=== PATIENT | female | born 1960 | race Caucasian/White ===

== ENCOUNTER 2016-11-03 18:54 | Emergency (ER) | payer SELFPAY ==
[~2016-11-03] VITALS: Ht 165.1 cm; Wt 98.0 kg
[~2016-11-03 18:54] MED LIST: BUPR150T3 PO; BUSP10 PO; FENO145T2 PO; HYDR-3535 PO; INSU100V SQ; LORA0.5T PO; NAPR500 PO; ONDA1TAB16 PO; PLAV75TA PO; PROT40TA PO; RISP2TAB2 PO; SUCR1S PO; TRAZ100 PO
[2016-11-03 18:56] VITALS: BP 170/108; PULSE 99; RESP 15; TEMP 98.2; O2SAT 98
== END 2016-11-03 21:00 | disposition left against medical advice (07) ==
LOC: NED 18:54
DX: E11.65 Type 2 diabetes mellitus with hyperglycemia (principal); Z79.4 Long term (current) use of insulin; Z53.21 Procedure and treatment not carried out due to patient leaving prior to being seen by health care provider
CPT/HCPCS: 99281

== ENCOUNTER 2016-11-08 03:48 | Emergency (ER) | payer OTHER ==
[~2016-11-08] VITALS: Ht 165.1 cm; Wt 100.0 kg
[2016-11-08 03:50] VITALS: BP 163/117; PULSE 125; RESP 24; TEMP 98; O2SAT 96
[2016-11-08 04:08] VITALS: BP 170/86; PULSE 114; RESP 18; O2SAT 98
[2016-11-08] MEDS ORDERED: INSU100V SQ (04:15)
[2016-11-08] MEDS ORDERED: SODIUM CHLOR 0.9% 1000 ML INJ 1,000 ML IV SCH (04:17)
[2016-11-08 04:19] VITALS: TEMP 99.1; O2SAT 96
[2016-11-08] MEDS ORDERED: MORPHINE SULFATE 8 MG/ML INJ IV PUSH ONE (04:30)
[2016-11-08] MEDS ORDERED: SODIUM CHLORIDE 0.9% FLUSH 10 ML FLUSH IV FLUSH PRN (04:30)
[2016-11-08] MEDS ORDERED: ONDANSETRON HCL 4 MG/2 ML VIAL IVP ONE (04:30)
[2016-11-08 04:45] LABS: AUTOMATED NEUTROPHIL # 9.2 TH/MM3 (1.8-7.7); BASOPHIL # 0.1 TH/MM3 (0-0.2); BASOPHIL % 0.9 % (0.0-2.0); EOSINOPHIL # 0.1 TH/MM3 (0-0.4); EOSINOPHIL % 1.1 % (0.0-4.0); HEMATOCRIT 48.3 % (35.0-46.0); HEMO FLAGS DIFF FINAL; LYMPH % 17.3 % (9.0-44.0); LYMPHOCYTE # 2.1 TH/MM3 (1.0-4.8); MEAN CELL VOLUME 89.5 FL (80.0-100.0); MEAN CORPUSCULAR HEMOGLOBIN 30.2 PG (27.0-34.0); MEAN CORPUSCULAR HGB CONC 33.7 % (32.0-36.0); MONO % 4.9 % (0.0-8.0); NEUT % 75.8 % (16.0-70.0); PLATELET COUNT 335 TH/MM3 (150-450); WHITE BLOOD COUNT 12.2 TH/MM3 (4.0-11.0)
[2016-11-08 05:05] LABS: ALKALINE PHOSPHATASE 85 U/L (45-117); ALT (GPT) 15 U/L (10-53); ANION GAP 12 MEQ/L (5-15); AST (GOT) 15 U/L (15-37); BICARBONATE 23.2 MEQ/L (21.0-32.0); BLOOD UREA NITROGEN 10 MG/DL (7-18); CHLORIDE 101 MEQ/L (98-107); GLOMERULAR FILTRATION RATE 84 ML/MIN (>89); POTASSIUM 3.7 MEQ/L (3.5-5.1); SODIUM (NA) 136 MEQ/L (136-145); TOTAL BILIRUBIN ADULT 0.3 MG/DL (0.2-1.0)
[2016-11-08 05:10] LABS: BLOOD, URINE MOD (NEG); COMMENT (UR) CATH-CULT NOT IND; CULTURE IF INDICATED CATH CULTURE NOT IND; GLUCOSE,URINE 1000 mg/dL (NEG); HYALINE CAST, URINE 1 /lpf (RARE); KETONE, URINE TRACE mg/dL (NEG); NITRITE,URINE NEG (NEG); PH, URINE 6.5 (5.0-8.5); SQUAMOUS EPITHELIAL CELL URINE 6 /hpf (0-5); URINE COLOR LIGHT-YELLOW (YELLW/STRAW)
[2016-11-08] MEDS ORDERED: INSULIN HUMAN REGULAR 1,000 UNITS/10 ML VIAL IV PUSH ONE (05:15)
--- NOTE | 2016-11-08 05:32 | PD ---
HPI Chief Complaint: Chest Pain Time Seen by Provider: 04:13 Travel History International Travel<30 days: No Contact w/Intl Traveler<30days: No Traveled to known affect area: No History of Present Illness HPI 56-year-old female arrives complaining of chest pain shortness of breath right flank pain. She has a history of renal stones. She's had no vomiting or diarrhea. There was minimal pain 2 days prior. No fever. Nausea reported. PFSH Past Medical History Arthritis: No Asthma: No Anxiety: Yes Depression: Yes Heart Rhythm Problems: No Cancer: No Cardiovascular Problems: Yes (STENTS X2 ) High Cholesterol: Yes Chemotherapy: No Chest Pain: No Congestive Heart Failure: No COPD: Yes Cerebrovascular Accident: No Coronary Artery Disease: Yes Diabetes: Yes (TAKES INSULIN BUT HAS NOT HAD ANY IN A COUPLE DAYS) Patient Takes Glucophage: No Diminished Hearing: No Endocrine: Yes Gastrointestinal Disorders: No GERD: No Genitourinary: No Hiatal Hernia: No Implanted Vascular Access Dvce: Yes Psychiatric: Yes Reproductive: No Respiratory: Yes (COPD) Immunizations Current: Yes Migraines: No Renal Failure: No Seizures: No Sleep Apnea: No Ulcer: Yes Menopausal: Yes Past Surgical History Abdominal Surgery: Yes (cholecystectomy) Body Medical Devices: pins in rt ankle Cardiac Surgery: Yes (stents) Cholecystectomy: Yes Coronary Stent: Yes (X2) Ear Surgery: No Endocrine Surgery: No Eye Surgery: Yes Gynecologic Surgery: Yes (hysterectomy) Hysterectomy: Yes Neurologic Surgery: No Oral Surgery: No Thoracic Surgery: No Other Surgery: Yes (RIGHT GREAT TOE AMPUTATION) Social History Alcohol Use: No (DENIES USE) Tobacco Use: Yes (1/2PPD) Substance Use: Yes (MARIJUANA) Allergies-Medications (Allergen,Severity, Reaction): Coded Allergies: Toradol (Verified Allergy, Intermediate, HEADACHE, 11/08/16) Augmentin (Verified Adverse Reaction, Intermediate, VOMITING, 11/08/16) *MDRO Multi-Drug Resistant Organism (Verified Adverse Reaction, Unknown, ) MRSA breast 2003, L axilla abscess 2002. MRSA PCR Screen negative 01/28/15. Reported Meds & Prescriptions Reported Meds & Active Scripts Active Lortab (Hydrocodone-Acetaminophen) 5-325 Mg Tab 1-2 Tab PO Q6H PRN Zofran Odt (Ondansetron Odt) 4 Mg Tab 4 Mg SL Q8HR PRN Reported Humalog Mix 75-25 Inj (Insulin Lispro Protam/Lispro Human) 1,000 Unit/10 Ml Susp 50 Units SQ AM Review of Systems Except as stated in HPI: all other systems reviewed are Neg General / Constitutional: No: Fever Cardiovascular: Positive: Chest Pain or Discomfort Gastrointestinal: Positive: Nausea, Abdominal Pain Genitourinary: Positive: Flank Pain Physical Exam Narrative GENERAL: 6-year-old female well-nourished well-developed SKIN: Focused skin assessment warm/dry. HEAD: Atraumatic. Normocephalic. EYES: Pupils equal and round. No scleral icterus. No injection or drainage. ENT: No nasal bleeding or discharge. Mucous membranes pink and moist. NECK: Trachea midline. No JVD. CARDIOVASCULAR: Regular rate and rhythm. No murmur appreciated. RESPIRATORY: No accessory muscle use. Clear to auscultation. Breath sounds equal bilaterally. GASTROINTESTINAL: Abdomen soft, non-tender, nondistended. Hepatic and splenic margins not palpable. MUSCULOSKELETAL: No obvious deformities. No clubbing. No cyanosis. No edema. NEUROLOGICAL: Awake and alert. No obvious cranial nerve deficits. Motor grossly within normal limits. Normal speech. PSYCHIATRIC: Appropriate mood and affect; insight and judgment normal. Data Data Last Documented VS Vital Signs Date Time Temp Pulse Resp B/P Pulse Ox O2 Delivery O2 Flow Rate FiO2 11/08/16 05:52 98.4 101 18 139/82 96 Room Air Vital signs reviewed Orders Complete Blood Count With Diff (11/08/16 04:17) Comprehensive Metabolic Panel (11/08/16 04:17) Lipase (11/08/16 04:17) Iv Access Insert/Monitor (11/08/16 04:17) Ecg Monitoring (11/08/16 04:17) Oximetry (11/08/16 04:17) Ondansetron Inj (Zofran Inj) (11/08/16 04:30) Sodium Chlor 0.9% 1000 Ml Inj (Ns 1000 M (11/08/16 04:17) Sodium Chloride 0.9% Flush (Ns Flush) (11/08/16 04:30) Electrocardiogram (11/08/16 04:17) Morphine Inj (Morphine Inj) (11/08/16 04:30) Urinalysis - C+S If Indicated (11/08/16 04:31) Insulin Human Regular Inj (Novolin R Inj (11/08/16 05:15) Labs Laboratory Tests Test 11/08/16 11/08/16 04:30 04:45 White Blood Count 12.2 TH/MM3 Red Blood Count 5.40 MIL/MM3 Hemoglobin 16.3 GM/DL Hematocrit 48.3 % Mean Corpuscular Volume 89.5 FL Mean Corpuscular Hemoglobin 30.2 PG Mean Corpuscular Hemoglobin 33.7 % Concent Red Cell Distribution Width 13.0 % Platelet Count 335 TH/MM3 Mean Platelet Volume 7.6 FL Neutrophils (%) (Auto) 75.8 % Lymphocytes (%) (Auto) 17.3 % Monocytes (%) (Auto) 4.9 % Eosinophils (%) (Auto) 1.1 % Basophils (%) (Auto) 0.9 % Neutrophils # (Auto) 9.2 TH/MM3 Lymphocytes # (Auto) 2.1 TH/MM3 Monocytes # (Auto) 0.6 TH/MM3 Eosinophils # (Auto) 0.1 TH/MM3 Basophils # (Auto) 0.1 TH/MM3 CBC Comment DIFF FINAL Differential Comment Sodium Level 136 MEQ/L Potassium Level 3.7 MEQ/L Chloride Level 101 MEQ/L Carbon Dioxide Level 23.2 MEQ/L Anion Gap 12 MEQ/L Blood Urea Nitrogen 10 MG/DL Creatinine 0.72 MG/DL Estimat Glomerular Filtration 84 ML/MIN Rate Random Glucose 409 MG/DL Calcium Level 9.0 MG/DL Total Bilirubin 0.3 MG/DL Aspartate Amino Transf 15 U/L (AST/SGOT) Alanine Aminotransferase 15 U/L (ALT/SGPT) Alkaline Phosphatase 85 U/L Total Protein 7.4 GM/DL Albumin 3.1 GM/DL Lipase 180 U/L Urine Color LIGHT-YELLOW Urine Turbidity CLEAR Urine pH 6.5 Urine Specific [place] 1.027 Urine Protein 100 mg/dL Urine Glucose (UA) 1000 mg/dL Urine Ketones TRACE mg/dL Urine Occult Blood MOD Urine Nitrite NEG Urine Bilirubin NEG Urine Urobilinogen LESS THAN 2.0 MG/DL Urine Leukocyte Esterase NEG Urine RBC /hpf Urine WBC 3 /hpf Urine Squamous Epithelial 6 /hpf Cells Urine Hyaline Casts 1 /lpf Microscopic Urinalysis Comment CATH-CULT NOT IND MDM Medical Decision Making Medical Screen Exam Complete: Yes Emergency Medical Condition: Yes Medical Record Reviewed: Yes Differential Diagnosis Constipation, Gastritis, Acute Cholecystitis, Biliary Colic, Pancreatitis, KITCHEN , Hepatitis, Bowel Obstruction, Cystitis, Mesenteric Ischemia, AAA, Appendicitis , Renal Stone/Hydronephrosis, GERD, perforated viscous Narrative Course EKG reveals a sinus rhythm at a rate of 96 CBC & BMP Diagram 11/08/16 04:30 LFTs are normal Lipase normal UA: Hematuria The patient is resting comfortably and feels better, is alert and in no distress. The patients results and examination findings were discussed. The repeat examination is unremarkable and benign. The history, exam, diagnostic testing, and current condition do not suggest any significant pathology to warrant further testing, continued ED treatment, admission, or surgical evaluation at this point. The vital signs have been stable. The patient does not have uncontrollable pain, intractable vomiting, or other significant symptoms. The patient's condition is stable and appropriate for discharge. The patient will pursue further outpatient evaluation with a primary care physician or other designated or consulting physician as indicated in the discharge instructions. The patient expressed understanding and was agreeable with this plan. Diagnosis Primary Impression: Hematuria Additional Impressions: Flank pain Shortness of breath Hyperglycemia Referrals: Patient Assistance Program 2 days Primary Care Physician 2 days Additional Instructions: You have a choice when it comes to health care, and we are glad that you chose [facility]. Hopefully, we have met your expectations on today's visit. You are welcome to return to [facility] at any time, as we are committed to meeting the health care needs of our community. Med/Other Pt SpecificInfo: Prescription(s) given Scripts Hydrocodone-Acetaminophen (Lortab)5-325 Mg Tab1-2 Tab PO Q6H PRN (PAIN SCALE 6 TO 10) #15 TAB Ref 0 Prov:Elier Catalan MD 11/08/16 Ondansetron Odt (Zofran Odt)4 Mg Tab4 Mg SL Q8HR PRN (Nausea/Vomiting) #15 TAB Ref 0 Prov:Elier Catalan MD 11/08/16 Disposition: 01 DISCHARGE HOME Condition: Elier Abdul MD Nov 08, 2016 05:32 Condition: Elier Abdul MD Nov 08, 2016 05:32
[2016-11-08] MEDS ORDERED: ZOFR4TAB3 SL (05:41)
[2016-11-08] MEDS ORDERED: HYDR-3533 PO (05:41)
[2016-11-08 05:52] VITALS: BP 139/82; PULSE 101; RESP 18; TEMP 98.4; O2SAT 96
--- NOTE | 2016-11-09 12:55 | EKG ---
Date Performed: 11/08/2016 Time Performed: 04:12:40 PTAGE: 56 years EKG: Sinus rhythm NORMAL ECG PREVIOUS TRACING : 11/08/2016 04.12 Compared to prior tracing no significant change DOCTOR: Mayo Perez Interpretating Date/Time 11/09/2016 12:53:08
== END 2016-11-08 06:20 | disposition home or self-care (01) ==
LOC: NEPC 03:48
DX: R06.02 Shortness of breath (principal); R10.9 Unspecified abdominal pain; R31.9 Hematuria, unspecified; E78.00 Pure hypercholesterolemia, unspecified; J44.9 Chronic obstructive pulmonary disease, unspecified; Z95.5 Presence of coronary angioplasty implant and graft; F17.210 Nicotine dependence, cigarettes, uncomplicated; F12.10 Cannabis abuse, uncomplicated; E11.65 Type 2 diabetes mellitus with hyperglycemia; Z79.4 Long term (current) use of insulin
CPT/HCPCS: 80053; 81001; 83690; 85025; 93005; 96361; 96374; 96375; 99285; J1815; J2270; J2405; J7030

== ENCOUNTER 2016-11-13 20:07 | Emergency (ER) | payer OTHER ==
[~2016-11-13] VITALS: Ht 165.1 cm; Wt 98.0 kg
[~2016-11-13 20:07] MED LIST changes: -BUPR150T3 PO; -BUSP10 PO; -FENO145T2 PO; +HYDR-3533 PO; -HYDR-3535 PO; -LORA0.5T PO; -NAPR500 PO; -ONDA1TAB16 PO; -PLAV75TA PO; -PROT40TA PO; -RISP2TAB2 PO; -SUCR1S PO; -TRAZ100 PO; +ZOFR4TAB3 SL
[2016-11-13 20:09] VITALS: BP 151/97; PULSE 106; RESP 20; TEMP 99; O2SAT 95
--- NOTE | 2016-11-13 21:56 | PD ---
HPI Chief Complaint: Skin Problem Time Seen by Provider: 21:55 Travel History International Travel<30 days: No Contact w/Intl Traveler<30days: No Traveled to known affect area: No History of Present Illness HPI 56-year-old female presents to the emergency department stating that her right foot is infected. She states that she has history of diabetes and diabetic neuropathy, but her pain has been worsening. She denies any injury. Patient states that she has pain over the entire foot that radiates up the right leg. Patient states that the infection is in her bone and you cannot see it because it is only in her bone. Patient states that she is supposed to be on insulin for diabetes, but has not taken in 2 days. She states that she is out of her medication and has no insurance or primary care physician. She states that she is working on getting disability. The patient was recently seen in the emergency department on November 08, 2016. She is found to be hyperglycemic at that time without evidence of DKA. Patient has history of right great toe amputation. PFSH Past Medical History Arthritis: No Asthma: No Anxiety: Yes Depression: Yes Heart Rhythm Problems: No Cancer: No Cardiovascular Problems: Yes (STENTx2) High Cholesterol: Yes Chemotherapy: No Chest Pain: No Congestive Heart Failure: No COPD: Yes Cerebrovascular Accident: No Coronary Artery Disease: Yes Diabetes: Yes (INSULIN DEPENDENT) Diminished Hearing: No Endocrine: Yes Gastrointestinal Disorders: No GERD: No Genitourinary: No Hiatal Hernia: No Implanted Vascular Access Dvce: Yes Psychiatric: Yes Reproductive: No Respiratory: Yes (COPD) Immunizations Current: Yes Migraines: No Renal Failure: No Seizures: No Sleep Apnea: No Ulcer: Yes Menopausal: Yes Past Surgical History Abdominal Surgery: Yes (cholecystectomy) Body Medical Devices: pins in rt ankle Cardiac Surgery: Yes (stents) Cholecystectomy: Yes Coronary Stent: Yes (X2) Ear Surgery: No Endocrine Surgery: No Eye Surgery: Yes Gynecologic Surgery: Yes (hysterectomy) Hysterectomy: Yes Neurologic Surgery: No Oral Surgery: No Thoracic Surgery: No Other Surgery: Yes (RIGHT GREAT TOE AMPUTATION) Social History Alcohol Use: No (DENIES USE) Tobacco Use: Yes (1/2PPD) Substance Use: Yes (MARIJUANA) Allergies-Medications (Allergen,Severity, Reaction): Coded Allergies: Toradol (Verified Allergy, Intermediate, HEADACHE, 11/13/16) Augmentin (Verified Adverse Reaction, Intermediate, VOMITING, 11/13/16) *MDRO Multi-Drug Resistant Organism (Verified Adverse Reaction, Unknown, ) MRSA breast 2003, L axilla abscess 2002. MRSA PCR Screen negative 01/28/15. Reported Meds & Prescriptions Reported Meds & Active Scripts Active Lortab (Hydrocodone-Acetaminophen) 5-325 Mg Tab 1-2 Tab PO Q6H PRN Zofran Odt (Ondansetron Odt) 4 Mg Tab 4 Mg SL Q8HR PRN Reported Humalog Mix 75-25 Inj (Insulin Lispro Protam/Lispro Human) 1,000 Unit/10 Ml Susp 50 Units SQ AM Review of Systems Except as stated in HPI: all other systems reviewed are Neg Physical Exam Narrative GENERAL: Well-nourished, well-developed female patient, ambulatory. Afebrile. SKIN: Focused skin assessment warm/dry. No erythema or warmth over right foot. No skin changes. No swelling. No evidence of cellulitis or infection. HEAD: Normocephalic. Atraumatic. EYES: No scleral icterus. No injection or drainage. NECK: Supple, trachea midline. No JVD or lymphadenopathy. CARDIOVASCULAR: Regular rate and rhythm without murmurs, gallops, or rubs. Right pedal pulse is 2+. Capillary refill less than 2 seconds of the digits of the right foot. RESPIRATORY: Breath sounds equal bilaterally. No accessory muscle use. Lungs sounds are clear to auscultation. GASTROINTESTINAL: Abdomen soft, non-tender, nondistended. MUSCULOSKELETAL: No cyanosis, or edema. No calf tenderness. Negative Homans sign. No swelling or erythema of right calf. Patient is s/p amputation of the right great toe. Data Data Last Documented VS Vital Signs Date Time Temp Pulse Resp B/P Pulse Ox O2 Delivery O2 Flow Rate FiO2 11/13/16 20:09 99.0 106 20 151/97 95 Room Air Orders Insulin Human Regular Inj (Novolin R Inj (11/13/16 22:00) MDM Medical Decision Making Medical Screen Exam Complete: Yes Emergency Medical Condition: Yes Medical Record Reviewed: Yes Differential Diagnosis Uncontrolled diabetes versus diabetic neuropathy versus medical clearance Narrative Course 56-year-old female presents to the emergency department stating that she has infection in her bone in her right foot. There is no evidence of cellulitis or infection on physical exam. Blood glucose is 419 on exam. Patient is given 10 units regular insulin subcutaneous. She is given information on financial assistance. She is referred to the community clinic. Patient is requesting pain medication. My attending physician, Dr. Gambino, also examine patient agrees with plan and disposition. Diagnosis Primary Impression: Diabetes mellitus Qualified Code: E11.65 - Type 2 diabetes mellitus with hyperglycemia, unspecified long term care administrator insulin use status Additional Impression: Peripheral neuropathy Qualified Code: G63 - Polyneuropathy associated with underlying disease Referrals: [facility] 2 days Patient Instructions: General Instructions, Type 2 Diabetes in Adults (ED) Additional Instructions: Follow up at the community clinic here at [facility] on Tuesday for management of your diabetes. Return to the emergency department for any acute, worsening of symptoms. Med/Other Pt SpecificInfo: No Change to Meds Disposition: 01 DISCHARGE HOME Condition: Stable SalvadorMar Nov 13, 2016 21:56
[2016-11-13] MEDS ORDERED: NAPROXEN 500 MG TAB PO ONE (22:00)
[2016-11-13] MEDS ORDERED: INSULIN HUMAN REGULAR 1,000 UNITS/10 ML VIAL SQ ONE (22:00)
--- NOTE | 2016-11-13 22:02 | PD ---
Data Data Last Documented VS Vital Signs Date Time Temp Pulse Resp B/P Pulse Ox O2 Delivery O2 Flow Rate FiO2 11/13/16 20:09 99.0 106 20 151/97 95 Room Air Orders Insulin Human Regular Inj (Novolin R Inj (11/13/16 22:00) Naproxen (Naprosyn) (11/13/16 22:00) MDM Supervised Visit with JAGDEEP: Yes Narrative Course I, Dr. Gambino, have reviewed the advance practice practioner's documentation and am in agreement, met with the patient face to face, made the diagnosis, and the medical decision making was done by me. *My assessment and Findings: 56-year-old noncompliant diabetic female here with complaint of toe pain. She has had pain on the second right toe for the last several days. Patient is concern for infection. She's previously had osteomyelitis of the great toe on that foot requiring amputation. She ran out of her insulin several days ago and her blood sugars at been running high. 400s here in the emergency department. She had laboratory workup recently that was unremarkable and I do not think this warrants any repeat. The toe is entirely unremarkable with a normal exam, good distal sensation, capillary refill. No erythema or pain with palpation. Patient does not have primary care and health insurance and was given information about patient assistance by our casey saw operator/financial counselor will be discharged with instructions to follow up to establish care in our community clinic. Clinically there is no evidence of infection my suspicion for osteomyelitis is exceedingly low and she does not warrant any further workup will be discharged home. Soni Gambino MD Nov 13, 2016 22:02
== END 2016-11-13 22:16 | disposition home or self-care (01) ==
LOC: NEPE 20:07
DX: E11.65 Type 2 diabetes mellitus with hyperglycemia (principal); G63 Polyneuropathy in diseases classified elsewhere; E78.00 Pure hypercholesterolemia, unspecified; F17.200 Nicotine dependence, unspecified, uncomplicated; Z79.4 Long term (current) use of insulin; Z86.59 Personal history of other mental and behavioral disorders; Z86.79 Personal history of other diseases of the circulatory system; Z87.09 Personal history of other diseases of the respiratory system; Z87.19 Personal history of other diseases of the digestive system
CPT/HCPCS: 96372; 99283; J1815

== ENCOUNTER 2016-12-07 20:32 | Emergency (ER) | payer OTHER ==
[~2016-12-07] VITALS: Ht 165.1 cm; Wt 115.0 kg
[~2016-12-07 20:32] MED LIST changes: -HYDR-3533 PO; -ZOFR4TAB3 SL
[2016-12-07 20:34] VITALS: BP 167/97; PULSE 108; RESP 18; TEMP 98.4; O2SAT 95
[2016-12-07] MEDS ORDERED: LISI-515 PO (21:48)
[2016-12-07] MEDS ORDERED: PANT40TA3 PO (21:48)
[2016-12-07] MEDS ORDERED: ATOR40TA16 PO (21:48)
[2016-12-07] MEDS ORDERED: SODIUM CHLOR 0.9% 1000 ML INJ 1,000 ML IV ONE ×2 (22:00→23:00)
--- NOTE | 2016-12-07 22:04 | PD ---
HPI Chief Complaint: Diabetic Time Seen by Provider: 22:02 Travel History International Travel<30 days: No Contact w/Intl Traveler<30days: No Traveled to known affect area: No History of Present Illness HPI 56-year-old female presents to the emergency department for evaluation of elevated blood sugar. Patient states she is insulin-dependent diabetic. She states she has no insurance and does not have any insulin. She has been out for 2 days. Patient reports chronic right foot pain. She also reports history of kidney stones and hematuria. Patient has been seen on multiple occasions for same issue. PFSH Past Medical History Arthritis: No Asthma: No Anxiety: Yes Depression: Yes Heart Rhythm Problems: No Cancer: No Cardiovascular Problems: Yes (STENTx2) High Cholesterol: Yes Chemotherapy: No Chest Pain: No Congestive Heart Failure: No COPD: Yes Cerebrovascular Accident: No Coronary Artery Disease: Yes Diabetes: Yes Patient Takes Glucophage: No Diminished Hearing: No Endocrine: Yes Gastrointestinal Disorders: No GERD: No Genitourinary: No Hiatal Hernia: No Hypertension: Yes Implanted Vascular Access Dvce: Yes Psychiatric: Yes Reproductive: No Respiratory: Yes (COPD) Immunizations Current: Yes Migraines: No Renal Failure: No Seizures: No Sleep Apnea: No Ulcer: Yes Tetanus Vaccination: < 5 Years Influenza Vaccination: No ?: Not Menopausal: Yes Past Surgical History Abdominal Surgery: Yes (cholecystectomy) Body Medical Devices: pins in rt ankle Cardiac Surgery: Yes (stents) Cholecystectomy: Yes Coronary Stent: Yes (X2) Ear Surgery: No Endocrine Surgery: No Eye Surgery: Yes Gynecologic Surgery: Yes (hysterectomy) Hysterectomy: Yes Neurologic Surgery: No Oral Surgery: No Thoracic Surgery: No Other Surgery: Yes (RIGHT GREAT TOE AMPUTATION) Social History Alcohol Use: No Tobacco Use: Yes Substance Use: Yes (marijuana daily) Allergies-Medications (Allergen,Severity, Reaction): Coded Allergies: Toradol (Verified Allergy, Intermediate, HEADACHE, 12/07/16) Augmentin (Verified Adverse Reaction, Intermediate, VOMITING, 12/07/16) *MDRO Multi-Drug Resistant Organism (Verified Adverse Reaction, Unknown, ) MRSA breast 2003, L axilla abscess 2002. MRSA PCR Screen negative 01/28/15. Reported Meds & Prescriptions Reported Meds & Active Scripts Active Reported Pantoprazole (Pantoprazole Sodium) 40 Mg Tab 40 Mg PO DAILY Atorvastatin (Atorvastatin Calcium) 40 Mg Tab 40 Mg PO HS Lisinopril 20 Mg Tab 20 Mg PO DAILY Humalog Mix 75-25 Inj (Insulin Lispro Protam/Lispro Human) 1,000 Unit/10 Ml Susp 50 Units SQ AM Review of Systems Except as stated in HPI: all other systems reviewed are Neg Physical Exam Narrative GENERAL: Well-nourished, well-developed female patient, ambulatory. Afebrile. SKIN: Focused skin assessment warm/dry. HEAD: Normocephalic. Atraumatic. EYES: No scleral icterus. No injection or drainage. NECK: Supple, trachea midline. No JVD or lymphadenopathy. CARDIOVASCULAR: Regular rate and rhythm without murmurs, gallops, or rubs. RESPIRATORY: Breath sounds equal bilaterally. No accessory muscle use. Lungs sounds are clear to auscultation. GASTROINTESTINAL: Abdomen soft, non-tender, nondistended. MUSCULOSKELETAL: No cyanosis, or edema. BACK: Nontender without obvious deformity. No CVA tenderness. Data Data Last Documented VS Vital Signs Date Time Temp Pulse Resp B/P Pulse Ox O2 Delivery O2 Flow Rate FiO2 12/07/16 21:38 97 Room Air 12/07/16 20:34 98.4 108 18 167/97 Orders Iv Access Insert/Monitor (12/07/16 22:00) Complete Blood Count With Diff (12/07/16 22:00) Basic Metabolic Panel (Bmp) (12/07/16 22:00) Urinalysis - C+S If Indicated (12/07/16 22:00) Sodium Chlor 0.9% 1000 Ml Inj (Ns 1000 M (12/07/16 22:00) Beta Hydroxybutyrate (Acetone) (12/07/16 22:00) Labs Laboratory Tests Test 12/07/16 12/07/16 22:05 22:15 Urine Color LIGHT-YELLOW Urine Turbidity CLEAR Urine pH 7.0 Urine Specific [place] 1.034 Urine Protein 100 mg/dL Urine Glucose (UA) 1000 mg/dL Urine Ketones NEG mg/dL Urine Occult Blood MOD Urine Nitrite NEG Urine Bilirubin NEG Urine Urobilinogen LESS THAN 2.0 MG/DL Urine Leukocyte Esterase NEG Urine RBC /hpf Urine WBC 1 /hpf Urine Squamous Epithelial 2 /hpf Cells Microscopic Urinalysis Comment CULT NOT INDICATED White Blood Count 11.4 TH/MM3 Red Blood Count 5.33 MIL/MM3 Hemoglobin 16.1 GM/DL Hematocrit 47.8 % Mean Corpuscular Volume 89.6 FL Mean Corpuscular Hemoglobin 30.1 PG Mean Corpuscular Hemoglobin 33.6 % Concent Red Cell Distribution Width 13.0 % Platelet Count 281 TH/MM3 Mean Platelet Volume 7.6 FL Neutrophils (%) (Auto) 70.7 % Lymphocytes (%) (Auto) 21.3 % Monocytes (%) (Auto) 6.0 % Eosinophils (%) (Auto) 1.0 % Basophils (%) (Auto) 1.0 % Neutrophils # (Auto) 8.0 TH/MM3 Lymphocytes # (Auto) 2.4 TH/MM3 Monocytes # (Auto) 0.7 TH/MM3 Eosinophils # (Auto) 0.1 TH/MM3 Basophils # (Auto) 0.1 TH/MM3 CBC Comment DIFF FINAL Differential Comment MDM Medical Decision Making Medical Screen Exam Complete: Yes Emergency Medical Condition: Yes Medical Record Reviewed: Yes Differential Diagnosis Hyperglycemia versus DKA versus chronic foot pain Narrative Course 56-year-old female presents to the emergency department for evaluation of hyperglycemia. Patient reports being insulin-dependent diabetic and has been off of her insulin for 2 days. CBC, BMP, beta hydroxybutyrate, UA are ordered and pending. Patient is given normal saline 1 L IV bolus. CBC was leukocytosis 11.4. UA shows moderate occult blood, no acute infection. Dr. Escobedo will resume care of patient with bmp, beta hydroxybutyrate pending. Mar Franco Dec 07, 2016 22:04
[2016-12-07 22:30] LABS: BASOPHIL # 0.1 TH/MM3 (0-0.2); EOSINOPHIL # 0.1 TH/MM3 (0-0.4); HEMATOCRIT 47.8 % (35.0-46.0); HEMO FLAGS DIFF FINAL; LYMPH % 21.3 % (9.0-44.0); LYMPHOCYTE # 2.4 TH/MM3 (1.0-4.8); MEAN CELL VOLUME 89.6 FL (80.0-100.0); MEAN CORPUSCULAR HEMOGLOBIN 30.1 PG (27.0-34.0); MEAN CORPUSCULAR HGB CONC 33.6 % (32.0-36.0); NEUT % 70.7 % (16.0-70.0); PLATELET COUNT 281 TH/MM3 (150-450); RED BLOOD COUNT 5.33 MIL/MM3 (4.00-5.30); WHITE BLOOD COUNT 11.4 TH/MM3 (4.0-11.0)
[2016-12-07 22:38] LABS: BLOOD, URINE MOD (NEG); COMMENT (UR) CULT NOT INDICATED; CULTURE IF INDICATED CULT NOT INDICATED; GLUCOSE,URINE 1000 mg/dL (NEG); KETONE, URINE NEG (NEG); NITRITE,URINE NEG (NEG); SQUAMOUS EPITHELIAL CELL URINE 2 /hpf (0-5); URINE COLOR LIGHT-YELLOW (YELLW/STRAW)
[2016-12-07 23:08] LABS: BETA-HYDROXYBUTYRATE 0.12 MMOL/L (0.00-0.39); BICARBONATE 28.5 MEQ/L (21.0-32.0); POTASSIUM 3.6 MEQ/L (3.5-5.1)
--- NOTE | 2016-12-07 23:08 | PD ---
Data Data Last Documented VS Vital Signs Date Time Temp Pulse Resp B/P Pulse Ox O2 Delivery O2 Flow Rate FiO2 12/07/16 21:38 97 Room Air 12/07/16 20:34 98.4 108 18 167/97 Orders Iv Access Insert/Monitor (12/07/16 22:00) Complete Blood Count With Diff (12/07/16 22:00) Basic Metabolic Panel (Bmp) (12/07/16 22:00) Urinalysis - C+S If Indicated (12/07/16 22:00) Sodium Chlor 0.9% 1000 Ml Inj (Ns 1000 M (12/07/16 22:00) Beta Hydroxybutyrate (Acetone) (12/07/16 22:00) Sodium Chlor 0.9% 1000 Ml Inj (Ns 1000 M (12/07/16 23:00) Blood Glucose (12/07/16 23:18) Insulin Human Regular Inj (Novolin R Inj (12/07/16 23:30) Insulin Human Regular Inj (Novolin R Inj (12/08/16 00:45) Acetaminophen (Tylenol) (12/08/16 00:45) Labs Laboratory Tests Test 12/07/16 12/07/16 22:05 22:15 Urine Color LIGHT-YELLOW Urine Turbidity CLEAR Urine pH 7.0 Urine Specific [place] 1.034 Urine Protein 100 mg/dL Urine Glucose (UA) 1000 mg/dL Urine Ketones NEG mg/dL Urine Occult Blood MOD Urine Nitrite NEG Urine Bilirubin NEG Urine Urobilinogen LESS THAN 2.0 MG/DL Urine Leukocyte Esterase NEG Urine RBC /hpf Urine WBC 1 /hpf Urine Squamous Epithelial 2 /hpf Cells Microscopic Urinalysis Comment CULT NOT INDICATED White Blood Count 11.4 TH/MM3 Red Blood Count 5.33 MIL/MM3 Hemoglobin 16.1 GM/DL Hematocrit 47.8 % Mean Corpuscular Volume 89.6 FL Mean Corpuscular Hemoglobin 30.1 PG Mean Corpuscular Hemoglobin 33.6 % Concent Red Cell Distribution Width 13.0 % Platelet Count 281 TH/MM3 Mean Platelet Volume 7.6 FL Neutrophils (%) (Auto) 70.7 % Lymphocytes (%) (Auto) 21.3 % Monocytes (%) (Auto) 6.0 % Eosinophils (%) (Auto) 1.0 % Basophils (%) (Auto) 1.0 % Neutrophils # (Auto) 8.0 TH/MM3 Lymphocytes # (Auto) 2.4 TH/MM3 Monocytes # (Auto) 0.7 TH/MM3 Eosinophils # (Auto) 0.1 TH/MM3 Basophils # (Auto) 0.1 TH/MM3 CBC Comment DIFF FINAL Differential Comment Sodium Level 137 MEQ/L Potassium Level 3.6 MEQ/L Chloride Level 99 MEQ/L Carbon Dioxide Level 28.5 MEQ/L Anion Gap 10 MEQ/L Blood Urea Nitrogen 12 MG/DL Creatinine 0.83 MG/DL Estimat Glomerular Filtration 71 ML/MIN Rate Random Glucose 438 MG/DL Calcium Level 8.9 MG/DL B-Hydroxybutyrate 0.12 MMOL/L [facility] Medical Record Reviewed: Yes Supervised Visit with JAGDEEP: No Narrative Course During the course of the patients emergency department visit, the patients history, examination, and differential diagnosis were reviewed with the patient. The patient had IV access obtained and blood work sent for analysis. The patient's case was checked out to me by Mar. Please see her complete history and physical. The patient came in with hyperglycemia related to being off of her insulin. The patient was initially provided normal saline 1 L IV fluid bolus which was repeated 1. The patients laboratory studies were reviewed and remarkable for a white count of 11.4, hemoglobin 16.1, platelets 281 with 70.7 neutrophils. The patient's blood seems to be hemoconcentrated a second liter of normal saline was ordered to be administered. BMP is remarkable for a GFR 71, glucose 438, calcium 8.9, urinalysis is remarkable for 1000 glucose, innumerable rbc's. The patient has a known history of hematuria and chronic flank pain. The patient has a retained stone in the kidney. Beta hydroxybutyrate is 0.12. The patient has no acidosis suggestive of DKA. The patient was given regular insulin 12 units subcutaneously 1. The patient's repeat blood sugar was improving. The patient was given a second dose of regular insulin 9 units subcutaneous. The patient was instructed to continue to push fluids and get plenty of rest. She was given a prescription for her insulin. She was given information regarding patient assistance for follow-up. The patient is resting comfortably and feels better, is alert and in no distress. The patients results and examination findings were discussed with the patient. The repeat examination is unremarkable and benign. The history, exam, diagnostic testing, and current condition do not suggest any significant pathology to warrant further testing, continued ED treatment, admission, or surgical evaluation at this point. The vital signs have been stable. The patient does not have uncontrollable pain, intractable vomiting, or other significant symptoms. The patient's condition is stable and appropriate for discharge. The patient will pursue further outpatient evaluation with a primary care physician or other designated or consulting physician as indicated in the discharge instructions. The patient expressed understanding and was agreeable with this plan. Diagnosis Primary Impression: Hyperglycemia Additional Impression: Noncompliance with medication regimen Referrals: [facility] 2 days Patient Assistance Program 1 day Patient Instructions: Diabetic Hyperglycemia (ED), General Instructions Med/Other Pt SpecificInfo: Prescription(s) given Scripts Insulin Lispro Protamine-Lispro 75-25 Inj (Humalog Mix 75-25 Inj)1,000 Unit/10 Ml Susp25 Units SQ DIRECTED 30 Days Ref 0 20 Units in the AM and 25 Units in the PM Prov:Ginger Escobedo MD 12/08/16 Disposition: 01 DISCHARGE HOME Condition: Stable Ginger Esocbedo MD Dec 07, 2016 23:08
[2016-12-07] MEDS ORDERED: INSULIN HUMAN REGULAR 1,000 UNITS/10 ML VIAL SQ ONE (23:30)
[2016-12-08] MEDS ORDERED: INSU100V SQ (00:17)
[2016-12-08] MEDS ORDERED: ACETAMINOPHEN 325 MG TAB PO ONE (00:45)
[2016-12-08] MEDS ORDERED: INSULIN HUMAN REGULAR 1,000 UNITS/10 ML VIAL SQ ONE (00:45)
== END 2016-12-08 01:48 | disposition home or self-care (01) ==
LOC: NEPE 20:32
DX: E11.65 Type 2 diabetes mellitus with hyperglycemia (principal); Z79.4 Long term (current) use of insulin; Z91.14 Patient's other noncompliance with medication regimen
CPT/HCPCS: 80048; 81001; 82010; 85025; 96372; 99284; J1815; J7030

== ENCOUNTER 2017-04-11 10:57 | Emergency (ER) | payer OTHER ==
[~2017-04-11 10:57] MED LIST changes: +ATOR40TA16 PO; +LISI-515 PO; +PANT40TA3 PO
[2017-04-11 10:59] VITALS: BP 171/96; PULSE 102; RESP 16; TEMP 98.4; O2SAT 99
[2017-04-11] MEDS ORDERED: NYST15T TOPICAL (12:41)
--- NOTE | 2017-04-11 12:47 | PD ---
HPI Chief Complaint: Skin Problem Time Seen by Provider: 11:38 Travel History International Travel<30 days: No Contact w/Intl Traveler<30days: No Traveled to known affect area: No History of Present Illness HPI The patient was seen and examined in the presence of the nurse. This patient complains of an irritating rash under her left breast. Duration one week. Symptoms severity is mild. No alleviating factors. PFSH Past Medical History Arthritis: No Asthma: No Anxiety: Yes Depression: Yes Heart Rhythm Problems: No Cancer: No Cardiovascular Problems: Yes (STENTx2) High Cholesterol: Yes Chemotherapy: No Chest Pain: No Congestive Heart Failure: No COPD: Yes Cerebrovascular Accident: No Coronary Artery Disease: Yes Diabetes: Yes Diminished Hearing: No Endocrine: Yes Gastrointestinal Disorders: No GERD: No Genitourinary: No Hiatal Hernia: No Hypertension: Yes Implanted Vascular Access Dvce: Yes Psychiatric: Yes Reproductive: No Respiratory: Yes (COPD) Immunizations Current: Yes Migraines: No Renal Failure: No Seizures: No Sleep Apnea: No Ulcer: Yes Menopausal: Yes Past Surgical History Abdominal Surgery: Yes (cholecystectomy) Body Medical Devices: pins in rt ankle Cardiac Surgery: Yes (stents) Cholecystectomy: Yes Coronary Stent: Yes (X2) Ear Surgery: No Endocrine Surgery: No Eye Surgery: Yes Gynecologic Surgery: Yes (hysterectomy) Hysterectomy: Yes Neurologic Surgery: No Oral Surgery: No Thoracic Surgery: No Other Surgery: Yes (RIGHT GREAT TOE AMPUTATION) Social History Alcohol Use: No Tobacco Use: Yes Substance Use: No Allergies-Medications (Allergen,Severity, Reaction): Coded Allergies: ketorolac (Unverified Allergy, Intermediate, HEADACHE, 03/29/17) amoxicillin (Unverified Adverse Reaction, Intermediate, VOMITING, 03/29/17) clavulanic acid (Unverified Adverse Reaction, Intermediate, VOMITING, 03/29) *MDRO Multi-Drug Resistant Organism (Verified Adverse Reaction, Unknown, ) MRSA breast 2003, L axilla abscess 2002. MRSA PCR Screen negative 01/28/15. Reported Meds & Prescriptions Reported Meds & Active Scripts Active Nystatin Topical (Nystatin) 100,000 unit/gm Cream 1 Applic TOPICAL BID Humalog Mix 75-25 Inj (Insulin Lispro Protam/Lispro Human) 1,000 Unit/10 Ml Susp 25 Units SQ DIRECTED 30 Days 20 Units in the AM and 25 Units in the PM Reported Pantoprazole (Pantoprazole Sodium) 40 Mg Tab 40 Mg PO DAILY Atorvastatin (Atorvastatin Calcium) 40 Mg Tab 40 Mg PO HS Lisinopril 20 Mg Tab 20 Mg PO DAILY Review of Systems General / Constitutional: No: Fever HENT: No: Headaches Cardiovascular: No: Chest Pain or Discomfort Physical Exam Narrative GASTROINTESTINAL: Abdomen soft, non-tender, nondistended. Positive bowel sounds. No hepato-splenomegaly, or palpable masses. No guarding. SKIN: Focused skin assessment reveals a macular erythematous rash on the left breast with some satellite lesions very consistent with Brinda . Skin is warm and dry. Palpation shows no induration or nodules. Data Data Last Documented VS Vital Signs Date Time Temp Pulse Resp B/P (MAP) Pulse Ox O2 Delivery O2 Flow Rate FiO2 04/11/17 10:59 98.4 102 16 171/96 (121) 99 MDM Medical Decision Making Medical Screen Exam Complete: Yes Emergency Medical Condition: Yes Medical Record Reviewed: Yes Differential Diagnosis Candidate, dermatitis, cellulitis Narrative Course I have reviewed the patient's electronic medical record. Presentation is most consistent with candidal skin infection. Nystatin prescribed Diagnosis Primary Impression: Brinda infection of flexural skin Additional Instructions: The patient was advised to follow up with their physician and return if they worsen. Med/Other Pt SpecificInfo: Prescription(s) given Scripts Nystatin Topical (Nystatin Topical) 100,000 unit/gm Cream 1 APPLIC TOPICAL BID for Infection, #30 GM 0 Refills Prov: Jake Maradiaga MD 04/11/17 Disposition: 01 DISCHARGE HOME Condition: Stable Jake Maradiaga MD Apr 11, 2017 12:47
== END 2017-04-11 12:58 | disposition home or self-care (01) ==
LOC: NEPD 10:57
DX: B37.2 Candidiasis of skin and nail (principal); Z72.0 Tobacco use
CPT/HCPCS: 99283

== ENCOUNTER 2017-06-19 06:58 | Observation (INO) | payer OTHER ==
[~2017-06-19] VITALS: Ht 165.1 cm; Wt 98.5 kg
[~2017-06-19 06:58] MED LIST changes: +NYST15T TOPICAL
[2017-06-19 07:03] VITALS: BP 175/101; PULSE 104; RESP 18; TEMP 99; O2SAT 96
[2017-06-19] MEDS ORDERED: PERC10TA27 PO (07:20)
[2017-06-19] MEDS ORDERED: INSU100V SQ ×2 (07:20)
[2017-06-19] MEDS ORDERED: TRAZ100T10 PO (07:23)
[2017-06-19 07:31] VITALS: BP 175/94; PULSE 104; RESP 17; O2SAT 97
[2017-06-19] MEDS ORDERED: AMOX875T2 PO (07:31)
[2017-06-19] MEDS ORDERED: DULO-39 PO (07:31)
[2017-06-19] MEDS ORDERED: DOXY100C PO (07:31)
[2017-06-19] MEDS ORDERED: SITA1TAB2 PO (07:31)
[2017-06-19] MEDS ORDERED: ASPI-516 CHEW (07:32)
--- NOTE | 2017-06-19 07:32 | PD ---
HPI Chief Complaint: Skin Problem Time Seen by Provider: 07:32 Travel History International Travel<30 days: No Contact w/Intl Traveler<30days: No Traveled to known affect area: No History of Present Illness HPI 57-year-old female came to the emergency room with history of a abdominal abscess that was drained 2 weeks ago in [place]. Patient says she was admitted for this abscess for 5 days at the hospital in [place]. Discharge home 1 week ago on doxycycline and Augmentin. Patient has been taking the antibiotic like she supposed to but she started having abdominal pain again. Patient is a diabetic and her blood sugar was 257 this morning. She's been taking her insulin like she supposed to. Patient was afebrile in the triage. No history of nausea vomiting. No history of constipation. She ran out of her Percocet this morning. The pain is mostly in the right lower quadrant abdominal wall with the abscess was drained. [facility] Past Medical History Narrative Medical List of her past medical, surgical, social and family history is reviewed from the nursing note. Arthritis: No Asthma: No Anxiety: Yes Depression: Yes Heart Rhythm Problems: No Cancer: No Cardiovascular Problems: Yes High Cholesterol: Yes Chemotherapy: No Chest Pain: No Congestive Heart Failure: No COPD: Yes Cerebrovascular Accident: No Coronary Artery Disease: Yes Diabetes: Yes Patient Takes Glucophage: No Diminished Hearing: No Endocrine: Yes Gastrointestinal Disorders: No GERD: Yes Genitourinary: No Hiatal Hernia: No Hypertension: Yes Implanted Vascular Access Dvce: Yes Kidney Stones: Yes Psychiatric: Yes Reproductive: No Respiratory: Yes Immunizations Current: Yes Migraines: No Renal Failure: No Seizures: No Sleep Apnea: No Ulcer: Yes Menopausal: Yes Past Surgical History Abdominal Surgery: Yes (cholecystectomy) Body Medical Devices: pins in rt ankle Cardiac Surgery: Yes (stents) Cholecystectomy: Yes Coronary Stent: Yes (X2) Ear Surgery: No Endocrine Surgery: No Eye Surgery: Yes Genitourinary Surgery: Yes (R STENT IN KIDNEY) Gynecologic Surgery: Yes (hysterectomy) Hysterectomy: Yes Neurologic Surgery: No Oral Surgery: No Thoracic Surgery: No Other Surgery: Yes (RIGHT GREAT TOE AMPUTATION) Social History Alcohol Use: No Tobacco Use: Yes Substance Use: No Allergies-Medications (Allergen,Severity, Reaction): Coded Allergies: ketorolac (Unverified Allergy, Intermediate, HEADACHE, 06/19/17) amoxicillin (Unverified Adverse Reaction, Intermediate, VOMITING, 06/19/17) clavulanic acid (Unverified Adverse Reaction, Intermediate, VOMITING, 06/19) Comments List of her allergies reviewed from the nursing note. Reported Meds & Prescriptions Reported Meds & Active Scripts Active Nystatin Topical (Nystatin) 100,000 unit/gm Cream 1 Applic TOPICAL BID Reported Aspirin 81 Mg Chew 81 Mg CHEW DAILY Januvia (Sitagliptin Phosphate) 100 Mg Tab 100 Mg PO HS Duloxetine DR (Duloxetine HCl) 40 Mg Capdr 40 Mg PO HS Trazodone (Trazodone HCl) 100 Mg Tablet 100 Mg PO HS Humalog Mix 75-25 Inj (Insulin Lispro Protam/Lispro Human) 1,000 Unit/10 Ml Susp 40 Units SQ HS Humalog Mix 75-25 Inj (Insulin Lispro Protam/Lispro Human) 1,000 Unit/10 Ml Susp 70 Units SQ DAILY Atorvastatin (Atorvastatin Calcium) 40 Mg Tab 40 Mg PO HS Lisinopril 20 Mg Tab 10 Mg PO DAILY Narrative Medication List of her home medications reviewed from the nursing note. Review of Systems Except as stated in HPI: all other systems reviewed are Neg Gastrointestinal: Positive: Abdominal Pain Physical Exam Narrative GENERAL: Awake, alert, obese, moderate distress SKIN: Focused skin assessment warm/dry. Multiple follicular abscesses on the abdominal fold around the mons pubis area. The abscess with the 1 cm opening on the right superior aspect of the mons pubis has some induration but no surrounding erythema or drainage. HEAD: Atraumatic. Normocephalic. EYES: Pupils equal and round. No scleral icterus. No injection or drainage. ENT: No nasal bleeding or discharge. Mucous membranes pink and moist. NECK: Trachea midline. No JVD. CARDIOVASCULAR: Regular rate and rhythm. No murmur appreciated. RESPIRATORY: No accessory muscle use. Clear to auscultation. Breath sounds equal bilaterally. GASTROINTESTINAL: Abdomen soft, non-tender, nondistended. Hepatic and splenic margins not palpable. MUSCULOSKELETAL: No obvious deformities. No clubbing. No cyanosis. No edema. NEUROLOGICAL: Awake and alert. No obvious cranial nerve deficits. Motor grossly within normal limits. Normal speech. PSYCHIATRIC: Appropriate mood and affect; insight and judgment normal. Data Data Last Documented VS Vital Signs Date Time Temp Pulse Resp B/P (MAP) Pulse Ox O2 Delivery O2 Flow Rate FiO2 06/19/17 07:31 104 17 175/94 (121) 97 Room Air 06/19/17 07:03 99.0 Orders Orders Complete Blood Count With Diff (06/19/17 07:39) Comprehensive Metabolic Panel (06/19/17 07:39) Lactic Acid Sepsis Protocol (06/19/17 07:39) Urinalysis - C+S If Indicated (06/19/17 07:39) Blood Culture (06/19/17 07:39) Blood Glucose (06/19/17 07:39) Ecg Monitoring (06/19/17 07:39) Iv Access Insert/Monitor (06/19/17 07:39) Oximetry (06/19/17 07:39) Oxygen Administration (06/19/17 07:39) Sodium Chlor 0.9% 1000 Ml Inj (Ns 1000 M (06/19/17 07:45) Sodium Chlor 0.9% 1000 Ml Inj (Ns 1000 M (06/19/17 07:45) Enteric Path (Stool) (06/19/17 07:39) C Diff Toxin Pcr (06/19/17 07:39) Ondansetron Odt (Zofran Odt) (06/19/17 07:45) Acetamin-Hydrocod 325-5 Mg ([place] 5-325 (06/19/17 07:45) Urine Culture (06/19/17 08:00) Potassium Chloride (Kcl) (06/19/17 09:15) Ct Abd/Pel W Iv Contrast(Rout) (06/19/17 ) Piperacil-Tazo 4.5 Gm Premix (Zosyn 4.5 (06/19/17 09:15) Vancomycin Inj (Vancomycin Inj) (06/19/17 09:15) Iohexol 350 Inj (Omnipaque 350 Inj) (06/19/17 09:30) Admit Order (Ed Use Only) (06/19/17 10:17) Labs Laboratory Tests Test 06/19/17 07:50 06/19/17 07:52 06/19/17 08:00 White Blood Count 9.9 TH/MM3 Red Blood Count 4.59 MIL/MM3 Hemoglobin 14.2 GM/DL Hematocrit 41.8 % Mean Corpuscular Volume 90.9 FL Mean Corpuscular Hemoglobin 31.0 PG Mean Corpuscular Hemoglobin Concent 34.1 % Red Cell Distribution Width 12.7 % Platelet Count 362 TH/MM3 Mean Platelet Volume 6.9 FL Neutrophils (%) (Auto) 72.1 % Lymphocytes (%) (Auto) 21.8 % Monocytes (%) (Auto) 4.2 % Eosinophils (%) (Auto) 1.3 % Basophils (%) (Auto) 0.6 % Neutrophils # (Auto) 7.2 TH/MM3 Lymphocytes # (Auto) 2.2 TH/MM3 Monocytes # (Auto) 0.4 TH/MM3 Eosinophils # (Auto) 0.1 TH/MM3 Basophils # (Auto) 0.1 TH/MM3 CBC Comment DIFF FINAL Differential Comment Blood Urea Nitrogen 10 MG/DL Creatinine 0.70 MG/DL Random Glucose 241 MG/DL Total Protein 7.8 GM/DL Albumin 3.0 GM/DL Calcium Level 8.5 MG/DL Alkaline Phosphatase 79 U/L Aspartate Amino Transf (AST/SGOT) 15 U/L Alanine Aminotransferase (ALT/SGPT) 21 U/L Total Bilirubin 0.3 MG/DL Sodium Level 139 MEQ/L Potassium Level 3.1 MEQ/L Chloride Level 102 MEQ/L Carbon Dioxide Level 26.7 MEQ/L Anion Gap 10 MEQ/L Estimat Glomerular Filtration Rate 86 ML/MIN Total Creatine Kinase 50 U/L Troponin I 0.04 NG/ML Lactic Acid Level 2.6 mmol/L Urine Color YELLOW Urine Turbidity CLEAR Urine pH 7.0 Urine Specific [place] 1.016 Urine Protein 300 mg/dL Urine Glucose (UA) 1000 mg/dL Urine Ketones NEG mg/dL Urine Occult Blood LARGE Urine Nitrite NEG Urine Bilirubin NEG Urine Urobilinogen LESS THAN 2.0 MG/DL Urine Leukocyte Esterase NEG Urine RBC /hpf Urine WBC 2 /hpf Urine Squamous Epithelial Cells 1 /hpf Urine Bacteria OCC /hpf Microscopic Urinalysis Comment CATH-CULTURE IND MDM Medical Decision Making Medical Screen Exam Complete: Yes Emergency Medical Condition: Yes Medical Record Reviewed: Yes Differential Diagnosis Sepsis, healing abscess, electrolyte abnormalities, DKA Narrative Course 10:53 AM blood test results are back. Patient's lactic acid is elevated. She was given a dose of Zosyn and vancomycin. Given the recent event of her hospitalization due to the abscess and patient being diabetic I decided to admit her at least for observation which would allow the lactic acid to be repeated as well as blood cultures to be observed while patient gets antibiotic. I spoke with the hospitalist who has accepted the case. Procedures EKG Prior to Arrival: No Diagnosis Primary Impression: Folliculitis Additional Impression: Lactic acidosis Admitting Information Admitting Physician Requests: Observation Scripts Doxycycline Hyclate (Doxycycline Hyclate) 100 Mg Cap 100 MG PO BID for Infection, #60 CAP 0 Refills Prov: Sue Ponce MD 06/22/17 Oxycodone-Acetaminophen (Percocet) 10-325 mg Tab 1 TAB PO Q6H Y for PAIN, #20 TAB 0 Refills Prov: Sue Ponce MD 06/22/17 Pantoprazole (Pantoprazole) 40 Mg Tab 40 MG PO DAILY for Reflux, #30 TAB 0 Refills Prov: Sue Ponce MD 06/22/17 Hilario Heredia MD Jun 19, 2017 07:32
[2017-06-19] MEDS ORDERED: ONDANSETRON ODT 4 MG TAB PO ONE (07:45)
[2017-06-19] MEDS ORDERED: SODIUM CHLOR 0.9% 1000 ML INJ 1,000 ML IV ONE ×2 (07:45)
[2017-06-19] MEDS ORDERED: ACETAMINOPHEN/HYDROcodone 325 MG/5 MG TAB PO ONE (07:45)
[2017-06-19 08:17] LABS: AUTOMATED NEUTROPHIL # 7.2 TH/MM3 (1.8-7.7); BASOPHIL # 0.1 TH/MM3 (0-0.2); BASOPHIL % 0.6 % (0.0-2.0); EOSINOPHIL # 0.1 TH/MM3 (0-0.4); EOSINOPHIL % 1.3 % (0.0-4.0); HEMATOCRIT 41.8 % (35.0-46.0); HEMO FLAGS DIFF FINAL; LYMPH % 21.8 % (9.0-44.0); LYMPHOCYTE # 2.2 TH/MM3 (1.0-4.8); MEAN CELL VOLUME 90.9 FL (80.0-100.0); MEAN CORPUSCULAR HGB CONC 34.1 % (32.0-36.0); MONO % 4.2 % (0.0-8.0); NEUT % 72.1 % (16.0-70.0); PLATELET COUNT 362 TH/MM3 (150-450); RED BLOOD COUNT 4.59 MIL/MM3 (4.00-5.30); RED CELL DISTRIBUTION WIDTH 12.7 % (11.6-17.2); WHITE BLOOD COUNT 9.9 TH/MM3 (4.0-11.0)
[2017-06-19 08:26] LABS: BACTERIA, URINE OCC /hpf; BLOOD, URINE LARGE (NEG); GLUCOSE,URINE 1000 mg/dL (NEG); KETONE, URINE NEG (NEG); NITRITE,URINE NEG (NEG); SQUAMOUS EPITHELIAL CELL URINE 1 /hpf (0-5); URINE COLOR YELLOW (YELLW/STRAW)
[2017-06-19 08:27] LABS: COMMENT (UR) CATH-CULTURE IND; CULTURE IF INDICATED CATH CULTURE IND
[2017-06-19 08:39] LABS: ALT (GPT) 21 U/L (10-53); ANION GAP 10 MEQ/L (5-15); AST (GOT) 15 U/L (15-37); BICARBONATE 26.7 MEQ/L (21.0-32.0); BLOOD UREA NITROGEN 10 MG/DL (7-18); CHLORIDE 102 MEQ/L (98-107); GLOMERULAR FILTRATION RATE 86 ML/MIN (>89); POTASSIUM 3.1 MEQ/L (3.5-5.1); SODIUM (NA) 139 MEQ/L (136-145)
[2017-06-19 08:41] LABS: ALKALINE PHOSPHATASE 79 U/L (45-117); TOTAL BILIRUBIN ADULT 0.3 MG/DL (0.2-1.0)
[2017-06-19] MEDS ORDERED: POTASSIUM CHLORIDE 20 MEQ CONTROLLED RELEASE TAB PO ONE ×2 (09:15→11:15)
[2017-06-19] MEDS ORDERED: PIPERACIL-TAZO 4.5 GM PREMIX 100 ML IV ONE (09:15)
[2017-06-19] MEDS ORDERED: VANCOMYCIN INJ 1,000 MG in SODIUM CHLOR 0.9% 250 ML INJ 250 ML IV SCH (09:15)
[2017-06-19] MEDS ORDERED: IOHEXOL 350 MG/ML 10 ML VIAL (for RAD DIAG) IVCONTRAST ONE (09:30)
--- NOTE | 2017-06-19 09:49 | RADRPT ---
EXAM DATE/TIME: 06/19/2017 09:32 [place] COMPARISON: No previous studies available for comparison. INDICATIONS : Lower abdomen pain today. IV CONTRAST: 97 cc Omnipaque 350 (iohexol) IV ORAL CONTRAST: No oral contrast ingested. RADIATION DOSE: 16.20 CTDIvol (mGy) MEDICAL HISTORY : Chronic obstructive pulmonary disease. Cardiovascular disease Renal calculi. SURGICAL HISTORY : Hysterectomy. Cholecystectomy. ENCOUNTER: Initial ACUITY: 1 day PAIN SCALE: 7/10 LOCATION: Bilateral lower quadrant TECHNIQUE: Volumetric scanning of the abdomen and pelvis was performed. Using automated exposure control and ad justment of the mA and/or kV according to patient size, radiation dose was kept as low as reasonably achievable to obtain optimal diagnostic quality images. DICOM format image data is available electro nically for review and comparison. FINDINGS: LOWER LUNGS: The visualized lower lungs are clear. LIVER: Homogeneous density without lesion. There is no dilation of the biliary tree. Status post cholecyste ctomy. SPLEEN: Normal size without lesion. PANCREAS: Within normal limits. KIDNEYS: Normal in size and shape. There is no mass, stone or hydronephrosis. ADRENAL GLANDS: The left internal gland remains mildly hyperplastic. VASCULAR: There is no aortic aneurysm. BOWEL/MESENTERY: The stomach, small bowel, and colon demonstrate no acute abnormality. There is no free intraperitone al air or fluid. ABDOMINAL WALL: Within normal limits. RETROPERITONEUM: There is no lymphadenopathy. BLADDER: No wall thickening or mass. REPRODUCTIVE: Within normal limits. INGUINAL: There is no lymphadenopathy or hernia. MUSCULOSKELETAL: Within normal limits for patient age. CONCLUSION: Mild hyperplasia of the left adrenal gland. Clips suggest cholecystectomy. No etiology for abdominal pain is identified. Corbin Zee MD on June 19, 2017 at 9:44 Board Certified Radiologist. This report was verified electronically.
[2017-06-19 10:05] LABS: LACTIC ACID GHOST NOT REPORTABLE
[2017-06-19] MEDS ORDERED: GLUCAGON 1 MG/ML VIAL OTHER PRN (10:30)
[2017-06-19] MEDS ORDERED: ONDANSETRON HCL 4 MG/2 ML VIAL IVP PRN (10:30)
[2017-06-19] MEDS ORDERED: LACTULOSE SYRUP 20 GM/30 ML CUP PO PRN (10:30)
[2017-06-19] MEDS ORDERED: VANCOMYCIN INJ 1,250 MG in SODIUM CHLOR 0.9% 250 ML INJ 250 ML IV SCH (10:30)
[2017-06-19] MEDS ORDERED: MAGNESIUM HYDROXIDE SUSP 30 ML CUP PO PRN (10:30)
[2017-06-19] MEDS ORDERED: NALOXONE HCL 0.4 MG/ML AMP IV PUSH PRN (10:30)
[2017-06-19] MEDS ORDERED: DEXTROSE 50% IN WATER 50 ML VIAL(D50) IV PUSH PRN (10:30)
[2017-06-19] MEDS ORDERED: BISACODYL 10 MG SUPP RECTAL PRN (10:30)
[2017-06-19] MEDS ORDERED: SENNOSIDES 8.6 MG TAB PO PRN (10:30)
[2017-06-19] MEDS ORDERED: SODIUM CHLORIDE 0.9% FLUSH 10 ML FLUSH IV FLUSH PRN (10:30)
[2017-06-19] MEDS ORDERED: PIPERACIL-TAZO 3.375 GM PREMIX 50 ML IV SCH (10:30)
--- NOTE | 2017-06-19 10:39 | HHI.HP ---
HPI Service [facility] Primary Care Physician Unknown Admission Diagnosis lactic acidosis, abscess, hyperglycemia Diagnoses: Travel History International Travel<30 Days: No Contact w/Intl Traveler <30 Da: No Traveled to Known Affected Are: No History of Present Illness Patient is a 67-year-old female with past medical history of hyperlipidemia, hypertension, CAD, depression, GERD, diabetes, and bleeding ulcer disease presents to the emergency room with complaint of lower abdominal pain which started on Tuesday. She states that she came back home from [place] and however while she was in [place] she developed an abscess in her suprapubic area which required to I&D's and 5 days in the hospital for IV antibiotics. She was discharged home on Doxey and Augmentin for 2 weeks. She has been taking her medicine as instructed. However, on Tuesday she started experiencing loose stools 4-5 times a day and crampy abdominal pains. She attributed to stools to the antibiotic use and didn't think much of it. Today the pain got worse and decided to come to the emergency room. She admits to nausea and vomiting. Currently she hasn't been vomiting however last night she did. She admits to some chest pains last night in the mid chest however she feels that it 's due to her throwing up. She doesn't think it's heart related. She denies any coughing, runny nose, watery eyes, she doesn't complain of any burning with urination or increased urinary frequency. She is more concerned about the lower quadrant abdominal pain which she rates a 9 out of 10 and states that the Lortab as given to the emergency room helped just a bit and did not really take the pain away. She describes her loose stools as mucousy green and coffee ground. She denies any overt blood Review of Systems Except as stated in HPI: all other systems reviewed are Neg Past Family Social History Past Medical History Hyperlipidemia, hypertension, CAD, depression, GERD, diabetes, bleeding ulcer disease Past Surgical History Cholecystectomy, hysterectomy, right great toe amputation, right ankle surgery Reported Medications Reported Meds & Active Scripts Active Nystatin Topical (Nystatin) 100,000 unit/gm Cream 1 Applic TOPICAL BID Reported Aspirin 81 Mg Chew 81 Mg CHEW DAILY Januvia (Sitagliptin Phosphate) 100 Mg Tab 100 Mg PO HS Duloxetine DR (Duloxetine HCl) 40 Mg Capdr 40 Mg PO HS Doxycycline Hyclate 100 Mg Cap 100 Mg PO BID Amoxicillin-Clavulanate 875-125 mg Tab 875 Mg PO BID not for use in CrCl <30 mL/minute Trazodone (Trazodone HCl) 100 Mg Tablet 100 Mg PO HS Percocet (Oxycodone-Acetaminophen) 10-325 mg Tab 1 Tab PO Q6H PRN Humalog Mix 75-25 Inj (Insulin Lispro Protam/Lispro Human) 1,000 Unit/10 Ml Susp 40 Units SQ HS Humalog Mix 75-25 Inj (Insulin Lispro Protam/Lispro Human) 1,000 Unit/10 Ml Susp 70 Units SQ DAILY Pantoprazole (Pantoprazole Sodium) 40 Mg Tab 40 Mg PO DAILY Atorvastatin (Atorvastatin Calcium) 40 Mg Tab 40 Mg PO HS Lisinopril 20 Mg Tab 10 Mg PO DAILY Allergies: Coded Allergies: ketorolac (Unverified Allergy, Intermediate, HEADACHE, 06/19/17) amoxicillin (Unverified Adverse Reaction, Intermediate, VOMITING, 06/19/17) clavulanic acid (Unverified Adverse Reaction, Intermediate, VOMITING, 06/19) *MDRO Multi-Drug Resistant Organism (Verified Adverse Reaction, Unknown, 06/19/17) MRSA breast 2003, L axilla abscess 2002. MRSA PCR Screen negative 01/28/15. Family History Mother of bladder cancer, father from "all kinds of cancer", brother had lung cancer Social History Smokes half a pack every 2 day, trying to quit, has been smoking since age 11 Denies alcohol use, denies illegal drug use Physical Exam Vital Signs Vital Signs Date Time Temp Pulse Resp B/P (MAP) Pulse Ox O2 Delivery O2 Flow Rate FiO2 06/19/17 07:31 104 17 175/94 (121) 97 Room Air 06/19/17 07:03 99.0 104 18 175/101 (125) 96 Physical Exam GENERAL: This is a well-nourished, well-developed patient, in no apparent distress. SKIN: No rashes, ecchymoses or lesions. Cool and dry. HEAD: Atraumatic. Normocephalic. No temporal or scalp tenderness. EYES: Pupils equal round and reactive. Extraocular motions intact. No scleral icterus. No injection or drainage. ENT: Nose without drainage. Throat without erythema, tonsillar hypertrophy or exudate. Uvula midline. Airway patent. NECK: Trachea midline.Supple, nontender, no meningeal signs. CARDIOVASCULAR: Regular rate and rhythm without murmurs RESPIRATORY: Clear to auscultation. Breath sounds equal bilaterally. No wheezes GASTROINTESTINAL: Abdomen soft, tender in the lower quadrants bilaterally with no guarding or rebound, nondistended. Well-healed scar noted. There is an open small incision with no drainage in the suprapubic area, no erythema and healing well. MUSCULOSKELETAL: Extremities without edema. No joint tenderness, effusion, or edema noted. No calf tenderness. Negative Homans sign bilaterally. NEUROLOGICAL: Awake and alert. Cranial nerves II through XII intact. Motor and sensory grossly within normal limits. Five out of 5 muscle strength in all muscle groups. Normal speech. Laboratory Laboratory Tests Test 06/19/17 07:50 06/19/17 07:52 06/19/17 08:00 White Blood Count 9.9 Red Blood Count 4.59 Hemoglobin 14.2 Hematocrit 41.8 Mean Corpuscular Volume 90.9 Mean Corpuscular Hemoglobin 31.0 Mean Corpuscular Hemoglobin Concent 34.1 Red Cell Distribution Width 12.7 Platelet Count 362 Mean Platelet Volume 6.9 Neutrophils (%) (Auto) 72.1 Lymphocytes (%) (Auto) 21.8 Monocytes (%) (Auto) 4.2 Eosinophils (%) (Auto) 1.3 Basophils (%) (Auto) 0.6 Neutrophils # (Auto) 7.2 Lymphocytes # (Auto) 2.2 Monocytes # (Auto) 0.4 Eosinophils # (Auto) 0.1 Basophils # (Auto) 0.1 CBC Comment DIFF FINAL Differential Comment Blood Urea Nitrogen 10 Creatinine 0.70 Random Glucose 241 Total Protein 7.8 Albumin 3.0 Calcium Level 8.5 Alkaline Phosphatase 79 Aspartate Amino Transf (AST/SGOT) 15 Alanine Aminotransferase (ALT/SGPT) 21 Total Bilirubin 0.3 Sodium Level 139 Potassium Level 3.1 Chloride Level 102 Carbon Dioxide Level 26.7 Anion Gap 10 Estimat Glomerular Filtration Rate 86 Lactic Acid Level 2.6 Urine Color YELLOW Urine Turbidity CLEAR Urine pH 7.0 Urine Specific [place] 1.016 Urine Protein 300 Urine Glucose (UA) 1000 Urine Ketones NEG Urine Occult Blood LARGE Urine Nitrite NEG Urine Bilirubin NEG Urine Urobilinogen LESS THAN 2.0 Urine Leukocyte Esterase NEG Urine RBC Urine WBC 2 Urine Squamous Epithelial Cells 1 Urine Bacteria OCC Microscopic Urinalysis Comment CATH-CULTURE IND Date/Time Source Procedure Growth Status 06/19/17 07:52 Blood Peripheral Aerobic Blood Culture Pending Received 06/19/17 07:52 Blood Peripheral Anaerobic Blood Culture Pending Received 06/19/17 08:00 Urine Catheterized Urine Urine Culture Pending Received Result Diagram: 06/19/17 0750 06/19/17 0750 Imaging Last Impressions Abdomen/Pelvis CT 06/19/17 0000 Signed Impressions: Service Date/Time: Monday, June 19, 2017 09:32 - CONCLUSION: Mild hyperplasia of the left adrenal gland. Clips suggest cholecystectomy. No etiology for abdominal pain is identified. MD Kristen Santamaria VTE Risk Assessment Caprini VTE Risk Assessment: Mod/High Risk (score >= 2) Caprini Risk Assessment Model Point Value = 1 Point Value = 2 Point Value = 3 Point Value = 5 Age 41-60 Minor surgery BMI > 25 kg/m2 Swollen legs Varicose veins or History of unexplained or recurrent spontaneous Oral contraceptives or hormone replacement Sepsis (< 1 month) Serious lung disease, including pneumonia (< 1 month) Abnormal pulmonary function Acute myocardial infarction Congestive heart failure (< 1 month) History of inflammatory bowel disease Medical patient at bed rest Age 61-74 Arthroscopic surgery Major open surgery (> 45 min) Laparoscopic surgery (> 45 min) Malignancy Confined to bed (> 72 hours) Immobilizing plaster cast Central venous access Age >= 75 History of VTE Family history of VTE Factor V Leiden Prothrombin [id number] Lupus anticoagulant Anticardiolipin antibodies Elevated serum homocysteine Heparin-induced thrombocytopenia Other congenital or acquired thrombophilia Stroke (< 1 month) Elective arthroplasty Hip, pelvis, or leg fracture Acute spinal cord injury (< 1 month) Prophylaxis Regimen Total Risk Factor Score Risk Level Prophylaxis Regimen 0-1 Low Early ambulation 2 Moderate Order ONE of the following: *Sequential Compression Device (SCD) *Heparin 5000 units SQ BID 3-4 Higher Order ONE of the following medications: *Heparin 5000 units SQ TID *Enoxaparin/Lovenox 40 mg SQ daily (WT < 150 kg, CrCl > 30 mL/min) *Enoxaparin/Lovenox 30 mg SQ daily (WT < 150 kg, CrCl > 10-29 mL/min) *Enoxaparin/Lovenox 30 mg SQ BID (WT < 150 kg, CrCl > 30 mL/min) AND/OR *Sequential Compression Device (SCD) 5 or more Highest Order ONE of the following medications: *Heparin 5000 units SQ TID (Preferred with Epidurals) *Enoxaparin/Lovenox 40 mg SQ daily (WT < 150 kg, CrCl > 30 mL/min) *Enoxaparin/Lovenox 30 mg SQ daily (WT < 150 kg, CrCl > 10-29 mL/min) *Enoxaparin/Lovenox 30 mg SQ BID (WT < 150 kg, CrCl > 30 mL/min) AND *Sequential Compression Device (SCD) Assessment and Plan Assessment and Plan Abdominal pain/diarrhea: Patient presenting with abdominal pain 9 out of 10 since Tuesday with multiple loose stools. CT abdomen with no contrast did not really show any acute process. Unsure what the etiology is however patient has been having loose stools since Tuesday is about 4-5 times a day. Stool studies and C. difficile (as she is high risk) has been ordered. Hemoccult also has been ordered. We'll consult GI for further recommendations and evaluation. Add Lactinex as patient has been on antibiotics. Pain control with Percocet as needed. Pt may need CT w IV contrast. Elevated lactic acid: Lactic acid found to be 2.6. This could be related to dehydration as patient has been having 4-5 loose stools a day since Tuesday. Patient does not have any leukocytosis and denies any fevers or chills. She received a dose of vancomycin and Zosyn in the emergency room. In the setting of loose stools I will hold off on treating her with more antibiotics. f/u C. difficile results. Follow-up blood cultures and urine cultures. Will consult infectious disease for further recommendation as to whether she should continue her antibiotics. Her wound does look like it's healing well and does not look infected. Urinalysis abnormal: f/u urine cx. Pt is asymptomatic other and does complain of lower quadrant abdominal pain. Diabetes: Resume her home medication, cover with low-dose sliding scale and monitor blood sugars. High blood pressure: resume home meds. Somewhat elevated. Monitor and titrate medications as needed. Vasotec as needed Other chronic conditions: stable. resume home meds DVT proph: lovenox. Code Status She wishes to be DNR. Discussed Condition With ER physician, patient Sue Ponce MD Jun 19, 2017 10:39
[2017-06-19] MEDS ORDERED: ACETAMINOPHEN/HYDROcodone 325 MG/7.5 MG TAB PO PRN (11:00)
[2017-06-19] MEDS ORDERED: ACETAMINOPHEN/HYDROcodone 325 MG/10 MG TAB PO PRN (11:00)
[2017-06-19] MEDS ORDERED: ENALAPRILAT 1.25 MG/ML VIAL IV PUSH PRN (11:00)
[2017-06-19] MEDS ORDERED: MORPHINE SULFATE 2 MG/ML INJ IM PRN (11:15)
[2017-06-19] MEDS ORDERED: NITROGLYCERIN 2% OINT 1 GM PACKET TOPICAL PRN (11:15)
[2017-06-19] MEDS: INSULIN ASPART SUPPLEMENTAL SCALE SQ SCH ×3 (12:00→21:05)
[2017-06-19] MEDS: ENOXAPARIN SODIUM 40 MG/0.4 ML SYRINGE SQ SCH (13:00)
[2017-06-19] MEDS: LACTOBACILLUS ACIDOPHILUS 1 GM PACKET PO SCH ×2 (13:00→18:41)
[2017-06-19 13:32] VITALS: BP 148/60; PULSE 68; RESP 20; TEMP 97.9; O2SAT 96
[2017-06-19] MEDS: LISINOPRIL 10 MG TAB PO SCH (14:54)
--- NOTE | 2017-06-19 16:19 | PD.CONS ---
HPI History of Present Illness This is a 57 year old female who presented to the ED with c/o lower abdominal pain that started on Tuesday. Reports she has also had loose stools, 4-5 times a day, since Tuesday. Denies blood in stool, but does reports she has noted a white film type discharge in stool. Patient reports that she was recently hospitalized in [place] last week for abscess in her suprapubic area, she is s/p I&D and IV antibiotics (5 day course in hospital). She was discharged home on Doxycycline and Augmentin for 2 weeks. She is taking her medication as prescribed. One episode of N/V last night. Never had colonoscopy of EGD. PMH significant for HLD, HTN, CAD, depression, GERD, diabetes, and bleeding ulcers. (Do Eckert) PFSH Past Medical History Hyperlipidemia Hypertension CAD Depression GERD Diabetes Bleeding ulcers Past Surgical History Cholecystectomy Hysterectomy Right great toe amputation Right ankle surgery (Do Eckert) Coded Allergies: ketorolac (Unverified Allergy, Intermediate, HEADACHE, 06/19/17) amoxicillin (Unverified Adverse Reaction, Intermediate, VOMITING, 06/19/17) clavulanic acid (Unverified Adverse Reaction, Intermediate, VOMITING, 06/19) *MDRO Multi-Drug Resistant Organism (Verified Adverse Reaction, Unknown, 06/19/17) MRSA breast 2003, L axilla abscess 2002. MRSA PCR Screen negative 01/28/15. 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 06/19/17 09:15 06/22/17 09:14 Sodium Chloride (NS Flush) 2 ml UNSCH PRN IV FLUSH FLUSH AFTER USING IV ACCESS 06/19/17 10:30 Sodium Chloride (NS Flush) 2 ml BID IV FLUSH 06/19/17 21:00 Ondansetron HCl (Zofran Inj) 4 mg Q6H PRN IVP NAUSEA OR VOMITING 06/19/17 10:30 Naloxone HCl (Narcan Inj) 0.4 mg UNSCH PRN IV PUSH SEE LABEL COMMENTS 06/19/17 10:30 Senna/Docusate Sodium (Yudelka-Colace) 1 tab BID PO 06/19/17 21:00 Magnesium Hydroxide (Milk Of Magnesia Liq) 30 ml Q12H PRN PO Mild constipation 06/19/17 10:30 Bisacodyl (Dulcolax Supp) 10 mg DAILY PRN RECTAL SEVERE CONSITIPATION 06/19/17 10:30 Lactulose (Lactulose Liq) 30 ml DAILY PRN PO SEVERE CONSITIPATION 06/19/17 10:30 Dextrose (D50w (Vial) Inj) 50 ml UNSCH PRN IV PUSH HYPOGLYCEMIA-SEE COMMENTS 06/19/17 10:30 Glucagon (Glucagon Inj) 1 mg UNSCH PRN OTHER HYPOGLYCEMIA-SEE COMMENTS 06/19/17 10:30 Insulin Aspart (NovoLOG SUPPLEMENTAL SCALE) 1 ACHS SLIDING SCALE SQ 06/19/17 12:00 Lactobacillus Acidophilus (Lactinex Pkt) 1 gm TID PO 06/19/17 13:00 Aspirin (Aspirin Chew) 81 mg DAILY CHEW 06/20/17 09:00 Atorvastatin Calcium (Lipitor) 40 mg HS PO 06/19/17 21:00 Duloxetine HCl (Cymbalta Dr) 40 mg HS PO 06/19/17 21:00 Lisinopril (Prinivil) 10 mg DAILY PO 06/19/17 13:00 06/19/17 14:54 Pantoprazole Sodium (Protonix) 40 mg DAILY PO 06/20/17 09:00 Insulin Aspart Prota 70%/Aspart 30% (NovoLOG MIX 70/ 30 INJ) 40 units DAILY@1700 SQ 06/19/17 17:00 Insulin Aspart Prota 70%/Aspart 30% (NovoLOG MIX 70/ 30 INJ) 70 units DAILY@0800 SQ 06/20/17 08:00 Enalaprilat (Vasotec Inj) 1.25 mg Q6H PRN IV PUSH SBP>160, DBP>90 06/19/17 11:00 Enoxaparin Sodium (Lovenox Inj) 40 mg Q24H SQ 06/19/17 13:00 06/19/17 13:00 Nitroglycerin (Nitroglycerin 2% Oint) 0.5 inch Q6HR PRN TOPICAL CHEST PAIN 06/19/17 11:15 Morphine Sulfate (Morphine Inj) 1 mg Q4H PRN IV BREAKTHROUGH PAIN/chest pain 06/19/17 19:15 Oxycodone/ Acetaminophen (Percocet 7.5-325 Mg) 1 tab Q4H PRN PO PAIN SCALE 3 TO 6 06/19/17 15:45 Oxycodone/ Acetaminophen (Percocet 10-325 Mg) 1 tab Q4H PRN PO PAIN SCALE 7 TO 10 06/19/17 15:45 Family History Mother, of bladder cancer Father, from "all kinds of cancer" Brother, had lung cancer Social History Tobacco, 1/2 pack every 2 days, since 11 years of age ETOH, denies Illicit Drugs, denies (Do Eckert) Review of Systems Constitutional: DENIES: Diaphoretic episodes, Fatigue, Fever, Weight gain, Weight loss, Chills, Dizziness, Change in appetite, Night Sweats Endocrine: DENIES: Polydipsia, Polyuria Eyes: DENIES: Blurred vision, Photosensitivity, Double Vision Ears, nose, mouth, throat: DENIES: Hearing loss, Vertigo, Oral lesions, Throat pain, Hoarseness Respiratory: DENIES: Cough, Wheezing, Hemoptysis, Sputum production, Shortness of breath Cardiovascular: DENIES: Chest pain, Palpitations, Syncope, Lower Extremity Edema, Orthopnea, Claudication Gastrointestinal: COMPLAINS OF: Abdominal pain, Diarrhea, Nausea, Vomiting, DENIES: Black stools, Bloody stools, Constipation, Difficulty Swallowing, Anorexia, Odynophagia, Swelling of Abdomen, Heartburn, Hematemesis Genitourinary: DENIES: Urinary frequency, Urinary incontinence, Urgency, Hematuria, Dysuria, Nocturia Musculoskeletal: DENIES: Joint pain, Muscle aches, Stiffness, Joint Swelling, Back pain, Neck pain Hematologic/lymphatic: DENIES: Bruising, Lymphadenopathy Immunologic/allergic: DENIES: Eczema, Urticaria Neurologic: DENIES: Abnormal gait, Headache, Localized weakness, Paresthesias Psychiatric: DENIES: Anxiety, Confusion, Mood changes, Depression, Agitation, Suicidal Ideation (Do Eckert) GI Exam Vitals I&O Vital Signs Date Time Temp Pulse Resp B/P (MAP) Pulse Ox O2 Delivery O2 Flow Rate FiO2 06/19/17 14:43 20 06/19/17 13:32 97.9 68 20 148/60 (89) 96 06/19/17 13:16 06/19/17 12:53 16 06/19/17 12:53 16 06/19/17 07:31 104 17 175/94 (121) 97 Room Air 06/19/17 07:03 99.0 104 18 175/101 (125) 96 I/O 06/18/17 06/18/17 06/18/17 06/19/17 06/19/17 06/19/17 07:00 15:00 23:00 07:00 15:00 23:00 Intake Total 2100 ml Balance 2100 ml Intake IV Total 2100 ml Imaging Last Impressions Abdomen/Pelvis CT 06/19/17 0000 Signed Impressions: Service Date/Time: Monday, June 19, 2017 09:32 - CONCLUSION: Mild hyperplasia of the left adrenal gland. Clips suggest cholecystectomy. No etiology for abdominal pain is identified. Corbin Zee MD Laboratory Test 06/19/17 07:50 06/19/17 07:52 06/19/17 08:00 06/19/17 14:01 White Blood Count 9.9 TH/MM3 Red Blood Count 4.59 MIL/MM3 Hemoglobin 14.2 GM/DL Hematocrit 41.8 % Mean Corpuscular Volume 90.9 FL Mean Corpuscular Hemoglobin 31.0 PG Mean Corpuscular Hemoglobin Concent 34.1 % Red Cell Distribution Width 12.7 % Platelet Count 362 TH/MM3 Mean Platelet Volume 6.9 FL Neutrophils (%) (Auto) 72.1 % Lymphocytes (%) (Auto) 21.8 % Monocytes (%) (Auto) 4.2 % Eosinophils (%) (Auto) 1.3 % Basophils (%) (Auto) 0.6 % Neutrophils # (Auto) 7.2 TH/MM3 Lymphocytes # (Auto) 2.2 TH/MM3 Monocytes # (Auto) 0.4 TH/MM3 Eosinophils # (Auto) 0.1 TH/MM3 Basophils # (Auto) 0.1 TH/MM3 CBC Comment DIFF FINAL Differential Comment Blood Urea Nitrogen 10 MG/DL Creatinine 0.70 MG/DL Random Glucose 241 MG/DL Total Protein 7.8 GM/DL Albumin 3.0 GM/DL Calcium Level 8.5 MG/DL Alkaline Phosphatase 79 U/L Aspartate Amino Transf (AST/SGOT) 15 U/L Alanine Aminotransferase (ALT/SGPT) 21 U/L Total Bilirubin 0.3 MG/DL Sodium Level 139 MEQ/L Potassium Level 3.1 MEQ/L Chloride Level 102 MEQ/L Carbon Dioxide Level 26.7 MEQ/L Anion Gap 10 MEQ/L Estimat Glomerular Filtration Rate 86 ML/MIN Total Creatine Kinase 50 U/L 48 U/L Troponin I 0.04 NG/ML 0.04 NG/ML Lactic Acid Level 2.6 mmol/L Urine Color YELLOW Urine Turbidity CLEAR Urine pH 7.0 Urine Specific [place] 1.016 Urine Protein 300 mg/dL Urine Glucose (UA) 1000 mg/dL Urine Ketones NEG mg/dL Urine Occult Blood LARGE Urine Nitrite NEG Urine Bilirubin NEG Urine Urobilinogen LESS THAN 2.0 MG/DL Urine Leukocyte Esterase NEG Urine RBC /hpf Urine WBC 2 /hpf Urine Squamous Epithelial Cells 1 /hpf Urine Bacteria OCC /hpf Microscopic Urinalysis Comment CATH-CULTURE IND Date/Time Source Procedure Growth Status 06/19/17 07:52 Blood Peripheral Aerobic Blood Culture Pending Received 06/19/17 07:52 Blood Peripheral Anaerobic Blood Culture Pending Received 06/19/17 08:00 Urine Catheterized Urine Urine Culture Pending Received Physical Examination HEENT: Normocephalic; atraumatic; no jaundice. NECK: Neck is supple CHEST: CTA CARDIAC: RRR ABDOMEN: Soft, nondistended, TTP at lower abdominal area; no hepatosplenomegaly ; bowel sounds are present in all four quadrants. Small open area at suprapubic area, no drainage or erythema. EXTREMITIES: No clubbing, cyanosis, or edema. SKIN: Normal; no rash; no jaundice. SILICATOR: No focal deficits; alert and oriented times three. (Do Eckert) Assessment and Plan Plan ASSESSMENT: - Abdominal pain/diarrhea. Patient reports ongoing diarrhea (4-5 times per day) and abdominal pain that is worsening since Tuesday. Stool studies, C diff, and Hemoccult have been ordered. Patient recently on IV and oral antibiotics for skin abscess. Never had Colonoscopy/EGD. CT Abdomen/Pelvis (06/19/17)--Mild hyperplasia of the left adrenal gland. Clips suggest cholecystectomy. No etiology for abdominal pain is identified. WBC normal. HH normal. PLAN: - Await C diff results - Await stool studies - Await Hemoccult results - Consider Colonoscopy next week - Monitor labs - Supportive care - Further recommendations to follow based on results of above Patient seen and examined by Dr. Patel and myself and this note is written on his behalf. (Do Eckert) Physician Comments Seen and examined, plan as above. Cardiac work up pending. to consider CT Angio if symptoms persists . Will follow up with ypu. (Pablo Patel MD) Do Eckert Jun 19, 2017 16:19 Pablo Patel MD Jun 19, 2017 20:30
[2017-06-19] MEDS: INSULIN ASPAR PROT 70/30 1,000 UNITS/10 ML VIAL SQ SCH (17:00)
[2017-06-19] MEDS: oxyCODONE/ACETAMINOPHEN 7.5 MG/325 MG TAB PO PRN (17:07)
[2017-06-19 19:37] VITALS: BP 157/82; PULSE 77; RESP 18; TEMP 98.4; O2SAT 98
[2017-06-19] MEDS: MORPHINE SULFATE 2 MG/ML INJ IV PRN ×2 (19:54→23:06)
[2017-06-19] MEDS: SODIUM CHLORIDE 0.9% FLUSH 10 ML FLUSH IV FLUSH SCH (19:54)
[2017-06-19] MEDS ORDERED: INSULIN ASPAR PROT 70/30 1,000 UNITS/10 ML VIAL SQ ONE (20:00)
[2017-06-19] MEDS: DOCUSATE SODIUM 50 MG/SENNA 8.6 MG TAB PO SCH (21:04)
[2017-06-19] MEDS: DULoxetine HCl DR 20 MG CAP PO SCH (21:04)
[2017-06-19] MEDS: ATORVASTATIN 40 MG TAB PO SCH (21:04)
--- NOTE | 2017-06-19 21:07 | EKG ---
Date Performed: 06/19/2017 Time Performed: 20:24:50 PTAGE: 57 years EKG: Sinus rhythm NONSPECIFIC T-WAVE ABNORMALITY BORDERLINE ECG PREVIOUS TRACING : 06/19/2017 13.56 No significant change from previous tracing noted. DOCTOR: Malcolm Gonzales Interpretating Date/Time 06/19/2017 21:05:23
[2017-06-19] MEDS: oxyCODONE/ACETAMINOPHEN 10 MG/325 MG TAB PO PRN (21:13)
--- NOTE | 2017-06-19 21:15 | EKG ---
Date Performed: 06/19/2017 Time Performed: 13:56:02 PTAGE: 57 years EKG: Sinus rhythm NONSPECIFIC T-WAVE ABNORMALITY BORDERLINE ECG PREVIOUS TRACING : 11/08/2016 04.12 No significant change from previous tracing noted. DOCTOR: Malcolm Gonzales Interpretating Date/Time 06/19/2017 21:13:45
--- NOTE | 2017-06-19 21:18 | EKG ---
Date Performed: 06/19/2017 Time Performed: 12:22:52 PTAGE: 57 years EKG: Sinus rhythm NORMAL ECG PREVIOUS TRACING : 11/08/2016 04.12 No significant change from previous tracing noted. DOCTOR: Malcolm Gonzales Interpretating Date/Time 06/19/2017 21:16:03
[2017-06-19 23:38] VITALS: BP 115/64; PULSE 70; RESP 18; TEMP 98.1; O2SAT 99
[2017-06-20] MEDS: oxyCODONE/ACETAMINOPHEN 10 MG/325 MG TAB PO PRN ×5 (01:32→23:55)
[2017-06-20 03:31] VITALS: BP 127/68; PULSE 69; RESP 18; TEMP 97.6; O2SAT 96
[2017-06-20 04:09] LABS: C. DIFF EPI 027 PRESUMPTIVE NEGATIVE (NEGATIVE)
[2017-06-20] MEDS: MORPHINE SULFATE 2 MG/ML INJ IV PRN ×4 (04:35→21:36)
[2017-06-20 07:22] LABS: BICARBONATE 24.3 MEQ/L (21.0-32.0); POTASSIUM 4.1 MEQ/L (3.5-5.1)
[2017-06-20 07:28] VITALS: BP 163/76; PULSE 77; RESP 16; TEMP 98; O2SAT 95
[2017-06-20] MEDS ORDERED: INSULIN ASPAR PROT 70/30 1,000 UNITS/10 ML VIAL SQ SCH (08:00)
[2017-06-20] MEDS: DOCUSATE SODIUM 50 MG/SENNA 8.6 MG TAB PO SCH ×2 (09:21→21:37)
[2017-06-20] MEDS: LISINOPRIL 10 MG TAB PO SCH (09:23)
[2017-06-20] MEDS: ASPIRIN 81 MG CHEW TAB CHEW SCH (09:24)
[2017-06-20] MEDS: PANTOPRAZOLE SOD 40 MG DELAYED RELEASE TAB PO SCH (09:25)
[2017-06-20] MEDS: LACTOBACILLUS ACIDOPHILUS 1 GM PACKET PO SCH ×3 (09:25→18:47)
[2017-06-20] MEDS: SODIUM CHLORIDE 0.9% FLUSH 10 ML FLUSH IV FLUSH SCH ×2 (09:26→21:35)
[2017-06-20] MEDS: INSULIN ASPART SUPPLEMENTAL SCALE SQ SCH ×4 (09:28→21:00)
--- NOTE | 2017-06-20 09:43 | HHI.PR ---
Subjective Remarks Pt states that she still has abdominal pain 04/24. States that the pain med helps and she is about to get pain med now. some nausea but no vomiting. no CP/ SOB. had two loose stools last night after speaking to her and one this morning. no blood. discussed w RN, hemoccult positive. Objective Vitals Vital Signs Date Time Temp Pulse Resp B/P (MAP) Pulse Ox O2 Delivery O2 Flow Rate FiO2 06/20/17 07:28 98.0 77 16 163/76 (105) 95 06/20/17 03:31 97.6 69 18 127/68 (87) 96 06/19/17 23:38 98.1 70 18 115/64 (81) 99 06/19/17 19:37 98.4 77 18 157/82 (107) 98 06/19/17 18:07 20 06/19/17 14:43 20 06/19/17 13:32 97.9 68 20 148/60 (89) 96 06/19/17 13:16 06/19/17 12:53 16 06/19/17 12:53 16 I/O 06/19/17 06/19/17 06/19/17 06/20/17 06/20/17 06/20/17 07:00 15:00 23:00 07:00 15:00 23:00 Intake Total 2100 ml Balance 2100 ml Intake IV Total 2100 ml Result Diagram: 06/19/17 0750 06/20/17 0613 Imaging Last Impressions Abdomen/Pelvis CT 06/19/17 0000 Signed Impressions: Service Date/Time: Monday, June 19, 2017 09:32 - CONCLUSION: Mild hyperplasia of the left adrenal gland. Clips suggest cholecystectomy. No etiology for abdominal pain is identified. Corbin Zee MD Objective Remarks GENERAL: laying in bed HEAD: Atraumatic. Normocephalic. No temporal or scalp tenderness. EYES: Extraocular motions intact. ENT: Nose without drainage. Airway patent. NECK: Trachea midline. CARDIOVASCULAR: Regular rate and rhythm without murmurs RESPIRATORY: Clear to auscultation. Breath sounds equal bilaterally. No wheezes GASTROINTESTINAL: Abdomen soft, tender in the lower quadrants bilaterally with no guarding or rebound, nondistended. Well-healed scar noted. There is an small open incision with no drainage in the suprapubic area, no erythema and healing well. MUSCULOSKELETAL: Extremities without edema. No calf tenderness. Negative Homans sign bilaterally. NEUROLOGICAL: Awake and alert. Motor and sensory grossly within normal limits. Normal speech. A/P Assessment and Plan Abdominal pain/diarrhea: Patient presenting with abdominal pain 9 out of 10 since Tuesday with multiple loose stools. CT abdomen with no contrast did not really show any acute process. Unsure what the etiology is however patient has been having loose stools since Tuesday is about 4-5 times a day. Stool studies pending, C. diff neg. hemoccult pos. GI following, recommends possible colonoscopy sometime this week vs CT angiogram. on Lactinex as patient has been on antibiotics. Pain control with Percocet as needed. Await recs from GI Elevated lactic acid: Lactic acid found to be 2.6 now down to 1.3. This could be related to dehydration as patient has been having 4-5 loose stools a day since Tuesday. Patient does not have any leukocytosis and denies any fevers or chills. She received a dose of vancomycin and Zosyn in the emergency room. In the setting of loose stools I have held treating her with more antibiotics. C. Diff neg. Blood cultures and urine cultures pending. ID for further recommendation as to whether she should continue her antibiotics. Her wound does look like it's healing well and does not look infected. Urinalysis abnormal: f/u urine cx. Pt is asymptomatic. Diabetes: Resume her home medication, cover with low-dose sliding scale and monitor blood sugars. High blood pressure:on home meds. Monitor and titrate medications as needed. Vasotec as needed Other chronic conditions: stable. resume home meds DVT proph: lovenox. Discharge Planning awaiting recs from ID/Cards Sue Ponce MD Jun 20, 2017 09:43
[2017-06-20 11:09] VITALS: BP 140/73; PULSE 79; RESP 16; TEMP 98.4; O2SAT 97
[2017-06-20] MEDS: ENOXAPARIN SODIUM 40 MG/0.4 ML SYRINGE SQ SCH (12:55)
--- NOTE | 2017-06-20 15:23 | PD.ID.CON ---
History of Present Illness Service ID Consult Requested By Dr Ponce Reason for Consult abscess Primary Care Physician Unknown Diagnoses: History of Present Illness 57 yo diabetic female presented with an abscess in suprapubic area x several weeks- months she also noticed same lesions in b/l axillae and under the breasts she was started n doxycyline, but she did not improve Denies fevers, chills She presented afebrile no leukocytosis Review of Systems Except as stated in HPI: all other systems reviewed are Neg Past Family Social History Allergies: Coded Allergies: ketorolac (Unverified Allergy, Intermediate, HEADACHE, 06/19/17) amoxicillin (Unverified Adverse Reaction, Intermediate, VOMITING, 06/19/17) clavulanic acid (Unverified Adverse Reaction, Intermediate, VOMITING, 06/19) Past Medical History Hyperlipidemia Hypertension CAD Depression GERD Diabetes Bleeding ulcers Past Surgical History Cholecystectomy Hysterectomy Right great toe amputation Right ankle surgery Active Ordered Medications Medications where reviewed in EMR Antibiotics Include: vancomycin Family History Mother, of bladder cancer Father, from "all kinds of cancer" Brother, had lung cancer Social History Tobacco, 1/2 pack every 2 days, since 11 years of age ETOH, denies Illicit Drugs, denies Physical Exam Vital Signs Vital Signs Date Time Temp Pulse Resp B/P (MAP) Pulse Ox O2 Delivery O2 Flow Rate FiO2 06/20/17 11:09 98.4 79 16 140/73 (95) 97 06/20/17 07:28 98.0 77 16 163/76 (105) 95 06/20/17 03:31 97.6 69 18 127/68 (87) 96 06/19/17 23:38 98.1 70 18 115/64 (81) 99 06/19/17 19:37 98.4 77 18 157/82 (107) 98 06/19/17 18:07 20 Physical Exam CONSTITUTIONAL/GENERAL: This is an obese middle aged female patient, in no apparent distress. TUBES/LINES/DRAINS: SKIN: No jaundice, rashes, or lesions. Skin temperature appropriate. Not diaphoretic. suprapubic skin with firm tender dreaining lesions, odorless pus ALso less active lesions in axillae areas and below the breasts HEAD: Atraumatic. Normocephalic. EYES: Pupils equal and round and reactive. Extraocular motions intact. No scleral icterus. No injection or drainage. Fundi not examined. ENT: Hearing grossly normal. Nose without bleeding or purulent drainage. Throat without visible erythema, exudates, masses, or lesions. NECK: Trachea midline. Supple, nontender. CARDIOVASCULAR: Regular rate and rhythm without murmurs, gallops, or rubs. No JVD. Peripheral pulses symmetric. RESPIRATORY/CHEST: Symmetric, unlabored respirations. Clear to auscultation. Breath sounds equal bilaterally. No wheezes, rales, or rhonchi. GASTROINTESTINAL: Abdomen soft, non-tender, nondistended. No hepato-splenomegaly , or palpable masses. No guarding. Bowel sounds present. GENITOURINARY: Without palpable bladder distension. MUSCULOSKELETAL: Extremities without clubbing, cyanosis, or edema. No joint tenderness or effusion noted. No calf tenderness. No mottling or clubbing. LYMPHATICS: No palpable cervical axillae or supraclavicular adenopathy. NEUROLOGICAL: Awake and alert. Motor and sensory grossly within normal limits. Follows commands. Cognitively sharp. Moves all extremities. PSYCHIATRIC: No obvious anxiety/depression. no apparent hallucinations or other psychotic thought process. Laboratory Laboratory Tests Test 06/19/17 20:05 06/20/17 01:52 06/20/17 06:13 Total Creatine Kinase 59 Troponin I 0.04 Stool C. difficile Toxin (PCR) NEGATIVE Stl C. difficile Toxin Epiderm 027 PRESUMPTIVE NEGATIVE Blood Urea Nitrogen 9 Creatinine 0.55 Random Glucose 219 Calcium Level 8.1 Sodium Level 139 Potassium Level 4.1 Chloride Level 106 Carbon Dioxide Level 24.3 Anion Gap 9 Estimat Glomerular Filtration Rate 114 Lactic Acid Level 1.3 Date/Time Source Procedure Growth Status 06/19/17 07:52 Blood Peripheral Aerobic Blood Culture - Preliminary NO GROWTH IN 1 DAY Resulted 06/19/17 07:52 Blood Peripheral Anaerobic Blood Culture - Preliminary NO GROWTH IN 1 DAY Resulted 06/20/17 01:52 Stool Stool Cryptosporidium Exam - Final NEGATIVE - NO CRYPTOSPORIDIUM ANTIGEN... Complete 06/20/17 01:52 Stool Stool Stool Pus (TINY) - Final NO WBC'S SEEN Complete 06/20/17 01:52 Stool Stool Giardia Antigen (TINY) - Final NEGATIVE - NO GIARDIA ANTIGEN DETECTE... Complete 06/20/17 01:52 Stool Stool Stool Occult Blood (TINY) - Final HEMOCCULT POSITIVE Complete 06/19/17 08:00 Urine Catheterized Urine Urine Culture - Preliminary Gram Negative Melquiades Resulted Result Diagram: 06/19/17 0750 06/20/17 0613 Imaging Last Impressions Abdomen/Pelvis CT 06/19/17 0000 Signed Impressions: Service Date/Time: Monday, June 19, 2017 09:32 - CONCLUSION: Mild hyperplasia of the left adrenal gland. Clips suggest cholecystectomy. No etiology for abdominal pain is identified. Corbin Zee MD Assessment and Plan Assessment and Plan Hydradenitis suppurativae Pt appears to have modcerate disaes cont doxycyline 1-2 daily for months other options clyndamicyn + rifampin pt will benefit from consultation with report clerk and maybe plastic surgeon if her disease remain refractory to conservative measures Discussed Condition With pt Yuly Denis MD Jun 20, 2017 15:23
[2017-06-20 15:46] VITALS: BP 139/65; PULSE 77; RESP 16; TEMP 98.7; O2SAT 96
[2017-06-20] MEDS: INSULIN ASPAR PROT 70/30 1,000 UNITS/10 ML VIAL SQ SCH (17:00)
--- NOTE | 2017-06-20 17:18 | HHI.PR ---
Addendum to Inpatient Note Addendum Reason: Additional Documentation Additional Information decreased insulin in AM to 60 units as pt's BS dropping. monitor closely Sue Ponce MD Jun 20, 2017 17:18
[2017-06-20] MEDS: DULoxetine HCl DR 20 MG CAP PO SCH (21:36)
[2017-06-20] MEDS: ATORVASTATIN 40 MG TAB PO SCH (21:37)
[2017-06-20 21:57] VITALS: BP 141/72; PULSE 71; RESP 18; TEMP 97.8; O2SAT 98
[2017-06-21 02:35] VITALS: BP 170/80; PULSE 68; RESP 18; TEMP 97.9; O2SAT 95
[2017-06-21] MEDS: MORPHINE SULFATE 2 MG/ML INJ IV PRN ×4 (03:21→23:46)
[2017-06-21] MEDS: oxyCODONE/ACETAMINOPHEN 10 MG/325 MG TAB PO PRN ×4 (06:09→21:48)
[2017-06-21 07:20] VITALS: BP 154/76; PULSE 69; RESP 18; TEMP 98; O2SAT 95
[2017-06-21] MEDS ORDERED: INSULIN ASPAR PROT 70/30 1,000 UNITS/10 ML VIAL SQ SCH (08:00)
[2017-06-21] MEDS: INSULIN ASPART SUPPLEMENTAL SCALE SQ SCH ×4 (08:00→23:47)
[2017-06-21] MEDS: LISINOPRIL 10 MG TAB PO SCH (08:51)
[2017-06-21] MEDS: PANTOPRAZOLE SOD 40 MG DELAYED RELEASE TAB PO SCH (08:51)
[2017-06-21] MEDS: SODIUM CHLORIDE 0.9% FLUSH 10 ML FLUSH IV FLUSH SCH ×2 (08:52→23:48)
[2017-06-21] MEDS: DOCUSATE SODIUM 50 MG/SENNA 8.6 MG TAB PO SCH ×2 (08:52→21:38)
[2017-06-21] MEDS: ASPIRIN 81 MG CHEW TAB CHEW SCH (08:52)
[2017-06-21] MEDS: LACTOBACILLUS ACIDOPHILUS 1 GM PACKET PO SCH ×3 (08:58→16:42)
--- NOTE | 2017-06-21 09:47 | HHI.PR ---
Subjective Remarks Pt states abdominal pain about the same. no nausea or vomiting, no CP/SOB didn't see GI team yesterday Discussed w RN, no concerns at this time. Discussed w GI team, Kortney Brantley, and GI will see pt today. Hemoccult + Objective Vitals Vital Signs Date Time Temp Pulse Resp B/P (MAP) Pulse Ox O2 Delivery O2 Flow Rate FiO2 06/21/17 07:20 98.0 69 18 154/76 (102) 95 06/21/17 02:35 97.9 68 18 170/80 (110) 95 06/20/17 21:57 97.8 71 18 141/72 (95) 98 06/20/17 15:46 98.7 77 16 139/65 (89) 96 06/20/17 11:09 98.4 79 16 140/73 (95) 97 Result Diagram: 06/19/17 0750 06/20/17 0613 Imaging Last Impressions Abdomen/Pelvis CT 06/19/17 0000 Signed Impressions: Service Date/Time: Monday, June 19, 2017 09:32 - CONCLUSION: Mild hyperplasia of the left adrenal gland. Clips suggest cholecystectomy. No etiology for abdominal pain is identified. Corbin Zee MD Objective Remarks GENERAL: laying in bed HEAD: Atraumatic. Normocephalic. No temporal or scalp tenderness. EYES: Extraocular motions intact. ENT: Nose without drainage. Airway patent. NECK: Trachea midline. CARDIOVASCULAR: Regular rate and rhythm without murmurs RESPIRATORY: Clear to auscultation. Breath sounds equal bilaterally. No wheezes GASTROINTESTINAL: Abdomen soft, tender in the lower quadrants bilaterally with no guarding or rebound, nondistended. There is an small open incision with no drainage in the suprapubic area, no erythema and healing well. MUSCULOSKELETAL: Extremities without edema. No calf tenderness. Negative Homans sign bilaterally. NEUROLOGICAL: Awake and alert. Motor and sensory grossly within normal limits. Normal speech. A/P Assessment and Plan Abdominal pain/diarrhea: Patient presenting with abdominal pain 9 out of 10 since Tuesday with multiple loose stools. CT abdomen with no contrast did not really show any acute process. Unsure what the etiology is however patient has been having loose stools since Tuesday is about 4-5 times a day. Stool studies pending, C. diff neg. hemoccult pos. GI following, recommends possible colonoscopy sometime this week vs CT angiogram. on Lactinex as patient has been on antibiotics. Continue Pain control with Percocet as needed. Await recs from GI. Discussed w GI team and they will see pt today. Will check lipase, u/s abd Elevated lactic acid: Lactic acid found to be 2.6 now down to 1.3. This could be related to dehydration as patient has been having 4-5 loose stools a day since Tuesday. Patient does not have any leukocytosis and denies any fevers or chills. She received a dose of vancomycin and Zosyn in the emergency room. In the setting of loose stools I have held treating her with more antibiotics. C. Diff neg. Blood cultures neg x 1 and urine cultures growing gram neg rods. Hydradenitis suppurativae: Pt has mod disease, ID recommends doxycycline 1-2 times daily for months. will start her on doxy 100mg po BID and she will be discharged on this, she will need intermediate card tender. Urinalysis abnormal: f/u urine cx. Pt is asymptomatic, afebrile, no leukocytosis , pt again confirms today that she has no burning w urination/increase urinary frequency. Therefore there is no indication to treat. Diabetes: Resume her home medication, cover with low-dose sliding scale and monitor blood sugars. High blood pressure:on home meds. Monitor and titrate medications as needed. Vasotec as needed Other chronic conditions: stable. resume home meds DVT proph: lovenox. Discharge Planning awaiting recs from GI check lipase and get abd u/s Sue Ponce MD Jun 21, 2017 09:47
[2017-06-21] MEDS: DOXYCYCLINE HYCLATE 100 MG CAP PO SCH ×2 (10:58→21:38)
[2017-06-21 11:35] VITALS: BP 149/75; PULSE 75; RESP 18; TEMP 98.2; O2SAT 96
--- NOTE | 2017-06-21 12:51 | HHI.GIFU ---
Subjective Remarks Resting in bed. States she continues to have mild nausea. She still has constant lower sharp abdominal pain, but is no longer having diarrhea. No bleeding. (Kortney Brantley) Objective Vitals I&O Vital Signs Date Time Temp Pulse Resp B/P (MAP) Pulse Ox O2 Delivery O2 Flow Rate FiO2 06/21/17 11:35 98.2 75 18 149/75 (99) 96 06/21/17 07:20 98.0 69 18 154/76 (102) 95 06/21/17 02:35 97.9 68 18 170/80 (110) 95 06/20/17 21:57 97.8 71 18 141/72 (95) 98 06/20/17 15:46 98.7 77 16 139/65 (89) 96 Laboratory Date/Time Source Procedure Growth Status 06/19/17 07:52 Blood Peripheral Aerobic Blood Culture - Preliminary NO GROWTH IN 2 DAYS Resulted 06/19/17 07:52 Blood Peripheral Anaerobic Blood Culture - Preliminary NO GROWTH IN 2 DAYS Resulted 06/20/17 01:52 Stool Stool Cryptosporidium Exam - Final NEGATIVE - NO CRYPTOSPORIDIUM ANTIGEN... Complete 06/20/17 01:52 Stool Stool Stool Pus (TINY) - Final NO WBC'S SEEN Complete 06/20/17 01:52 Stool Stool Giardia Antigen (TINY) - Final NEGATIVE - NO GIARDIA ANTIGEN DETECTE... Complete 06/20/17 01:52 Stool Stool Stool Occult Blood (TINY) - Final HEMOCCULT POSITIVE Complete 06/19/17 08:00 Urine Catheterized Urine Urine Culture - Final Klebsiella Oxytoca Complete Imaging Last Impressions Abdomen/Pelvis CT 06/19/17 0000 Signed Impressions: Service Date/Time: Monday, June 19, 2017 09:32 - CONCLUSION: Mild hyperplasia of the left adrenal gland. Clips suggest cholecystectomy. No etiology for abdominal pain is identified. Corbin Zee MD Physical Exam HEENT: Normocephalic; atraumatic; no jaundice. CHEST: CTA CARDIAC: RRR ABDOMEN: Soft, obese, nondistended, mild lower abdominal tenderness; no hepatosplenomegaly; bowel sounds are present in all four quadrants. EXTREMITIES: No clubbing, cyanosis, or edema. SKIN: Normal; no rash; no jaundice. CREATIVE SERVICES COORDINATOR: No focal deficits; alert and oriented times three. (Kortney Brantley) Assessment and Plan Plan ASSESSMENT: - Abdominal pain/nausea/diarrhea. Patient reports ongoing diarrhea (4-5 times per day) and abdominal pain that is worsening since Tuesday. Patient recently on IV and oral antibiotics for skin abscess. Never had Colonoscopy/EGD. CT Abdomen/Pelvis (06/19/17)--Mild hyperplasia of the left adrenal gland. Clips suggest cholecystectomy. No etiology for abdominal pain is identified. WBC unremarkable. CDiff negative. Cryptosporidium negative, no wbc, giardia negative, no enteric pathogens. Continues to have abdominal pain- constant sharp lower abdominal pain. Diarrhea has improved. - Hemoccult positive stool. HH stable on 06/19. Will recheck. - UTI. Cx Klebsiella Oxytoca. Vibramycin. PLAN: - Plan for egd/colonoscopy in am - Obtain consents - Clear liquids - NPO after MN - Golytely prep - CBC - PPI - Supportive care - Further recommendations to follow based on results of above - Patient seen and examined by Dr. Patel and myself and this note is written on his behalf. (Kortney Brantley) Physician Comments Seen and examined, plan as above. Will obtain consent for EGD/Colonoscopy in AM Further recommendations to follow. (Pablo Patel MD) Kortney Brantley Jun 21, 2017 12:51 Pablo Patel MD Jun 21, 2017 13:22
[2017-06-21] MEDS: ENOXAPARIN SODIUM 40 MG/0.4 ML SYRINGE SQ SCH (13:25)
[2017-06-21 14:49] LABS: HEMATOCRIT 35.5 % (35.0-46.0); REVIEW FLAG FINAL
[2017-06-21] MEDS ORDERED: PEG (High)/E-LYTE SOLN 4000 ML BTL PO ONE (16:00)
--- NOTE | 2017-06-21 16:49 | RADRPT ---
EXAM DATE/TIME: 06/21/2017 15:24 [facility] COMPARISON: CT ABDOMEN & PELVIS W CONTRAST, June 19, 2017, 9:32. INDICATIONS : Abdominal pain. MEDICAL HISTORY : Hypercholesterolemia. Hypertension. Renal calculi. Peripheral neuropathy. Coronary artery disease. CO PD. Ulcer. Abdominal pain. Nausea/vomiting. GERD. Diabetes. MRSA. SURGICAL HISTORY : Coronary artery stent. Cholecystectomy. Hysterectomy. Right kidney stent. Right ankle surgery. Right great toe amputation. ENCOUNTER: Initial ACUITY: 1 day PAIN SCORE: 1/10 LOCATION: Abdomen. MEASUREMENTS: LIVER: 22.4 cm length COMMON DUCT: 9 mm RIGHT KIDNEY: 11.9 x 6.3 x 5.7 cm LEFT KIDNEY: 13.0 x 5.7 x 6.4 cm SPLEEN: 11.5 cm length AORTA: 2.6cm maximal FINDINGS: LIVER: Diffusely increased hepatic echogenicity with hepatomegaly. No focal mass or significant intrahepatic ductal dilatation. COMMON DUCT: Mildly prominent likely due to post cholecystectomy. GALLBLADDER: Surgically absent. PANCREAS: Suboptimally visualized likely due to body habitus and bowel gas RIGHT KIDNEY: No hydronephrosis, stone or mass. LEFT KIDNEY: No hydronephrosis, stone or mass. SPLEEN: No focal lesion. AORTA: Non aneurysmal. IVC: Within normal limits. CONCLUSION: 1. Hepatomegaly with diffusely increased hepatic echogenicity consistent with hepatic steatosis versu s medical liver disease. 2. Mild prominence of the common bile duct likely due to reservoir effect status post cholecystectomy . Markos Ibarra MD on June 21, 2017 at 16:45 Board Certified Radiologist. This report was verified electronically.
[2017-06-21] MEDS: INSULIN ASPAR PROT 70/30 1,000 UNITS/10 ML VIAL SQ SCH (17:00)
--- NOTE | 2017-06-21 17:41 | HHI.IDPN ---
Subjective Subjective Remarks co abdominal pain resolved diarrhea C.diff neg resolved nausea + hemm+ stool Antibiotics none Allergies: Coded Allergies: ketorolac (Unverified Allergy, Intermediate, HEADACHE, 06/19/17) amoxicillin (Unverified Adverse Reaction, Intermediate, VOMITING, 06/19/17) clavulanic acid (Unverified Adverse Reaction, Intermediate, VOMITING, 06/19) Objective . Vital Signs Date Time Temp Pulse Resp B/P (MAP) Pulse Ox O2 Delivery O2 Flow Rate FiO2 06/21/17 11:35 98.2 75 18 149/75 (99) 96 06/21/17 07:20 98.0 69 18 154/76 (102) 95 06/21/17 02:35 97.9 68 18 170/80 (110) 95 06/20/17 21:57 97.8 71 18 141/72 (95) 98 . Laboratory Tests Test 06/21/17 13:45 Hemoglobin 12.5 GM/DL Hematocrit 35.5 % Laboratory Tests Test 06/19/17 20:05 06/20/17 06:13 06/21/17 13:45 Total Creatine Kinase 59 U/L Troponin I 0.04 NG/ML Blood Urea Nitrogen 9 MG/DL Creatinine 0.55 MG/DL Random Glucose 219 MG/DL Calcium Level 8.1 MG/DL Sodium Level 139 MEQ/L Potassium Level 4.1 MEQ/L Chloride Level 106 MEQ/L Carbon Dioxide Level 24.3 MEQ/L Anion Gap 9 MEQ/L Estimat Glomerular Filtration Rate 114 ML/MIN Lactic Acid Level 1.3 mmol/L Lipase 114 U/L Microbiology Date/Time Source Procedure Growth Status 06/19/17 07:52 Blood Peripheral Aerobic Blood Culture - Preliminary NO GROWTH IN 2 DAYS Resulted 06/19/17 07:52 Blood Peripheral Anaerobic Blood Culture - Preliminary NO GROWTH IN 2 DAYS Resulted 06/19/17 07:40 Blood Peripheral Aerobic Blood Culture - Preliminary NO GROWTH IN 2 DAYS Resulted 06/19/17 07:40 Anaerobic Blood Culture - Preliminary Gram Positive Cocci Resulted 06/20/17 01:52 Stool Stool Cryptosporidium Exam - Final NEGATIVE - NO CRYPTOSPORIDIUM ANTIGEN... Complete 06/20/17 01:52 Stool Stool Stool Pus (TINY) - Final NO WBC'S SEEN Complete 06/20/17 01:52 Stool Stool Giardia Antigen (TINY) - Final NEGATIVE - NO GIARDIA ANTIGEN DETECTE... Complete 06/20/17 01:52 Stool Stool Stool Occult Blood (TINY) - Final HEMOCCULT POSITIVE Complete 06/20/17 01:52 Stool Stool - Final NO ENTERIC PATHOGENS DETECTED BY PCR... Complete 06/19/17 08:00 Urine Catheterized Urine Urine Culture - Final Klebsiella Oxytoca Complete Imaging Last Impressions Abdomen Ultrasound 06/21/17 0000 Signed Impressions: Service Date/Time: Wednesday, June 21, 2017 15:24 - CONCLUSION: 1. Hepatomegaly with diffusely increased hepatic echogenicity consistent with hepatic steatosis versus medical liver disease. 2. Mild prominence of the common bile duct likely due to reservoir effect status post cholecystectomy. Markos Ibarra MD Abdomen/Pelvis CT 06/19/17 0000 Signed Impressions: Service Date/Time: Monday, June 19, 2017 09:32 - CONCLUSION: Mild hyperplasia of the left adrenal gland. Clips suggest cholecystectomy. No etiology for abdominal pain is identified. Corbin Zee MD Physical Exam CONSTITUTIONAL/GENERAL: This is an obese middle aged female patient, in no apparent distress. TUBES/LINES/DRAINS: SKIN: No jaundice, rashes, or lesions. Skin temperature appropriate. Not diaphoretic. suprapubic skin with firm tender non draining lesions, odorless pus EYES: Pupils equal and round and reactive. Extraocular motions intact. No scleral icterus. No injection or drainage. Fundi not examined. ENT: Hearing grossly normal. Nose without bleeding or purulent drainage. Throat without visible erythema, exudates, masses, or lesions. NECK: Trachea midline. Supple, nontender. CARDIOVASCULAR: Regular rate and rhythm without murmurs, gallops, or rubs. No JVD. Peripheral pulses symmetric. RESPIRATORY/CHEST: Symmetric, unlabored respirations. Clear to auscultation. Breath sounds equal bilaterally. No wheezes, rales, or rhonchi. GASTROINTESTINAL: Abdomen soft,mild diffuse tenderness, nondistended. No hepato- splenomegaly, or palpable masses. No guarding. Bowel sounds present. MUSCULOSKELETAL: Extremities without clubbing, cyanosis, or edema. No joint tenderness or effusion noted. No calf tenderness. No mottling or clubbing. NEUROLOGICAL: Awake and alert. Motor and sensory grossly within normal limits. Follows commands. clear speech Moves all extremities. PSYCHIATRIC: No obvious anxiety/depression. no apparent hallucinations or other psychotic thought process. Assessment & Plan Remarks Hydradenitis suppurativae Pt appears to have modcerate disease GI smx (nasea, vomiting diarrhea) -llikely 2/2 doxy - complete resolutionn with discont'n of doxy Low grade GPC bacteremia - ? clin significance ,? contam restart doxy after GI completed; if not tolerate then will probbably have to try clyndamicyn + rifampin after w/u completed pt will benefit from consultation with berry planter and maybe plastic surgeon if her disease remain refractory to conservative measures Discussed Condition With Dr Kris Denis,Yuly Khan MD Jun 21, 2017 17:41
[2017-06-21 19:27] VITALS: BP 156/79; PULSE 74; RESP 18; TEMP 98.2; O2SAT 97
[2017-06-21] MEDS: DULoxetine HCl DR 20 MG CAP PO SCH (21:37)
[2017-06-21] MEDS: ATORVASTATIN 40 MG TAB PO SCH (21:38)
[2017-06-21 23:01] VITALS: BP 166/83; PULSE 63; RESP 17; TEMP 98.2; O2SAT 96
[2017-06-22] MEDS: oxyCODONE/ACETAMINOPHEN 10 MG/325 MG TAB PO PRN ×2 (02:39→10:39)
[2017-06-22 02:47] VITALS: BP 139/87; PULSE 71; RESP 17; TEMP 98.1; O2SAT 96
[2017-06-22 05:20] LABS: AUTOMATED NEUTROPHIL # 5.4 TH/MM3 (1.8-7.7); BASOPHIL # 0.1 TH/MM3 (0-0.2); BASOPHIL % 0.6 % (0.0-2.0); EOSINOPHIL # 0.2 TH/MM3 (0-0.4); EOSINOPHIL % 1.8 % (0.0-4.0); HEMATOCRIT 36.9 % (35.0-46.0); HEMO FLAGS DIFF FINAL; LYMPH % 29.5 % (9.0-44.0); LYMPHOCYTE # 2.7 TH/MM3 (1.0-4.8); MEAN CELL VOLUME 91.5 FL (80.0-100.0); MEAN CORPUSCULAR HEMOGLOBIN 31.2 PG (27.0-34.0); MEAN CORPUSCULAR HGB CONC 34.1 % (32.0-36.0); MONO % 7.6 % (0.0-8.0); NEUT % 60.5 % (16.0-70.0); PLATELET COUNT 258 TH/MM3 (150-450); RED BLOOD COUNT 4.03 MIL/MM3 (4.00-5.30); RED CELL DISTRIBUTION WIDTH 12.7 % (11.6-17.2)
[2017-06-22 05:34] LABS: BICARBONATE 27.4 MEQ/L (21.0-32.0); POTASSIUM 3.8 MEQ/L (3.5-5.1)
[2017-06-22] MEDS: MORPHINE SULFATE 2 MG/ML INJ IV PRN (05:35)
[2017-06-22 07:43] VITALS: BP 171/83; PULSE 73; RESP 16; TEMP 98.2; O2SAT 95
[2017-06-22] MEDS: INSULIN ASPART SUPPLEMENTAL SCALE SQ SCH (08:00)
[2017-06-22] MEDS ORDERED: PROPOFOL 500 MG/50 ML INJ 50 ML ONE (08:35)
[2017-06-22] MEDS ORDERED: INSULIN HUMAN REGULAR 1,000 UNITS/10 ML VIAL ONE (08:39)
--- NOTE | 2017-06-22 09:36 | GIPROC ---
[facility] [address] [facility]. [facility], [address] EGD PROCEDURE REPORT EXAM DATE: 06/22/2017 PATIENT NAME: Odilia Solano MR #: [id number] BIRTHDATE: 1960 ATTENDING: Pablo Patel MD ORDER #: [id number] HEALTHCARE ADMINISTRATION INTERN: Fitz Mccain and Rimma Rendon STATUS: inpatient INDICATIONS: The patient is a 57 yr old female here for an EGD due to abdominal pain PROCEDURE PERFORMED: EGD w/ biopsy MEDICATIONS: None and Per Anesthesia. TOPICAL ANESTHETIC: none CONSENT: The patient understands the risks and benefits of the procedure and understands that these risks include, but are not limited to: sedation, allergic reaction, infection, perforation and/or bleeding. Alternative means of evaluation and treatment include, among others: physical exam, x-rays, and/or surgical intervention. The patient elects to proceed with this endoscopic procedure. medical equipment was checked for proper function. Hand hygiene and appropriate measures for infection prevention was taken. After the risks, benefits and alternatives of the procedure were thoroughly explained, Informed consent was verified, confirmed and timeout was successfully executed by the treatment team. The patient was anesthetized with topical anesthesia and the EC-[id number] (Pedi C) endoscope was introduced through the mouth and advanced to the second portion of the duodenum. Retroflexion was performed and was normal The gastroscope was then slowly withdrawn and removed. ESOPHAGUS: The esophagus was otherwise normal. STOMACH: There was erythematous moderate gastritis in the gastric antrum. Multiple biopsies were performed using cold forceps. Sample sent for histology. DUODENUM: Mild duodenal inflammation was found in the duodenal bulb. ADVERSE EVENTS: There were no complications. IMPRESSIONS: 1. The esophagus was otherwise normal 2. There was erythematous gastritis in the gastric antrum; multiple biopsies were performed 3. Duodenal inflammation was found in the duodenal bulb 4. Retroflexion was performed and was normal RECOMMENDATIONS: 1. Await biopsy results. Biopsy results will not be ready for 7-10 days. If you don't hear from us in two weeks, call our office for biopsy results. 2. Continue PPI PATIENT CONDITION: stable DISPOSITION: Observation REPEAT EXAM: NONE Pablo Patel MD eSigned: Pablo Patel MD 06/22/2017 9:36 AM cc: PATIENT NAME: Odilia Solano MR#: [id number]
--- NOTE | 2017-06-22 09:41 | GIPROC ---
[facility] [address] [facility]. [facility], [address] COLONOSCOPY PROCEDURE REPORT EXAM DATE: 06/22/2017 PATIENT NAME: Odilia Solano MR #: [id number] BIRTHDATE: 1960 ENDOSCOPIST: Pablo Patel MD ORDER #: [id number] HEAVY RAIL TRAIN OPERATOR: Fitz Mccain and Rimma Rendon STATUS: inpatient INDICATIONS: The patient is a 57 yr old female here for a colonoscopy due to abdominal pain PROCEDURE PERFORMED: Colonoscopy with biopsy MEDICATIONS: None and Per Anesthesia. PREP QUALITY: poor PREP TYPE:Magnesium Citrate ESTIMATED BLOOD LOSS: None CONSENT: The patient understands the risks and benefits of the procedure and understands that these risks include, but are not limited to: sedation, allergic reaction, infection, perforation and/or bleeding. Alternative means of evaluation and treatment include, among others: physical exam, x-rays, and/or surgical intervention. The patient elects to proceed with this endoscopic procedure. medical equipment was checked for proper function. Hand hygiene and appropriate measures for infection prevention was taken. After the risks, benefits and alternatives of the procedure were thoroughly explained, Informed consent was verified, confirmed and timeout was successfully executed by the treatment team. A digital exam revealed no abnormalities of the rectum The Pentax EC-[id number] endoscope was introduced through the anus and advanced to the cecum, which was identified by both the appendix and ileocecal valve. The instrument was then slowly withdrawn as the colon was fully examined. COLON FINDINGS: A significant amount of stool was present throughout the entire examined colon. A smooth flat polyp was found in the ascending colon. A polypectomy was performed with cold forceps. The resection was complete and the polyp tissue was completely retrieved. The colonic mucosa appeared normal throughout the entire examined colon. Multiple random biopsies of the area were performed using cold forceps. Retroflexed views revealed no abnormalities The scope was then completely withdrawn from the patient and the procedure terminated. PROCEDURE WITHDRAWAL TIME:10minutes ADVERSE EVENTS: There were no complications. IMPRESSIONS: 1. Significant amount of stool was present throughout the entire examined colon 2. A flat polyp was found in the ascending colon; polypectomy was performed with cold forceps 3. The colonic mucosa appeared normal throughout the entire examined colon ( altrhought limited from poor bowel prep.); multiple random biopsies of the area were performed using cold forceps 4. Retroflexed views revealed no abnormalities RECOMMENDATIONS: Await biopsy results. Biopsy results will not be ready for 7-10 days. If you don't hear from us in two weeks, call our office for results. RECALL: Return 1 year Colonoscopy Pablo Patel MD eSigned: Pablo Patel MD 06/22/2017 9:41 AM cc:
[2017-06-22] MEDS: DULoxetine HCl DR 20 MG CAP PO SCH (10:38)
[2017-06-22] MEDS: DOXYCYCLINE HYCLATE 100 MG CAP PO SCH (10:38)
[2017-06-22] MEDS: DOCUSATE SODIUM 50 MG/SENNA 8.6 MG TAB PO SCH (10:38)
[2017-06-22] MEDS: LISINOPRIL 10 MG TAB PO SCH (10:38)
[2017-06-22] MEDS: ASPIRIN 81 MG CHEW TAB CHEW SCH (10:38)
[2017-06-22] MEDS: PANTOPRAZOLE SOD 40 MG DELAYED RELEASE TAB PO SCH (10:38)
--- NOTE | 2017-06-22 10:48 | HHI.DS ---
Discharge Summary Admission Date Jun 19, 2017 at 10:17 Discharge Date: Jun 22, 2017 Admitting Diagnosis lactic acidosis, abscess, hyperglycemia (1) Abdominal pain ICD Code: R10.9 - Unspecified abdominal pain (2) Hydradenitis ICD Code: L73.2 - Hidradenitis suppurativa Procedures EGD/Colonoscopy Brief History - From Admission Patient is a 67-year-old female with past medical history of hyperlipidemia, hypertension, CAD, depression, GERD, diabetes, and bleeding ulcer disease presents to the emergency room with complaint of lower abdominal pain which started on Tuesday. She states that she came back home from [place] and however while she was in [place] she developed an abscess in her suprapubic area which required to I&D's and 5 days in the hospital for IV antibiotics. She was discharged home on Doxey and Augmentin for 2 weeks. She has been taking her medicine as instructed. However, on Tuesday she started experiencing loose stools 4-5 times a day and crampy abdominal pains. She attributed to stools to the antibiotic use and didn't think much of it. Today the pain got worse and decided to come to the emergency room. She admits to nausea and vomiting. Currently she hasn't been vomiting however last night she did. She admits to some chest pains last night in the mid chest however she feels that it 's due to her throwing up. She doesn't think it's heart related. She denies any coughing, runny nose, watery eyes, she doesn't complain of any burning with urination or increased urinary frequency. She is more concerned about the lower quadrant abdominal pain which she rates a 9 out of 10 and states that the Lortab as given to the emergency room helped just a bit and did not really take the pain away. She describes her loose stools as mucousy green and coffee ground. She denies any overt blood CBC/BMP: 06/22/17 0431 06/22/17 0432 Significant Findings Laboratory Tests Test 06/19/17 14:01 06/19/17 20:05 06/20/17 01:52 06/20/17 06:13 Random Glucose 219 MG/DL (74-106) Calcium Level 8.1 MG/DL (8.5-10.1) Test 06/21/17 13:45 06/22/17 04:31 06/22/17 04:32 Creatinine 0.49 MG/DL (0.50-1.00) Random Glucose 143 MG/DL (74-106) Calcium Level 8.1 MG/DL (8.5-10.1) Imaging Last Impressions Abdomen Ultrasound 06/21/17 0000 Signed Impressions: Service Date/Time: Wednesday, June 21, 2017 15:24 - CONCLUSION: 1. Hepatomegaly with diffusely increased hepatic echogenicity consistent with hepatic steatosis versus medical liver disease. 2. Mild prominence of the common bile duct likely due to reservoir effect status post cholecystectomy. Markos Ibarra MD Abdomen/Pelvis CT 06/19/17 0000 Signed Impressions: Service Date/Time: Monday, June 19, 2017 09:32 - CONCLUSION: Mild hyperplasia of the left adrenal gland. Clips suggest cholecystectomy. No etiology for abdominal pain is identified. Corbin Zee MD PE at Discharge GENERAL: laying in bed HEAD: Atraumatic. Normocephalic. No temporal or scalp tenderness. EYES: Extraocular motions intact. ENT: Nose without drainage. Airway patent. NECK: Trachea midline. CARDIOVASCULAR: Regular rate and rhythm without murmurs RESPIRATORY: Clear to auscultation. Breath sounds equal bilaterally. No wheezes GASTROINTESTINAL: Abdomen soft, tender in the lower quadrants bilaterally with no guarding or rebound, nondistended. There is an small open incision with no drainage in the suprapubic area, no erythema and healing well. MUSCULOSKELETAL: Extremities without edema. No calf tenderness. Negative Homans sign bilaterally. NEUROLOGICAL: Awake and alert. Motor and sensory grossly within normal limits. Normal speech. Pt update on day of discharge Pt tells me that "I don't know how I feel". Has some pain but will get some pain med and it controls it. She is very hungry and wants food. no nausea or vomiting. states she is comfortable going home. She has a PCP she can follow with. Will need transportation. Hospital Course Abdominal pain/diarrhea: Stool studies neg, C. diff neg. hemoccult pos. GI evaluated the patient, s/p EGD/Colonoscopy today. EGD showed erythematous gastritis in the gastric antrum s/p multiple biopsies. Duodenal inflammation found in the duodenal bulb. s/p colonoscopy which showed a flat polyp in the ascending colon, s/p polypectomy, The colonic mucosa appeared normal throughout the entire examined colon (although limited from poor bowel prep.)s/p multiple random biopsies of the area performed. Pt would like to go home today. Discussed w GI and she has been cleared by them for d/c home. Pt to continue PPI as an outpatient and f/u w them in 2 weeks. Elevated lactic acid: Lactic acid found to be 2.6 now down to 1.3. Most likely related to dehydration due to the loose stools which have now resolved. Patient does not have any leukocytosis and denies any fevers or chills. She received a dose of vancomycin and Zosyn in the emergency room. In the setting of loose stools I have held treating her with more antibiotics. C. Diff neg. 08/18 blood cx growing gram + cocci. Called microbiology lab and they confirmed that it is contaminant (coag neg staph). Hydradenitis suppurativae: Pt has mod disease, ID recommends doxycycline 1-2 times daily for months. script for doxy 100mg po BID in chart. she will need detention. f/u w Derm/plastic sx as an outpatient. Urinalysis abnormal: urine cx growing klebsiella oxytoca. Pt is asymptomatic, afebrile, no leukocytosis, pt again confirms she has no burning w urination/ increase urinary frequency. Therefore there is no indication to treat. this was also discussed w Dr. Denis Pt Condition on Discharge: Stable Discharge Disposition: Discharge Home Discharge Time: > 30 minutes Discharge Instructions Follow up Referrals: Gastroenterology - 2 Weeks PCP Follow-up - 1 Week Continued Medications: Aspirin (Aspirin) 81 Mg Chew 81 MG CHEW DAILY, TAB 0 Refills Atorvastatin (Atorvastatin) 40 Mg Tab 40 MG PO HS for Cholesterol Management, #30 TAB 0 Refills Doxycycline Hyclate (Doxycycline Hyclate) 100 Mg Cap 100 MG PO BID for Infection, #60 CAP 0 Refills (This prescription has been renewed) Duloxetine (Duloxetine DR) 40 Mg Capdr 40 MG PO HS, #30 CAP 0 Refills Insulin Lispro Protamine-Lispro 75-25 Inj (Humalog Mix 75-25 Inj) 1,000 Unit/10 Ml Susp 70 UNITS SQ DAILY for Blood Sugar Management, VIAL 0 Refills Insulin Lispro Protamine-Lispro 75-25 Inj (Humalog Mix 75-25 Inj) 1,000 Unit/10 Ml Susp 40 UNITS SQ HS for Blood Sugar Management, VIAL 0 Refills Lisinopril (Lisinopril) 20 Mg Tab 10 MG PO DAILY, #30 TAB 0 Refills Nystatin Topical (Nystatin Topical) 100,000 unit/gm Cream 1 APPLIC TOPICAL BID for Infection, #30 GM 0 Refills Oxycodone-Acetaminophen (Percocet) 10-325 mg Tab 1 TAB PO Q6H PRN for PAIN, #20 TAB 0 Refills (This prescription has been renewed ) Pantoprazole (Pantoprazole) 40 Mg Tab 40 MG PO DAILY for Reflux, #30 TAB 0 Refills (This prescription has been renewed ) Sitagliptin (Januvia) 100 Mg Tab 100 MG PO HS for Blood Sugar Management, #30 TAB 0 Refills Trazodone (Trazodone) 100 Mg Tablet 100 MG PO HS for Control Depression, #30 TAB 0 Refills Discontinued Medications: Amoxicillin-Clavulanate (Amoxicillin-Clavulanate) 875-125 mg Tab 875 MG PO BID for Infection, TAB 0 Refills not for use in CrCl <30 mL/minute Sue Ponce MD Jun 22, 2017 10:48
[2017-06-22] MEDS ORDERED: PERC10TA27 PO (10:50)
[2017-06-22] MEDS ORDERED: DOXY100C PO (10:50)
[2017-06-22] MEDS ORDERED: PANT40TA3 PO (10:50)
[2017-06-22] MEDS ORDERED: INSULIN HUMAN REGULAR 1,000 UNITS/10 ML VIAL SQ PRN (11:15)
[2017-06-22] MEDS ORDERED: POVIDONE IODINE 5% (ANTISEPSIS KIT) 4 APPLICATIONS EACH NARE PRN (11:15)
[2017-06-22] MEDS ORDERED: CHLORHEXIDINE GLUCONATE 2 % 1 PACK (2 CLOTHS) TOPICAL PRN (11:15)
[2017-06-22] MEDS ORDERED: SODIUM CHLORID 0.9% 500 ML IV PRN (11:15)
[2017-06-22] MEDS ORDERED: METOPROLOL TARTRATE 25 MG TAB PO PRN (11:15)
[2017-06-22] MEDS ORDERED: LACTATED RINGER'S 1000 ML IV PRN (11:15)
[2017-06-22 11:23] VITALS: BP 175/86; PULSE 74; RESP 18; TEMP 98.1; O2SAT 96
[2017-06-22 12:19] VITALS: BP 151/79
[2017-06-22] MEDS: oxyCODONE/ACETAMINOPHEN 7.5 MG/325 MG TAB PO PRN (12:35)
== END 2017-06-22 12:48 | disposition home or self-care (01) ==
LOC: NEPE 06:58 → NEDA 10:17 → NEPFCDU 13:30
PROVIDERS: ADMIT Hospitalist; ATTEND Hospitalist
DX: R10.9 Unspecified abdominal pain (principal); L02.211 Cutaneous abscess of abdominal wall; E11.65 Type 2 diabetes mellitus with hyperglycemia; F41.9 Anxiety disorder, unspecified; F32.9 Major depressive disorder, single episode, unspecified; E78.00 Pure hypercholesterolemia, unspecified; J44.9 Chronic obstructive pulmonary disease, unspecified; I25.10 Atherosclerotic heart disease of native coronary artery without angina pectoris; K21.9 Gastro-esophageal reflux disease without esophagitis; I10 Essential (primary) hypertension; Z89.411 Acquired absence of right great toe; F17.200 Nicotine dependence, unspecified, uncomplicated; Z79.899 Other long term (current) drug therapy; Z79.4 Long term (current) use of insulin; E87.2 Acidosis; R07.9 Chest pain, unspecified; L73.2 Hidradenitis suppurativa; E86.0 Dehydration; B96.89 Other specified bacterial agents as the cause of diseases classified elsewhere; B96.1 Klebsiella pneumoniae [K. pneumoniae] as the cause of diseases classified elsewhere; K76.0 Fatty (change of) liver, not elsewhere classified; R94.31 Abnormal electrocardiogram [ECG] [EKG]; K29.70 Gastritis, unspecified, without bleeding; K29.80 Duodenitis without bleeding; D12.2 Benign neoplasm of ascending colon
CPT/HCPCS: 00740; 00810; 43239; 45380; 74177; 76700; 80048; 80053; 81001; 82272; 82550; 82948; 83605; 83690; 84484; 85014; 85018; 85025; 86403; 87040; 87077; 87086; 87186; 87205; 87328; 87329; 87493; 87506; 88305; 88312; 93005; 96361; 96365; 96372; 96375; 96376; 99285; G0378; J1650; J1815; J2270; J2405; J2543; J7030; Q9967

== ENCOUNTER 2017-06-30 06:10 | Observation (INO) | payer OTHER ==
[~2017-06-30] VITALS: Ht 165.1 cm; Wt 99.0 kg
[2017-06-30] VITALS (8 sets, daily range): BP systolic 124–216; BP diastolic 76–99; PULSE 95–118; RESP 15–22; TEMP 98–98.4; O2SAT 95–99
[~2017-06-30 06:10] MED LIST changes: +ASPI-516 CHEW; +DOXY100C PO; +DULO-39 PO; +PERC10TA27 PO; +SITA1TAB2 PO; +TRAZ100T10 PO
--- NOTE | 2017-06-30 06:40 | PD ---
HPI Chief Complaint: Chest Pain Time Seen by Provider: 06:31 Travel History International Travel<30 days: No Contact w/Intl Traveler<30days: No Traveled to known affect area: No History of Present Illness HPI Patient is a 57-year-old female who has insulin-dependent diabetic hypertensive past CAD history with 2 stents placed within the last year.. patient awoke at 2 AM with substernal chest pain and took 2 baby aspirin went back to sleep and woke up again with the same chest pain. Described as hurting pressure in her left chest area. The aspirin did not relieve the pain she comes to the ER at 6 AM in the morning. Again the patient is reporting localized pain 7 out of 10 pressure left chest nothing relieved the pain... she has not seen another doctor for this pain. she does not currently have a system engineer nor a PCP due to insurance issues. In the ER she is not diaphoretic , she is not short of breath she is mildly nauseous all other symptoms are reviewed and negative PFSH Past Medical History Arthritis: No Asthma: No Anxiety: Yes Depression: Yes Heart Rhythm Problems: No Cancer: No Cardiovascular Problems: Yes (stents x2) High Cholesterol: Yes Chemotherapy: No Chest Pain: No Congestive Heart Failure: No COPD: Yes Cerebrovascular Accident: No Coronary Artery Disease: Yes Diabetes: Yes Patient Takes Glucophage: No Diminished Hearing: No Endocrine: Yes Gastrointestinal Disorders: No GERD: Yes Genitourinary: No Hiatal Hernia: No Hypertension: Yes Implanted Vascular Access Dvce: Yes Kidney Stones: Yes Psychiatric: Yes Reproductive: No Respiratory: Yes Immunizations Current: Yes Migraines: No Radiation Therapy: No Renal Failure: No Seizures: No Sleep Apnea: No Thyroid Disease: No Ulcer: Yes Tetanus Vaccination: > 5 Years Influenza Vaccination: No Menopausal: Yes Past Surgical History Abdominal Surgery: Yes (cholecystectomy) Body Medical Devices: pins in rt ankle Cardiac Surgery: Yes (stents) Cholecystectomy: Yes Coronary Stent: Yes (X2) Ear Surgery: No Endocrine Surgery: No Eye Surgery: Yes Genitourinary Surgery: Yes (R STENT IN KIDNEY) Gynecologic Surgery: Yes (hysterectomy) Hysterectomy: Yes Neurologic Surgery: No Oral Surgery: No Thoracic Surgery: No Other Surgery: Yes (RIGHT GREAT TOE AMPUTATION) Social History Alcohol Use: No Tobacco Use: Yes Substance Use: No Allergies-Medications (Allergen,Severity, Reaction): Coded Allergies: ketorolac (Verified Allergy, Intermediate, HEADACHE, 06/30/17) amoxicillin (Verified Adverse Reaction, Intermediate, VOMITING, 06/30/17) clavulanic acid (Verified Adverse Reaction, Intermediate, VOMITING, ) Reported Meds & Prescriptions Reported Meds & Active Scripts Active Pantoprazole (Pantoprazole Sodium) 40 Mg Tab 40 Mg PO DAILY Reported Aspirin 81 Mg Chew 81 Mg CHEW DAILY Januvia (Sitagliptin Phosphate) 100 Mg Tab 100 Mg PO HS Duloxetine DR (Duloxetine HCl) 40 Mg Capdr 40 Mg PO HS Trazodone (Trazodone HCl) 100 Mg Tablet 100 Mg PO HS Humalog Mix 75-25 Inj (Insulin Lispro Protam/Lispro Human) 1,000 Unit/10 Ml Susp 40 Units SQ HS Humalog Mix 75-25 Inj (Insulin Lispro Protam/Lispro Human) 1,000 Unit/10 Ml Susp 70 Units SQ DAILY Atorvastatin (Atorvastatin Calcium) 40 Mg Tab 40 Mg PO HS Lisinopril 20 Mg Tab 10 Mg PO DAILY Review of Systems Except as stated in HPI: all other systems reviewed are Neg Cardiovascular: Positive: Chest Pain or Discomfort Gastrointestinal: Positive: Nausea Physical Exam Narrative GENERAL: Patient is obese lying in the bed not diaphoretic no distress no shortness of breath SKIN: Warm and dry. HEAD: Atraumatic. Normocephalic. EYES: Pupils equal and round. No scleral icterus. No injection or drainage. ENT: No nasal bleeding or discharge. Mucous membranes pink and moist. NECK: Trachea midline. No JVD. CARDIOVASCULAR: Regular rate and rhythm. RESPIRATORY: No accessory muscle use. Clear to auscultation. Breath sounds equal bilaterally. GASTROINTESTINAL: Obese Abdomen soft, non-tender, nondistended. Hepatic and splenic margins not palpable. NEUROLOGICAL: Awake and alert. No obvious cranial nerve deficits. Motor grossly within normal limits. Five out of 5 muscle strength in the arms and legs. Normal speech. PSYCHIATRIC: Appropriate mood and affect; insight and judgment normal. Data Data Last Documented VS Vital Signs Date Time Temp Pulse Resp B/P (MAP) Pulse Ox O2 Delivery O2 Flow Rate FiO2 06/30/17 07:33 98 16 157/88 (111) 95 Room Air Orders Orders Complete Blood Count With Diff (06/30/17 06:18) Comprehensive Metabolic Panel (06/30/17 06:18) Troponin I (06/30/17 06:18) Lipase (06/30/17 06:18) Ua Includes Microscopic (06/30/17 06:18) Alcohol (Ethanol) (06/30/17 06:18) Chest, Pa & Lat (06/30/17 ) Electrocardiogram (06/30/17 ) Ondansetron Inj (Zofran Inj) (06/30/17 06:45) Nitroglycerin 2% Oint (Nitroglycerin 2% (06/30/17 06:45) Morphine Inj (Morphine Inj) (06/30/17 06:45) Metoprolol Tartrate Inj (Lopressor Inj) (06/30/17 06:45) Nitroglycerin Sl (Nitrostat Sl) (06/30/17 07:45) Morphine Inj (Morphine Inj) (06/30/17 07:45) Admit Order (Ed Use Only) (06/30/17 ) Activity Bed Rest With Brp (06/30/17 07:35) Vital Signs (Adult) Q4H (06/30/17 07:35) Cardiac Rhythm .As Directed (06/30/17 07:35) Notify Dr: Other .PRN (06/30/17 07:35) Notify Dr. Parameters (06/30/17 07:35) Resp Oxygen Nasal Cannula (06/30/17 ) Ckmb (Isoenzyme) Profile (06/30/17 09:00) Ckmb (Isoenzyme) Profile (06/30/17 12:00) Troponin I (06/30/17 09:00) Troponin I (06/30/17 12:00) Electrocardiogram (06/30/17 09:00) ^ Obtain (06/30/17 07:35) Sodium Chloride 0.9% Flush (Ns Flush) (06/30/17 07:45) Sodium Chloride 0.9% Flush (Ns Flush) (06/30/17 09:00) Labs Laboratory Tests Test 06/30/17 06:23 06/30/17 07:30 White Blood Count 11.0 TH/MM3 Red Blood Count 4.79 MIL/MM3 Hemoglobin 14.8 GM/DL Hematocrit 43.6 % Mean Corpuscular Volume 91.0 FL Mean Corpuscular Hemoglobin 30.8 PG Mean Corpuscular Hemoglobin Concent 33.8 % Red Cell Distribution Width 13.0 % Platelet Count 382 TH/MM3 Mean Platelet Volume 6.8 FL Neutrophils (%) (Auto) 75.1 % Lymphocytes (%) (Auto) 18.0 % Monocytes (%) (Auto) 5.2 % Eosinophils (%) (Auto) 1.4 % Basophils (%) (Auto) 0.3 % Neutrophils # (Auto) 8.2 TH/MM3 Lymphocytes # (Auto) 2.0 TH/MM3 Monocytes # (Auto) 0.6 TH/MM3 Eosinophils # (Auto) 0.2 TH/MM3 Basophils # (Auto) 0.0 TH/MM3 CBC Comment DIFF FINAL Differential Comment Blood Urea Nitrogen 9 MG/DL Creatinine 0.70 MG/DL Random Glucose 184 MG/DL Total Protein 7.8 GM/DL Albumin 3.1 GM/DL Calcium Level 9.1 MG/DL Alkaline Phosphatase 73 U/L Aspartate Amino Transf (AST/SGOT) 38 U/L Alanine Aminotransferase (ALT/SGPT) 23 U/L Total Bilirubin 0.3 MG/DL Sodium Level 141 MEQ/L Potassium Level 4.4 MEQ/L Chloride Level 103 MEQ/L Carbon Dioxide Level 30.1 MEQ/L Anion Gap 8 MEQ/L Estimat Glomerular Filtration Rate 86 ML/MIN Troponin I 0.04 NG/ML Lipase 116 U/L Ethyl Alcohol Level LESS THAN 3 MG/DL Urine Color LIGHT-YELLOW Urine Turbidity CLEAR Urine pH 7.5 Urine Specific [place] 1.007 Urine Protein 100 mg/dL Urine Glucose (UA) NEG mg/dL Urine Ketones NEG mg/dL Urine Occult Blood NEG Urine Nitrite NEG Urine Bilirubin NEG Urine Urobilinogen LESS THAN 2.0 MG/DL Urine Leukocyte Esterase NEG Urine RBC LESS THAN 1 /hpf Urine WBC LESS THAN 1 /hpf Urine Squamous Epithelial Cells 1 /hpf [facility] Medical Decision Making Medical Screen Exam Complete: Yes Emergency Medical Condition: Yes Interpretation(s) Chest x-ray is read as negative EKG is normal sinus rhythm at a rate of 94 bpm Differential Diagnosis CP from Myocardial ischemia vs Gerd vs PNA , vs PE vs costochondritis Narrative Course Pt has multiple risk factors for MA from ischemic disease. EKG normal NSR 94 BPM labs negative but due to significant risk factors warrants full work up serial trop and EKGs and stress test in Chest pain center. will admit Diagnosis Primary Impression: Chest pain Qualified Codes: R07.9 - Chest pain, unspecified Admitting Information Admitting Physician Requests: Admit Nicholas Miranda MD Jun 30, 2017 06:40
--- NOTE | 2017-06-30 06:40 | RADRPT ---
EXAM DATE/TIME: 06/30/2017 06:30 [place] COMPARISON: CHEST PA & LAT, January 28, 2015, 8:40. INDICATIONS : Patient states chest pain that radiates down left arm. MEDICAL HISTORY : Hypercholesterolemia. Hypertension. Renal calculi. Peripheral neuropathy. Coronaryartery disease. FUR NAILER D. SURGICAL HISTORY : Coronary artery stent. Cholecystectomy. Hysterectomy. Right kidney stent. ENCOUNTER: Initial ACUITY: 1 day PAIN SCORE: 8/10 LOCATION: Bilateral chest FINDINGS: PA and lateral views of the chest demonstrate the lungs to be symmetrically aerated without evidence of mass, infiltrate or effusion. Severe atherosclerotic disease. The cardiomediastinal contours are unremarkable. Osseous structures are intact. Prominent anterior osteophytes. CONCLUSION: Lungs are grossly clear. Corbin Zee MD on June 30, 2017 at 6:38 Board Certified Radiologist. This report was verified electronically.
[2017-06-30] MEDS ORDERED: ONDANSETRON HCL 4 MG/2 ML VIAL IV PUSH ONE (06:45)
[2017-06-30] MEDS ORDERED: MORPHINE SULFATE 2 MG/ML INJ IV PUSH ONE ×2 (06:45→07:45)
[2017-06-30] MEDS ORDERED: METOPROLOL TARTRATE 5 MG/5 ML VIAL IV PUSH ONE (06:45)
[2017-06-30] MEDS ORDERED: NITROGLYCERIN 2% OINT 1 GM PACKET TOPICAL ONE (06:45)
[2017-06-30 06:48] LABS: AUTOMATED NEUTROPHIL # 8.2 TH/MM3 (1.8-7.7); BASOPHIL % 0.3 % (0.0-2.0); EOSINOPHIL # 0.2 TH/MM3 (0-0.4); EOSINOPHIL % 1.4 % (0.0-4.0); HEMATOCRIT 43.6 % (35.0-46.0); HEMO FLAGS DIFF FINAL; MEAN CORPUSCULAR HEMOGLOBIN 30.8 PG (27.0-34.0); MEAN CORPUSCULAR HGB CONC 33.8 % (32.0-36.0); MONO % 5.2 % (0.0-8.0); NEUT % 75.1 % (16.0-70.0); PLATELET COUNT 382 TH/MM3 (150-450); RED BLOOD COUNT 4.79 MIL/MM3 (4.00-5.30)
[2017-06-30 07:08] LABS: ALT (GPT) 23 U/L (10-53); ANION GAP 8 MEQ/L (5-15); AST (GOT) 38 U/L (15-37); BICARBONATE 30.1 MEQ/L (21.0-32.0); BLOOD UREA NITROGEN 9 MG/DL (7-18); CHLORIDE 103 MEQ/L (98-107); GLOMERULAR FILTRATION RATE 86 ML/MIN (>89); SODIUM (NA) 141 MEQ/L (136-145)
[2017-06-30 07:09] LABS: ALCOHOL LESS THAN 3 MG/DL (0-5); ALKALINE PHOSPHATASE 73 U/L (45-117); POTASSIUM 4.4 MEQ/L (3.5-5.1); TOTAL BILIRUBIN ADULT 0.3 MG/DL (0.2-1.0)
--- NOTE | 2017-06-30 07:13 | PD ---
Data Data Last Documented VS Vital Signs Date Time Temp Pulse Resp B/P (MAP) Pulse Ox O2 Delivery O2 Flow Rate FiO2 06/30/17 07:33 98 16 157/88 (111) 95 Room Air 06/30/17 06:21 2.00 06/30/17 06:12 98.0 Orders Orders Complete Blood Count With Diff (06/30/17 06:18) Comprehensive Metabolic Panel (06/30/17 06:18) Troponin I (06/30/17 06:18) Lipase (06/30/17 06:18) Ua Includes Microscopic (06/30/17 06:18) Alcohol (Ethanol) (06/30/17 06:18) Chest, Pa & Lat (06/30/17 ) Electrocardiogram (06/30/17 ) Ondansetron Inj (Zofran Inj) (06/30/17 06:45) Nitroglycerin 2% Oint (Nitroglycerin 2% (06/30/17 06:45) Morphine Inj (Morphine Inj) (06/30/17 06:45) Metoprolol Tartrate Inj (Lopressor Inj) (06/30/17 06:45) Nitroglycerin Sl (Nitrostat Sl) (06/30/17 07:45) Morphine Inj (Morphine Inj) (06/30/17 07:45) Admit Order (Ed Use Only) (06/30/17 ) Activity Bed Rest With Brp (06/30/17 07:35) Vital Signs (Adult) Q4H (06/30/17 07:35) Cardiac Rhythm .As Directed (06/30/17 07:35) Notify Dr: Other .PRN (06/30/17 07:35) Notify Parameters (06/30/17 07:35) Resp Oxygen Nasal Cannula (06/30/17 ) Ckmb (Isoenzyme) Profile (06/30/17 09:00) Ckmb (Isoenzyme) Profile (06/30/17 12:00) Troponin I (06/30/17 09:00) Troponin I (06/30/17 12:00) Electrocardiogram (06/30/17 09:00) Electrocardiogram (06/30/17 12:00) ^ Obtain (06/30/17 07:35) Sodium Chloride 0.9% Flush (Ns Flush) (06/30/17 07:45) Sodium Chloride 0.9% Flush (Ns Flush) (06/30/17 09:00) Labs Laboratory Tests Test 06/30/17 06:23 White Blood Count 11.0 TH/MM3 Red Blood Count 4.79 MIL/MM3 Hemoglobin 14.8 GM/DL Hematocrit 43.6 % Mean Corpuscular Volume 91.0 FL Mean Corpuscular Hemoglobin 30.8 PG Mean Corpuscular Hemoglobin Concent 33.8 % Red Cell Distribution Width 13.0 % Platelet Count 382 TH/MM3 Mean Platelet Volume 6.8 FL Neutrophils (%) (Auto) 75.1 % Lymphocytes (%) (Auto) 18.0 % Monocytes (%) (Auto) 5.2 % Eosinophils (%) (Auto) 1.4 % Basophils (%) (Auto) 0.3 % Neutrophils # (Auto) 8.2 TH/MM3 Lymphocytes # (Auto) 2.0 TH/MM3 Monocytes # (Auto) 0.6 TH/MM3 Eosinophils # (Auto) 0.2 TH/MM3 Basophils # (Auto) 0.0 TH/MM3 CBC Comment DIFF FINAL Differential Comment Blood Urea Nitrogen 9 MG/DL Creatinine 0.70 MG/DL Random Glucose 184 MG/DL Total Protein 7.8 GM/DL Albumin 3.1 GM/DL Calcium Level 9.1 MG/DL Alkaline Phosphatase 73 U/L Aspartate Amino Transf (AST/SGOT) 38 U/L Alanine Aminotransferase (ALT/SGPT) 23 U/L Total Bilirubin 0.3 MG/DL Sodium Level 141 MEQ/L Potassium Level 4.4 MEQ/L Chloride Level 103 MEQ/L Carbon Dioxide Level 30.1 MEQ/L Anion Gap 8 MEQ/L Estimat Glomerular Filtration Rate 86 ML/MIN Troponin I 0.04 NG/ML Lipase 116 U/L Ethyl Alcohol Level LESS THAN 3 MG/DL [facility] Supervised Visit with JAGDEEP: No Narrative Course Patient care assumed from Dr. Miranda at 0700. Patient 57-year-old female with history of coronary disease morbid obesity presents emergency Department with chest pain radiating down her left arm which awoke her from sleep this morning. She does have a history of stents placed [address] Gregorio in [place], she because of funding issues she has not followed up with a spikemaking supervisor since then. She is feeling better after nitroglycerin and morphine , discussed with her need for follow-up with a spikemaking supervisor and recommended observation unit for chest pain and she is agreeable. Initial troponin EKG are reassuring. Chest x-ray Last 24 hours Impressions Chest X-Ray 06/30/17 0000 Signed Impressions: Service Date/Time: June 06:30 - CONCLUSION: Lungs are grossly clear. Corbin Zee MD Diagnosis Primary Impression: Chest pain Tony Castillo MD Jun 30, 2017 07:13
[2017-06-30] MEDS ORDERED: NITROGLYCERIN 0.4 MG SL 25 TABS/BTL SL ONE (07:45)
[2017-06-30] MEDS ORDERED: SODIUM CHLORIDE 0.9% FLUSH 10 ML FLUSH IV FLUSH PRN (07:45)
[2017-06-30 07:47] LABS: BLOOD, URINE NEG (NEG); GLUCOSE,URINE NEG (NEG); KETONE, URINE NEG (NEG); NITRITE,URINE NEG (NEG); PH, URINE 7.5 (5.0-8.5); SQUAMOUS EPITHELIAL CELL URINE 1 /hpf (0-5); URINE COLOR LIGHT-YELLOW (YELLW/STRAW)
[2017-06-30] MEDS ORDERED: SODIUM CHLORIDE 0.9% FLUSH 10 ML FLUSH IV FLUSH SCH (09:00)
[2017-06-30] MEDS ORDERED: SODIUM CHLORIDE 0.9% FLUSH 5 ML FLUSH IVF PRN (10:45)
[2017-06-30] MEDS ORDERED: ACETAMINOPHEN 500 MG CPLT PO PRN (10:45)
[2017-06-30] MEDS ORDERED: cloNIDine HCL 0.1 MG TAB PO PRN (10:45)
[2017-06-30] MEDS ORDERED: ONDANSETRON HCL 4 MG/2 ML VIAL IV PUSH PRN (10:45)
[2017-06-30] MEDS ORDERED: RESP: ALBUTEROL 2.5 MG/IPRATROPIUM 0.5 MG NEB (PRN) INH (10:45)
[2017-06-30] MEDS ORDERED: SODIUM CHLORID 0.9% 500 ML INJ 500 ML IV SCH (10:45)
--- NOTE | 2017-06-30 10:57 | HHI.HP ---
HPI Primary Care Physician No Primary Care Physician Chief Complaint Chest pain History of Present Illness This is a 57-year-old female that presents to ED via private vehicle with history of CAD with stents, hypertension, hyperlipidemia, diabetes with a complaint of chest discomfort. Patient states that she was awoken at 2:00 this morning with a client of a stabbing discomfort across her chest radiating to the left breast. She states is still there. She was short of breath, nauseous , diaphoretic with the. States it similar to when she needed a stent about a year and a half ago. She had 2 stents placed at that time. She was also seen at [facility] about couple months ago and had a stress test which she believes is okay. She is not followed by director of email marketing. Patient continues smoke cigarettes. Review of Systems General: Patient denies fevers, chills recent, and recent travel HEENT: Patient denies headache, sore throat, difficulty swallowing. Cardiovascular: Has the chest discomfort as mentioned above. Denies sensation of heart beating rapidly or irregularly. No syncope. She was diaphoretic. Respiratory: She was short of breath. Denies inspirational chest discomfort. Denies coughing wheezing or hemoptysis. GI: She was nauseous. Patient denies, vomiting, diarrhea, abdominal pain, bloody stools. Musculoskeletal: Patient denies joint pain or edema. Denies calf pain or edema. Neurovascular: Patient denies numbness, tingling, weakness in extremities. Denies headache. Endocrine: Denies polyuria and polydipsia. Hematologic: Denies easy bruising. Skin: Denies rash or itching. Past Family Social History Allergies: Coded Allergies: ketorolac (Verified Allergy, Intermediate, HEADACHE, 06/30/17) amoxicillin (Verified Adverse Reaction, Intermediate, VOMITING, 06/30/17) clavulanic acid (Verified Adverse Reaction, Intermediate, VOMITING, ) Past Medical History CAD with stents. Diabetes, hypertension, hyperlipidemia, tobacco abuse, neuropathy in her legs and feet. Past Surgical History Right great toe amputated secondary to infection. Heart catheterization with stenting about a year and a half ago. Hysterectomy, cholecystectomy, pins in right ankle. Reported Medications Reported Meds & Active Scripts Active Pantoprazole (Pantoprazole Sodium) 40 Mg Tab 40 Mg PO DAILY Reported Aspirin 81 Mg Chew 81 Mg CHEW DAILY Januvia (Sitagliptin Phosphate) 100 Mg Tab 100 Mg PO HS Duloxetine DR (Duloxetine HCl) 40 Mg Capdr 40 Mg PO HS Trazodone (Trazodone HCl) 100 Mg Tablet 100 Mg PO HS Humalog Mix 75-25 Inj (Insulin Lispro Protam/Lispro Human) 1,000 Unit/10 Ml Susp 40 Units SQ HS Humalog Mix 75-25 Inj (Insulin Lispro Protam/Lispro Human) 1,000 Unit/10 Ml Susp 70 Units SQ DAILY Atorvastatin (Atorvastatin Calcium) 40 Mg Tab 40 Mg PO HS Lisinopril 20 Mg Tab 10 Mg PO DAILY Active Ordered Medications Current Medications Medications (Trade) Dose Ordered Sig/Sierra Route Start Time Stop Time Status Last Admin (NS Flush) 2 ml UNSCH PRN IV FLUSH 06/30/17 07:45 (NS Flush) 2 ml BID IV FLUSH 06/30/17 09:00 06/30/17 09:07 (Lipitor) 40 mg HS PO 06/30/17 21:00 UNV (Cymbalta Dr) 40 mg HS PO 06/30/17 21:00 UNV (Prinivil) 10 mg DAILY PO 06/30/17 10:45 UNV (Protonix) 40 mg DAILY PO 06/30/17 10:45 UNV Non-Formulary Medication 100 mg HS PO 06/30/17 21:00 UNV (NS Flush) 2 ml UNSCH PRN IVF 06/30/17 10:45 UNV (NS Flush) 2 ml BID IVF 06/30/17 21:00 UNV (Tylenol) 500 mg Q4H PRN PO 06/30/17 10:45 UNV (Jefferson 7.5-325 Mg) 1 tab Q4H PRN PO 06/30/17 10:45 UNV (Zofran Inj) 4 mg Q6H PRN IV PUSH 06/30/17 10:45 UNV (Duoneb Neb) 1 ampule Q4HR NEB PRN INH 06/30/17 10:45 UNV (Catapres) 0.1 mg Q4H PRN PO 06/30/17 10:45 UNV Sodium Chloride 500 ml @ 100 mls/hr NOW IV 06/30/17 10:45 06/30/17 15:44 UNV Family History There is family history of CAD. Social History Patient continues to smoke cigarettes. Currently smoking about one half pack a day for 2 years. Prior to that she smoked one pack a day for 30 years. Denies alcohol or illicit drugs. Physical Exam Vital Signs Vital Signs Date Time Temp Pulse Resp B/P (MAP) Pulse Ox O2 Delivery O2 Flow Rate FiO2 06/30/17 09:08 109 21 140/99 (113) 95 Room Air 06/30/17 09:08 111 21 95 Room Air 06/30/17 07:33 98 16 157/88 (111) 95 Room Air 06/30/17 06:21 96 18 147/91 (109) 99 Nasal Cannula 2.00 185/99 (127) 06/30/17 06:12 98.0 118 22 216/95 (135) 97 Room Air Physical Exam GENERAL: This is a well-nourished, well-developed patient, in no apparent distress. Patient speaks in clear complete sentences. Patient is pleasant. HEENT: Head is atraumatic and normocephalic. Neck is supple without lymphadenopathy and trachea is midline. No JVD or carotid bruits. CARDIOVASCULAR: Regular rate and rhythm without murmurs, gallops, or rubs. RESPIRATORY: Clear to auscultation. Breath sounds equal bilaterally. No wheezes , rales, or rhonchi. Chest wall is tender but feels different and the discomfort she has been having. No use of accessory muscles. GASTROINTESTINAL: Abdomen is nontender, nondistended. Abdomen soft. No obvious pulsatile mass or bruit. No CVA tenderness. Strong femoral pulses bilaterally. Normal bowel sounds in all quadrants. MUSCULOSKELETAL: Patient is moving upper and lower extremities freely. No calf tenderness or edema, no Homans sign. Strong pulses in upper and lower extremities. NEUROLOGICAL: Patient is alert and oriented. Cranial nerves 2-12 are grossly intact. No focal deficits and speech is clear. SKIN: No rash and turgor is normal. Laboratory Laboratory Tests Test 06/30/17 06:23 06/30/17 07:30 06/30/17 08:46 White Blood Count 11.0 Red Blood Count 4.79 Hemoglobin 14.8 Hematocrit 43.6 Mean Corpuscular Volume 91.0 Mean Corpuscular Hemoglobin 30.8 Mean Corpuscular Hemoglobin Concent 33.8 Red Cell Distribution Width 13.0 Platelet Count 382 Mean Platelet Volume 6.8 Neutrophils (%) (Auto) 75.1 Lymphocytes (%) (Auto) 18.0 Monocytes (%) (Auto) 5.2 Eosinophils (%) (Auto) 1.4 Basophils (%) (Auto) 0.3 Neutrophils # (Auto) 8.2 Lymphocytes # (Auto) 2.0 Monocytes # (Auto) 0.6 Eosinophils # (Auto) 0.2 Basophils # (Auto) 0.0 CBC Comment DIFF FINAL Differential Comment Blood Urea Nitrogen 9 Creatinine 0.70 Random Glucose 184 Total Protein 7.8 Albumin 3.1 Calcium Level 9.1 Alkaline Phosphatase 73 Aspartate Amino Transf (AST/SGOT) 38 Alanine Aminotransferase (ALT/SGPT) 23 Total Bilirubin 0.3 Sodium Level 141 Potassium Level 4.4 Chloride Level 103 Carbon Dioxide Level 30.1 Anion Gap 8 Estimat Glomerular Filtration Rate 86 Troponin I 0.04 0.03 Lipase 116 Ethyl Alcohol Level LESS THAN 3 Urine Color LIGHT-YELLOW Urine Turbidity CLEAR Urine pH 7.5 Urine Specific Leblanc 1.007 Urine Protein 100 Urine Glucose (UA) NEG Urine Ketones NEG Urine Occult Blood NEG Urine Nitrite NEG Urine Bilirubin NEG Urine Urobilinogen LESS THAN 2.0 Urine Leukocyte Esterase NEG Urine RBC LESS THAN 1 Urine WBC LESS THAN 1 Urine Squamous Epithelial Cells 1 Total Creatine Kinase 70 Result Diagram: 06/30/17 0623 06/30/17 0623 Imaging Last 48 hours Impressions Chest X-Ray 06/30/17 0000 Signed Impressions: Service Date/Time: , June 30, 2017 06:30 - CONCLUSION: Lungs are grossly clear. Corbin Zee MD Course Initial EKG is sinus tachycardia rate of [address] segment depressions or elevations. Caprini VTE Risk Assessment Caprini VTE Risk Assessment: No/Low Risk (score <= 1) Caprini Risk Assessment Model Point Value = 1 Point Value = 2 Point Value = 3 Point Value = 5 Age 41-60 Minor surgery BMI > 25 kg/m2 Swollen legs Varicose veins or History of unexplained or recurrent spontaneous Oral contraceptives or hormone replacement Sepsis (< 1 month) Serious lung disease, including pneumonia (< 1 month) Abnormal pulmonary function Acute myocardial infarction Congestive heart failure (< 1 month) History of inflammatory bowel disease Medical patient at bed rest Age 61-74 Arthroscopic surgery Major open surgery (> 45 min) Laparoscopic surgery (> 45 min) Malignancy Confined to bed (> 72 hours) Immobilizing plaster cast Central venous access Age >= 75 History of VTE Family history of VTE Factor V Leiden Prothrombin [id number] Lupus anticoagulant Anticardiolipin antibodies Elevated serum homocysteine Heparin-induced thrombocytopenia Other congenital or acquired thrombophilia Stroke (< 1 month) Elective arthroplasty Hip, pelvis, or leg fracture Acute spinal cord injury (< 1 month) Prophylaxis Regimen Total Risk Factor Score Risk Level Prophylaxis Regimen 0-1 Low Early ambulation 2 Moderate Order ONE of the following: *Sequential Compression Device (SCD) *Heparin 5000 units SQ BID 3-4 Higher Order ONE of the following medications: *Heparin 5000 units SQ TID *Enoxaparin/Lovenox 40 mg SQ daily (WT < 150 kg, CrCl > 30 mL/min) *Enoxaparin/Lovenox 30 mg SQ daily (WT < 150 kg, CrCl > 10-29 mL/min) *Enoxaparin/Lovenox 30 mg SQ BID (WT < 150 kg, CrCl > 30 mL/min) AND/OR *Sequential Compression Device (SCD) 5 or more Highest Order ONE of the following medications: *Heparin 5000 units SQ TID (Preferred with Epidurals) *Enoxaparin/Lovenox 40 mg SQ daily (WT < 150 kg, CrCl > 30 mL/min) *Enoxaparin/Lovenox 30 mg SQ daily (WT < 150 kg, CrCl > 10-29 mL/min) *Enoxaparin/Lovenox 30 mg SQ BID (WT < 150 kg, CrCl > 30 mL/min) AND *Sequential Compression Device (SCD) Assessment and Plan Assessment and Plan * Chest pain: Patient will continue to have serial cardiac enzymes and EKGs for ruling out purposes. She'll be seen by Dr. Roberto of cardiology in the chest pain center. We are trying to get records from [place], patient states she had a stress test about 2 months ago. Pending results of that and pending the results of her labs today we will determine further plan. Patient will need to have outpatient follow director of email marketing regarding this. * CAD: We'll reassess at this visit. Patient will need to make arranges for outpatient director of email marketing. * Diabetes: Patient should follow diabetic diet. We will have her cover with sliding scale coverage but she should resume her medication at discharge. * Hypertension: Continue current medication. * Hyperlipidemia: Continue current medication. * Tobacco abuse: Patient has been counseled on importance of smoking cessation. Patient is stable time. She is agreeable to this plan. Garrett Sparks Jun 30, 2017 10:57
[2017-06-30] MEDS ORDERED: DEXTROSE 50% IN WATER 50 ML VIAL(D50) IV PUSH PRN (11:30)
[2017-06-30] MEDS ORDERED: GLUCAGON 1 MG/ML VIAL OTHER PRN (11:30)
[2017-06-30] MEDS ORDERED: PANTOPRAZOLE SOD 40 MG DELAYED RELEASE TAB PO SCH (11:40)
[2017-06-30] MEDS ORDERED: LISINOPRIL 10 MG TAB PO SCH (11:45)
[2017-06-30] MEDS: INSULIN NovoLIN REGULAR SUPPLEMENTAL SCALE SQ SCH ×2 (12:00→17:00)
[2017-06-30] MEDS: ACETAMINOPHEN/HYDROcodone 325 MG/7.5 MG TAB PO PRN ×2 (12:04→15:59)
[2017-06-30] MEDS ORDERED: REGADENOSON INJ 0.4 MG/5 ML SYR ONE (14:38)
--- NOTE | 2017-06-30 16:21 | EKG ---
Date Performed: 06/30/2017 Time Performed: 06:18:24 PTAGE: 57 years EKG: Sinus rhythm NORMAL ECG PREVIOUS TRACING : 06/19/2017 20.24 Compared to prior tracing no significant change DOCTOR: Earnestine Desouza Interpretating Date/Time 06/30/2017 16:20:36
--- NOTE | 2017-06-30 16:52 | RADRPT ---
EXAM DATE/TIME: 06/30/2017 14:24 [facility] COMPARISON: GASTRIC EMPTYING, January 31, 2015, 8:52. INDICATIONS : Mid chest pain with nausea and shortness of breath. Angina. DOSE: 8.7 mCi Tc99m Myoview at stress. 26 mCi Tc99m Myoview at rest. 0.4 mg Lexiscan STRESS SYMPTOMS: Shortness of breath, chest pressure. EJECTION FRACTION: 47% MEDICAL HISTORY : Cardiovascular disease. Diabetes mellitus type 2. Hypertension. SURGICAL HISTORY : Coronary artery stent. Hysterectomy. Cholecystectomy. ENCOUNTER: Initial ACUITY: 1 day PAIN SCALE: 5/10 LOCATION: Midsternal chest TECHNIQUE: The patient underwent pharmacologic stress with infusion of prescribed dose. Continuous ECG tracing was monitored during stress. Gated SPECT imaging was performed after stress and conventional SPECT i maging was performed at rest. The examination was performed on a SPECT/CT scanner, both attenuation and non-corrected datasets were reviewed. FINDINGS: DISTRIBUTION: The maximum perfused segment at stress is in the septal wall. PERFUSION STUDY: There is a small size, moderate in severity, fixed perfusion defect involving the anteroseptal wall. There is an associated area of hypokinesis on the gated data. No reversible perfusion defect is ident ified. GATED STUDY: There is an area of hypokinesis involving the anteroseptal wall. CONCLUSION: 1. Fixed perfusion defect involving the anteroseptal wall with associated wall motion abnormality. Th e exam would suggest an area of infarct. 2. Decreased ejection fraction estimated at 47%. RISK CATEGORY: Intermediate (1-3% Annual Mortality Rate) Elier Valencia MD on June 30, 2017 at 16:46 Board Certified Radiologist. This report was verified electronically.
--- NOTE | 2017-06-30 17:29 | HHI.DCPOC ---
Discharge Care Plan Diagnosis: (1) Chest pain (2) CAD (coronary artery disease) (3) H/O heart artery stent (4) Tobacco abuse (5) Hypertension (6) Diabetes mellitus (7) Hyperlipidemia Goals to Promote Your Health * To prevent worsening of your condition and complications * To maintain your health at the optimal level Directions to Meet Your Goals Take your medications as prescribed Follow your dietary instruction Follow activity as directed Keep your appointments as scheduled Take your immunizations and boosters as scheduled If your symptoms worsen call your PCP, if no PCP go to Urgent Care Center or Emergency Room Smoking is Dangerous to Your Health. Avoid second hand smoke Call the 24-hour hour crisis hotline for domestic abuse at Garrett Sparks Jun 30, 2017 17:29
--- NOTE | 2017-06-30 17:52 | TR ---
Date Performed: 06/30/2017 Time Performed: 14:52:57 DOCTOR: Slim Roberto DRUG LIST: CLINICAL HISTORY: ANGINA REASON FOR TEST: REASON FOR ENDING: OBSERVATION: CONCLUSION: Lexiscan stress test was performed under standard four minute protocol. Radionuclid e was injected one minute prior to ending the test. No electrocardiographic abormalities were present to suggest ischemia. Nuclear imaging and interpretation are pending. COMMENTS:
[2017-06-30] MEDS ORDERED: SODIUM CHLORIDE 0.9% FLUSH 5 ML FLUSH IVF SCH (21:00)
[2017-06-30] MEDS ORDERED: traZODone HCL 100 MG TAB PO SCH (21:00)
[2017-06-30] MEDS ORDERED: ATORVASTATIN 40 MG TAB PO SCH (21:00)
[2017-06-30] MEDS ORDERED: DULoxetine HCl DR 20 MG CAP PO SCH (21:00)
--- NOTE | 2017-07-01 16:21 | EKG ---
Date Performed: 06/30/2017 Time Performed: 09:44:35 PTAGE: 57 years EKG: SINUS TACHYCARDIA BORDERLINE LEFT AXIS DEVIATION ABNORMAL RHYTHM ECG Compared to PREVIOUS TRACING , axis slightly more leftward, otherwise no significant change. PREVIOUS TRACIN06/30/2017 06.18 DOCTOR: Slim Roberto Interpretating Date/Time 07/01/2017 16:19:30
== END 2017-06-30 18:33 | disposition home or self-care (01) ==
LOC: NEPC 06:10 → NEDA 07:37 → NEPHCDU 12:26
DX: R07.89 Other chest pain (principal); R06.02 Shortness of breath; R11.0 Nausea; R61 Generalized hyperhidrosis; R00.0 Tachycardia, unspecified; I25.10 Atherosclerotic heart disease of native coronary artery without angina pectoris; I10 Essential (primary) hypertension; I20.9 Angina pectoris, unspecified; E78.5 Hyperlipidemia, unspecified; E11.40 Type 2 diabetes mellitus with diabetic neuropathy, unspecified; J44.9 Chronic obstructive pulmonary disease, unspecified; E78.00 Pure hypercholesterolemia, unspecified; K21.9 Gastro-esophageal reflux disease without esophagitis; F41.9 Anxiety disorder, unspecified; F32.9 Major depressive disorder, single episode, unspecified; F17.210 Nicotine dependence, cigarettes, uncomplicated; E66.01 Morbid (severe) obesity due to excess calories; Z95.5 Presence of coronary angioplasty implant and graft; Z79.899 Other long term (current) drug therapy; Z79.82 Long term (current) use of aspirin; Z79.4 Long term (current) use of insulin; Z87.442 Personal history of urinary calculi; Z89.411 Acquired absence of right great toe
CPT/HCPCS: 71020; 78452; 80053; 80307; 81001; 82550; 83690; 84484; 85025; 93005; 93017; 96361; 96372; 96374; 96375; 96376; 99285; A9502; G0378; J2270; J2405; J2785; J7040

== ENCOUNTER 2017-08-26 08:54 | Emergency (ER) | payer OTHER ==
[~2017-08-26] VITALS: Ht 165.1 cm; Wt 98.0 kg
[~2017-08-26 08:54] MED LIST changes: -DOXY100C PO; -NYST15T TOPICAL; -PERC10TA27 PO
[2017-08-26 08:57] VITALS: BP 158/82; PULSE 102; RESP 24; TEMP 98.4; O2SAT 94
[2017-08-26 09:08] VITALS: TEMP 99.1
--- NOTE | 2017-08-26 11:42 | PD ---
HPI Chief Complaint: Skin Problem Time Seen by Provider: 11:39 Travel History International Travel<30 days: No Contact w/Intl Traveler<30days: No Traveled to known affect area: No History of Present Illness HPI Examined in the presence of a female nurse. 57-year-old female to history of diabetes and COPD presents for evaluation of abdominal wall abscess. Started 4 days ago. Pain is throbbing, constant, worse with palpation. Denies drainage, fevers, chills. She saw her primary care physician yesterday who prescribed her Bactrim but she has not yet started it. She has no other complaints. PFSH Past Medical History Arthritis: No Asthma: No Anxiety: Yes Depression: Yes Heart Rhythm Problems: No Cancer: No Cardiac Catheterization: Yes Cardiovascular Problems: Yes (stents x2) High Cholesterol: Yes Chemotherapy: No Chest Pain: No Congestive Heart Failure: No COPD: Yes Cerebrovascular Accident: No Coronary Artery Disease: Yes Diabetes: Yes Diminished Hearing: No Endocrine: Yes Gastrointestinal Disorders: No GERD: Yes Genitourinary: No Hiatal Hernia: No Hypertension: Yes Implanted Vascular Access Dvce: Yes Kidney Stones: Yes Psychiatric: Yes Reproductive: No Respiratory: Yes Immunizations Current: Yes Migraines: No Radiation Therapy: No Renal Failure: No Seizures: No Sleep Apnea: No Thyroid Disease: No Ulcer: Yes ?: Not Menopausal: Yes Past Surgical History Abdominal Surgery: Yes (cholecystectomy) Body Medical Devices: pins in rt ankle Cardiac Surgery: Yes (stents) Cholecystectomy: Yes Coronary Artery Bypass Graft: No Coronary Stent: Yes (X2) Ear Surgery: No Endocrine Surgery: No Eye Surgery: Yes Genitourinary Surgery: Yes (R STENT IN KIDNEY) Gynecologic Surgery: Yes (hysterectomy) Hysterectomy: Yes Neurologic Surgery: No Oral Surgery: No Thoracic Surgery: No Other Surgery: Yes (RIGHT GREAT TOE AMPUTATION) Social History Alcohol Use: No Tobacco Use: Yes Substance Use: No Allergies-Medications (Allergen,Severity, Reaction): Coded Allergies: ketorolac (Verified Allergy, Intermediate, HEADACHE, 08/26/17) amoxicillin (Verified Adverse Reaction, Intermediate, VOMITING, 08/26/17) clavulanic acid (Verified Adverse Reaction, Intermediate, VOMITING, ) Reported Meds & Prescriptions Reported Meds & Active Scripts Active Pantoprazole (Pantoprazole Sodium) 40 Mg Tab 40 Mg PO DAILY Reported Aspirin 81 Mg Chew 81 Mg CHEW DAILY Januvia (Sitagliptin Phosphate) 100 Mg Tab 100 Mg PO HS Duloxetine DR (Duloxetine HCl) 40 Mg Capdr 40 Mg PO HS Trazodone (Trazodone HCl) 100 Mg Tablet 100 Mg PO HS Humalog Mix 75-25 Inj (Insulin Lispro Protam/Lispro Human) 1,000 Unit/10 Ml Susp 40 Units SQ HS Humalog Mix 75-25 Inj (Insulin Lispro Protam/Lispro Human) 1,000 Unit/10 Ml Susp 70 Units SQ DAILY Atorvastatin (Atorvastatin Calcium) 40 Mg Tab 40 Mg PO HS Lisinopril 20 Mg Tab 10 Mg PO DAILY Review of Systems Except as stated in HPI: all other systems reviewed are Neg Physical Exam Narrative GENERAL: Well-developed well-nourished female in no acute distress SKIN: Warm and dry. 3 cm fluctuant abscess with some central excoriation on the lower abdominal wall. There are some surrounding erythema. HEAD: Atraumatic. Normocephalic. EYES: Pupils equal and round. No scleral icterus. No injection or drainage. ENT: No nasal bleeding or discharge. Mucous membranes pink and moist. NECK: Trachea midline. No JVD. CARDIOVASCULAR: Regular rate and rhythm. No murmur appreciated. RESPIRATORY: No accessory muscle use. Clear to auscultation. Breath sounds equal bilaterally. GASTROINTESTINAL: Abdomen soft, non-tender, nondistended. Hepatic and splenic margins not palpable. MUSCULOSKELETAL: No obvious deformities. No clubbing. No cyanosis. No edema. NEUROLOGICAL: Awake and alert. No obvious cranial nerve deficits. Motor grossly within normal limits. Normal speech. PSYCHIATRIC: Appropriate mood and affect; insight and judgment normal. Data Data Last Documented VS Vital Signs Date Time Temp Pulse Resp B/P (MAP) Pulse Ox O2 Delivery O2 Flow Rate FiO2 08/26/17 09:08 99.1 08/26/17 08:57 102 24 158/82 (107) 94 Orders Orders Lidocai-Epi 1%-1:100,000 Inj (Xylocaine- (08/26/17 11:45) Wound Culture And Gram Stain (08/26/17 11:39) Ed Discharge Order (08/26/17 11:58) MDM Medical Decision Making Medical Screen Exam Complete: Yes Emergency Medical Condition: Yes Medical Record Reviewed: Yes Differential Diagnosis Cutaneous abscess, cellulitis, erysipelas, panniculitis Narrative Course The patient has a some lower abdominal wall. Incision and drainage will be performed, she verbally consents. She is encouraged to take the Bactrim that her primary care physician prescribed her. Wound culture pending. Procedures Procedure Narrative INCISION AND DRAINAGE OF ABSCESS: The area was prepped and was sterilely draped. A subcutaneous wheal of 1% Xylocaine with epinephrine with a total number 6 mL was used to anesthetize the area. The area was properly anesthetized. A number 11 scalpel was used to make a 1-cm incision across the area of the abscess. Cultures were obtained. The abscess was drained an irrigated with normal saline. Quarter inch iodoform packing was placed in the wound. Sterile dressing applied. Patient advised to have packing removed in two days. Diagnosis Primary Impression: Abscess of abdominal wall Additional Instructions: Take the antibiotic that was prescribed by her primary care physician. Warm compresses several times a day 15 minutes at a time. Return for any new or worsening symptoms. Med/Other Pt SpecificInfo: No Change to Meds, Wound Care Disposition: 01 DISCHARGE HOME Condition: Stable Ramin Baltazar Aug 26, 2017 11:42
[2017-08-26] MEDS ORDERED: LIDOCAINE 1%/EPINEPHrine 1:100,000 SOLN 20 ML VIAL INFIL ONE (11:45)
[2017-08-27] MEDS ORDERED: LANTUS2P SQ (13:51)
[2017-08-27] MEDS ORDERED: BACT800T5 PO (13:51)
[2017-08-27] MEDS ORDERED: NOVOINJ2 SQ ×2 (13:51)
[2017-08-27] MEDS ORDERED: PERC5TAB12 PO (17:00)
[2017-08-27] MEDS ORDERED: CLIN300C5 PO (17:00)
== END 2017-08-26 12:16 | disposition home or self-care (01) ==
LOC: NEPD 08:54
DX: L02.211 Cutaneous abscess of abdominal wall (principal); B95.61 Methicillin susceptible Staphylococcus aureus infection as the cause of diseases classified elsewhere
CPT/HCPCS: 10060; 10061; 86403; 87070; 87186; 87205

== ENCOUNTER 2017-08-27 11:53 | Emergency (ER) | payer OTHER ==
[~2017-08-27] VITALS: Ht 165.1 cm; Wt 98.0 kg
[2017-08-27] MEDS ORDERED: IOHEXOL 350 MG/ML 10 ML VIAL (for RAD DIAG) IVCONTRAST ONE (11:54)
[2017-08-27 11:56] VITALS: BP 157/105; PULSE 118; RESP 14; TEMP 99.5; O2SAT 95
[2017-08-27] MEDS ORDERED: SODIUM CHLOR 0.9% 1000 ML INJ 1,000 ML IV ONE (13:15)
[2017-08-27] MEDS ORDERED: MORPHINE SULFATE 2 MG/ML INJ IV PUSH ONE ×2 (13:15→16:15)
[2017-08-27] MEDS ORDERED: ONDANSETRON HCL 4 MG/2 ML VIAL IV PUSH ONE (13:15)
--- NOTE | 2017-08-27 13:50 | RADRPT ---
EXAM DATE/TIME: 08/27/2017 13:31 [facility] COMPARISON: ANKLE RIGHT COMPLETE ([id number]), February 11, 2015, 11:45. INDICATIONS : Patient complains of right ankle pain status post fall. MEDICAL HISTORY : None. SURGICAL HISTORY : Right ankle ORIF. ENCOUNTER: Initial ACUITY: 1 day PAIN SCORE: 9/10 LOCATION: Right Ankle FINDINGS: AP, lateral and oblique views of the right ankle were obtained and demonstrate remote postsurgical ch anges with screw-plate fixation device transfixing an old healed distal fibular fracture. 2 lag type screws are again noted transfixing an old medial malleolar fracture. There are mild degenerative [place] ges and osteopenia. There is no acute fracture or malalignment. There is mild soft tissue prominence. CONCLUSION: 1. No acute fracture malalignment. 2. Remote postsurgical changes. 3. Mild soft tissue prominence and osteopenia. Fam Montalvo MD on August 27, 2017 at 13:46 Board Certified Radiologist. This report was verified electronically.
[2017-08-27] MEDS ORDERED: LANTUS2P SQ (13:51)
[2017-08-27] MEDS ORDERED: NOVOINJ2 SQ ×2 (13:51)
[2017-08-27] MEDS ORDERED: BACT800T5 PO (13:51)
--- NOTE | 2017-08-27 14:07 | PD ---
HPI Chief Complaint: Skin Problem Time Seen by Provider: 12:56 Travel History International Travel<30 days: No Contact w/Intl Traveler<30days: No Traveled to known affect area: No History of Present Illness HPI Patient is a 57 year old female who comes in complaining of pain and worsening redness around an abscess on her abdominal wall. She was here yesterday and it was drained. She was advised to take the Bactrim prescribed by her primary doctor, which she says she has taken. She comes in because she is concerned it is getting worse. She says the redness has spread and it is becoming more painful. She has not taken her temperature, but says she has been feeling hot and cold. She had one episode of vomiting earlier in the day. She says whenever she has had these in the past, she has required IV antibiotics. She has been taking pain medicine at home without relief. She says any movement makes the pain worse. She is also complaining of right ankle pain. She says she tripped and fell yesterday and now has pain to the right ankle. She denies hitting her head or any LOC. She has had surgery on the ankle in the past and is concerned something is out of place. PFSH Past Medical History Arthritis: No Asthma: No Anxiety: Yes Depression: Yes Heart Rhythm Problems: No Cancer: No Cardiac Catheterization: Yes Cardiovascular Problems: Yes (stents x2) High Cholesterol: Yes Chemotherapy: No Chest Pain: No Congestive Heart Failure: No COPD: Yes Cerebrovascular Accident: No Coronary Artery Disease: Yes Diabetes: Yes Patient Takes Glucophage: No Diminished Hearing: No Endocrine: Yes Gastrointestinal Disorders: No GERD: Yes Genitourinary: No Headaches: No Hiatal Hernia: No Hypertension: Yes Implanted Vascular Access Dvce: Yes Kidney Stones: Yes Psychiatric: Yes Reproductive: No Respiratory: Yes Immunizations Current: Yes Migraines: No Radiation Therapy: No Renal Failure: No Seizures: No Sleep Apnea: No Thyroid Disease: No Ulcer: Yes Menopausal: Yes Past Surgical History Abdominal Surgery: Yes (cholecystectomy) Body Medical Devices: pins in rt ankle Cardiac Surgery: Yes (stents) Cholecystectomy: Yes Coronary Artery Bypass Graft: No Coronary Stent: Yes (X2) Ear Surgery: No Endocrine Surgery: No Eye Surgery: Yes Genitourinary Surgery: Yes Gynecologic Surgery: Yes Hysterectomy: Yes Neurologic Surgery: No Oral Surgery: No Thoracic Surgery: No Other Surgery: Yes (RIGHT GREAT TOE AMPUTATION, ABSCESS I/D) Family History Family Myocardial Infarction: Yes (FATHER) Social History Alcohol Use: No Tobacco Use: Yes (1 PPD) Substance Use: No Allergies-Medications (Allergen,Severity, Reaction): Coded Allergies: ketorolac (Verified Allergy, Intermediate, HEADACHE, 08/27/17) amoxicillin (Verified Adverse Reaction, Intermediate, VOMITING, 08/27/17) clavulanic acid (Verified Adverse Reaction, Intermediate, VOMITING, ) Reported Meds & Prescriptions Reported Meds & Active Scripts Active Pantoprazole (Pantoprazole Sodium) 40 Mg Tab 40 Mg PO DAILY Reported Bactrim DS (Sulfamethoxazole-Trimethoprim) 800-160 Mg Tab 1 Tab PO BID Novolog Mix 70-30 FlexPen Inj (Insulin Aspart Protam-Asp 70-30 Inj) 300 Unit/3 Ml Pen 20 Units SQ HS Novolog Mix 70-30 FlexPen Inj (Insulin Aspart Protam-Asp 70-30 Inj) 300 Unit/3 Ml Pen 40 Units SQ DAILY Lantus Inj (Insulin Glargine) 1,000 Unit/10 Ml Vial Unknown Dose SQ DIRECTED Aspirin 81 Mg Chew 81 Mg CHEW DAILY Januvia (Sitagliptin Phosphate) 100 Mg Tab 100 Mg PO HS Duloxetine DR (Duloxetine HCl) 40 Mg Capdr 40 Mg PO HS Trazodone (Trazodone HCl) 100 Mg Tablet 100 Mg PO HS Atorvastatin (Atorvastatin Calcium) 40 Mg Tab 40 Mg PO HS Lisinopril 20 Mg Tab 10 Mg PO DAILY Review of Systems Except as stated in HPI: all other systems reviewed are Neg General / Constitutional: Positive: Fever, Chills HENT: No: Headaches, Lightheadedness Cardiovascular: No: Chest Pain or Discomfort Respiratory: No: Shortness of Breath Gastrointestinal: Positive: Nausea, Abdominal Pain Genitourinary: No: Dysuria Musculoskeletal: Positive: Pain Skin: Positive Change in Pigmentation, Positive Lesions, No Rash Neurologic: No: Weakness, Dizziness, Syncope Physical Exam Narrative GENERAL: Awake and alert, in no acute distress. SKIN: 8cm area of erythema to the abdominal wall in the RLQ, tender to palpation. No fluctuance, small amount of drainage from the area. HEAD: Atraumatic. Normocephalic. EYES: Pupils equal and round. No scleral icterus. No injection or drainage. ENT: Mucous membranes pink and moist. NECK: Trachea midline. No JVD. CARDIOVASCULAR: Regular rate and rhythm. No murmur appreciated. RESPIRATORY: No accessory muscle use. Clear to auscultation. Breath sounds equal bilaterally. GASTROINTESTINAL: Abdomen soft, nondistended. Tender to palpation over the sight of infection. MUSCULOSKELETAL: No obvious deformities. No clubbing. No cyanosis. edema of the right ankle. Tender to palpation of the right medial malleolus. Pedal pulses intact. NEUROLOGICAL: Awake and alert. No obvious cranial nerve deficits. Motor grossly within normal limits. Normal speech. PSYCHIATRIC: Appropriate mood and affect; insight and judgment normal. Data Data Last Documented VS Vital Signs Date Time Temp Pulse Resp B/P (MAP) Pulse Ox O2 Delivery O2 Flow Rate FiO2 08/27/17 16:39 18 08/27/17 16:38 109 149/78 (101) 93 Room Air 08/27/17 11:56 99.5 Orders Orders Iv Access Insert/Monitor (08/27/17 13:08) Complete Blood Count With Diff (08/27/17 13:08) Comprehensive Metabolic Panel (08/27/17 13:08) Ct Abd/Pel W Iv Contrast(Rout) (08/27/17 ) Ankle, Complete ([id number]) (08/27/17 ) Sodium Chlor 0.9% 1000 Ml Inj (Ns 1000 M (08/27/17 13:15) Ondansetron Inj (Zofran Inj) (08/27/17 13:15) Morphine Inj (Morphine Inj) (08/27/17 13:15) Clindamycin 600 Mg/Ns Premix (Cleocin 60 (08/27/17 15:00) Morphine Inj (Morphine Inj) (08/27/17 16:15) Iohexol 350 Inj (Omnipaque 350 Inj) (08/27/17 11:54) Labs Laboratory Tests Test 08/27/17 14:00 White Blood Count 12.3 TH/MM3 Red Blood Count 4.17 MIL/MM3 Hemoglobin 13.0 GM/DL Hematocrit 37.6 % Mean Corpuscular Volume 90.3 FL Mean Corpuscular Hemoglobin 31.1 PG Mean Corpuscular Hemoglobin Concent 34.4 % Red Cell Distribution Width 13.4 % Platelet Count 321 TH/MM3 Mean Platelet Volume 7.4 FL Neutrophils (%) (Auto) 76.2 % Lymphocytes (%) (Auto) 15.5 % Monocytes (%) (Auto) 6.9 % Eosinophils (%) (Auto) 1.0 % Basophils (%) (Auto) 0.4 % Neutrophils # (Auto) 9.3 TH/MM3 Lymphocytes # (Auto) 1.9 TH/MM3 Monocytes # (Auto) 0.8 TH/MM3 Eosinophils # (Auto) 0.1 TH/MM3 Basophils # (Auto) 0.1 TH/MM3 CBC Comment DIFF FINAL Differential Comment Blood Urea Nitrogen 15 MG/DL Creatinine 0.80 MG/DL Random Glucose 301 MG/DL Total Protein 7.9 GM/DL Albumin 2.9 GM/DL Calcium Level 8.7 MG/DL Alkaline Phosphatase 80 U/L Aspartate Amino Transf (AST/SGOT) 22 U/L Alanine Aminotransferase (ALT/SGPT) 13 U/L Total Bilirubin 0.3 MG/DL Sodium Level 136 MEQ/L Potassium Level 4.2 MEQ/L Chloride Level 102 MEQ/L Carbon Dioxide Level 27.7 MEQ/L Anion Gap 6 MEQ/L Estimat Glomerular Filtration Rate 74 ML/MIN [facility] Medical Decision Making Medical Screen Exam Complete: Yes Emergency Medical Condition: Yes Medical Record Reviewed: Yes Differential Diagnosis Abscess versus cellulitis versus ankle sprain versus ankle fracture Narrative Course Patient is a 57-year-old female who comes in complaining of pain to her abdominal wall as well as her right ankle. Exam shows erythema to the lower abdominal wall. IV established labs sent. Labs show a slight elevation in white blood cell count, no other acute abnormalities. Patient given a dose of clindamycin. X-ray of the ankle performed shows no acute abnormalities. CT abdomen and pelvis performed shows no evidence of abscess, mild panniculitis. Last 24 hours Impressions Ankle X-Ray 08/27/17 0000 Signed Impressions: Service Date/Time: Sunday, August 27, 2017 13:31 - CONCLUSION: 1. No acute fracture malalignment. 2. Remote postsurgical changes. 3. Mild soft tissue prominence and osteopenia. Fam Montalvo MD Abdomen/Pelvis CT 08/27/17 0000 Signed Impressions: Service Date/Time: Sunday, August 27, 2017 16:16 - CONCLUSION: 1. No obstruction, inflammatory changes or other acute abnormality seen within the abdomen or pelvis. 2. Mild panniculitis possible in the proper clinical setting. No abscess. 3. Tiny fat containing umbilical hernia. Sachin Watson MD Patient is requesting pain medicine. I advised she needs to continue take antibiotics. Bactrim switched to clindamycin. Given a prescription for pain medicine. Advised follow-up with her doctor. Advised to return to the ED as needed for any worsening symptoms. Diagnosis Primary Impression: Panniculitis Patient Instructions: Cellulitis (ED), General Instructions Additional Instructions: Take all of your antibiotic. Follow-up with her primary care doctor. Return to the ED at any time for any worsening symptoms. Scripts Oxycodone-Acetaminophen (Percocet) 5-325 mg Tab 1 TAB PO Q6H Y for PAIN, #10 TAB 0 Refills Prov: Sol Taylor MD 08/27/17 Clindamycin (Clindamycin) 300 Mg Cap 600 MG PO Q8H for Infection for 7 Days, #42 CAP 0 Refills Prov: Sol Taylor MD 08/27/17 Disposition: 01 DISCHARGE HOME Condition: Stable Sol Taylor MD Aug 27, 2017 14:07
[2017-08-27 14:08] VITALS: BP 148/89; PULSE 92; RESP 15; O2SAT 94
[2017-08-27 14:31] LABS: AUTOMATED NEUTROPHIL # 9.3 TH/MM3 (1.8-7.7); BASOPHIL # 0.1 TH/MM3 (0-0.2); BASOPHIL % 0.4 % (0.0-2.0); EOSINOPHIL # 0.1 TH/MM3 (0-0.4); HEMATOCRIT 37.6 % (35.0-46.0); LYMPH % 15.5 % (9.0-44.0); LYMPHOCYTE # 1.9 TH/MM3 (1.0-4.8); MEAN CELL VOLUME 90.3 FL (80.0-100.0); MEAN CORPUSCULAR HEMOGLOBIN 31.1 PG (27.0-34.0); MEAN CORPUSCULAR HGB CONC 34.4 % (32.0-36.0); MEAN PLATELET VOLUME 7.4 FL (7.0-11.0); MONO % 6.9 % (0.0-8.0); MONOCYTE # 0.8 TH/MM3 (0-0.9); NEUT % 76.2 % (16.0-70.0); PLATELET COUNT 321 TH/MM3 (150-450); RED BLOOD COUNT 4.17 MIL/MM3 (4.00-5.30); RED CELL DISTRIBUTION WIDTH 13.4 % (11.6-17.2); WHITE BLOOD COUNT 12.3 TH/MM3 (4.0-11.0)
[2017-08-27 14:47] LABS: ALBUMIN 2.9 GM/DL (3.4-5.0); ALT (GPT) 13 U/L (10-53); AST (GOT) 22 U/L (15-37); BICARBONATE 27.7 MEQ/L (21.0-32.0); BLOOD UREA NITROGEN 15 MG/DL (7-18); CALCIUM 8.7 MG/DL (8.5-10.1); CHLORIDE 102 MEQ/L (98-107); GLOMERULAR FILTRATION RATE 74 ML/MIN (>89); GLUCOSE,RANDOM 301 MG/DL (74-106); SODIUM (NA) 136 MEQ/L (136-145)
[2017-08-27 14:48] LABS: ALKALINE PHOSPHATASE 80 U/L (45-117); TOTAL BILIRUBIN ADULT 0.3 MG/DL (0.2-1.0); TOTAL PROTEIN 7.9 GM/DL (6.4-8.2)
[2017-08-27] MEDS ORDERED: CLINDAMYCIN 600 MG/NS PREMIX 50 ML IV ONE (15:00)
--- NOTE | 2017-08-27 16:33 | RADRPT ---
EXAM DATE/TIME: 08/27/2017 16:16 [facility] COMPARISON: CT ABDOMEN & PELVIS W CONTRAST, June 19, 2017, 9:32. INDICATIONS : Abdominal pain. IV CONTRAST: 90 cc Omnipaque 350 (iohexol) IV ORAL CONTRAST: No oral contrast ingested. RADIATION DOSE: 16.60 CTDIvol (mGy) MEDICAL HISTORY : Gastroesophageal reflux disease. Cardiovascular disease Diabetes mellitus type 2.Hypertension. SURGICAL HISTORY : Cholecystectomy. Hysterectomy. ENCOUNTER: Initial ACUITY: 1 day PAIN SCALE: 7/10 LOCATION: Bilateral lower quadrant abdomen. TECHNIQUE: Volumetric scanning of the abdomen and pelvis was performed. Using automated exposure control and ad justment of the mA and/or kV according to patient size, radiation dose was kept as low as reasonably achievable to obtain optimal diagnostic quality images. DICOM format image data is available electro nically for review and comparison. FINDINGS: LOWER LUNGS: The visualized lower lungs are clear. LIVER: Homogeneous density without lesion. There is no dilation of the biliary tree. Cholecystectomy change s are again noted. SPLEEN: Normal size without lesion. PANCREAS: Within normal limits. KIDNEYS: Normal in size and shape. There is no mass, stone or hydronephrosis. ADRENAL GLANDS: Mild fullness and nodularity again seen on the left, unchanged. VASCULAR: There is no aortic aneurysm. BOWEL/MESENTERY: The stomach, small bowel, and colon demonstrate no acute abnormality. There is no free intraperitone al air or fluid. ABDOMINAL WALL: Tiny umbilical hernia with fat. There is a lower abdominal pannus with nonspecific mild subcutaneous edema, for example series 2 image 82. No mass or organized/drainable fluid. RETROPERITONEUM: There is no lymphadenopathy. BLADDER: No wall thickening or mass. REPRODUCTIVE: Within normal limits. INGUINAL: There is no lymphadenopathy or hernia. MUSCULOSKELETAL: No acute bony abnormalities are demonstrated. CONCLUSION: 1. No obstruction, inflammatory changes or other acute abnormality seen within the abdomen or pelvis. 2. Mild panniculitis possible in the proper clinical setting. No abscess. 3. Tiny fat containing umbilical hernia. Sachin Watson MD on August 27, 2017 at 16:27 Board Certified Radiologist. This report was verified electronically.
[2017-08-27 16:38] VITALS: BP 149/78; PULSE 109; RESP 17; O2SAT 93
[2017-08-27 16:39] VITALS: RESP 18
[2017-08-27] MEDS ORDERED: CLIN300C5 PO (17:00)
[2017-08-27] MEDS ORDERED: PERC5TAB12 PO (17:00)
== END 2017-08-27 17:37 | disposition home or self-care (01) ==
LOC: NEPC 11:53
DX: M79.3 Panniculitis, unspecified (principal); K42.9 Umbilical hernia without obstruction or gangrene; M85.80 Other specified disorders of bone density and structure, unspecified site; R11.10 Vomiting, unspecified; M25.571 Pain in right ankle and joints of right foot; E11.9 Type 2 diabetes mellitus without complications; I10 Essential (primary) hypertension; J44.9 Chronic obstructive pulmonary disease, unspecified; I25.10 Atherosclerotic heart disease of native coronary artery without angina pectoris
CPT/HCPCS: 73610; 74177; 80053; 85025; 96361; 96374; 96375; 96376; 99285; J2270; J2405; J7030; Q9967

== ENCOUNTER 2017-09-08 20:35 | Emergency (ER) | payer OTHER ==
[~2017-09-08] VITALS: Ht 165.1 cm; Wt 105.0 kg
[~2017-09-08 20:35] MED LIST changes: +BACT800T5 PO; +CLIN300C5 PO; -INSU100V SQ; +LANTUS2P SQ; +NOVOINJ2 SQ; +PERC5TAB12 PO
[2017-09-08 20:38] VITALS: BP 179/88; PULSE 99; RESP 16; TEMP 98.3; O2SAT 99
[2017-09-08] MEDS ORDERED: ONDANSETRON HCL 4 MG/2 ML VIAL IVP ONE (21:30)
[2017-09-08] MEDS ORDERED: MORPHINE SULFATE 4 MG/ML INJ IV PUSH ONE (21:30)
[2017-09-08] MEDS ORDERED: LIDOCAINE HCL 1% 50 ML VIAL INFIL ONE (21:30)
[2017-09-08] MEDS ORDERED: SODIUM CHLORIDE 0.9% FLUSH 10 ML FLUSH IV FLUSH PRN (21:30)
[2017-09-08] MEDS ORDERED: SODIUM CHLOR 0.9% 1000 ML INJ 1,000 ML IV SCH (21:30)
[2017-09-08] MEDS ORDERED: LIDOCAINE HCL 1% PF 30 ML VIAL ONE (21:59)
[2017-09-08 22:30] LABS: AUTOMATED NEUTROPHIL # 8.3 TH/MM3 (1.8-7.7); BASOPHIL # 0.1 TH/MM3 (0-0.2); BASOPHIL % 0.6 % (0.0-2.0); EOSINOPHIL # 0.2 TH/MM3 (0-0.4); EOSINOPHIL % 1.4 % (0.0-4.0); HEMATOCRIT 43.2 % (35.0-46.0); HEMOGLOBIN 14.7 GM/DL (11.6-15.3); LYMPH % 21.2 % (9.0-44.0); LYMPHOCYTE # 2.5 TH/MM3 (1.0-4.8); MEAN CELL VOLUME 90.2 FL (80.0-100.0); MEAN CORPUSCULAR HEMOGLOBIN 30.7 PG (27.0-34.0); MEAN CORPUSCULAR HGB CONC 34.1 % (32.0-36.0); MEAN PLATELET VOLUME 6.6 FL (7.0-11.0); MONO % 7.3 % (0.0-8.0); MONOCYTE # 0.9 TH/MM3 (0-0.9); NEUT % 69.5 % (16.0-70.0); PLATELET COUNT 431 TH/MM3 (150-450); RED BLOOD COUNT 4.79 MIL/MM3 (4.00-5.30); RED CELL DISTRIBUTION WIDTH 13.5 % (11.6-17.2); WHITE BLOOD COUNT 11.9 TH/MM3 (4.0-11.0)
[2017-09-08] MEDS ORDERED: MUPI2OIN TOPICAL (22:36)
[2017-09-08] MEDS ORDERED: CEPH-460 PO (22:36)
[2017-09-08] MEDS ORDERED: PERC5TAB12 PO (22:36)
--- NOTE | 2017-09-08 22:39 | PD ---
HPI Chief Complaint: Skin Problem Time Seen by Provider: 21:12 Travel History International Travel<30 days: No Contact w/Intl Traveler<30days: No Traveled to known affect area: No History of Present Illness HPI Patient is a 57-year-old female presenting to the emergency department for evaluation of an abscess. Patient states it is on her lower abdomen, it started 2 weeks ago. She states that at that time she went to her primary doctor was prescribed antibiotics, when the antibiotics did not help she presented to the emergency department where she had an I&D performed. She states that it had gotten better but for the last 2 days she states it feels worse. She reports nausea and vomiting for the last 2 days as well. She denies any shortness breath, chest pain, fever, chills, coughs. Patient rates her pain a 7 out of 10 and she states she took her last 10 milligram Percocet this morning. Pain is exacerbated with movement and touch. It is somewhat alleviated with rest. Onset of symptoms was gradual over the last 2 days. PFSH Past Medical History Anxiety: Yes Depression: Yes Cardiac Catheterization: Yes Cardiovascular Problems: Yes (stents x2) High Cholesterol: Yes COPD: Yes Coronary Artery Disease: Yes Diabetes: Yes Endocrine: Yes GERD: Yes Hypertension: Yes Implanted Vascular Access Dvce: Yes Kidney Stones: Yes Psychiatric: Yes Respiratory: Yes Immunizations Current: Yes Ulcer: Yes Tetanus Vaccination: > 5 Years Influenza Vaccination: Yes Menopausal: Yes Past Surgical History Body Medical Devices: pins in rt ankle Cholecystectomy: Yes Coronary Stent: Yes (X2) Eye Surgery: Yes Genitourinary Surgery: Yes Gynecologic Surgery: Yes Hysterectomy: Yes Other Surgery: Yes (RIGHT GREAT TOE AMPUTATION, ABSCESS I/D) Family History Family Myocardial Infarction: Yes (FATHER) Social History Alcohol Use: No Tobacco Use: Yes (1 PPD) Substance Use: No Allergies-Medications (Allergen,Severity, Reaction): Coded Allergies: ketorolac (Verified Allergy, Intermediate, HEADACHE, 09/08/17) amoxicillin (Verified Adverse Reaction, Intermediate, VOMITING, 09/08/17) clavulanic acid (Verified Adverse Reaction, Intermediate, VOMITING, ) Reported Meds & Prescriptions Reported Meds & Active Scripts Active Percocet (Oxycodone-Acetaminophen) 5-325 mg Tab 1 Tab PO Q6H PRN Clindamycin (Clindamycin HCl) 300 Mg Cap 600 Mg PO Q8H 7 Days Pantoprazole (Pantoprazole Sodium) 40 Mg Tab 40 Mg PO DAILY Reported Bactrim DS (Sulfamethoxazole-Trimethoprim) 800-160 Mg Tab 1 Tab PO BID Novolog Mix 70-30 FlexPen Inj (Insulin Aspart Protam-Asp 70-30 Inj) 300 Unit/3 Ml Pen 20 Units SQ HS Novolog Mix 70-30 FlexPen Inj (Insulin Aspart Protam-Asp 70-30 Inj) 300 Unit/3 Ml Pen 40 Units SQ DAILY Lantus Inj (Insulin Glargine) 1,000 Unit/10 Ml Vial Unknown Dose SQ DIRECTED Aspirin 81 Mg Chew 81 Mg CHEW DAILY Januvia (Sitagliptin Phosphate) 100 Mg Tab 100 Mg PO HS Duloxetine DR (Duloxetine HCl) 40 Mg Capdr 40 Mg PO HS Trazodone (Trazodone HCl) 100 Mg Tablet 100 Mg PO HS Atorvastatin (Atorvastatin Calcium) 40 Mg Tab 40 Mg PO HS Lisinopril 20 Mg Tab 10 Mg PO DAILY Review of Systems Except as stated in HPI: all other systems reviewed are Neg Gastrointestinal: Positive: Nausea, Vomiting Musculoskeletal: Positive: Pain Skin: Positive Change in Pigmentation, Positive Lesions Physical Exam Narrative GENERAL: Obese, well-developed, alert female. Presenting in no acute distress. SKIN: Warm and dry. 0.5 cm lesion to right lower abdomen and her pannus. Mild 2 cm purple induration, no erythema, warmth or drainage noted. HEAD: Atraumatic. Normocephalic. EYES: Pupils equal and round. No scleral icterus. No injection or drainage. ENT: No nasal bleeding or discharge. Mucous membranes pink and moist. NECK: Trachea midline. No JVD. CARDIOVASCULAR: Regular rate and rhythm. RESPIRATORY: No accessory muscle use. Clear to auscultation. Breath sounds equal bilaterally. GASTROINTESTINAL: Abdomen soft, non-tender, nondistended. Hepatic and splenic margins not palpable. MUSCULOSKELETAL: Extremities without clubbing, cyanosis, or edema. No obvious deformities. NEUROLOGICAL: Awake and alert. No obvious cranial nerve deficits. Motor grossly within normal limits. Five out of 5 muscle strength in the arms and legs. Normal speech. PSYCHIATRIC: Appropriate mood and affect; insight and judgment normal. Data Data Last Documented VS Vital Signs Date Time Temp Pulse Resp B/P (MAP) Pulse Ox O2 Delivery O2 Flow Rate FiO2 09/08/17 20:38 98.3 99 16 179/88 (118) 99 Room Air Orders Orders Basic Metabolic Panel (Bmp) (09/08/17 21:30) Complete Blood Count With Diff (09/08/17 21:30) Lipase (09/08/17 21:30) Iv Access Insert/Monitor (09/08/17 21:30) Ecg Monitoring (09/08/17 21:30) Morphine Inj (Morphine Inj) (09/08/17 21:30) Ondansetron Inj (Zofran Inj) (09/08/17 21:30) Sodium Chlor 0.9% 1000 Ml Inj (Ns 1000 M (09/08/17 21:30) Sodium Chloride 0.9% Flush (Ns Flush) (09/08/17 21:30) Lidocaine 1% Inj (50 Ml) (Xylocaine 1% I (09/08/17 21:30) Lidocaine Pf 1% Inj (Xylocaine-Mpf 1% In (09/08/17 21:59) MDM Medical Decision Making Medical Screen Exam Complete: Yes Emergency Medical Condition: Yes Medical Record Reviewed: Yes Interpretation(s) Vital Signs Date Time Temp Pulse Resp B/P (MAP) Pulse Ox O2 Delivery O2 Flow Rate FiO2 09/08/17 20:38 98.3 99 16 179/88 (118) 99 Room Air Differential Diagnosis Cellulitis versus abscess versus hidradenitis versus other Narrative Course Patient is a 57-year-old female that presented to emergency department for evaluation of a possible abscess to her lower abdomen. She was here mid August and had an I&D performed, she presented again the next day had lab work performed. She was then discharged home on oral antibiotics. She presented stating that she always needs IV antibiotics but that wasn't the case last time. Physical exam today appears more consistent with a healing area of cellulitis, however will attempt I&D. Please see procedure report for I&D. Patient tolerated well, patient will be started on antibiotics. She reports an allergy to penicillin, it causes her to feel nauseated. Patient asked if I would refill her 10 mg Percocet tablets. Discussed with patient that we do not refill chronic pain medication. That she would be given a small dose of pain medicine due to the I&D. She will need to follow up with her primary doctor for further refills. Patient verbalized understanding. Patient was encouraged to keep area clean and dry, apply nonocclusive dressing so that area does not rub against her skin or clothing. Patient verbalized understanding of these instructions. Patient stable for discharge. There was minimal exudate drained, culture was not obtained. CBC with no acute abnormalities. Procedures Procedure Narrative After the risks and benefits were discussed the following procedure was performed: INCISION AND DRAINAGE OF ABSCESS: The area was prepped and was sterilely draped. A subcutaneous wheal of 1 % Xylocaine with a total number 1 mL was used to anesthetize the area. The area was properly anesthetized. A number 11 scalpel was used to make a 0.5 -cm incision across the area of the abscess. The abscess was drained an irrigated with normal saline. Sterile dressing applied. Diagnosis Primary Impression: Hidradenitis Referrals: Primary Care Physician 2 days Patient Instructions: General Instructions, Hidradenitis Suppurativa (ED) Additional Instructions: Follow-up with your primary doctor Apply topical antibiotic ointment twice daily Keep area clean and dry, apply dressings to avoid skin rubbing against clothing or abdomen. Return to emergency department for any new or worsening symptoms Med/Other Pt SpecificInfo: Prescription(s) given Scripts Oxycodone-Acetaminophen (Percocet) 5-325 mg Tab 1 TAB PO Q6H Y for PAIN, #4 TAB 0 Refills Prov: Hoa Carver 09/08/17 Cephalexin (Keflex) 500 Mg Cap 500 MG PO Q12H for Infection for 7 Days, #14 CAP 0 Refills Prov: Hoa Carver 09/08/17 Mupirocin Topical (Mupirocin Topical) 2 % Oint 1 APPLIC TOPICAL BID for Mgmt Bacterial Infection, #22 GM 0 Refills Prov: Hoa Carver 09/08/17 Disposition: 01 DISCHARGE HOME Condition: Stable Hoa Carver Sep 08, 2017 22:39
[2017-09-08 22:48] LABS: BICARBONATE 30.7 MEQ/L (21.0-32.0); CALCIUM 8.8 MG/DL (8.5-10.1); CREATININE 0.75 MG/DL (0.50-1.00)
[2017-09-08 23:16] VITALS: BP 145/76
== END 2017-09-08 23:19 | disposition home or self-care (01) ==
LOC: NEPC 20:35
DX: L73.2 Hidradenitis suppurativa (principal); F41.8 Other specified anxiety disorders; E78.00 Pure hypercholesterolemia, unspecified; J44.9 Chronic obstructive pulmonary disease, unspecified; I25.10 Atherosclerotic heart disease of native coronary artery without angina pectoris; E11.9 Type 2 diabetes mellitus without complications; K21.9 Gastro-esophageal reflux disease without esophagitis; I10 Essential (primary) hypertension; E66.9 Obesity, unspecified; F17.210 Nicotine dependence, cigarettes, uncomplicated; Z88.0 Allergy status to penicillin; Z79.4 Long term (current) use of insulin; Z87.442 Personal history of urinary calculi; Z95.5 Presence of coronary angioplasty implant and graft
CPT/HCPCS: 10060; 80048; 83690; 85025; 96374; 96375; 99284; J2270; J2405; J7030

== ENCOUNTER 2017-09-10 08:18 | Emergency (ER) | payer OTHER ==
[~2017-09-10] VITALS: Ht 165.1 cm; Wt 99.0 kg
[~2017-09-10 08:18] MED LIST changes: +CEPH-460 PO; +MUPI2OIN TOPICAL
[2017-09-10 08:24] VITALS: BP 121/76; PULSE 111; RESP 14; TEMP 98.8; O2SAT 96
[2017-09-10] MEDS ORDERED: ONDA4TAB15 (09:18)
--- NOTE | 2017-09-10 09:33 | PD ---
HPI Chief Complaint: Chest Pain Time Seen by Provider: 09:20 Travel History International Travel<30 days: No Contact w/Intl Traveler<30days: No Traveled to known affect area: No History of Present Illness HPI 57-year-old female complains of chest pain. Patient has history of CAD status post stent placement. Patient has history hypertension, diabetes, lipidemia. Patient states that she has recurrent chest pain. Patient states that she was seen at [facility] in the past for strep test in the past. Patient was seen in emergency room and admitted 2 months ago for chest pain. Patient had Lexiscan stress test and myocardial perfusion stress test done at that time which showed fixed defect anterior chest wall. No acute abnormality. Patient was discharged from chest pain center. Patient states that she started having burning pain on the left-sided neck with radiation to left arm and left-sided chest since last night. Patient states that the pain persisted since then. Patient denies any palpitation diaphoresis. Patient states that she has nausea. Patient denies any coughing congestion fever chills. Patient is a smoker. PFSH Past Medical History Anxiety: Yes Depression: Yes Cardiac Catheterization: Yes Cardiovascular Problems: Yes (stents x2) High Cholesterol: Yes COPD: Yes Coronary Artery Disease: Yes Diabetes: Yes Patient Takes Glucophage: No Diminished Hearing: No Endocrine: Yes GERD: Yes Hypertension: Yes Implanted Vascular Access Dvce: Yes Kidney Stones: Yes Psychiatric: Yes Respiratory: Yes Immunizations Current: Yes Ulcer: Yes ?: Not Menopausal: Yes Past Surgical History Abdominal Surgery: Yes (cholecystectomy) Body Medical Devices: pins in rt ankle Cardiac Surgery: Yes (stents) Cholecystectomy: Yes Coronary Artery Bypass Graft: No Coronary Stent: Yes (X2) Eye Surgery: Yes Genitourinary Surgery: Yes Gynecologic Surgery: Yes Hysterectomy: Yes Other Surgery: Yes (RIGHT GREAT TOE AMPUTATION, ABSCESS I/D) Family History Family Myocardial Infarction: Yes (FATHER) Social History Alcohol Use: No Tobacco Use: Yes (1 PPD) Substance Use: No Allergies-Medications (Allergen,Severity, Reaction): Coded Allergies: ketorolac (Verified Allergy, Intermediate, HEADACHE, 09/10/17) amoxicillin (Verified Adverse Reaction, Intermediate, VOMITING, 09/10/17) clavulanic acid (Verified Adverse Reaction, Intermediate, VOMITING, ) Reported Meds & Prescriptions Reported Meds & Active Scripts Active Percocet (Oxycodone-Acetaminophen) 5-325 mg Tab 1 Tab PO Q6H PRN Keflex (Cephalexin) 500 Mg Cap 500 Mg PO Q12H 7 Days Mupirocin Topical (Mupirocin) 2 % Oint 1 Applic TOPICAL BID Pantoprazole (Pantoprazole Sodium) 40 Mg Tab 40 Mg PO DAILY Reported Ondansetron (Ondansetron HCl) 4 Mg Tab Novolog Mix 70-30 FlexPen Inj (Insulin Aspart Protam-Asp 70-30 Inj) 300 Unit/3 Ml Pen 20 Units SQ HS Novolog Mix 70-30 FlexPen Inj (Insulin Aspart Protam-Asp 70-30 Inj) 300 Unit/3 Ml Pen 40 Units SQ DAILY Lantus Inj (Insulin Glargine) 1,000 Unit/10 Ml Vial Unknown Dose SQ DIRECTED Aspirin 81 Mg Chew 81 Mg CHEW DAILY Januvia (Sitagliptin Phosphate) 100 Mg Tab 100 Mg PO HS Duloxetine DR (Duloxetine HCl) 40 Mg Capdr 40 Mg PO HS Trazodone (Trazodone HCl) 100 Mg Tablet 100 Mg PO HS Atorvastatin (Atorvastatin Calcium) 40 Mg Tab 40 Mg PO HS Lisinopril 20 Mg Tab 10 Mg PO DAILY Review of Systems General / Constitutional: No: Fever Eyes: No: Visual changes HENT: Positive: Neck Pain, No: Headaches Cardiovascular: Positive: Chest Pain or Discomfort Respiratory: No: Shortness of Breath Gastrointestinal: No: Abdominal Pain Genitourinary: No: Dysuria Musculoskeletal: No: Pain Skin: No Rash Neurologic: No: Weakness Psychiatric: No: Depression Endocrine: No: Polydipsia Hematologic/Lymphatic: No: Easy Bruising Physical Exam Narrative GENERAL: Well-nourished, well-developed patient. SKIN: Focused skin assessment warm/dry. HEAD: Normocephalic. EYES: No scleral icterus. No injection or drainage. NECK: Supple, trachea midline. No JVD or lymphadenopathy. CARDIOVASCULAR: Regular rate and rhythm without murmurs, gallops, or rubs. RESPIRATORY: Breath sounds equal bilaterally. No accessory muscle use. GASTROINTESTINAL: Abdomen soft, non-tender, nondistended. MUSCULOSKELETAL: No cyanosis, or edema. BACK: Nontender without obvious deformity. No CVA tenderness. Neurologic exam normal. Data Data Last Documented VS Vital Signs Date Time Temp Pulse Resp B/P (MAP) Pulse Ox O2 Delivery O2 Flow Rate FiO2 09/10/17 08:24 98.8 111 14 121/76 (91) 96 MDM Medical Decision Making Medical Screen Exam Complete: Yes Emergency Medical Condition: Yes Differential Diagnosis Differential diagnosis including atypical chest pain, angina, SD, PE, pneumothorax. Narrative Course 57-year-old female with recurrent chest pain. Patient states the pain is sharp pain started the neck with radiation to left chest and left arm. Atypical chest pain. Patient has EKG done which shows sinus rhythm nonspecific ST-T wave change. Patient was advised to have blood test chest x-ray. Patient received aspirin EMS and nitroglycerin by EMS. Patient was advised to have Zofran and Tylenol for pain. Patient refused further treatment and leaving AMA. Diagnosis Primary Impression: Chest pain Qualified Codes: R07.9 - Chest pain, unspecified Patient Instructions: General Instructions Additional Instructions: Patient leaving AMA. Med/Other Pt SpecificInfo: No Change to Meds Disposition: 07 AGAINST MEDICAL ADVICE Condition: Gene Woods MD Sep 10, 2017 09:33
--- NOTE | 2017-09-11 12:21 | EKG ---
Date Performed: 09/10/2017 Time Performed: 08:27:50 PTAGE: 57 years EKG: SINUS TACHYCARDIA ABNORMAL RHYTHM ECG INTERPRETATION BASED ON A DEFAULT AGE OF 40 YEARS PREVIOUS TRACING : 06/30/2017 09.44 Since the prior tracing, there has been no significan t change DOCTOR: Mayo Perez Interpretating Date/Time 09/11/2017 12:19:48
== END 2017-09-10 09:58 | disposition left against medical advice (07) ==
LOC: NEPE 08:18
DX: R07.9 Chest pain, unspecified (principal); F17.210 Nicotine dependence, cigarettes, uncomplicated; E11.9 Type 2 diabetes mellitus without complications; E78.00 Pure hypercholesterolemia, unspecified; I10 Essential (primary) hypertension; I25.10 Atherosclerotic heart disease of native coronary artery without angina pectoris; J44.9 Chronic obstructive pulmonary disease, unspecified; K21.9 Gastro-esophageal reflux disease without esophagitis; Z79.4 Long term (current) use of insulin
CPT/HCPCS: 93005; 99283

== ENCOUNTER 2017-09-28 06:14 | Emergency (ER) | payer OTHER ==
[~2017-09-28] VITALS: Ht 165.1 cm; Wt 100.0 kg
[~2017-09-28 06:14] MED LIST changes: -BACT800T5 PO; -CLIN300C5 PO; +ONDA4TAB15
[2017-09-28 06:18] VITALS: BP 197/97; PULSE 98; RESP 20; TEMP 98.5; O2SAT 99
[2017-09-28] MEDS ORDERED: SODIUM CHLOR 0.9% 1000 ML INJ 1,000 ML IV SCH (06:32)
[2017-09-28] MEDS ORDERED: SODIUM CHLORIDE 0.9% FLUSH 10 ML FLUSH IV FLUSH PRN (06:45)
[2017-09-28] MEDS ORDERED: metroNIDAZOLE 500 MG INJ 100 ML IV ONE (06:45)
[2017-09-28] MEDS ORDERED: LEVOFLOXACIN 500 MG PREMIX INJ 100 ML IV ONE (06:45)
[2017-09-28] MEDS ORDERED: ONDANSETRON HCL 4 MG/2 ML VIAL IV PUSH ONE (06:45)
[2017-09-28] MEDS ORDERED: MORPHINE SULFATE 2 MG/ML INJ IV PUSH ONE (06:45)
[2017-09-28 06:47] LABS: AUTOMATED NEUTROPHIL # 9.6 TH/MM3 (1.8-7.7); BASOPHIL # 0.1 TH/MM3 (0-0.2); BASOPHIL % 0.9 % (0.0-2.0); EOSINOPHIL # 0.1 TH/MM3 (0-0.4); EOSINOPHIL % 1.1 % (0.0-4.0); HEMATOCRIT 42.7 % (35.0-46.0); HEMOGLOBIN 14.3 GM/DL (11.6-15.3); LYMPH % 14.3 % (9.0-44.0); LYMPHOCYTE # 1.7 TH/MM3 (1.0-4.8); MEAN CELL VOLUME 90.4 FL (80.0-100.0); MEAN CORPUSCULAR HEMOGLOBIN 30.2 PG (27.0-34.0); MEAN CORPUSCULAR HGB CONC 33.4 % (32.0-36.0); MEAN PLATELET VOLUME 6.4 FL (7.0-11.0); MONO % 3.9 % (0.0-8.0); MONOCYTE # 0.5 TH/MM3 (0-0.9); NEUT % 79.8 % (16.0-70.0); PLATELET COUNT 509 TH/MM3 (150-450); RED BLOOD COUNT 4.72 MIL/MM3 (4.00-5.30); RED CELL DISTRIBUTION WIDTH 13.5 % (11.6-17.2)
--- NOTE | 2017-09-28 06:49 | PD ---
HPI . Abdominal pain Chief Complaint: Abdominal Pain Time Seen by Provider: 06:32 Travel History International Travel<30 days: No Contact w/Intl Traveler<30days: No Traveled to known affect area: No History of Present Illness HPI 57-year-old female, recently diagnosed with colitis at this [facility] , treated with Flagyl and Bactrim p.o., notes worsening of her abdominal pain, has had nausea vomiting and diarrhea. Patient states she has been on many different antibiotics over the past month to month and a half and has had recurrent diarrhea over the same period. Currently denies fever chills or sweats. Denies hematochezia or melena. PFSH Past Medical History Narrative Medical Past medical history reviewed Arthritis: No Asthma: No Anxiety: Yes Depression: Yes Heart Rhythm Problems: No Cancer: No Cardiac Catheterization: Yes Cardiovascular Problems: Yes (stents x2) High Cholesterol: Yes Chemotherapy: No Chest Pain: No Congestive Heart Failure: No COPD: Yes Cerebrovascular Accident: No Coronary Artery Disease: Yes Diabetes: Yes Patient Takes Glucophage: No Diminished Hearing: No Endocrine: Yes Gastrointestinal Disorders: No GERD: Yes Genitourinary: No Headaches: No Hiatal Hernia: No Hypertension: Yes Implanted Vascular Access Dvce: Yes Kidney Stones: Yes Psychiatric: Yes Reproductive: No Respiratory: Yes Immunizations Current: Yes Migraines: No Radiation Therapy: No Renal Failure: No Seizures: No Sleep Apnea: No Thyroid Disease: No Ulcer: Yes Menopausal: Yes Past Surgical History Abdominal Surgery: Yes (cholecystectomy) Body Medical Devices: pins in rt ankle Cardiac Surgery: Yes (stents) Cholecystectomy: Yes Coronary Artery Bypass Graft: No Coronary Stent: Yes (X2) Ear Surgery: No Endocrine Surgery: No Eye Surgery: Yes Genitourinary Surgery: Yes Gynecologic Surgery: Yes Hysterectomy: Yes Neurologic Surgery: No Oral Surgery: No Thoracic Surgery: No Other Surgery: Yes (RIGHT GREAT TOE AMPUTATION, ABSCESS I/D) Family History Family Myocardial Infarction: Yes (FATHER) Social History Alcohol Use: No Tobacco Use: Yes (1 PPD) Substance Use: No Allergies-Medications (Allergen,Severity, Reaction): Coded Allergies: ketorolac (Verified Allergy, Intermediate, HEADACHE, 09/28/17) amoxicillin (Verified Adverse Reaction, Intermediate, VOMITING, 09/28/17) clavulanic acid (Verified Adverse Reaction, Intermediate, VOMITING, ) Reported Meds & Prescriptions Reported Meds & Active Scripts Active Percocet (Oxycodone-Acetaminophen) 5-325 mg Tab 1 Tab PO Q6H PRN Keflex (Cephalexin) 500 Mg Cap 500 Mg PO Q12H 7 Days Mupirocin Topical (Mupirocin) 2 % Oint 1 Applic TOPICAL BID Pantoprazole (Pantoprazole Sodium) 40 Mg Tab 40 Mg PO DAILY Reported Ondansetron (Ondansetron HCl) 4 Mg Tab Novolog Mix 70-30 FlexPen Inj (Insulin Aspart Protam-Asp 70-30 Inj) 300 Unit/3 Ml Pen 20 Units SQ HS Novolog Mix 70-30 FlexPen Inj (Insulin Aspart Protam-Asp 70-30 Inj) 300 Unit/3 Ml Pen 40 Units SQ DAILY Lantus Inj (Insulin Glargine) 1,000 Unit/10 Ml Vial Unknown Dose SQ DIRECTED Aspirin 81 Mg Chew 81 Mg CHEW DAILY Januvia (Sitagliptin Phosphate) 100 Mg Tab 100 Mg PO HS Duloxetine DR (Duloxetine HCl) 40 Mg Capdr 40 Mg PO HS Trazodone (Trazodone HCl) 100 Mg Tablet 100 Mg PO HS Atorvastatin (Atorvastatin Calcium) 40 Mg Tab 40 Mg PO HS Lisinopril 20 Mg Tab 10 Mg PO DAILY Narrative Medication Allergies and medications reviewed Review of Systems Except as stated in HPI: all other systems reviewed are Neg General / Constitutional: No: Fever Eyes: No: Visual changes HENT: No: Headaches Cardiovascular: No: Chest Pain or Discomfort Respiratory: No: Shortness of Breath Gastrointestinal: Positive: Nausea, Vomiting, Diarrhea, Abdominal Pain Genitourinary: No: Dysuria Musculoskeletal: No: Pain Skin: No Rash Neurologic: No: Weakness Psychiatric: No: Depression Endocrine: No: Polydipsia Hematologic/Lymphatic: No: Easy Bruising Physical Exam Narrative GENERAL: Awake alert oriented 3 no acute distress. Patient appears mildly uncomfortable. Signs otherwise afebrile normal and stable SKIN: Warm and dry. Color is normal no diaphoresis cyanosis or pallor HEAD: Atraumatic. Normocephalic. EYES: Pupils equal and round. No scleral icterus. No injection or drainage. ENT: No nasal bleeding or discharge. Mucous membranes pink and moist. NECK: Trachea midline. No JVD. Supple nontender CARDIOVASCULAR: Regular rate and rhythm. No murmurs rubs or gallops RESPIRATORY: No accessory muscle use. Clear to auscultation. Breath sounds equal bilaterally. GASTROINTESTINAL: Abdomen soft, diffusely tender, no rebound no guarding. Nondistended. Hepatic and splenic margins not palpable. Morbid obesity with significant pannus, difficult exam MUSCULOSKELETAL: Extremities without clubbing, cyanosis, or edema. No obvious deformities. NEUROLOGICAL: Awake and alert. No obvious gross focal deficits PSYCHIATRIC: Appropriate mood and affect; insight and judgment normal. Data Data Last Documented VS Vital Signs Date Time Temp Pulse Resp B/P (MAP) Pulse Ox O2 Delivery O2 Flow Rate FiO2 09/28/17:18 98.5 98 20 197/97 (130) 99 Orders Orders Complete Blood Count With Diff (09/28/17 06:32) Comprehensive Metabolic Panel (09/28/17 06:32) Lipase (09/28/17 06:32) Lactic Acid (09/28/17 06:32) Prothrombin Time / Inr (Pt) (09/28/17 06:32) Act Partial Throm Time (Ptt) (09/28/17 06:32) Urinalysis - C+S If Indicated (09/28/17 06:32) Iv Access Insert/Monitor (09/28/17 06:32) Ecg Monitoring (09/28/17 06:32) Oximetry (09/28/17 06:32) Sodium Chlor 0.9% 1000 Ml Inj (Ns 1000 M (09/28/17 06:32) Levofloxacin 500 Mg Premix Inj (Levaquin (09/28/17 06:45) Sodium Chloride 0.9% Flush (Ns Flush) (09/28/17 06:45) Metronidazole 500 Mg Inj (Flagyl 500 Mg (09/28/17 06:45) Ondansetron Inj (Zofran Inj) (09/28/17 06:45) Morphine Inj (Morphine Inj) (09/28/17 06:45) Ct Abd/Pel W Iv Contrast(Rout) (09/28/17 ) Labs Laboratory Tests Test 09/28/17 06:35 [facility] Medical Decision Making Medical Screen Exam Complete: Yes Emergency Medical Condition: Yes Medical Record Reviewed: Yes Differential Diagnosis Abdominal pain, colitis, C. difficile Narrative Course Patient seen just prior to shift change in order to expedite patient's care. Patient was noted to have tenderness with the above history. Patient started presumptively on IV antibiotics, laboratory examinations ordered including stool for C. difficile, antiemetics, pain medications, and IV fluids ordered. Secondary to patient's recurrent tenderness and concurrent use of antibiotics, patient had CT abdomen and pelvis ordered with IV and oral contrast for evaluation of possible colitis/perforated viscus/abscess. IV being established by nursing staff, all labs, clinical reevaluation, and CT abdomen and pelvis pending. Patient signed out to oncoming ED attending Dougie Samayoa MD Sep 28, 2017 06:49
[2017-09-28] MEDS ORDERED: DIATRIZOATE MEGLUM/DIATRIZOATE SOD 9 ML CUP ONE (06:59)
[2017-09-28 07:08] LABS: ALBUMIN 3.1 GM/DL (3.4-5.0); AST (GOT) 31 U/L (15-37); BICARBONATE 27.3 MEQ/L (21.0-32.0); BLOOD UREA NITROGEN 9 MG/DL (7-18); CALCIUM 8.6 MG/DL (8.5-10.1); CHLORIDE 102 MEQ/L (98-107); GLUCOSE,RANDOM 181 MG/DL (74-106); SODIUM (NA) 136 MEQ/L (136-145)
[2017-09-28 07:10] LABS: ALKALINE PHOSPHATASE 76 U/L (45-117); ALT (GPT) 24 U/L (10-53); CREATININE 0.73 MG/DL (0.50-1.00); GLOMERULAR FILTRATION RATE 82 ML/MIN (>89); TOTAL BILIRUBIN ADULT 0.2 MG/DL (0.2-1.0); TOTAL PROTEIN 7.5 GM/DL (6.4-8.2)
[2017-09-28 07:11] LABS: INTERNATIONAL NORMALIZED RATIO 0.9 RATIO
[2017-09-28 07:24] VITALS: BP 180/90; PULSE 88; RESP 18; O2SAT 99
[2017-09-28] MEDS ORDERED: IOHEXOL 350 MG/ML 10 ML VIAL (for RAD DIAG) IVCONTRAST ONE (08:19)
--- NOTE | 2017-09-28 08:36 | RADRPT ---
EXAM DATE/TIME: 09/28/2017 08:14 [place] COMPARISON: CT ABDOMEN & PELVIS W CONTRAST, August 27, 2017, 16:16. INDICATIONS : Lower abdominal pain. History of colitis. IV CONTRAST: 91 cc Omnipaque 350 (iohexol) IV ORAL CONTRAST: Prescribed oral contrast ingested. RADIATION DOSE: 16.09 CTDIvol (mGy) MEDICAL HISTORY : Hypertension. Chronic obstructive pulmonary disease. Gastroesophageal reflux disease.Diabetes. SURGICAL HISTORY : Cholecystectomy. Hysterectomy. ENCOUNTER: Initial ACUITY: 1 day PAIN SCALE: 5/10 LOCATION: lower quadrant TECHNIQUE: Volumetric scanning of the abdomen and pelvis was performed. Using automated exposure control and ad justment of the mA and/or kV according to patient size, radiation dose was kept as low as reasonably achievable to obtain optimal diagnostic quality images. DICOM format image data is available electro nically for review and comparison. FINDINGS: LOWER LUNGS: The visualized lower lungs are clear. LIVER: Homogeneous density without lesion. There is no dilation of the biliary tree. Gallbladder is surgica lly absent. SPLEEN: Normal size without lesion. PANCREAS: Within normal limits. KIDNEYS: Normal in size and shape. There is no mass, stone or hydronephrosis. ADRENAL GLANDS: Within normal limits. VASCULAR: There is no aortic aneurysm. BOWEL/MESENTERY: The stomach, small bowel, and colon demonstrate no acute abnormality. There is no free intraperitone al air or fluid. ABDOMINAL WALL: A tiny umbilical hernia containing fat. There is mild stranding of the subcutaneous fat involving the panniculus just to the right of midline. No fluid collection. RETROPERITONEUM: There is no lymphadenopathy. BLADDER: No wall thickening or mass. REPRODUCTIVE: Within normal limits. INGUINAL: There is no lymphadenopathy or hernia. MUSCULOSKELETAL: Within normal limits for patient age. CONCLUSION: 1. No acute abnormality. 2. Subcutaneous stranding involving the panniculus to the right of midline. This could relate to subc utaneous injections of medication, trauma, or panniculitis. 3. Prior cholecystectomy. 4. Tiny umbilical hernia. Neri Shine Jr., MD on September 28, 2017 at 8:26 Board Certified Radiologist. This report was verified electronically.
--- NOTE | 2017-09-28 08:58 | PD ---
Physical Exam Date Seen by Provider: Sep 28, 2017 Time Seen by Provider: 07:00 Narrative Patient seen initially by Dr. Samayoa, please see his notes for further details. Signed out to me at 7 AM awaiting CAT scan. Laboratory Tests Test 09/28/17 06:35 White Blood Count 12.0 TH/MM3 (4.0-11.0) Platelet Count 509 TH/MM3 (150-450) Mean Platelet Volume 6.4 FL (7.0-11.0) Neutrophils (%) (Auto) 79.8 % (16.0-70.0) Neutrophils # (Auto) 9.6 TH/MM3 (1.8-7.7) Prothrombin Time 9.0 SEC (9.8-11.6) Random Glucose 181 MG/DL (74-106) Albumin 3.1 GM/DL (3.4-5.0) Estimat Glomerular Filtration Rate 82 ML/MIN (>89) Last 24 hours Impressions Abdomen/Pelvis CT 09/28/17 0000 Signed Impressions: Service Date/Time: Thursday, September 28, 2017 08:14 - CONCLUSION: 1. No acute abnormality. 2. Subcutaneous stranding involving the panniculus to the right of midline. This could relate to subcutaneous injections of medication, trauma, or panniculitis. 3. Prior cholecystectomy. 4. Tiny umbilical hernia. Neri Shine Jr., MD CAT scan did not show any signs of acute intra-abdominal processes. She does have a area of stranding on the right of midline panniculus, there is some panniculitis on evaluation there, patient had an abscess drained last week in that area. At this point, she is on antibiotics and it looks like the area is improving. I do not see any active drainage or underlying fluctuance. My plan would be to release the patient with follow-up to primary care doctor. Return for any worsening in symptoms as necessary. The plan was discussed with the patient and she states understanding. Data Data Last Documented VS Vital Signs Date Time Temp Pulse Resp B/P (MAP) Pulse Ox O2 Delivery O2 Flow Rate FiO2 09/28/17 07:24 88 18 180/90 (120) 99 09/28/17 06:18 98.5 Orders Orders Complete Blood Count With Diff (09/28/17 06:32) Comprehensive Metabolic Panel (09/28/17 06:32) Lipase (09/28/17 06:32) Lactic Acid (09/28/17 06:32) Prothrombin Time / Inr (Pt) (09/28/17 06:32) Act Partial Throm Time (Ptt) (09/28/17 06:32) Urinalysis - C+S If Indicated (09/28/17 06:32) Iv Access Insert/Monitor (09/28/17 06:32) Ecg Monitoring (09/28/17 06:32) Oximetry (09/28/17 06:32) Sodium Chlor 0.9% 1000 Ml Inj (Ns 1000 M (09/28/17 06:32) Levofloxacin 500 Mg Premix Inj (Levaquin (09/28/17 06:45) Sodium Chloride 0.9% Flush (Ns Flush) (09/28/17 06:45) Metronidazole 500 Mg Inj (Flagyl 500 Mg (09/28/17 06:45) Ondansetron Inj (Zofran Inj) (09/28/17 06:45) Morphine Inj (Morphine Inj) (09/28/17 06:45) Ct Abd/Pel W Iv Contrast(Rout) (09/28/17 ) Oral Contrast - Adult (09/28/17 06:45) Diatrizoate Liq ( Gastrodharmesh Liq) (09/28/17 06:59) Iohexol 350 Inj (Omnipaque 350 Inj) (09/28/17 08:19) Ed Discharge Order (09/28/17 08:51) Labs Laboratory Tests Test 09/28/17 06:35 White Blood Count 12.0 TH/MM3 Red Blood Count 4.72 MIL/MM3 Hemoglobin 14.3 GM/DL Hematocrit 42.7 % Mean Corpuscular Volume 90.4 FL Mean Corpuscular Hemoglobin 30.2 PG Mean Corpuscular Hemoglobin Concent 33.4 % Red Cell Distribution Width 13.5 % Platelet Count 509 TH/MM3 Mean Platelet Volume 6.4 FL Neutrophils (%) (Auto) 79.8 % Lymphocytes (%) (Auto) 14.3 % Monocytes (%) (Auto) 3.9 % Eosinophils (%) (Auto) 1.1 % Basophils (%) (Auto) 0.9 % Neutrophils # (Auto) 9.6 TH/MM3 Lymphocytes # (Auto) 1.7 TH/MM3 Monocytes # (Auto) 0.5 TH/MM3 Eosinophils # (Auto) 0.1 TH/MM3 Basophils # (Auto) 0.1 TH/MM3 CBC Comment DIFF FINAL Differential Comment Prothrombin Time 9.0 SEC Prothromb Time International Ratio 0.9 RATIO Activated Partial Thromboplast Time 26.1 SEC Blood Urea Nitrogen 9 MG/DL Creatinine 0.73 MG/DL Random Glucose 181 MG/DL Total Protein 7.5 GM/DL Albumin 3.1 GM/DL Calcium Level 8.6 MG/DL Alkaline Phosphatase 76 U/L Aspartate Amino Transf (AST/SGOT) 31 U/L Alanine Aminotransferase (ALT/SGPT) 24 U/L Total Bilirubin 0.2 MG/DL Sodium Level 136 MEQ/L Potassium Level 4.2 MEQ/L Chloride Level 102 MEQ/L Carbon Dioxide Level 27.3 MEQ/L Anion Gap 7 MEQ/L Estimat Glomerular Filtration Rate 82 ML/MIN Lactic Acid Level 1.6 mmol/L Lipase 157 U/L [facility] Medical Record Reviewed: Yes Supervised Visit with JAGDEEP: No Diagnosis Primary Impression: Abdominal pain Disposition: DISCHARGE HOME Condition: Stable Francesca Lucero MD Sep 28, 2017 08:58
[2017-09-28 09:00] VITALS: BP 175/85; PULSE 85; RESP 16; O2SAT 99
== END 2017-09-28 09:02 | disposition home or self-care (01) ==
LOC: NEPC 06:14
DX: M79.3 Panniculitis, unspecified (principal); K42.9 Umbilical hernia without obstruction or gangrene; F41.9 Anxiety disorder, unspecified; F32.9 Major depressive disorder, single episode, unspecified; E78.00 Pure hypercholesterolemia, unspecified; J44.9 Chronic obstructive pulmonary disease, unspecified; I25.10 Atherosclerotic heart disease of native coronary artery without angina pectoris; E11.9 Type 2 diabetes mellitus without complications; I10 Essential (primary) hypertension
CPT/HCPCS: 74177; 80053; 83605; 83690; 85025; 85610; 85730; 96374; 96375; 99284; J2270; J2405; J7030; Q9963; Q9967

== ENCOUNTER 2017-10-02 11:15 | Emergency (ER) | payer OTHER ==
[~2017-10-02] VITALS: Ht 170.2 cm; Wt 100.0 kg
[2017-10-02 11:25] VITALS: BP 182/102; PULSE 75; RESP 18; TEMP 98.5; O2SAT 98
[2017-10-02] MEDS ORDERED: SODIUM CHLOR 0.9% 1000 ML INJ 1,000 ML IV SCH (11:42)
[2017-10-02] MEDS ORDERED: MORPHINE SULFATE 4 MG/ML INJ IV PUSH ONE (11:45)
[2017-10-02] MEDS ORDERED: ONDANSETRON HCL 4 MG/2 ML VIAL IVP ONE (11:45)
[2017-10-02] MEDS ORDERED: PANTOPRAZOLE SODIUM 40 MG VIAL IV PUSH ONE (12:00)
--- NOTE | 2017-10-02 12:01 | PD ---
HPI Chief Complaint: GI Complaint Time Seen by Provider: 11:31 Travel History International Travel<30 days: No Contact w/Intl Traveler<30days: No Traveled to known affect area: No History of Present Illness HPI 57-year-old female that presents to the ED for evaluation of abdominal cramping as well as per patient blood in her stool. Per patient she's had this for over 2 days now. Per patient she had 3 bowel movements with blood. She was more blood than stool. She states that she was recently seen here last week and had a full work up with CT scan and diagnosed with colitis. She is currently on bactrim and flagyl for abscesses she keeps getting. Per patient she has been in multiple antibiotics in the past few months secondary to multiple abscesses. No chest pain or SOB. Feels nauseous. per patient large amounts of blood. No history of this in the past but has been told she had diverticulitis in the past. No urinary symptoms. History of diabetes, HTN, ACS and psychiatric illness. Pain is 8/10 and cramping. Nothing makes it better or worst. PFSH Past Medical History Arthritis: No Asthma: No Anxiety: Yes Depression: Yes Heart Rhythm Problems: No Cancer: No Cardiac Catheterization: Yes Cardiovascular Problems: Yes (stents x2) High Cholesterol: Yes Chemotherapy: No Chest Pain: No Congestive Heart Failure: No COPD: Yes Cerebrovascular Accident: No Coronary Artery Disease: Yes Diabetes: Yes Patient Takes Glucophage: No Diminished Hearing: No Endocrine: Yes Gastrointestinal Disorders: No GERD: Yes Genitourinary: No Headaches: No Hiatal Hernia: No Hypertension: Yes Implanted Vascular Access Dvce: Yes Kidney Stones: Yes Psychiatric: Yes Reproductive: No Respiratory: Yes Immunizations Current: Yes Migraines: No Radiation Therapy: No Renal Failure: No Seizures: No Sleep Apnea: No Thyroid Disease: No Ulcer: Yes ?: Not Menopausal: Yes Past Surgical History Abdominal Surgery: Yes (cholecystectomy) Body Medical Devices: pins in rt ankle Cardiac Surgery: Yes (stents) Cholecystectomy: Yes Coronary Artery Bypass Graft: No Coronary Stent: Yes (X2) Ear Surgery: No Endocrine Surgery: No Eye Surgery: Yes Genitourinary Surgery: Yes Gynecologic Surgery: Yes Hysterectomy: Yes Neurologic Surgery: No Oral Surgery: No Thoracic Surgery: No Other Surgery: Yes (RIGHT GREAT TOE AMPUTATION, ABSCESS I/D) Family History Family Myocardial Infarction: Yes (FATHER) Social History Alcohol Use: No Tobacco Use: Yes (1 PPD) Substance Use: No Allergies-Medications (Allergen,Severity, Reaction): Coded Allergies: ketorolac (Verified Allergy, Intermediate, HEADACHE, 09/28/17) amoxicillin (Verified Adverse Reaction, Intermediate, VOMITING, 09/28/17) clavulanic acid (Verified Adverse Reaction, Intermediate, VOMITING, ) Reported Meds & Prescriptions Reported Meds & Active Scripts Active Percocet (Oxycodone-Acetaminophen) 5-325 mg Tab 1 Tab PO Q6H PRN Mupirocin Topical (Mupirocin) 2 % Oint 1 Applic TOPICAL BID Pantoprazole (Pantoprazole Sodium) 40 Mg Tab 40 Mg PO DAILY Reported Ondansetron (Ondansetron HCl) 4 Mg Tab Novolog Mix 70-30 FlexPen Inj (Insulin Aspart Protam-Asp 70-30 Inj) 300 Unit/3 Ml Pen 20 Units SQ HS Novolog Mix 70-30 FlexPen Inj (Insulin Aspart Protam-Asp 70-30 Inj) 300 Unit/3 Ml Pen 40 Units SQ DAILY Lantus Inj (Insulin Glargine) 1,000 Unit/10 Ml Vial Unknown Dose SQ DIRECTED Aspirin 81 Mg Chew 81 Mg CHEW DAILY Januvia (Sitagliptin Phosphate) 100 Mg Tab 100 Mg PO HS Duloxetine DR (Duloxetine HCl) 40 Mg Capdr 40 Mg PO HS Trazodone (Trazodone HCl) 100 Mg Tablet 100 Mg PO HS Atorvastatin (Atorvastatin Calcium) 40 Mg Tab 40 Mg PO HS Lisinopril 20 Mg Tab 10 Mg PO DAILY Review of Systems Except as stated in HPI: all other systems reviewed are Neg Physical Exam Narrative GENERAL: SKIN: Warm and dry. HEAD: Atraumatic. Normocephalic. EYES: Pupils equal and round. No scleral icterus. No injection or drainage. ENT: No nasal bleeding or discharge. Mucous membranes pink and moist. Tongue is midline. No uvula deviation. NECK: Trachea midline. No JVD. CARDIOVASCULAR: Regular rate and rhythm. No murmurs, S3, S4. RESPIRATORY: No accessory muscle use. Clear to auscultation. Breath sounds equal bilaterally. GASTROINTESTINAL: Abdomen soft, Tender with deep palpation in lower quadrants, nondistended. Hepatic and splenic margins not palpable. MUSCULOSKELETAL: Extremities without clubbing, cyanosis, or edema. No obvious deformities. Full ROM of the upper and lower extremities bilaterally. 2+ pulses bilaterally. NEUROLOGICAL: Awake and alert. No obvious cranial nerve deficits. Motor grossly within normal limits. Five out of 5 muscle strength in the arms and legs. Normal speech. PSYCHIATRIC: Appropriate mood and affect; insight and judgment normal. Data Data Last Documented VS Vital Signs Date Time Temp Pulse Resp B/P (MAP) Pulse Ox O2 Delivery O2 Flow Rate FiO2 10/02/17 11:44 18 10/02/17 11:25 98.5 75 182/102 (128) 98 Orders Orders Complete Blood Count With Diff (10/02/17 11:42) Comprehensive Metabolic Panel (10/02/17 11:42) Lipase (10/02/17 11:42) Lactic Acid (10/02/17 11:42) Prothrombin Time / Inr (Pt) (10/02/17 11:42) Act Partial Throm Time (Ptt) (10/02/17 11:42) Iv Access Insert/Monitor (10/02/17 11:42) Morphine Inj (Morphine Inj) (10/02/17 11:45) Ondansetron Inj (Zofran Inj) (10/02/17 11:45) Sodium Chlor 0.9% 1000 Ml Inj (Ns 1000 M (10/02/17 11:42) Pantoprazole Inj (Protonix Inj) (10/02/17 12:00) Isolation 08,20 (10/02/17 11:59) C Diff Toxin Pcr (10/02/17 12:03) Sodium Chlor 0.9% 1000 Ml Inj (Ns 1000 M (10/02/17 12:30) Ct Abd/Pel W Iv Contrast(Rout) (10/02/17 ) Insulin Human Regular Inj (Novolin R Inj (10/02/17 12:45) Morphine Inj (Morphine Inj) (10/02/17 13:15) Iohexol 350 Inj (Omnipaque 350 Inj) (10/02/17 13:30) Ed Discharge Order (10/02/17 14:06) Labs Laboratory Tests Test 10/02/17 11:47 White Blood Count 11.4 TH/MM3 Red Blood Count 4.93 MIL/MM3 Hemoglobin 15.3 GM/DL Hematocrit 44.5 % Mean Corpuscular Volume 90.2 FL Mean Corpuscular Hemoglobin 30.9 PG Mean Corpuscular Hemoglobin Concent 34.3 % Red Cell Distribution Width 13.9 % Platelet Count 504 TH/MM3 Mean Platelet Volume 6.7 FL Neutrophils (%) (Auto) 77.8 % Lymphocytes (%) (Auto) 15.6 % Monocytes (%) (Auto) 4.8 % Eosinophils (%) (Auto) 0.7 % Basophils (%) (Auto) 1.1 % Neutrophils # (Auto) 8.9 TH/MM3 Lymphocytes # (Auto) 1.8 TH/MM3 Monocytes # (Auto) 0.5 TH/MM3 Eosinophils # (Auto) 0.1 TH/MM3 Basophils # (Auto) 0.1 TH/MM3 CBC Comment DIFF FINAL Differential Comment Prothrombin Time 9.4 SEC Prothromb Time International Ratio 0.9 RATIO Activated Partial Thromboplast Time 24.0 SEC Blood Urea Nitrogen 12 MG/DL Creatinine 0.91 MG/DL Random Glucose 308 MG/DL Total Protein 7.6 GM/DL Albumin 3.1 GM/DL Calcium Level 9.0 MG/DL Alkaline Phosphatase 75 U/L Aspartate Amino Transf (AST/SGOT) 11 U/L Alanine Aminotransferase (ALT/SGPT) 17 U/L Total Bilirubin 0.2 MG/DL Sodium Level 134 MEQ/L Potassium Level 4.0 MEQ/L Chloride Level 100 MEQ/L Carbon Dioxide Level 25.5 MEQ/L Anion Gap 9 MEQ/L Estimat Glomerular Filtration Rate 64 ML/MIN Lactic Acid Level 3.2 mmol/L Lipase 159 U/L [facility] Medical Decision Making Medical Screen Exam Complete: Yes Emergency Medical Condition: Yes Medical Record Reviewed: Yes Interpretation(s) CBC & BMP Diagram 10/02/17 11:47 Total Protein 7.6, Albumin 3.1 L, Calcium Level 9.0, Alkaline Phosphatase 75, Aspartate Amino Transf (AST/SGOT) 11 L, Alanine Aminotransferase (ALT/SGPT) 17, Total Bilirubin 0.2 Last Impressions Abdomen/Pelvis CT 10/02/17 0000 Signed Impressions: Service Date/Time: Monday, October 02, 2017 13:25 - CONCLUSION: Stable inflammation anterior abdominal wall inferiorly on the right. Intraperitoneal exam is unremarkable status post cholecystectomy. Corbin Zee MD lipase WNL lactic acid 3.2 Differential Diagnosis colitis vs chornic pain vs C diff vs diverticulitis vs pancicolitis Narrative Course 57 yo female here for abdominal pain and bloody diarrhea. Properly examined. Hemocult here negative. Labs and meds ordered. Labs and imaging were essentially unremarkable other than for chronic changes. No sign of acute disease. Hemoccult again negative here. Patient was not able to give us a sample of her stool. Patient feels improved. At this time and do not recommend treating with new antibiotics as patient is already taking 2 different antibiotics. Patient was given prescription for pain medication and antiemetics. Told to follow closely with PCP. See ED worsening symptoms. HemaPrompt Point of Care Internal Pos. & Neg. Controls: Passed Fecal Specimen Occult Blood: Negative Diagnosis Primary Impression: Abdominal pain Qualified Codes: R10.84 - Generalized abdominal pain Patient Instructions: General Instructions, Narcotic given in the ED Additional Instructions: Take medications as prescribed. Follow-up with PCP or GI specialist See ED for any worsening symptoms. Do not drink or drive while taking pain medication. Apply ice or heat as needed for pain. Finish antibiotics already given to you. Med/Other Pt SpecificInfo: Prescription(s) given Scripts Ondansetron (Zofran) 4 Mg Tab 4 MG PO Q6HR Y for NAUSEA OR VOMITING, #15 TAB 0 Refills Prov: Jerzy Heller MD 10/02/17 Oxycodone-Acetaminophen (Percocet) 5-325 mg Tab 1 TAB PO Q6H Y for PAIN, #12 TAB 0 Refills Prov: Jerzy Heller MD 10/02/17 Disposition: 01 DISCHARGE HOME Condition: Stable Aguila Chou Oct 02, 2017 12:01
[2017-10-02 12:10] LABS: AUTOMATED NEUTROPHIL # 8.9 TH/MM3 (1.8-7.7); BASOPHIL # 0.1 TH/MM3 (0-0.2); BASOPHIL % 1.1 % (0.0-2.0); EOSINOPHIL # 0.1 TH/MM3 (0-0.4); EOSINOPHIL % 0.7 % (0.0-4.0); HEMATOCRIT 44.5 % (35.0-46.0); HEMOGLOBIN 15.3 GM/DL (11.6-15.3); LYMPH % 15.6 % (9.0-44.0); LYMPHOCYTE # 1.8 TH/MM3 (1.0-4.8); MEAN CELL VOLUME 90.2 FL (80.0-100.0); MEAN CORPUSCULAR HEMOGLOBIN 30.9 PG (27.0-34.0); MEAN CORPUSCULAR HGB CONC 34.3 % (32.0-36.0); MEAN PLATELET VOLUME 6.7 FL (7.0-11.0); MONO % 4.8 % (0.0-8.0); MONOCYTE # 0.5 TH/MM3 (0-0.9); NEUT % 77.8 % (16.0-70.0); PLATELET COUNT 504 TH/MM3 (150-450); RED BLOOD COUNT 4.93 MIL/MM3 (4.00-5.30); RED CELL DISTRIBUTION WIDTH 13.9 % (11.6-17.2); WHITE BLOOD COUNT 11.4 TH/MM3 (4.0-11.0)
[2017-10-02 12:19] LABS: INTERNATIONAL NORMALIZED RATIO 0.9 RATIO; PROTHROMBIN TIME - PATIENT 9.4 SEC (9.8-11.6)
[2017-10-02] MEDS ORDERED: SODIUM CHLOR 0.9% 1000 ML INJ 1,000 ML IV ONE (12:30)
[2017-10-02 12:34] LABS: ALBUMIN 3.1 GM/DL (3.4-5.0); AST (GOT) 11 U/L (15-37); BICARBONATE 25.5 MEQ/L (21.0-32.0); BLOOD UREA NITROGEN 12 MG/DL (7-18); CHLORIDE 100 MEQ/L (98-107); CREATININE 0.91 MG/DL (0.50-1.00); GLOMERULAR FILTRATION RATE 64 ML/MIN (>89); GLUCOSE,RANDOM 308 MG/DL (74-106); SODIUM (NA) 134 MEQ/L (136-145)
[2017-10-02 12:35] LABS: ALT (GPT) 17 U/L (10-53)
[2017-10-02 12:37] LABS: ALKALINE PHOSPHATASE 75 U/L (45-117); TOTAL BILIRUBIN ADULT 0.2 MG/DL (0.2-1.0); TOTAL PROTEIN 7.6 GM/DL (6.4-8.2)
[2017-10-02] MEDS ORDERED: INSULIN HUMAN REGULAR 1,000 UNITS/10 ML VIAL SQ ONE (12:45)
[2017-10-02] MEDS ORDERED: MORPHINE SULFATE 2 MG/ML INJ IV PUSH ONE (13:15)
[2017-10-02] MEDS ORDERED: IOHEXOL 350 MG/ML 10 ML VIAL (for RAD DIAG) IVCONTRAST ONE (13:30)
--- NOTE | 2017-10-02 13:55 | RADRPT ---
EXAM DATE/TIME: 10/02/2017 13:25 [facility] COMPARISON: CT ABDOMEN & PELVIS W CONTRAST, September 28, 2017, 8:14. INDICATIONS : Lower abdomen pain for three days. IV CONTRAST: 94 cc Omnipaque 350 (iohexol) IV ORAL CONTRAST: No oral contrast ingested. RADIATION DOSE: 16.44 CTDIvol (mGy) MEDICAL HISTORY : Gastroesophageal reflux disease. Hypertension. diabetes SURGICAL HISTORY : Hysterectomy. Cholecystectomy. ENCOUNTER: Initial ACUITY: 3 days PAIN SCALE: 7/10 LOCATION: Bilateral lower quadrant TECHNIQUE: Volumetric scanning of the abdomen and pelvis was performed. Using automated exposure control and ad justment of the mA and/or kV according to patient size, radiation dose was kept as low as reasonably achievable to obtain optimal diagnostic quality images. DICOM format image data is available electro nically for review and comparison. FINDINGS: LOWER LUNGS: A few small nodular areas of groundglass of the left lung base, unchanged.. LIVER: Homogeneous density without lesion. There is no dilation of the biliary tree. Status post cholecyste ctomy. SPLEEN: Normal size without lesion. PANCREAS: Within normal limits. KIDNEYS: Normal in size and shape. There is no mass, stone or hydronephrosis. ADRENAL GLANDS: Within normal limits. VASCULAR: There is no aortic aneurysm. BOWEL/MESENTERY: The stomach, small bowel, and colon demonstrate no acute abnormality. There is no free intraperitone al air or fluid. ABDOMINAL WALL: There again is an indurated area in the lower right anterior pelvis within the penis correlate for ce llulitis or recent injections. Small umbilical hernia RETROPERITONEUM: There is no lymphadenopathy. BLADDER: No wall thickening or mass. REPRODUCTIVE: Within normal limits. INGUINAL: There is no lymphadenopathy or hernia. MUSCULOSKELETAL: Within normal limits for patient age. CONCLUSION: Stable inflammation anterior abdominal wall inferiorly on the right. Intraperitoneal exam is unremark able status post cholecystectomy. Corbin Zee MD on October 02, 2017 at 13:51 Board Certified Radiologist. This report was verified electronically.
[2017-10-02] MEDS ORDERED: PERC5TAB12 PO (14:07)
[2017-10-02] MEDS ORDERED: ZOFR4TAB PO (14:07)
[2017-10-02] MEDS ORDERED: oxyCODONE/ACETAMINOPHEN 5 MG/325 MG TAB PO ONE (14:15)
== END 2017-10-02 14:19 | disposition home or self-care (01) ==
LOC: NEPE 11:15
DX: R10.84 Generalized abdominal pain (principal); K92.1 Melena; E11.9 Type 2 diabetes mellitus without complications; E78.00 Pure hypercholesterolemia, unspecified; I10 Essential (primary) hypertension; I25.10 Atherosclerotic heart disease of native coronary artery without angina pectoris; K21.9 Gastro-esophageal reflux disease without esophagitis; F17.200 Nicotine dependence, unspecified, uncomplicated; Z79.4 Long term (current) use of insulin
CPT/HCPCS: 74177; 80053; 83605; 83690; 85025; 85610; 85730; 96361; 96372; 96374; 96375; 96376; 99284; C9113; J1815; J2270; J2405; J7030; Q9967

== ENCOUNTER 2017-10-04 13:19 | Emergency (ER) | payer OTHER ==
[~2017-10-04] VITALS: Ht 165.1 cm; Wt 99.0 kg
[~2017-10-04 13:19] MED LIST changes: -CEPH-460 PO; +ZOFR4TAB PO
[2017-10-04] MEDS ORDERED: IOHEXOL 350 MG/ML 10 ML VIAL (for RAD DIAG) IVCONTRAST ONE (13:20)
[2017-10-04 13:29] VITALS: BP 146/88; PULSE 129; RESP 17; TEMP 98.6; O2SAT 96
[2017-10-04] MEDS ORDERED: MORPHINE SULFATE 4 MG/ML INJ IV PUSH ONE (13:45)
[2017-10-04] MEDS ORDERED: ONDANSETRON HCL 4 MG/2 ML VIAL IVP ONE (13:45)
[2017-10-04] MEDS ORDERED: SODIUM CHLORIDE 0.9% FLUSH 10 ML FLUSH IV FLUSH PRN (13:45)
[2017-10-04] MEDS ORDERED: PERC10TA27 PO (14:07)
[2017-10-04 14:36] LABS: AUTOMATED NEUTROPHIL # 17.3 TH/MM3 (1.8-7.7); BASOPHIL # 0.2 TH/MM3 (0-0.2); BASOPHIL % 0.8 % (0.0-2.0); EOSINOPHIL # 0.1 TH/MM3 (0-0.4); EOSINOPHIL % 0.3 % (0.0-4.0); HEMOGLOBIN 16.2 GM/DL (11.6-15.3); LYMPH % 12.7 % (9.0-44.0); LYMPHOCYTE # 2.7 TH/MM3 (1.0-4.8); MEAN CELL VOLUME 90.2 FL (80.0-100.0); MEAN CORPUSCULAR HGB CONC 34.4 % (32.0-36.0); MEAN PLATELET VOLUME 6.8 FL (7.0-11.0); MONO % 5.9 % (0.0-8.0); MONOCYTE # 1.3 TH/MM3 (0-0.9); NEUT % 80.3 % (16.0-70.0); PLATELET COUNT 577 TH/MM3 (150-450); RED BLOOD COUNT 5.21 MIL/MM3 (4.00-5.30); RED CELL DISTRIBUTION WIDTH 14.1 % (11.6-17.2); WHITE BLOOD COUNT 21.5 TH/MM3 (4.0-11.0)
[2017-10-04 14:41] LABS: BILIRUBIN, URINE NEG (NEG); BLOOD, URINE NEG (NEG); GLUCOSE,URINE 70 mg/dL (NEG); HYALINE CAST, URINE 7 /lpf (RARE); KETONE, URINE NEG (NEG); MUCUS URINE MANY /lpf (OCC); NITRITE,URINE NEG (NEG); PH, URINE 7.5 (5.0-8.5); SQUAMOUS EPITHELIAL CELL URINE 1 /hpf (0-5); URINE COLOR YELLOW (YELLW/STRAW); URINE LEUKOCYTE ESTERASE NEG (NEG)
--- NOTE | 2017-10-04 14:56 | PD ---
HPI Chief Complaint: Abdominal Pain Time Seen by Provider: 13:28 Travel History International Travel<30 days: No Contact w/Intl Traveler<30days: No Traveled to known affect area: No History of Present Illness HPI 57 YO F with PMH of DM, COPD, CAD status post stenting, on ASA presents to the ED for evaluation of 8/10 right upper quadrant abdominal pain. Patient states this has been ongoing for "weeks." She endorses a few episodes of nonbloody vomiting. She endorses loose stools. She didn't identify no alleviating or exacerbating factors reported. She was seen in the ED a few days ago with similar symptoms. She states that the pain is now in the right upper quadrant. She states that she took her insulin this morning without eating. She is out of pain medications and the pain provider won't write any more. She's never had an endoscopy or GI follow-up. PFSH Past Medical History Hx Anticoagulant Therapy: Yes Arthritis: No Asthma: No Anxiety: Yes Depression: Yes Heart Rhythm Problems: No Cancer: No Cardiac Catheterization: Yes Cardiovascular Problems: Yes (stents x2) High Cholesterol: Yes Chemotherapy: No Chest Pain: No Congestive Heart Failure: No COPD: Yes Cerebrovascular Accident: No Coronary Artery Disease: Yes Diabetes: Yes Patient Takes Glucophage: No Diminished Hearing: No Endocrine: Yes Gastrointestinal Disorders: No GERD: Yes Genitourinary: No Headaches: No Hiatal Hernia: No Hypertension: Yes Implanted Vascular Access Dvce: Yes Kidney Stones: Yes Psychiatric: Yes Reproductive: No Respiratory: Yes Immunizations Current: Yes Migraines: No Radiation Therapy: No Renal Failure: No Seizures: No Sleep Apnea: No Thyroid Disease: No Ulcer: Yes Menopausal: Yes Past Surgical History Abdominal Surgery: Yes (cholecystectomy) Body Medical Devices: pins in rt ankle Cardiac Surgery: Yes (stents) Cholecystectomy: Yes Coronary Artery Bypass Graft: No Coronary Stent: Yes (X2) Ear Surgery: No Endocrine Surgery: No Eye Surgery: Yes Genitourinary Surgery: Yes Gynecologic Surgery: Yes Hysterectomy: Yes Neurologic Surgery: No Oral Surgery: No Thoracic Surgery: No Other Surgery: Yes (RIGHT GREAT TOE AMPUTATION, ABSCESS I/D) Family History Family Myocardial Infarction: Yes (FATHER) Social History Alcohol Use: No Tobacco Use: Yes (1 PPD) Substance Use: No Allergies-Medications (Allergen,Severity, Reaction): Coded Allergies: ketorolac (Verified Allergy, Intermediate, HEADACHE, 10/04/17) amoxicillin (Verified Adverse Reaction, Intermediate, VOMITING, 10/04/17) clavulanic acid (Verified Adverse Reaction, Intermediate, VOMITING, ) Reported Meds & Prescriptions Reported Meds & Active Scripts Active Phenergan (Promethazine HCl) 25 Mg Tablet 25 Mg PO Q6H PRN Keflex (Cephalexin) 500 Mg Capsule 500 Mg PO Q6H 7 Days Bactrim DS (Sulfamethoxazole-Trimethoprim) 800-160 Mg Tab 1 Tab PO BID Zofran (Ondansetron HCl) 4 Mg Tab 4 Mg PO Q6HR PRN Percocet (Oxycodone-Acetaminophen) 5-325 mg Tab 1 Tab PO Q6H PRN Mupirocin Topical (Mupirocin) 2 % Oint 1 Applic TOPICAL BID Pantoprazole (Pantoprazole Sodium) 40 Mg Tab 40 Mg PO DAILY Reported Percocet (Oxycodone-Acetaminophen) 10-325 mg Tab 1 Tab PO Q6H PRN Novolog Mix 70-30 FlexPen Inj (Insulin Aspart Protam-Asp 70-30 Inj) 300 Unit/3 Ml Pen 20 Units SQ HS Novolog Mix 70-30 FlexPen Inj (Insulin Aspart Protam-Asp 70-30 Inj) 300 Unit/3 Ml Pen 40 Units SQ DAILY Lantus Inj (Insulin Glargine) 1,000 Unit/10 Ml Vial 20 Units SQ DIRECTED Aspirin 81 Mg Chew 81 Mg CHEW DAILY Januvia (Sitagliptin Phosphate) 100 Mg Tab 100 Mg PO HS Duloxetine DR (Duloxetine HCl) 40 Mg Capdr 40 Mg PO HS Trazodone (Trazodone HCl) 100 Mg Tablet 100 Mg PO HS Atorvastatin (Atorvastatin Calcium) 40 Mg Tab 40 Mg PO HS Lisinopril 20 Mg Tab 10 Mg PO DAILY Review of Systems Except as stated in HPI: all other systems reviewed are Neg Physical Exam Narrative GENERAL: Well-nourished, well-developed obese white female in no acute distress.. SKIN: Focused skin assessment warm/dry. Multiple comedones over the skin surface. Patient has a few isolated areas of folliculitis, notably on the right lower quadrant of the abdomen. Localized warmth and erythema. No fluctuance noted. HEAD: Normocephalic. EYES: No scleral icterus. No injection or drainage. NECK: Supple, trachea midline. No JVD or lymphadenopathy. CARDIOVASCULAR: Regular rate and rhythm without murmurs, gallops, or rubs. RESPIRATORY: Breath sounds clear and equal bilaterally. No accessory muscle use. GASTROINTESTINAL: Abdomen soft, non-tender, nondistended. Active bowel sounds. No palpable masses. MUSCULOSKELETAL: No cyanosis, or edema. BACK: Nontender without obvious deformity. No CVA tenderness. Data Data Last Documented VS Vital Signs Date Time Temp Pulse Resp B/P (MAP) Pulse Ox O2 Delivery O2 Flow Rate FiO2 10/04/17 17:49 10/04/17 17:07 86 17 100 10/04/17 13:29 98.6 Room Air Orders Orders Complete Blood Count With Diff (10/04/17 13:44) Comprehensive Metabolic Panel (10/04/17 13:44) Lactic Acid (10/04/17 13:44) Urinalysis - C+S If Indicated (10/04/17 13:44) Iv Access Insert/Monitor (10/04/17 13:44) Ecg Monitoring (10/04/17 13:44) Oximetry (10/04/17 13:44) Morphine Inj (Morphine Inj) (10/04/17 13:45) Ondansetron Inj (Zofran Inj) (10/04/17 13:45) Sodium Chloride 0.9% Flush (Ns Flush) (10/04/17 13:45) Dextrose 50% In Ita (Syr) Inj (D50w (Syr (10/04/17 15:30) Ct Abd/Pel W Iv Contrast(Rout) (10/04/17 ) Iohexol 350 Inj (Omnipaque 350 Inj) (10/04/17 13:20) Ed Discharge Order (10/04/17 16:54) Labs Laboratory Tests Test 10/04/17 13:12 10/04/17 14:12 10/04/17 14:16 White Blood Count 21.5 TH/MM3 Red Blood Count 5.21 MIL/MM3 Hemoglobin 16.2 GM/DL Hematocrit 47.0 % Mean Corpuscular Volume 90.2 FL Mean Corpuscular Hemoglobin 31.0 PG Mean Corpuscular Hemoglobin Concent 34.4 % Red Cell Distribution Width 14.1 % Platelet Count 577 TH/MM3 Mean Platelet Volume 6.8 FL Neutrophils (%) (Auto) 80.3 % Lymphocytes (%) (Auto) 12.7 % Monocytes (%) (Auto) 5.9 % Eosinophils (%) (Auto) 0.3 % Basophils (%) (Auto) 0.8 % Neutrophils # (Auto) 17.3 TH/MM3 Lymphocytes # (Auto) 2.7 TH/MM3 Monocytes # (Auto) 1.3 TH/MM3 Eosinophils # (Auto) 0.1 TH/MM3 Basophils # (Auto) 0.2 TH/MM3 CBC Comment DIFF FINAL Differential Comment Blood Urea Nitrogen 14 MG/DL Creatinine 0.75 MG/DL Random Glucose 59 MG/DL Total Protein 8.1 GM/DL Albumin 3.4 GM/DL Calcium Level 9.8 MG/DL Alkaline Phosphatase 80 U/L Aspartate Amino Transf (AST/SGOT) 14 U/L Alanine Aminotransferase (ALT/SGPT) 16 U/L Total Bilirubin 0.3 MG/DL Sodium Level 139 MEQ/L Potassium Level 3.5 MEQ/L Chloride Level 104 MEQ/L Carbon Dioxide Level 25.9 MEQ/L Anion Gap 9 MEQ/L Estimat Glomerular Filtration Rate 80 ML/MIN Urine Color YELLOW Urine Turbidity HAZY Urine pH 7.5 Urine Specific [place] 1.021 Urine Protein 300 mg/dL Urine Glucose (UA) 70 mg/dL Urine Ketones NEG mg/dL Urine Occult Blood NEG Urine Nitrite NEG Urine Bilirubin NEG Urine Urobilinogen 2.0 MG/DL Urine Leukocyte Esterase NEG Urine RBC 2 /hpf Urine WBC 1 /hpf Urine Squamous Epithelial Cells 1 /hpf Urine Hyaline Casts 7 /lpf Urine Mucus MANY /lpf Microscopic Urinalysis Comment CULT NOT INDICATED Lactic Acid Level 1.8 mmol/L MDM Medical Decision Making Medical Screen Exam Complete: Yes Emergency Medical Condition: Yes Differential Diagnosis Chronic abdominal pain versus narcotic withdrawal versus abscess versus cellulitis versus hypoglycemia versus other Narrative Course 57 YO F with PMH of DM, COPD, CAD status post stenting, on ASA presents to the ED for evaluation of 8/10 right upper quadrant abdominal pain. Patient states this has been ongoing for "weeks." She endorses a few episodes of nonbloody vomiting. She endorses loose stools. She states that the pain is now in the right upper quadrant. She states that she took her insulin this morning without eating. She is out of pain medications and the pain provider won't write any more. She's never had an endoscopy or GI follow-up. Patient is tachycardic on presentation but this resolves during the course of the exam. Blood glucose 60 on arrival. She was administered 25 mL the dextrose. On exam is an obese white female in no acute distress. Abdominal exam is completely unremarkable. She does have several comedones over the flexural areas of the body. She has a small cellulitic area on the right lower quadrant of the abdomen but exam is otherwise unremarkable. IV is established. She was administered 1 L normal saline, 4 mg Zofran, 2 mg morphine. CBC: WBC 21.5. Hemoglobin 16.2. Chemistry: Glucose 59. Lactic acid 1.8. UA: No culture indicated. Due to the elevated white count CT was obtained. This revealed stable area focal inflammation in the anterior inferior right abdominal wall without focal fluid collection. No new findings. Discussed case with Dr. Heredia. She evaluated the patient. We suspect the elevation of the white count is secondary to this localized cellulitis. Patient 's prescribed Bactrim and Keflex, few doses of Phenergan. She is instructed take the medication as prescribed, follow up with her primary care provider. She is stable and discharged home. Diagnosis Primary Impression: Cellulitis, abdominal wall Referrals: Primary Care Physician Patient Instructions: Cellulitis (ED), General Instructions Additional Instructions: Rest, hydrate. Take antibiotics as prescribed until every pill is gone. Take Phenergan as needed for nausea. Tylenol or ibuprofen as directed, labile, as needed for pain. Follow-up with her primary care provider as discussed with Dr. Heredia. Return to the ED for worsening symptoms or any urgent or emergent medical condition. Scripts Promethazine (Phenergan) 25 Mg Tablet 25 MG PO Q6H Y for NAUSEA OR VOMITING, #6 TAB 0 Refills Prov: Sharlene Heredia MD 10/04/17 Cephalexin (Keflex) 500 Mg Capsule 500 MG PO Q6H for Infection for 7 Days, #28 CAP 0 Refills Prov: Sharlene Heredia MD 10/04/17 Sulfamethoxazole-Trimethoprim (Bactrim DS) 800-160 Mg Tab 1 TAB PO BID for Infection, #14 TAB 0 Refills Prov: Sharlene Heredia MD 10/04/17 Disposition: 01 DISCHARGE HOME Condition: Stable Maegan Bell Oct 04, 2017 14:56
[2017-10-04 15:02] LABS: ALBUMIN 3.4 GM/DL (3.4-5.0); ALKALINE PHOSPHATASE 80 U/L (45-117); ALT (GPT) 16 U/L (10-53); AST (GOT) 14 U/L (15-37); BICARBONATE 25.9 MEQ/L (21.0-32.0); BLOOD UREA NITROGEN 14 MG/DL (7-18); CALCIUM 9.8 MG/DL (8.5-10.1); CHLORIDE 104 MEQ/L (98-107); CREATININE 0.75 MG/DL (0.50-1.00); GLOMERULAR FILTRATION RATE 80 ML/MIN (>89); GLUCOSE,RANDOM 59 MG/DL (74-106); SODIUM (NA) 139 MEQ/L (136-145); TOTAL BILIRUBIN ADULT 0.3 MG/DL (0.2-1.0); TOTAL PROTEIN 8.1 GM/DL (6.4-8.2)
[2017-10-04] MEDS ORDERED: DEXTROSE 50% IN WATER 50 ML SYRINGE IV PUSH ONE (15:30)
--- NOTE | 2017-10-04 16:35 | RADRPT ---
EXAM DATE/TIME: 10/04/2017 16:11 [facility] COMPARISON: CT ABDOMEN & PELVIS W CONTRAST, October 02, 2017, 13:25. INDICATIONS : Diffuse abdomen pain with vomiting. IV CONTRAST: 86 cc Omnipaque 350 (iohexol) IV ORAL CONTRAST: No oral contrast ingested. RADIATION DOSE: 16.07 CTDIvol (mGy) MEDICAL HISTORY : Cardiovascular disease. Hypertension. Chronic obstructive pulmonary disease.Diabetes, Kidney stones SURGICAL HISTORY : Cholecystectomy. Hysterectomy. ENCOUNTER: Initial ACUITY: 2 weeks PAIN SCALE: 8/10 LOCATION: Bilateral lower quadrant TECHNIQUE: Volumetric scanning of the abdomen and pelvis was performed. Using automated exposure control and ad justment of the mA and/or kV according to patient size, radiation dose was kept as low as reasonably achievable to obtain optimal diagnostic quality images. DICOM format image data is available electro nically for review and comparison. FINDINGS: LOWER LUNGS: The visualized lower lungs are clear. LIVER: Homogeneous density without lesion. There is no dilation of the biliary tree. Cholecystectomy. SPLEEN: Normal size without lesion. PANCREAS: Within normal limits. KIDNEYS: Normal in size and shape. There is no mass, stone or hydronephrosis. ADRENAL GLANDS: Within normal limits. VASCULAR: There is no aortic aneurysm. BOWEL/MESENTERY: The stomach, small bowel, and colon demonstrate no acute abnormality. There is no free intraperitone al air or fluid. ABDOMINAL WALL: Focal induration in the subcutaneous tissues of the lower inferior panniculus on the right side measu ring 2.8 cm without focal fluid collection, stable from prior CT. RETROPERITONEUM: There is no lymphadenopathy. BLADDER: No wall thickening or mass. REPRODUCTIVE: Within normal limits. INGUINAL: There is no lymphadenopathy or hernia. MUSCULOSKELETAL: Within normal limits for patient age. CONCLUSION: 1. Stable focal area of inflammation in the anterior inferior right abdominal wall without focal flui d collection.. 2. No new findings. Neri Doss MD on October 04, 2017 at 16:26 Board Certified Radiologist. This report was verified electronically.
[2017-10-04] MEDS ORDERED: CEPH-460 PO (16:49)
[2017-10-04] MEDS ORDERED: PROM25TA10 PO (16:49)
[2017-10-04] MEDS ORDERED: BACT800T5 PO (16:49)
--- NOTE | 2017-10-04 16:56 | PD ---
Physical Exam Narrative GENERAL: 57 y/o female in no apparent distress SKIN: To right lower abdomen patient has small area of localized cellulitis without underlying induration which is likely source of infection EYES:No scleral icterus. No injection or drainage. ENT: No nasal bleeding or discharge. Mucous membranes pink and moist. Patient is edentulous, bilateral TMs clear NECK: Trachea midline. No JVD. No meningeal signs CARDIOVASCULAR: Regular rate and rhythm. RESPIRATORY: No accessory muscle use. Clear to auscultation. Breath sounds equal bilaterally. GASTROINTESTINAL: Abdomen soft, non-tender, nondistended. NEUROLOGICAL: Awake and alert. moves extremities. Normal speech. Data Data Last Documented VS Vital Signs Date Time Temp Pulse Resp B/P (MAP) Pulse Ox O2 Delivery O2 Flow Rate FiO2 10/04/17 13:29 98.6 129 17 146/88 (107) 96 Room Air Orders Orders Complete Blood Count With Diff (10/04/17 13:44) Comprehensive Metabolic Panel (10/04/17 13:44) Lactic Acid (10/04/17 13:44) Urinalysis - C+S If Indicated (10/04/17 13:44) Iv Access Insert/Monitor (10/04/17 13:44) Ecg Monitoring (10/04/17 13:44) Oximetry (10/04/17 13:44) Morphine Inj (Morphine Inj) (10/04/17 13:45) Ondansetron Inj (Zofran Inj) (10/04/17 13:45) Sodium Chloride 0.9% Flush (Ns Flush) (10/04/17 13:45) Dextrose 50% In Ita (Syr) Inj (D50w (Syr (10/04/17 15:30) Ct Abd/Pel W Iv Contrast(Rout) (10/04/17 ) Iohexol 350 Inj (Omnipaque 350 Inj) (10/04/17 13:20) Ed Discharge Order (10/04/17 16:54) Labs Laboratory Tests Test 10/04/17 13:12 10/04/17 14:12 10/04/17 14:16 White Blood Count 21.5 TH/MM3 Red Blood Count 5.21 MIL/MM3 Hemoglobin 16.2 GM/DL Hematocrit 47.0 % Mean Corpuscular Volume 90.2 FL Mean Corpuscular Hemoglobin 31.0 PG Mean Corpuscular Hemoglobin Concent 34.4 % Red Cell Distribution Width 14.1 % Platelet Count 577 TH/MM3 Mean Platelet Volume 6.8 FL Neutrophils (%) (Auto) 80.3 % Lymphocytes (%) (Auto) 12.7 % Monocytes (%) (Auto) 5.9 % Eosinophils (%) (Auto) 0.3 % Basophils (%) (Auto) 0.8 % Neutrophils # (Auto) 17.3 TH/MM3 Lymphocytes # (Auto) 2.7 TH/MM3 Monocytes # (Auto) 1.3 TH/MM3 Eosinophils # (Auto) 0.1 TH/MM3 Basophils # (Auto) 0.2 TH/MM3 CBC Comment DIFF FINAL Differential Comment Blood Urea Nitrogen 14 MG/DL Creatinine 0.75 MG/DL Random Glucose 59 MG/DL Total Protein 8.1 GM/DL Albumin 3.4 GM/DL Calcium Level 9.8 MG/DL Alkaline Phosphatase 80 U/L Aspartate Amino Transf (AST/SGOT) 14 U/L Alanine Aminotransferase (ALT/SGPT) 16 U/L Total Bilirubin 0.3 MG/DL Sodium Level 139 MEQ/L Potassium Level 3.5 MEQ/L Chloride Level 104 MEQ/L Carbon Dioxide Level 25.9 MEQ/L Anion Gap 9 MEQ/L Estimat Glomerular Filtration Rate 80 ML/MIN Urine Color YELLOW Urine Turbidity HAZY Urine pH 7.5 Urine Specific [place] 1.021 Urine Protein 300 mg/dL Urine Glucose (UA) 70 mg/dL Urine Ketones NEG mg/dL Urine Occult Blood NEG Urine Nitrite NEG Urine Bilirubin NEG Urine Urobilinogen 2.0 MG/DL Urine Leukocyte Esterase NEG Urine RBC 2 /hpf Urine WBC 1 /hpf Urine Squamous Epithelial Cells 1 /hpf Urine Hyaline Casts 7 /lpf Urine Mucus MANY /lpf Microscopic Urinalysis Comment CULT NOT INDICATED Lactic Acid Level 1.8 mmol/L [facility] Medical Record Reviewed: Yes (recent visits compared) Supervised Visit with JAGDEEP: Yes Interpretation(s) CBC & BMP Diagram 10/04/17 13:12 Total Protein 8.1, Albumin 3.4, Calcium Level 9.8, Alkaline Phosphatase 80, Aspartate Amino Transf (AST/SGOT) 14 L, Alanine Aminotransferase (ALT/SGPT) 16, Total Bilirubin 0.3 Last 24 hours Impressions Abdomen/Pelvis CT 10/04/17 0000 Signed Impressions: Service Date/Time: Wednesday, October 04, 2017 16:11 - CONCLUSION: 1. Stable focal area of inflammation in the anterior inferior right abdominal wall without focal fluid collection.. 2. No new findings. Neri Doss MD Narrative Course I, Dr. sánchez, have reviewed the advance practice practitioner's documentation and am in agreement, met with the patient face to face, made the diagnosis, and the medical decision making was done by me. *My assessment and Findings: 57-year-old female who presents with abdominal pain with frequent visits for similar. Workup reveals leukocytosis so we will check CT to rule out underlying abscess. CT is stable without associated abscess. Will add Keflex to patient's antibiotic regimen and prolonged Bactrim course. Her glucose was low here when she did not eat and took her insulin and this has improved. Patient agrees to discharge with close recheck with her primary with additional antibiotic therapy. Given return instructions. heart rate in 90's after pain medications Diagnosis Primary Impression: Cellulitis, abdominal wall Patient Instructions: General Instructions Additional Instruction: Primary follow-up in 2 days for recheck, return here as needed, Tylenol as needed for pain Med/Other Pt SpecificInfo: Prescription(s) given Scripts Promethazine (Phenergan) 25 Mg Tablet 25 MG PO Q6H Y for NAUSEA OR VOMITING, #6 TAB 0 Refills Prov: Sharlene Sánchez MD 10/04/17 Cephalexin (Keflex) 500 Mg Capsule 500 MG PO Q6H for Infection for 7 Days, #28 CAP 0 Refills Prov: Sharlene Sánchez MD 10/04/17 Sulfamethoxazole-Trimethoprim (Bactrim DS) 800-160 Mg Tab 1 TAB PO BID for Infection, #14 TAB 0 Refills Prov: Sharlene Sánchez MD 10/04/17 Disposition: DISCHARGE HOME Condition: Stable Sharlene Sánchez MD Oct 04, 2017 16:55
[2017-10-04 17:07] VITALS: BP 142/78; PULSE 86; RESP 17; O2SAT 100
== END 2017-10-04 17:49 | disposition home or self-care (01) ==
LOC: NEPE 13:19
DX: L03.311 Cellulitis of abdominal wall (principal); E11.9 Type 2 diabetes mellitus without complications; E78.00 Pure hypercholesterolemia, unspecified; I10 Essential (primary) hypertension; I25.10 Atherosclerotic heart disease of native coronary artery without angina pectoris; K21.9 Gastro-esophageal reflux disease without esophagitis; F17.200 Nicotine dependence, unspecified, uncomplicated; Z79.4 Long term (current) use of insulin
CPT/HCPCS: 74177; 80053; 81001; 83605; 85025; 96374; 96375; 99284; J2270; J2405; Q9967

== ENCOUNTER 2017-10-24 09:03 | Emergency (ER) | payer OTHER ==
[~2017-10-24] VITALS: Ht 165.1 cm; Wt 98.0 kg
[~2017-10-24 09:03] MED LIST changes: -ASPI-516 CHEW; +ASPI-516 PO; +BACT800T5 PO; +CEPH-460 PO; -ONDA4TAB15; +PERC10TA27 PO; +PROM25TA10 PO
[2017-10-24 09:11] VITALS: BP 144/90; PULSE 106; RESP 20; TEMP 98.5; O2SAT 95
[2017-10-24] MEDS ORDERED: HYDR-3133 PO (09:38)
[2017-10-24] MEDS ORDERED: BACT800T5 PO (09:51)
--- NOTE | 2017-10-24 09:52 | PD ---
HPI Chief Complaint: Skin Problem Time Seen by Provider: 09:21 Travel History International Travel<30 days: No Contact w/Intl Traveler<30days: No Traveled to known affect area: No History of Present Illness HPI The patient's 57 years old and arrives to the ER complaining of a burning sensation in the right leg where she believes she might have MRSA infestation. Duration is been a couple days. Timing constant. No fever. She recently recovered from an infection involving the anterior abdominal wall with oral antibiotics. PFSH Past Medical History Hx Anticoagulant Therapy: Yes Arthritis: No Asthma: No Anxiety: Yes Depression: Yes Heart Rhythm Problems: No Cancer: No Cardiac Catheterization: Yes Cardiovascular Problems: Yes High Cholesterol: Yes Chemotherapy: No Chest Pain: No Congestive Heart Failure: No COPD: Yes Cerebrovascular Accident: No Coronary Artery Disease: Yes Diabetes: Yes Patient Takes Glucophage: No Diminished Hearing: No Endocrine: Yes Gastrointestinal Disorders: No GERD: Yes Genitourinary: No Headaches: No Hiatal Hernia: No Hypertension: Yes Implanted Vascular Access Dvce: Yes Kidney Stones: Yes Psychiatric: Yes Reproductive: No Respiratory: Yes Immunizations Current: Yes Migraines: No Radiation Therapy: No Renal Failure: No Seizures: No Sleep Apnea: No Thyroid Disease: No Ulcer: Yes Tetanus Vaccination: < 5 Years Influenza Vaccination: No ?: Not Menopausal: Yes Past Surgical History Abdominal Surgery: Yes (cholecystectomy) Body Medical Devices: pins in rt ankle Cardiac Surgery: Yes (stents) Cholecystectomy: Yes Coronary Artery Bypass Graft: No Coronary Stent: Yes (X2) Ear Surgery: No Endocrine Surgery: No Eye Surgery: Yes Genitourinary Surgery: Yes Gynecologic Surgery: Yes Hysterectomy: Yes Neurologic Surgery: No Oral Surgery: No Thoracic Surgery: No Other Surgery: Yes (RIGHT GREAT TOE AMPUTATION, ABSCESS I/D) Family History Family Myocardial Infarction: Yes (FATHER) Social History Alcohol Use: No Tobacco Use: Yes (1 PPD) Substance Use: Yes (MARIJUANA) Allergies-Medications (Allergen,Severity, Reaction): Coded Allergies: ketorolac (Verified Allergy, Intermediate, HEADACHE, 10/24/17) amoxicillin (Verified Adverse Reaction, Intermediate, VOMITING, 10/24/17) clavulanic acid (Verified Adverse Reaction, Intermediate, VOMITING, ) Reported Meds & Prescriptions Reported Meds & Active Scripts Active Pantoprazole (Pantoprazole Sodium) 40 Mg Tab 40 Mg PO DAILY Reported Hydroxyzine HCl 25 Mg Tab 25 Mg PO HS Percocet (Oxycodone-Acetaminophen) 10-325 mg Tab 1 Tab PO Q6H PRN Novolog Mix 70-30 FlexPen Inj (Insulin Aspart Protam-Asp 70-30 Inj) 300 Unit/3 Ml Pen 20 Units SQ HS Novolog Mix 70-30 FlexPen Inj (Insulin Aspart Protam-Asp 70-30 Inj) 300 Unit/3 Ml Pen 40 Units SQ DAILY Lantus Inj (Insulin Glargine) 1,000 Unit/10 Ml Vial 20 Units SQ DIRECTED Aspirin 81 Mg Chew 81 Mg CHEW DAILY Januvia (Sitagliptin Phosphate) 100 Mg Tab 100 Mg PO HS Duloxetine DR (Duloxetine HCl) 40 Mg Capdr 40 Mg PO HS Trazodone (Trazodone HCl) 100 Mg Tablet 100 Mg PO HS Atorvastatin (Atorvastatin Calcium) 40 Mg Tab 40 Mg PO HS Lisinopril 20 Mg Tab 10 Mg PO DAILY Review of Systems Except as stated in HPI: all other systems reviewed are Neg General / Constitutional: No: Fever Physical Exam Narrative GENERAL: 57-year-old female pleasant well-nourished well-developed Vital Signs Date Time Temp Pulse Resp B/P (MAP) Pulse Ox O2 Delivery O2 Flow Rate FiO2 10/24/17 09:32 18 10/24/17 09:11 98.5 106 20 144/90 (108) 95 SKIN: Warm and dry. Along the lateral aspect of the right thigh there is a 2 cm lesion minimally tender minimally erythematous. No fluctuance. HEAD: Atraumatic. Normocephalic. EYES: Pupils equal and round. No scleral icterus. No injection or drainage. ENT: No nasal bleeding or discharge. Mucous membranes pink and moist. NECK: Trachea midline. No JVD. CARDIOVASCULAR: Regular rate and rhythm. RESPIRATORY: No accessory muscle use. Clear to auscultation. Breath sounds equal bilaterally. GASTROINTESTINAL: Abdomen soft, non-tender, nondistended. Hepatic and splenic margins not palpable. MUSCULOSKELETAL: Extremities without clubbing, cyanosis, or edema. No obvious deformities. NEUROLOGICAL: Awake and alert. No obvious cranial nerve deficits. Motor grossly within normal limits. Five out of 5 muscle strength in the arms and legs. Normal speech. PSYCHIATRIC: Appropriate mood and affect; insight and judgment normal. Data Data Last Documented VS Vital Signs Date Time Temp Pulse Resp B/P (MAP) Pulse Ox O2 Delivery O2 Flow Rate FiO2 10/24/17 09:32 18 10/24/17 09:11 98.5 106 144/90 (108) 95 MDM Medical Decision Making Medical Screen Exam Complete: Yes Emergency Medical Condition: Yes Medical Record Reviewed: Yes Differential Diagnosis cellulitis, abscess, sepsis Narrative Course There is very mild cellulitic process. Bactrim is not unreasonable. Diagnosis Primary Impression: Rash and nonspecific skin eruption Referrals: Primary Care Physician 2 days Med/Other Pt SpecificInfo: Prescription(s) given Scripts Sulfamethoxazole-Trimethoprim (Bactrim DS) 800-160 Mg Tab 1 TAB PO BID for Infection, #14 TAB 0 Refills Prov: Elier Catalan MD 10/24/17 Disposition: 01 DISCHARGE HOME Condition: Stable Elier Catalan MD Oct 24, 2017 09:52
[2017-10-24] MEDS ORDERED: ACETAMINOPHEN 325 MG TAB PO ONE (10:15)
== END 2017-10-24 10:15 | disposition home or self-care (01) ==
LOC: NEPE 09:03
DX: R21 Rash and other nonspecific skin eruption (principal); F17.200 Nicotine dependence, unspecified, uncomplicated; F41.9 Anxiety disorder, unspecified; E78.00 Pure hypercholesterolemia, unspecified; J44.9 Chronic obstructive pulmonary disease, unspecified; I25.10 Atherosclerotic heart disease of native coronary artery without angina pectoris; E11.9 Type 2 diabetes mellitus without complications; I10 Essential (primary) hypertension; K21.9 Gastro-esophageal reflux disease without esophagitis
CPT/HCPCS: 99283

== ENCOUNTER 2017-10-29 12:26 | Emergency (ER) | payer OTHER ==
[~2017-10-29] VITALS: Ht 165.1 cm; Wt 100.0 kg
[~2017-10-29 12:26] MED LIST changes: -CEPH-460 PO; +HYDR-3133 PO; -MUPI2OIN TOPICAL; -PERC5TAB12 PO; -PROM25TA10 PO; -ZOFR4TAB PO
[2017-10-29] MEDS ORDERED: ONDANSETRON HCL 4 MG/2 ML VIAL ONE (12:34)
[2017-10-29 12:39] VITALS: BP 152/104; PULSE 103; RESP 18; TEMP 98.4
[2017-10-29] MEDS: ONDANSETRON HCL 4 MG/2 ML VIAL IVP ONE (12:53)
[2017-10-29] MEDS: SODIUM CHLORIDE 0.9% FLUSH 10 ML FLUSH IV FLUSH PRN (12:54)
[2017-10-29] MEDS: SODIUM CHLOR 0.9% 1000 ML INJ 1,000 ML IV SCH (12:54)
[2017-10-29] MEDS: FAMOTIDINE 20 MG/2 ML VIAL IV PUSH SCH (12:55)
--- NOTE | 2017-10-29 12:57 | PD ---
HPI Chief Complaint: Abdominal Pain Time Seen by Provider: 12:34 Travel History International Travel<30 days: No Contact w/Intl Traveler<30days: No Traveled to known affect area: No History of Present Illness HPI Patient is a 57-year-old female presenting to the emergency department for evaluation of abdominal pain, nausea, vomiting. Patient states her symptoms started 2 days ago however she did not start vomiting until last night. She reports the abdominal pain is mostly in the left upper quadrant. She denies any change in her bowel habits. She denies any documented fevers but states she has felt chilled. Symptom onset was gradual, symptom severity is moderate to severe, there are no alleviating factors. There are no exacerbating factors. Patient reports a decreased appetite and decreased oral intake. Patient reports that she was taking Zofran with no improvement of her symptoms. PFSH Past Medical History Anxiety: Yes Depression: Yes Cardiac Catheterization: Yes High Cholesterol: Yes COPD: Yes Coronary Artery Disease: Yes Diabetes: Yes Endocrine: Yes Gastrointestinal Disorders: Yes (Gastritis) GERD: Yes Hypertension: Yes Kidney Stones: Yes Psychiatric: Yes Immunizations Current: Yes Ulcer: Yes Tetanus Vaccination: > 5 Years ?: Not Menopausal: Yes Past Surgical History Body Medical Devices: pins in rt ankle Cholecystectomy: Yes Coronary Stent: Yes (X2) Eye Surgery: Yes Genitourinary Surgery: Yes Hysterectomy: Yes Thoracic Surgery: No Other Surgery: Yes (RIGHT GREAT TOE AMPUTATION) Family History Family Myocardial Infarction: Yes (FATHER) Social History Alcohol Use: No Tobacco Use: Yes (1 PPD) Substance Use: Yes (MARIJUANA) Allergies-Medications (Allergen,Severity, Reaction): Coded Allergies: ketorolac (Verified Allergy, Intermediate, HEADACHE, 10/29/17) amoxicillin (Verified Adverse Reaction, Intermediate, VOMITING, 10/29/17) clavulanic acid (Verified Adverse Reaction, Intermediate, VOMITING, ) Reported Meds & Prescriptions Reported Meds & Active Scripts Active Omeprazole 40 Mg Cap 40 Mg PO DAILY Carafate Liq (Sucralfate) 1 Gm/10 Ml Susp 1 Gm PO TID 7 Days on empty stomach Phenergan Supp (Promethazine HCl) 12.5 Mg Supp 12.5 Mg RECTAL Q6H PRN Zofran Odt (Ondansetron Odt) 4 Mg Tab 4 Mg SL Q6HR PRN Bactrim DS (Sulfamethoxazole-Trimethoprim) 800-160 Mg Tab 1 Tab PO BID Pantoprazole (Pantoprazole Sodium) 40 Mg Tab 40 Mg PO DAILY Reported Hydroxyzine HCl 25 Mg Tab 25 Mg PO HS Percocet (Oxycodone-Acetaminophen) 10-325 mg Tab 1 Tab PO Q6H PRN Novolog Mix 70-30 FlexPen Inj (Insulin Aspart Protam-Asp 70-30 Inj) 300 Unit/3 Ml Pen 20 Units SQ HS Novolog Mix 70-30 FlexPen Inj (Insulin Aspart Protam-Asp 70-30 Inj) 300 Unit/3 Ml Pen 40 Units SQ DAILY Aspirin 81 Mg Chew 81 Mg PO DAILY Januvia (Sitagliptin Phosphate) 100 Mg Tab 100 Mg PO HS Duloxetine DR (Duloxetine HCl) 40 Mg Capdr 40 Mg PO HS Trazodone (Trazodone HCl) 100 Mg Tablet 100 Mg PO HS Atorvastatin (Atorvastatin Calcium) 40 Mg Tab 40 Mg PO HS Lisinopril 20 Mg Tab 10 Mg PO DAILY Review of Systems Except as stated in HPI: all other systems reviewed are Neg General / Constitutional: No: Fever HENT: No: Headaches Cardiovascular: No: Chest Pain or Discomfort Respiratory: No: Shortness of Breath Gastrointestinal: Positive: Nausea, Vomiting, Abdominal Pain, No: Changes in Bowel Habits Genitourinary: No: Dysuria Neurologic: No: Weakness, Dizziness, Focal Abnormalities Physical Exam Narrative GENERAL: Obese, well-developed, alert female. Appears uncomfortable, no acute distress. SKIN: Warm and dry. HEAD: Atraumatic. Normocephalic. EYES: Pupils equal and round. No scleral icterus. No injection or drainage. ENT: No nasal bleeding or discharge. Mucous membranes pink and moist. NECK: Trachea midline. No JVD. CARDIOVASCULAR: Tachycardic. RESPIRATORY: No accessory muscle use. Clear to auscultation. Breath sounds equal bilaterally. GASTROINTESTINAL: Abdomen obese, tender to palpation in left upper quadrant, nondistended. Hepatic and splenic margins not palpable. Positive bowel sounds, no rebound, no guarding. MUSCULOSKELETAL: Extremities without clubbing, cyanosis, or edema. No obvious deformities. NEUROLOGICAL: Awake and alert. No obvious cranial nerve deficits. Motor grossly within normal limits. Five out of 5 muscle strength in the arms and legs. Normal speech. PSYCHIATRIC: Appropriate mood and affect; insight and judgment normal. Data Data Last Documented VS Vital Signs Date Time Temp Pulse Resp B/P (MAP) Pulse Ox O2 Delivery O2 Flow Rate FiO2 10/29/17 12:39 98.4 103 18 152/104 (120) Orders Orders Ondansetron Inj (Zofran Inj) (10/29/17 12:34) Complete Blood Count With Diff (10/29/17 12:34) Comprehensive Metabolic Panel (10/29/17 12:34) Lipase (10/29/17 12:34) Urinalysis - C+S If Indicated (10/29/17 12:34) Iv Access Insert/Monitor (10/29/17 12:34) Ecg Monitoring (10/29/17 12:34) Oximetry (10/29/17 12:34) NPO (10/29/17 12:34) Ondansetron Inj (Zofran Inj) (10/29/17 12:45) Sodium Chlor 0.9% 1000 Ml Inj (Ns 1000 M (10/29/17 12:34) Sodium Chloride 0.9% Flush (Ns Flush) (10/29/17 12:45) Sodium Chlor 0.9% 1000 Ml Inj (Ns 1000 M (10/29/17 12:45) Famotidine Inj (Pepcid Inj) (10/29/17 12:45) Us Abdomen Pancreas (10/29/17 ) Prochlorperazine Inj (Compazine Inj) (10/29/17 14:00) Acetaminophen 1000 Mg/100 Ml (Ofirmev 10 (10/29/17 14:45) Ed Discharge Order (10/29/17 15:48) Labs Laboratory Tests Test 10/29/17 12:52 10/29/17 14:10 10/29/17 14:11 White Blood Count 13.3 TH/MM3 Red Blood Count 5.09 MIL/MM3 Hemoglobin 15.8 GM/DL Hematocrit 46.5 % Mean Corpuscular Volume 91.3 FL Mean Corpuscular Hemoglobin 31.0 PG Mean Corpuscular Hemoglobin Concent 33.9 % Red Cell Distribution Width 13.5 % Platelet Count 432 TH/MM3 Mean Platelet Volume 6.9 FL Neutrophils (%) (Auto) 74.0 % Lymphocytes (%) (Auto) 20.3 % Monocytes (%) (Auto) 4.4 % Eosinophils (%) (Auto) 0.8 % Basophils (%) (Auto) 0.5 % Neutrophils # (Auto) 9.8 TH/MM3 Lymphocytes # (Auto) 2.7 TH/MM3 Monocytes # (Auto) 0.6 TH/MM3 Eosinophils # (Auto) 0.1 TH/MM3 Basophils # (Auto) 0.1 TH/MM3 CBC Comment DIFF FINAL Differential Comment Urine Color YELLOW Urine Turbidity CLEAR Urine pH 7.0 Urine Specific [place] 1.013 Urine Protein 100 mg/dL Urine Glucose (UA) 1000 mg/dL Urine Ketones NEG mg/dL Urine Occult Blood MOD Urine Nitrite NEG Urine Bilirubin NEG Urine Urobilinogen LESS THAN 2.0 MG/DL Urine Leukocyte Esterase NEG Urine RBC /hpf Urine WBC 7 /hpf Urine Squamous Epithelial Cells 1 /hpf Urine Renal Epithelial Cells <1 /hpf Urine Mucus FEW /lpf Microscopic Urinalysis Comment CULT NOT INDICATED Blood Urea Nitrogen 12 MG/DL Creatinine 0.72 MG/DL Random Glucose 312 MG/DL Total Protein 7.3 GM/DL Albumin 2.9 GM/DL Calcium Level 8.6 MG/DL Alkaline Phosphatase 75 U/L Aspartate Amino Transf (AST/SGOT) 8 U/L Alanine Aminotransferase (ALT/SGPT) 14 U/L Total Bilirubin 0.2 MG/DL Sodium Level 142 MEQ/L Potassium Level 4.3 MEQ/L Chloride Level 106 MEQ/L Carbon Dioxide Level 27.1 MEQ/L Anion Gap 9 MEQ/L Estimat Glomerular Filtration Rate 83 ML/MIN Lipase 145 U/L [facility] Medical Decision Making Medical Screen Exam Complete: Yes Emergency Medical Condition: Yes Medical Record Reviewed: Yes Interpretation(s) Last Impressions Pancreas Ultrasound 10/29/17 0000 Signed Impressions: Service Date/Time: Sunday, October 29, 2017 13:29 - CONCLUSION: 1. Probable fatty infiltration of the liver. 2. Patient is post cholecystectomy. 3. Possible dilation of the pancreatic duct at 4-5 mm. 4. The common duct is dilated at 9 mm. This likely represents a reservoir effect as the patient is post cholecystectomy. 5. Single punctate calcification measuring approximately 6 mm in the right kidney possibly representing a stone. There is no hydronephrosis. Elier Valencia MD Laboratory Tests Test 10/29/17 12:52 10/29/17 14:10 10/29/17 14:11 White Blood Count 13.3 TH/MM3 Red Blood Count 5.09 MIL/MM3 Hemoglobin 15.8 GM/DL Hematocrit 46.5 % Mean Corpuscular Volume 91.3 FL Mean Corpuscular Hemoglobin 31.0 PG Mean Corpuscular Hemoglobin Concent 33.9 % Red Cell Distribution Width 13.5 % Platelet Count 432 TH/MM3 Mean Platelet Volume 6.9 FL Neutrophils (%) (Auto) 74.0 % Lymphocytes (%) (Auto) 20.3 % Monocytes (%) (Auto) 4.4 % Eosinophils (%) (Auto) 0.8 % Basophils (%) (Auto) 0.5 % Neutrophils # (Auto) 9.8 TH/MM3 Lymphocytes # (Auto) 2.7 TH/MM3 Monocytes # (Auto) 0.6 TH/MM3 Eosinophils # (Auto) 0.1 TH/MM3 Basophils # (Auto) 0.1 TH/MM3 CBC Comment DIFF FINAL Differential Comment Urine Color YELLOW Urine Turbidity CLEAR Urine pH 7.0 Urine Specific [place] 1.013 Urine Protein 100 mg/dL Urine Glucose (UA) 1000 mg/dL Urine Ketones NEG mg/dL Urine Occult Blood MOD Urine Nitrite NEG Urine Bilirubin NEG Urine Urobilinogen LESS THAN 2.0 MG/DL Urine Leukocyte Esterase NEG Urine RBC /hpf Urine WBC 7 /hpf Urine Squamous Epithelial Cells 1 /hpf Urine Renal Epithelial Cells <1 /hpf Urine Mucus FEW /lpf Microscopic Urinalysis Comment CULT NOT INDICATED Blood Urea Nitrogen 12 MG/DL Creatinine 0.72 MG/DL Random Glucose 312 MG/DL Total Protein 7.3 GM/DL Albumin 2.9 GM/DL Calcium Level 8.6 MG/DL Alkaline Phosphatase 75 U/L Aspartate Amino Transf (AST/SGOT) 8 U/L Alanine Aminotransferase (ALT/SGPT) 14 U/L Total Bilirubin 0.2 MG/DL Sodium Level 142 MEQ/L Potassium Level 4.3 MEQ/L Chloride Level 106 MEQ/L Carbon Dioxide Level 27.1 MEQ/L Anion Gap 9 MEQ/L Estimat Glomerular Filtration Rate 83 ML/MIN Lipase 145 U/L Vital Signs Date Time Temp Pulse Resp B/P (MAP) Pulse Ox O2 Delivery O2 Flow Rate FiO2 10/29/17 12:39 98.4 103 18 152/104 (120) Differential Diagnosis Pancreatitis versus DKA versus metabolic abnormality versus obstruction versus kidney stone versus other Narrative Course Patient is a 57-year-old female presenting for evaluation of abdominal pain, nausea, vomiting. Patient has been here several times in the past with similar complaint. She states the pain today is different than what she has had. Vital signs are stable, patient is mildly tachycardic however she is actively vomiting on arrival. Emesis is yellow with small food particles. Labs imaging ordered and pending. Medical records reviewed, patient had a EGD that showed gastritis and duodenal inflammation. Upon review of medical records, patient sent for CAT scans in the last month all resulting with no acute abnormalities, does note panniculitis. Ultrasound of the pancreas with no acute findings. Labs reviewed CBC with a white count of 13.3, likely stress related Urinalysis is unremarkable Patient was given acetaminophen IV for pain. Chemistry with no acute findings Lipase is normal. Patient will be given oral fluid challenge. Patient tolerated oral fluid challenge. Patient likely is experiencing acute gastritis. She was discharged home with antiemetics, Carafate, PPI. She is encouraged to follow-up with her primary doctor or return to emergency department for any new or worsening symptoms. She was advised to maintain a bland, easy to digest diet, increasing as tolerated. She verbalized understanding of these instructions. Patient stable for discharge. Diagnosis Primary Impression: Gastritis Qualified Codes: K29.70 - Gastritis, unspecified, without bleeding Additional Impression: Nausea & vomiting Qualified Codes: R11.2 - Nausea with vomiting, unspecified Referrals: [facility] Primary Care Physician Patient Instructions: Diet for Stomach Ulcers and Gastritis (ED), Gastritis (ED ), General Instructions Additional Instructions: Follow-up with your primary doctor Follow-up with a garbage truck helper Maintain a bland, easy to digest diet. Increase diet as tolerated, avoid spicy, fried, fatty foods. Avoid acidic fruit juices Return to emergency department for any new or worsening symptoms Take medications as directed Med/Other Pt SpecificInfo: Prescription(s) given Scripts Omeprazole (Omeprazole) 40 Mg Cap 40 MG PO DAILY, #14 CAP 0 Refills Prov: Hoa Carver 10/29/17 Sucralfate Liq (Carafate Liq) 1 Gm/10 Ml Susp 1 GM PO TID for Duodenal ulcer for 7 Days, ML 0 Refills on empty stomach Prov: Hoa Carver 10/29/17 Promethazine Supp (Phenergan Supp) 12.5 Mg Supp 12.5 MG RECTAL Q6H Y for NAUSEA OR VOMITING, #10 SUPP 0 Refills Prov: Hoa Carver 10/29/17 Ondansetron Odt (Zofran Odt) 4 Mg Tab 4 MG SL Q6HR Y for Nausea/Vomiting, #10 TAB 0 Refills Prov: Hoa Carver 10/29/17 Disposition: 01 DISCHARGE HOME Condition: Stable Hoa Carver Oct 29, 2017 12:57
[2017-10-29 13:04] LABS: AUTOMATED NEUTROPHIL # 9.8 TH/MM3 (1.8-7.7); BASOPHIL # 0.1 TH/MM3 (0-0.2); BASOPHIL % 0.5 % (0.0-2.0); EOSINOPHIL # 0.1 TH/MM3 (0-0.4); EOSINOPHIL % 0.8 % (0.0-4.0); HEMATOCRIT 46.5 % (35.0-46.0); HEMOGLOBIN 15.8 GM/DL (11.6-15.3); LYMPH % 20.3 % (9.0-44.0); LYMPHOCYTE # 2.7 TH/MM3 (1.0-4.8); MEAN CELL VOLUME 91.3 FL (80.0-100.0); MEAN CORPUSCULAR HGB CONC 33.9 % (32.0-36.0); MEAN PLATELET VOLUME 6.9 FL (7.0-11.0); MONO % 4.4 % (0.0-8.0); MONOCYTE # 0.6 TH/MM3 (0-0.9); PLATELET COUNT 432 TH/MM3 (150-450); RED BLOOD COUNT 5.09 MIL/MM3 (4.00-5.30); RED CELL DISTRIBUTION WIDTH 13.5 % (11.6-17.2); WHITE BLOOD COUNT 13.3 TH/MM3 (4.0-11.0)
--- NOTE | 2017-10-29 13:53 | RADRPT ---
EXAM DATE/TIME: 10/29/2017 13:29 [facility] COMPARISON: US ABDOMEN - COMPLETE, June 21, 2017, 15:24. INDICATIONS : Right upper quadrant and epigastric pain. MEDICAL HISTORY : Hypercholesterolemia. Renal calculi. Peripheral neuropathy. Coronary artery disease. HTN. COPD. Ulc er. GERD. Gastritis. Chronic low back pain. Diabetes. Depression. Anxiety. Substance use. Tobacco use . MRSA. SURGICAL HISTORY : Coronary artery stent. Hysterectomy. Cholecystectomy. Eye surgery. Cardiac cath. Right ankle surgery. Right great toe amputation. ENCOUNTER: Subsequent ACUITY: 3 days PAIN SCORE: 8/10 LOCATION: Right upper quadrant MEASUREMENTS: LIVER: 22.3 cm length COMMON DUCT: 9 mm RIGHT KIDNEY: 11.8 x 5.4 x 6.8 cm FINDINGS: LIVER: There is increased heterogeneous echotexture of the liver suggesting diffuse fatty infiltration. No i ntrahepatic biliary ductal dilation is seen. COMMON DUCT: The common duct is enlarged measuring 9 mm. No stones are seen by ultrasound. GALLBLADDER: The patient is post cholecystectomy. PANCREAS: The pancreatic duct appears dilated measuring approximately 5 mm. This is quite difficult to visualiz e due to the patient's body habitus and overlying bowel gas. CONCLUSION: 1. Probable fatty infiltration of the liver. 2. Patient is post cholecystectomy. 3. Possible dilation of the pancreatic duct at 4-5 mm. 4. The common duct is dilated at 9 mm. This likely represents a reservoir effect as the patient is po st cholecystectomy. 5. Single punctate calcification measuring approximately 6 mm in the right kidney possibly representi ng a stone. There is no hydronephrosis. Elier Valencia MD on October 29, 2017 at 13:49 Board Certified Radiologist. This report was verified electronically.
[2017-10-29 14:48] LABS: BILIRUBIN, URINE NEG (NEG); BLOOD, URINE MOD (NEG); GLUCOSE,URINE 1000 mg/dL (NEG); KETONE, URINE NEG (NEG); MUCUS URINE FEW /lpf (OCC); NITRITE,URINE NEG (NEG); RENAL EPITHELIAL CELLS <1 /hpf; SQUAMOUS EPITHELIAL CELL URINE 1 /hpf (0-5); URINE COLOR YELLOW (YELLW/STRAW); URINE LEUKOCYTE ESTERASE NEG (NEG)
[2017-10-29 14:56] LABS: ALBUMIN 2.9 GM/DL (3.4-5.0); ALKALINE PHOSPHATASE 75 U/L (45-117); ALT (GPT) 14 U/L (10-53); AST (GOT) 8 U/L (15-37); BICARBONATE 27.1 MEQ/L (21.0-32.0); CALCIUM 8.6 MG/DL (8.5-10.1); CHLORIDE 106 MEQ/L (98-107); CREATININE 0.72 MG/DL (0.50-1.00); GLOMERULAR FILTRATION RATE 83 ML/MIN (>89); GLUCOSE,RANDOM 312 MG/DL (74-106); SODIUM (NA) 142 MEQ/L (136-145); TOTAL BILIRUBIN ADULT 0.2 MG/DL (0.2-1.0); TOTAL PROTEIN 7.3 GM/DL (6.4-8.2)
[2017-10-29] MEDS: PROCHLORPERAZINE INJ 10 MG/2 ML VIAL IV PUSH ONE (15:03)
[2017-10-29] MEDS: SODIUM CHLOR 0.9% 1000 ML INJ 1,000 ML IV ONE (15:03)
[2017-10-29] MEDS: ACETAMINOPHEN 1000 MG/100 ML 100 ML IV ONE (15:04)
[2017-10-29 15:13] LABS: BLOOD UREA NITROGEN 12 MG/DL (7-18)
[2017-10-29] MEDS ORDERED: ZOFR4TAB3 SL (15:16)
[2017-10-29] MEDS ORDERED: OMEP40CA2 PO (15:16)
[2017-10-29] MEDS ORDERED: CARA1SUS3 PO (15:16)
[2017-10-29] MEDS ORDERED: PROM2SUP RECTAL (15:16)
== END 2017-10-29 16:08 | disposition home or self-care (01) ==
LOC: NEPC 12:26
DX: K29.70 Gastritis, unspecified, without bleeding (principal); R00.0 Tachycardia, unspecified; F41.9 Anxiety disorder, unspecified; F32.9 Major depressive disorder, single episode, unspecified; E78.00 Pure hypercholesterolemia, unspecified; J44.9 Chronic obstructive pulmonary disease, unspecified; I25.10 Atherosclerotic heart disease of native coronary artery without angina pectoris; E11.9 Type 2 diabetes mellitus without complications; K21.9 Gastro-esophageal reflux disease without esophagitis
CPT/HCPCS: 76705; 80053; 81001; 83690; 85025; 96374; 96375; 99285; J0131; J0780; J2405; J7030

== ENCOUNTER 2017-11-07 11:16 | Emergency (ER) | payer OTHER ==
[~2017-11-07 11:16] MED LIST changes: +CARA1SUS3 PO; -LANTUS2P SQ; +OMEP40CA2 PO; +PROM2SUP RECTAL; +ZOFR4TAB3 SL
[2017-11-07 12:05] VITALS: BP 194/97; PULSE 112; RESP 22; TEMP 98.8; O2SAT 96
[2017-11-07 14:48] LABS: AUTOMATED NEUTROPHIL # 8.6 TH/MM3 (1.8-7.7); BASOPHIL # 0.1 TH/MM3 (0-0.2); BASOPHIL % 0.6 % (0.0-2.0); EOSINOPHIL # 0.2 TH/MM3 (0-0.4); EOSINOPHIL % 1.3 % (0.0-4.0); HEMATOCRIT 41.6 % (35.0-46.0); HEMOGLOBIN 14.2 GM/DL (11.6-15.3); LYMPH % 17.6 % (9.0-44.0); MEAN CELL VOLUME 89.9 FL (80.0-100.0); MEAN CORPUSCULAR HEMOGLOBIN 30.7 PG (27.0-34.0); MEAN CORPUSCULAR HGB CONC 34.2 % (32.0-36.0); MONO % 5.1 % (0.0-8.0); MONOCYTE # 0.6 TH/MM3 (0-0.9); NEUT % 75.4 % (16.0-70.0); PLATELET COUNT 378 TH/MM3 (150-450); RED BLOOD COUNT 4.63 MIL/MM3 (4.00-5.30); RED CELL DISTRIBUTION WIDTH 12.9 % (11.6-17.2); WHITE BLOOD COUNT 11.4 TH/MM3 (4.0-11.0)
[2017-11-07 14:57] LABS: INTERNATIONAL NORMALIZED RATIO 0.9 RATIO; PROTHROMBIN TIME - PATIENT 9.6 SEC (9.8-11.6)
[2017-11-07 14:59] LABS: ALBUMIN 2.7 GM/DL (3.4-5.0); ALT (GPT) 12 U/L (10-53); AST (GOT) 10 U/L (15-37); BICARBONATE 25.6 MEQ/L (21.0-32.0); BLOOD UREA NITROGEN 11 MG/DL (7-18); CALCIUM 8.8 MG/DL (8.5-10.1); CHLORIDE 108 MEQ/L (98-107); GLOMERULAR FILTRATION RATE 103 ML/MIN (>89); GLUCOSE,RANDOM 166 MG/DL (74-106); SODIUM (NA) 142 MEQ/L (136-145)
[2017-11-07 15:02] LABS: ALKALINE PHOSPHATASE 68 U/L (45-117); TOTAL BILIRUBIN ADULT 0.2 MG/DL (0.2-1.0)
--- NOTE | 2017-11-07 16:45 | PD ---
HPI Chief Complaint: GI Complaint Time Seen by Provider: 12:05 Travel History International Travel<30 days: No Contact w/Intl Traveler<30days: No Traveled to known affect area: No History of Present Illness HPI 57-year-old female presents emergency department for evaluation of epigastric pain with and hematemesis 2 days. Patient has history of GI bleeds. States she feels tired and weak. Denies any hematochezia. No fevers or chills. No other symptoms to report. PFSH Past Medical History Anxiety: Yes Depression: Yes Cardiac Catheterization: Yes High Cholesterol: Yes COPD: Yes Coronary Artery Disease: Yes Diabetes: Yes Endocrine: Yes Gastrointestinal Disorders: Yes (Gastritis) GERD: Yes Hypertension: Yes Kidney Stones: Yes Psychiatric: Yes Respiratory: Yes Immunizations Current: Yes Ulcer: Yes Menopausal: Yes Past Surgical History Body Medical Devices: pins in rt ankle Cholecystectomy: Yes Coronary Stent: Yes (X2) Eye Surgery: Yes Genitourinary Surgery: Yes Hysterectomy: Yes Thoracic Surgery: No Other Surgery: Yes (RIGHT GREAT TOE AMPUTATION) Social History Alcohol Use: No Tobacco Use: Yes (1 PPD) Substance Use: Yes (MARIJUANA) Allergies-Medications (Allergen,Severity, Reaction): Coded Allergies: ketorolac (Verified Allergy, Intermediate, HEADACHE, 10/29/17) amoxicillin (Verified Adverse Reaction, Intermediate, VOMITING, 10/29/17) clavulanic acid (Verified Adverse Reaction, Intermediate, VOMITING, ) Reported Meds & Prescriptions Reported Meds & Active Scripts Active Omeprazole 40 Mg Cap 40 Mg PO DAILY Carafate Liq (Sucralfate) 1 Gm/10 Ml Susp 1 Gm PO TID 7 Days on empty stomach Phenergan Supp (Promethazine HCl) 12.5 Mg Supp 12.5 Mg RECTAL Q6H PRN Zofran Odt (Ondansetron Odt) 4 Mg Tab 4 Mg SL Q6HR PRN Bactrim DS (Sulfamethoxazole-Trimethoprim) 800-160 Mg Tab 1 Tab PO BID Pantoprazole (Pantoprazole Sodium) 40 Mg Tab 40 Mg PO DAILY Reported Hydroxyzine HCl 25 Mg Tab 25 Mg PO HS Percocet (Oxycodone-Acetaminophen) 10-325 mg Tab 1 Tab PO Q6H PRN Novolog Mix 70-30 FlexPen Inj (Insulin Aspart Protam-Asp 70-30 Inj) 300 Unit/3 Ml Pen 20 Units SQ HS Novolog Mix 70-30 FlexPen Inj (Insulin Aspart Protam-Asp 70-30 Inj) 300 Unit/3 Ml Pen 40 Units SQ DAILY Aspirin 81 Mg Chew 81 Mg PO DAILY Januvia (Sitagliptin Phosphate) 100 Mg Tab 100 Mg PO HS Duloxetine DR (Duloxetine HCl) 40 Mg Capdr 40 Mg PO HS Trazodone (Trazodone HCl) 100 Mg Tablet 100 Mg PO HS Atorvastatin (Atorvastatin Calcium) 40 Mg Tab 40 Mg PO HS Lisinopril 20 Mg Tab 10 Mg PO DAILY Review of Systems Except as stated in HPI: all other systems reviewed are Neg Physical Exam Narrative This is a well-nourished nontoxic-appearing female patient she is ambulatory with a non-ataxic gait. She has even respirations. Tachycardic rate. She has no obvious deformities. She speaks to me clearly. Data Data Last Documented VS Vital Signs Date Time Temp Pulse Resp B/P (MAP) Pulse Ox O2 Delivery O2 Flow Rate FiO2 11/07/17 12:05 98.8 112 22 194/97 (129) 96 Orders Orders Complete Blood Count With Diff (11/07/17 12:07) Comprehensive Metabolic Panel (11/07/17 12:07) Lipase (11/07/17 12:07) Prothrombin Time / Inr (Pt) (11/07/17 12:07) Act Partial Throm Time (Ptt) (11/07/17 12:07) Urinalysis - C+S If Indicated (11/07/17 12:07) Electrocardiogram (11/07/17 12:07) Type And Screen (11/07/17 12:07) Labs Laboratory Tests Test 11/07/17 12:30 White Blood Count 11.4 TH/MM3 Red Blood Count 4.63 MIL/MM3 Hemoglobin 14.2 GM/DL Hematocrit 41.6 % Mean Corpuscular Volume 89.9 FL Mean Corpuscular Hemoglobin 30.7 PG Mean Corpuscular Hemoglobin Concent 34.2 % Red Cell Distribution Width 12.9 % Platelet Count 378 TH/MM3 Mean Platelet Volume 7.0 FL Neutrophils (%) (Auto) 75.4 % Lymphocytes (%) (Auto) 17.6 % Monocytes (%) (Auto) 5.1 % Eosinophils (%) (Auto) 1.3 % Basophils (%) (Auto) 0.6 % Neutrophils # (Auto) 8.6 TH/MM3 Lymphocytes # (Auto) 2.0 TH/MM3 Monocytes # (Auto) 0.6 TH/MM3 Eosinophils # (Auto) 0.2 TH/MM3 Basophils # (Auto) 0.1 TH/MM3 CBC Comment DIFF FINAL Differential Comment Prothrombin Time 9.6 SEC Prothromb Time International Ratio 0.9 RATIO Activated Partial Thromboplast Time 25.8 SEC Blood Urea Nitrogen 11 MG/DL Creatinine 0.60 MG/DL Random Glucose 166 MG/DL Total Protein 7.0 GM/DL Albumin 2.7 GM/DL Calcium Level 8.8 MG/DL Alkaline Phosphatase 68 U/L Aspartate Amino Transf (AST/SGOT) 10 U/L Alanine Aminotransferase (ALT/SGPT) 12 U/L Total Bilirubin 0.2 MG/DL Sodium Level 142 MEQ/L Potassium Level 3.5 MEQ/L Chloride Level 108 MEQ/L Carbon Dioxide Level 25.6 MEQ/L Anion Gap 8 MEQ/L Estimat Glomerular Filtration Rate 103 ML/MIN Lipase 113 U/L MDM Medical Decision Making Medical Screen Exam Complete: Yes Emergency Medical Condition: Yes Medical Record Reviewed: Yes Differential Diagnosis GI bleed versus esophageal varices versus peptic ulcer disease versus symptomatic anemia Narrative Course 57-year-old female presents emergency department for evaluation of epigastric pain with hematemesis 2 days. Patient appears nontoxic. She is tachycardic here in the emergency department. Workup is initiated. Prior to bed placement , patient chooses to leave AMA: The risks of leaving against medical advice without further evaluation treatment were discussed with the patient. These risks include cardiac dysfunction, cardiac dysrhythmia, possible heart attack, possible stroke or . The patient indicated understanding of these risks and appeared to have the capacity to make this decision. Diagnosis Primary Impression: Epigastric pain Condition: Stable PiresChristen galvan HERMAN Nov 07, 2017 16:45
--- NOTE | 2017-11-08 15:53 | EKG ---
Date Performed: 11/07/2017 Time Performed: 12:26:50 PTAGE: 57 years EKG: SINUS TACHYCARDIA ABNORMAL RHYTHM ECG PREVIOUS TRACING : 09/10/2017 08.[address]-T changes, but largely unchanged DOCTOR: Mayo Perez Interpretating Date/Time 11/08/2017 15:52:20
== END 2017-11-07 17:10 | disposition left against medical advice (07) ==
LOC: NED 11:16 → NETRI 17:10
DX: R10.13 Epigastric pain (principal); K92.0 Hematemesis; E11.9 Type 2 diabetes mellitus without complications; E78.00 Pure hypercholesterolemia, unspecified; I10 Essential (primary) hypertension; I25.10 Atherosclerotic heart disease of native coronary artery without angina pectoris; J44.9 Chronic obstructive pulmonary disease, unspecified; K21.9 Gastro-esophageal reflux disease without esophagitis; F12.90 Cannabis use, unspecified, uncomplicated; F17.200 Nicotine dependence, unspecified, uncomplicated; Z79.4 Long term (current) use of insulin
CPT/HCPCS: 80053; 83690; 85025; 85610; 85730; 86850; 86900; 86901; 93005; 99284

== ENCOUNTER 2017-11-09 07:56 | Emergency (ER) | payer OTHER ==
[2017-11-09] MEDS ORDERED: IOHEXOL 350 MG/ML 10 ML VIAL (for RAD DIAG) IVCONTRAST ONE (07:57)
[2017-11-09 08:00] VITALS: BP 217/111; PULSE 87; RESP 16; TEMP 98.3; O2SAT 99
[2017-11-09 08:45] LABS: AUTOMATED NEUTROPHIL # 9.8 TH/MM3 (1.8-7.7); BASOPHIL # 0.1 TH/MM3 (0-0.2); BASOPHIL % 0.6 % (0.0-2.0); EOSINOPHIL # 0.1 TH/MM3 (0-0.4); HEMATOCRIT 47.4 % (35.0-46.0); LYMPHOCYTE # 2.3 TH/MM3 (1.0-4.8); MEAN CELL VOLUME 91.1 FL (80.0-100.0); MEAN CORPUSCULAR HEMOGLOBIN 30.7 PG (27.0-34.0); MEAN CORPUSCULAR HGB CONC 33.7 % (32.0-36.0); MEAN PLATELET VOLUME 6.8 FL (7.0-11.0); MONO % 4.3 % (0.0-8.0); MONOCYTE # 0.6 TH/MM3 (0-0.9); NEUT % 76.1 % (16.0-70.0); PLATELET COUNT 356 TH/MM3 (150-450); WHITE BLOOD COUNT 12.9 TH/MM3 (4.0-11.0)
[2017-11-09 08:47] LABS: BILIRUBIN, URINE NEG (NEG); BLOOD, URINE MOD (NEG); GLUCOSE,URINE 1000 mg/dL (NEG); KETONE, URINE NEG (NEG); NITRITE,URINE NEG (NEG); SQUAMOUS EPITHELIAL CELL URINE 1 /hpf (0-5); URINE COLOR LIGHT-YELLOW (YELLW/STRAW); URINE LEUKOCYTE ESTERASE NEG (NEG)
[2017-11-09 08:55] LABS: ALBUMIN 3.1 GM/DL (3.4-5.0); ALKALINE PHOSPHATASE 81 U/L (45-117); ALT (GPT) 15 U/L (10-53); AST (GOT) 10 U/L (15-37); BICARBONATE 26.2 MEQ/L (21.0-32.0); BLOOD UREA NITROGEN 8 MG/DL (7-18); CALCIUM 8.9 MG/DL (8.5-10.1); CHLORIDE 108 MEQ/L (98-107); CREATININE 0.75 MG/DL (0.50-1.00); GLOMERULAR FILTRATION RATE 80 ML/MIN (>89); GLUCOSE,RANDOM 274 MG/DL (74-106); SODIUM (NA) 142 MEQ/L (136-145); TOTAL BILIRUBIN ADULT 0.1 MG/DL (0.2-1.0); TOTAL PROTEIN 7.7 GM/DL (6.4-8.2)
--- NOTE | 2017-11-09 10:05 | PD ---
HPI Chief Complaint: GI Complaint Time Seen by Provider: 10:01 Travel History International Travel<30 days: No Contact w/Intl Traveler<30days: No Traveled to known affect area: No History of Present Illness HPI 57-year-old female patient with history of kidney stones, diabetes, CAD status post stents, here because of 4-5 days history of right lower quadrant abdominal and flank pains which she currently rates at a 7 out of 10. She has been nauseous and throwing up as well. She denies any fevers, diarrhea, urinary symptoms, or other issues. She does not know of any exacerbating or alleviating factors. Modifying Factors: None Associated Signs & Symptoms: Right-sided abdominal and flank pain, Nausea and vomiting Risk Factors: Kidney stone PFSH Past Medical History Anxiety: Yes Depression: Yes Cardiac Catheterization: Yes High Cholesterol: Yes COPD: Yes Coronary Artery Disease: Yes Diabetes: Yes Endocrine: Yes Gastrointestinal Disorders: Yes (Gastritis) GERD: Yes Hypertension: Yes Kidney Stones: Yes Psychiatric: Yes Respiratory: Yes Immunizations Current: Yes Ulcer: Yes Menopausal: Yes Past Surgical History Body Medical Devices: pins in rt ankle Cholecystectomy: Yes Coronary Stent: Yes (X2) Eye Surgery: Yes Genitourinary Surgery: Yes Hysterectomy: Yes Thoracic Surgery: No Other Surgery: Yes (RIGHT GREAT TOE AMPUTATION) Social History Alcohol Use: No Tobacco Use: Yes (1 PPD) Substance Use: Yes (MARIJUANA) Allergies-Medications (Allergen,Severity, Reaction): Coded Allergies: ketorolac (Verified Allergy, Intermediate, HEADACHE, 11/09/17) amoxicillin (Verified Adverse Reaction, Intermediate, VOMITING, 11/09/17) clavulanic acid (Verified Adverse Reaction, Intermediate, VOMITING, ) Reported Meds & Prescriptions Reported Meds & Active Scripts Active Omeprazole 40 Mg Cap 40 Mg PO DAILY Carafate Liq (Sucralfate) 1 Gm/10 Ml Susp 1 Gm PO TID 7 Days on empty stomach Phenergan Supp (Promethazine HCl) 12.5 Mg Supp 12.5 Mg RECTAL Q6H PRN Zofran Odt (Ondansetron Odt) 4 Mg Tab 4 Mg SL Q6HR PRN Bactrim DS (Sulfamethoxazole-Trimethoprim) 800-160 Mg Tab 1 Tab PO BID Pantoprazole (Pantoprazole Sodium) 40 Mg Tab 40 Mg PO DAILY Reported Hydroxyzine HCl 25 Mg Tab 25 Mg PO HS Percocet (Oxycodone-Acetaminophen) 10-325 mg Tab 1 Tab PO Q6H PRN Novolog Mix 70-30 FlexPen Inj (Insulin Aspart Protam-Asp 70-30 Inj) 300 Unit/3 Ml Pen 20 Units SQ HS Novolog Mix 70-30 FlexPen Inj (Insulin Aspart Protam-Asp 70-30 Inj) 300 Unit/3 Ml Pen 40 Units SQ DAILY Aspirin 81 Mg Chew 81 Mg PO DAILY Januvia (Sitagliptin Phosphate) 100 Mg Tab 100 Mg PO HS Duloxetine DR (Duloxetine HCl) 40 Mg Capdr 40 Mg PO HS Trazodone (Trazodone HCl) 100 Mg Tablet 100 Mg PO HS Atorvastatin (Atorvastatin Calcium) 40 Mg Tab 40 Mg PO HS Lisinopril 20 Mg Tab 10 Mg PO DAILY Review of Systems Except as stated in HPI: all other systems reviewed are Neg Physical Exam Narrative GENERAL: Well-developed middle-aged female patient currently in mild distress. Awake and oriented 3. SKIN: Focused skin assessment warm/dry. HEAD: Atraumatic. Normocephalic. EYES: Pupils equal and round. No scleral icterus. No injection or drainage. ENT: No nasal bleeding or discharge. Mucous membranes pink and moist. NECK: Trachea midline. No JVD. Supple. CARDIOVASCULAR: Regular rate and rhythm. No murmur appreciated. RESPIRATORY: No accessory muscle use. Clear to auscultation. Breath sounds equal bilaterally. GASTROINTESTINAL: Abdomen soft, right lower quadrant tenderness without guarding rebound, nondistended. Hepatic and splenic margins not palpable. BACK: No CVA tenderness. No rash. No point tenderness on palpation of the spine. MUSCULOSKELETAL: No obvious deformities. No clubbing. No cyanosis. No edema. NEUROLOGICAL: Awake and alert. No obvious cranial nerve deficits. Motor grossly within normal limits. Normal speech. PSYCHIATRIC: Appropriate mood and affect; insight and judgment normal. Data Data Last Documented VS Vital Signs Date Time Temp Pulse Resp B/P (MAP) Pulse Ox O2 Delivery O2 Flow Rate FiO2 11/09/17 10:30 89 17 179/98 (125) 98 Room Air 11/09/17 08:00 98.3 Orders Orders Complete Blood Count With Diff (11/09/17 08:03) Comprehensive Metabolic Panel (11/09/17 08:03) Urinalysis - C+S If Indicated (11/09/17 08:03) Iv Access Insert/Monitor (11/09/17 08:03) Oxygen Administration (11/09/17 08:03) Oximetry (11/09/17 08:03) Lipase (11/09/17 08:03) Sodium Chlor 0.9% 1000 Ml Inj (Ns 1000 M (11/09/17 10:15) Ondansetron Inj (Zofran Inj) (11/09/17 10:15) Ct Abd/Pel W Iv Contrast(Rout) (11/09/17 10:02) Morphine Inj (Morphine Inj) (11/09/17 11:00) Iohexol 350 Inj (Omnipaque 350 Inj) (11/09/17 07:57) Ed Discharge Order (11/09/17 12:12) Labs Laboratory Tests Test 11/09/17 08:15 White Blood Count 12.9 TH/MM3 Red Blood Count 5.20 MIL/MM3 Hemoglobin 16.0 GM/DL Hematocrit 47.4 % Mean Corpuscular Volume 91.1 FL Mean Corpuscular Hemoglobin 30.7 PG Mean Corpuscular Hemoglobin Concent 33.7 % Red Cell Distribution Width 13.0 % Platelet Count 356 TH/MM3 Mean Platelet Volume 6.8 FL Neutrophils (%) (Auto) 76.1 % Lymphocytes (%) (Auto) 18.0 % Monocytes (%) (Auto) 4.3 % Eosinophils (%) (Auto) 1.0 % Basophils (%) (Auto) 0.6 % Neutrophils # (Auto) 9.8 TH/MM3 Lymphocytes # (Auto) 2.3 TH/MM3 Monocytes # (Auto) 0.6 TH/MM3 Eosinophils # (Auto) 0.1 TH/MM3 Basophils # (Auto) 0.1 TH/MM3 CBC Comment DIFF FINAL Differential Comment Urine Color LIGHT-YELLOW Urine Turbidity CLEAR Urine pH 7.0 Urine Specific Clune 1.014 Urine Protein 100 mg/dL Urine Glucose (UA) 1000 mg/dL Urine Ketones NEG mg/dL Urine Occult Blood MOD Urine Nitrite NEG Urine Bilirubin NEG Urine Urobilinogen LESS THAN 2.0 MG/DL Urine Leukocyte Esterase NEG Urine RBC 111 /hpf Urine WBC 1 /hpf Urine Squamous Epithelial Cells 1 /hpf Microscopic Urinalysis Comment CULT NOT INDICATED Blood Urea Nitrogen 8 MG/DL Creatinine 0.75 MG/DL Random Glucose 274 MG/DL Total Protein 7.7 GM/DL Albumin 3.1 GM/DL Calcium Level 8.9 MG/DL Alkaline Phosphatase 81 U/L Aspartate Amino Transf (AST/SGOT) 10 U/L Alanine Aminotransferase (ALT/SGPT) 15 U/L Total Bilirubin 0.1 MG/DL Sodium Level 142 MEQ/L Potassium Level 3.7 MEQ/L Chloride Level 108 MEQ/L Carbon Dioxide Level 26.2 MEQ/L Anion Gap 8 MEQ/L Estimat Glomerular Filtration Rate 80 ML/MIN Lipase 216 U/L MDM Medical Decision Making Medical Screen Exam Complete: Yes Emergency Medical Condition: Yes Medical Record Reviewed: Yes Interpretation(s) Laboratory Tests Test 11/09/17 08:15 White Blood Count 12.9 TH/MM3 (4.0-11.0) Hemoglobin 16.0 GM/DL (11.6-15.3) Hematocrit 47.4 % (35.0-46.0) Mean Platelet Volume 6.8 FL (7.0-11.0) Neutrophils (%) (Auto) 76.1 % (16.0-70.0) Neutrophils # (Auto) 9.8 TH/MM3 (1.8-7.7) Urine Protein 100 mg/dL (NEG-TRACE) Urine Glucose (UA) 1000 mg/dL (NEG) Urine Occult Blood MOD (NEG) Urine RBC 111 /hpf (0-3) Random Glucose 274 MG/DL (74-106) Albumin 3.1 GM/DL (3.4-5.0) Aspartate Amino Transf (AST/SGOT) 10 U/L (15-37) Total Bilirubin 0.1 MG/DL (0.2-1.0) Chloride Level 108 MEQ/L (98-107) Estimat Glomerular Filtration Rate 80 ML/MIN (>89) Differential Diagnosis Pyelonephritis versus renal colic versus appendicitis versus gastroenteritis versus colitis versus diverticulitis Narrative Course Lab work shows leukocytosis. Urine was unremarkable. CAT scan was done which did not show any signs of acute intra-abdominal process. She did have a small amount of right sided panniculitis seen on CAT scan. The area was palpated by me again and does contain a firm nodule without underlying fluctuance. At this point, my plan would be to treat her panniculitis with Bactrim. We will have her follow-up closely with her primary care doctor. Return for any worsening in pain or new symptoms as needed. The plan has been discussed with her and she states understanding. Diagnosis Primary Impression: Cellulitis, abdominal wall Med/Other Pt SpecificInfo: Prescription(s) given Scripts Ibuprofen (Ibuprofen) 600 Mg Tab 600 MG PO Q6H Y for Pain/Inflammation, #20 TAB 0 Refills Prov: Francesca Lucero MD 11/09/17 Sulfamethoxazole-Trimethoprim (Bactrim DS) 800-160 Mg Tab 1 TAB PO BID for Infection, #14 TAB 0 Refills Prov: Francesca Lucero MD 11/09/17 Disposition: 01 DISCHARGE HOME Condition: Stable Francesca Lucero MD Nov 09, 2017 10:04
[2017-11-09] MEDS ORDERED: ONDANSETRON HCL 4 MG/2 ML VIAL IV PUSH ONE (10:15)
[2017-11-09] MEDS ORDERED: SODIUM CHLOR 0.9% 1000 ML INJ 1,000 ML IV ONE (10:15)
[2017-11-09 10:30] VITALS: BP 179/98; PULSE 89; RESP 17; O2SAT 98
[2017-11-09] MEDS ORDERED: MORPHINE SULFATE 2 MG/ML INJ IV PUSH ONE (11:00)
--- NOTE | 2017-11-09 12:02 | RADRPT ---
EXAM DATE/TIME: 11/09/2017 11:29 [facility] COMPARISON: No previous studies available for comparison. INDICATIONS : Lower abdomen pain for two day also has pain right flank IV CONTRAST: 86 cc Omnipaque 350 (iohexol) IV ORAL CONTRAST: No oral contrast ingested. RADIATION DOSE: 16.60 CTDIvol (mGy) MEDICAL HISTORY : Cardiovascular disease. Hypertension. Chronic obstructive pulmonary disease.Ulcer,renal stones,Diabet es SURGICAL HISTORY : Cholecystectomy. Hysterectomy. ENCOUNTER: Initial ACUITY: 2 days PAIN SCALE: 8/10 LOCATION: Right Abdomen TECHNIQUE: Volumetric scanning of the abdomen and pelvis was performed. Using automated exposure control and ad justment of the mA and/or kV according to patient size, radiation dose was kept as low as reasonably achievable to obtain optimal diagnostic quality images. DICOM format image data is available electro nically for review and comparison. FINDINGS: LOWER LUNGS: Clear LIVER: Homogeneous density without lesion. There is no dilation of the biliary tree. No calcified gallston es. SPLEEN: Normal size without lesion. PANCREAS: Within normal limits. KIDNEYS: Tiny renal cysts. No stone or hydronephrosis. ADRENAL GLANDS: Within normal limits. VASCULAR: There is no aortic aneurysm. BOWEL/MESENTERY: The stomach, small bowel, and colon demonstrate no acute abnormality. There is no free intraperitone al air or fluid. ABDOMINAL WALL: There is an area of subcutaneous tissue induration in the right lower quadrant which could be an insu crystal injection site or a small focus of panniculitis. RETROPERITONEUM: There is no lymphadenopathy. BLADDER: No wall thickening or mass. REPRODUCTIVE: Uterus surgically absent. No evidence of pelvic mass or free fluid. INGUINAL: There is no lymphadenopathy or hernia. MUSCULOSKELETAL: Within normal limits for patient age. CONCLUSION: Possible mild right lower quadrant abdominal wall panniculitis. Correlation recommended. No acute CT findings within the abdomen or pelvis. Sachin Chauhan MD on November 09, 2017 at 11:56 Board Certified Radiologist. This report was verified electronically.
[2017-11-09] MEDS ORDERED: BACT800T5 PO (12:16)
[2017-11-09] MEDS ORDERED: IBUP-232 PO (12:16)
== END 2017-11-09 12:29 | disposition home or self-care (01) ==
LOC: NEPE 07:56
DX: L03.311 Cellulitis of abdominal wall (principal); E11.9 Type 2 diabetes mellitus without complications; E78.00 Pure hypercholesterolemia, unspecified; I10 Essential (primary) hypertension; I25.10 Atherosclerotic heart disease of native coronary artery without angina pectoris; K21.9 Gastro-esophageal reflux disease without esophagitis; J44.9 Chronic obstructive pulmonary disease, unspecified; F12.90 Cannabis use, unspecified, uncomplicated; F17.200 Nicotine dependence, unspecified, uncomplicated; Z79.4 Long term (current) use of insulin
CPT/HCPCS: 74177; 80053; 81001; 83690; 85025; 96361; 96374; 96375; 99284; J2270; J2405; J7030; Q9967

== ENCOUNTER 2017-12-06 10:22 | Inpatient (IN) | payer OTHER ==
[2017-12-06] VITALS (10 sets, daily range): BP systolic 112–178; BP diastolic 72–105; PULSE 90–105; RESP 18–20; TEMP 97.3–99.4; O2SAT 94–99
[~2017-12-06 10:22] MED LIST changes: +IBUP-232 PO
[2017-12-06] MEDS ORDERED: ONDANSETRON HCL 4 MG/2 ML VIAL IV PUSH ONE (10:45)
[2017-12-06] MEDS ORDERED: HYDROmorphone HCL PF 2 MG/ML VIAL IV PUSH ONE ×2 (10:45→20:15)
[2017-12-06] MEDS ORDERED: LANTUS2P SQ (10:48)
--- NOTE | 2017-12-06 10:52 | PD ---
HPI Chief Complaint: Chest Pain Time Seen by Provider: 10:33 Travel History International Travel<30 days: No Contact w/Intl Traveler<30days: No Traveled to known affect area: No History of Present Illness HPI This 57-year-old female is complaining of chest pain. She says she is having substernal pain which started about 2 hours ago and has been fairly constant. It is not aggravated by deep breathing. She has a history of coronary artery disease. She has 2 stents in her heart. She does have a history of diabetes she does smoke cigarettes. She does not see a corrective therapy aide. There is no radiation of the pain. sHe is not short of breath at this time. She says she takes aspirin daily she has been having pain in her right arm. She had fallen Tuesday morning at 3:30 in the morning and fractured her arm. She went to patient was placed in a splint and is supposed to see an orthopedist for follow- up. sHe is having pain at the fracture site and is concerned that the splint may be too tight. PFSH Past Medical History Anxiety: Yes Depression: Yes Cardiac Catheterization: Yes Cardiovascular Problems: Yes High Cholesterol: Yes COPD: Yes Coronary Artery Disease: Yes Diabetes: Yes Patient Takes Glucophage: No Diminished Hearing: No Endocrine: Yes Gastrointestinal Disorders: Yes (Gastritis) GERD: Yes Hypertension: Yes Implanted Vascular Access Dvce: Yes Kidney Stones: Yes Psychiatric: Yes Respiratory: Yes Immunizations Current: Yes Ulcer: Yes ?: Not Menopausal: Yes Past Surgical History Abdominal Surgery: Yes (cholecystectomy) Body Medical Devices: pins in rt ankle Cardiac Surgery: Yes (stents) Cholecystectomy: Yes Coronary Artery Bypass Graft: No Coronary Stent: Yes (X2) Eye Surgery: Yes Genitourinary Surgery: Yes Gynecologic Surgery: Yes (HYSTERECTOMY ) Hysterectomy: Yes Thoracic Surgery: No Other Surgery: Yes (RIGHT GREAT TOE AMPUTATION) Family History Family Myocardial Infarction: Yes (FATHER) Social History Alcohol Use: No Tobacco Use: Yes (1 PPD) Substance Use: Yes (MARIJUANA) Allergies-Medications (Allergen,Severity, Reaction): Coded Allergies: ketorolac (Verified Allergy, Intermediate, HEADACHE, 12/06/17) amoxicillin (Verified Adverse Reaction, Intermediate, VOMITING, 12/06/17) clavulanic acid (Verified Adverse Reaction, Intermediate, VOMITING, ) Reported Meds & Prescriptions Reported Meds & Active Scripts Active Omeprazole 40 Mg Cap 40 Mg PO DAILY Reported Lantus Inj (Insulin Glargine) 1,000 Unit/10 Ml Vial 20 Units SQ HS Hydroxyzine HCl 25 Mg Tab 25 Mg PO HS Novolog Mix 70-30 FlexPen Inj (Insulin Aspart Protam-Asp 70-30 Inj) 300 Unit/3 Ml Pen 20 Units SQ HS Novolog Mix 70-30 FlexPen Inj (Insulin Aspart Protam-Asp 70-30 Inj) 300 Unit/3 Ml Pen 40 Units SQ DAILY Aspirin 81 Mg Chew 81 Mg PO DAILY Januvia (Sitagliptin Phosphate) 100 Mg Tab 100 Mg PO HS Duloxetine DR (Duloxetine HCl) 40 Mg Capdr 40 Mg PO HS Trazodone (Trazodone HCl) 100 Mg Tablet 100 Mg PO HS Review of Systems General / Constitutional: No: Fever, Chills Eyes: No: Diploplia, Blurred Vision HENT: No: Headaches, Vertigo Cardiovascular: Positive: Chest Pain or Discomfort, No: Palpitations, Syncope Respiratory: No: Cough, Shortness of Breath, Hemoptysis Gastrointestinal: No: Nausea, Vomiting Genitourinary: No: Urgency, Frequency Musculoskeletal: Positive: Myalgias, Pain Skin: No Rash, No Itching Neurologic: No: Weakness Hematologic/Lymphatic: No: Easy Bruising Physical Exam Narrative GENERAL: Well-developed female SKIN: Focused skin assessment warm/dry. HEAD: Atraumatic. Normocephalic. EYES: Pupils equal and round. No scleral icterus. No injection or drainage. ENT: No nasal bleeding or discharge. Mucous membranes pink and moist. NECK: Trachea midline. No JVD. CARDIOVASCULAR: Regular rate and rhythm. No murmur appreciated. RESPIRATORY: No accessory muscle use. Clear to auscultation. Breath sounds equal bilaterally. GASTROINTESTINAL: Abdomen soft, non-tender, nondistended. Hepatic and splenic margins not palpable. MUSCULOSKELETAL: No obvious deformities. No clubbing. No cyanosis. No edema. There is a splint on the right forearm from the elbow to the hand. Fingers are warm. She does have some pain with extension of the fingers. NEUROLOGICAL: Awake and alert. No obvious cranial nerve deficits. Motor grossly within normal limits. Normal speech. PSYCHIATRIC: Appropriate mood and affect; insight and judgment normal. Data Data Last Documented VS Vital Signs Date Time Temp Pulse Resp B/P (MAP) Pulse Ox O2 Delivery O2 Flow Rate FiO2 12/06/17 10:49 101 140/101 (114) 12/06/17 10:41 20 99 Room Air 12/06/17 10:39 99.4 Orders Orders Complete Blood Count With Diff (12/06/17 10:44) Comprehensive Metabolic Panel (12/06/17 10:44) Troponin I (12/06/17 10:44) Prothrombin Time / Inr (Pt) (12/06/17 10:44) Act Partial Throm Time (Ptt) (12/06/17 10:44) Urinalysis - C+S If Indicated (12/06/17 10:44) Chest, Single Ap (12/06/17 10:44) Ondansetron Inj (Zofran Inj) (12/06/17 10:45) Hydromorphone Pf Inj (Dilaudid Pf Inj) (12/06/17 10:45) Potassium Chloride (Kcl) (12/06/17 11:45) Admit Order (Ed Use Only) (12/06/17 11:48) Labs Laboratory Tests Test 12/06/17 10:35 White Blood Count 9.4 TH/MM3 Red Blood Count 4.66 MIL/MM3 Hemoglobin 14.0 GM/DL Hematocrit 41.3 % Mean Corpuscular Volume 88.8 FL Mean Corpuscular Hemoglobin 30.0 PG Mean Corpuscular Hemoglobin Concent 33.8 % Red Cell Distribution Width 12.7 % Platelet Count 388 TH/MM3 Mean Platelet Volume 7.0 FL Neutrophils (%) (Auto) 73.5 % Lymphocytes (%) (Auto) 22.0 % Monocytes (%) (Auto) 3.0 % Eosinophils (%) (Auto) 1.1 % Basophils (%) (Auto) 0.4 % Neutrophils # (Auto) 6.9 TH/MM3 Lymphocytes # (Auto) 2.1 TH/MM3 Monocytes # (Auto) 0.3 TH/MM3 Eosinophils # (Auto) 0.1 TH/MM3 Basophils # (Auto) 0.0 TH/MM3 CBC Comment DIFF FINAL Differential Comment Prothrombin Time 9.6 SEC Prothromb Time International Ratio 0.9 RATIO Activated Partial Thromboplast Time 24.3 SEC Blood Urea Nitrogen 17 MG/DL Creatinine 0.74 MG/DL Random Glucose 302 MG/DL Total Protein 7.0 GM/DL Albumin 2.9 GM/DL Calcium Level 8.8 MG/DL Alkaline Phosphatase 81 U/L Aspartate Amino Transf (AST/SGOT) 9 U/L Alanine Aminotransferase (ALT/SGPT) 14 U/L Total Bilirubin 0.2 MG/DL Sodium Level 138 MEQ/L Potassium Level 3.4 MEQ/L Chloride Level 105 MEQ/L Carbon Dioxide Level 25.0 MEQ/L Anion Gap 8 MEQ/L Estimat Glomerular Filtration Rate 81 ML/MIN Troponin I 0.02 NG/ML [facility] Medical Decision Making Medical Screen Exam Complete: Yes Emergency Medical Condition: Yes Medical Record Reviewed: Yes Differential Diagnosis Differential includes chest pain, coronary artery disease, atypical chest pain Narrative Course Patient is concerned that his splint might be too tight and I did loosen the Ravi bandage and we wrapped it after splitting the web roll. This did not provide much relief of the pain. Chest x-ray is negative. EKG shows sinus rhythm at a rate of 100. Troponin is normal. This lady has history of coronary artery disease and is now having chest pain. She will be admitted to the chest pain center Diagnosis Primary Impression: Chest pain Admitting Information Admitting Physician Requests: Observation Lang Castañeda MD Dec 06, 2017 10:52
[2017-12-06 10:59] LABS: AUTOMATED NEUTROPHIL # 6.9 TH/MM3 (1.8-7.7); BASOPHIL % 0.4 % (0.0-2.0); EOSINOPHIL # 0.1 TH/MM3 (0-0.4); EOSINOPHIL % 1.1 % (0.0-4.0); HEMATOCRIT 41.3 % (35.0-46.0); LYMPHOCYTE # 2.1 TH/MM3 (1.0-4.8); MEAN CELL VOLUME 88.8 FL (80.0-100.0); MEAN CORPUSCULAR HGB CONC 33.8 % (32.0-36.0); MONOCYTE # 0.3 TH/MM3 (0-0.9); NEUT % 73.5 % (16.0-70.0); PLATELET COUNT 388 TH/MM3 (150-450); RED BLOOD COUNT 4.66 MIL/MM3 (4.00-5.30); RED CELL DISTRIBUTION WIDTH 12.7 % (11.6-17.2); WHITE BLOOD COUNT 9.4 TH/MM3 (4.0-11.0)
--- NOTE | 2017-12-06 11:05 | RADRPT ---
EXAM DATE/TIME: 12/06/2017 10:47 [facility] COMPARISON: CHEST SINGLE AP, December 05, 2014, 11:18. INDICATIONS : Chest pain. Patient states she fell approximately 4 days ago & fractured right wrist. MEDICAL HISTORY : Hypercholesterolemia. Renal calculi. Peripheral neuropathy. Coronary artery disease. HTN. COPD. Ulcer . GERD. Gastritis. Chronic low back pain. Diabetes. Depression. Anxiety. Tobacco use. MRSA. SURGICAL HISTORY : Coronary artery stent. Hysterectomy. Cholecystectomy. Eye surgery. Cardiac cath. Right ankle surgery. Right great toe amputation. ENCOUNTER: Initial ACUITY: 1 day PAIN SCORE: 7/10 LOCATION: chest FINDINGS: Single AP view of the chest. Mild linear opacity at the lung bases indicating subsegmental atelectasi s. Lungs are otherwise clear. Cardiomediastinal silhouette within normal limits. No evidence of pleur al effusion or pneumothorax. CONCLUSION: Minimal bilateral lower lung zone atelectasis. No other acute cardiopulmonary disease identified. Kendall Humphreys MD on December 06, 2017 at 11:01 Board Certified Radiologist. This report was verified electronically.
[2017-12-06 11:08] LABS: CHLORIDE 105 MEQ/L (98-107); SODIUM (NA) 138 MEQ/L (136-145)
[2017-12-06 11:11] LABS: CALCIUM 8.8 MG/DL (8.5-10.1)
[2017-12-06 11:12] LABS: ALBUMIN 2.9 GM/DL (3.4-5.0); BLOOD UREA NITROGEN 17 MG/DL (7-18); GLUCOSE,RANDOM 302 MG/DL (74-106)
[2017-12-06 11:13] LABS: INTERNATIONAL NORMALIZED RATIO 0.9 RATIO; PROTHROMBIN TIME - PATIENT 9.6 SEC (9.8-11.6)
[2017-12-06 11:14] LABS: ALT (GPT) 14 U/L (10-53)
[2017-12-06 11:15] LABS: AST (GOT) 9 U/L (15-37); CREATININE 0.74 MG/DL (0.50-1.00); GLOMERULAR FILTRATION RATE 81 ML/MIN (>89)
[2017-12-06 11:16] LABS: TOTAL BILIRUBIN ADULT 0.2 MG/DL (0.2-1.0)
[2017-12-06 11:17] LABS: ALKALINE PHOSPHATASE 81 U/L (45-117)
[2017-12-06 11:20] LABS: TROPONIN I 0.02 NG/ML (0.02-0.05)
[2017-12-06] MEDS ORDERED: POTASSIUM CHLORIDE 20 MEQ CONTROLLED RELEASE TAB PO ONE (11:45)
[2017-12-06] MEDS ORDERED: SODIUM CHLORIDE 0.9% FLUSH 10 ML FLUSH IV FLUSH PRN (12:15)
[2017-12-06] MEDS ORDERED: ACETAMINOPHEN/HYDROcodone 325 MG/7.5 MG TAB PO PRN (12:15)
[2017-12-06] MEDS ORDERED: GLUCAGON 1 MG/ML VIAL OTHER PRN (12:15)
[2017-12-06] MEDS ORDERED: ACETAMINOPHEN 500 MG CPLT PO PRN (12:15)
[2017-12-06] MEDS ORDERED: ONDANSETRON HCL 4 MG/2 ML VIAL IV PUSH PRN (12:15)
[2017-12-06] MEDS ORDERED: DEXTROSE 50% IN WATER 50 ML VIAL(D50) IV PUSH PRN (12:15)
[2017-12-06] MEDS ORDERED: NITROGLYCERIN 0.4 MG SL 25 TABS/BTL SL PRN (12:15)
[2017-12-06] MEDS ORDERED: ACETAMINOPHEN 500 MG CPLT PO ONE (12:15)
[2017-12-06] MEDS ORDERED: ACETAMINOPHEN/HYDROcodone 325 MG/5 MG TAB PO PRN (13:30)
--- NOTE | 2017-12-06 13:49 | HHI.HP ---
[facility] No Primary Care Physician Admission Diagnosis CHEST PAIN Diagnoses: (1) Chest pain Diagnosis: Principal Chief Complaint: Chest pain Travel History International Travel<30 Days: No Contact w/Intl Traveler <30 Da: No Traveled to Known Affected Are: No History of Present Illness 57-year-old female with known history of hypertension, hyper lipidemia , coronary disease, diabetes who was noted to the hospital because of chest discomfort. Patient states that she did fall 2 days ago and injured her right upper extremity with fracture. She is wearing a splint at this time. She was told to follow-up with orthopedist which is not for another 2 weeks. She was doing well until this morning approximately 6 AM when she developed pain in the center part of her chest that radiated into her neck which she described as a 8/ 10 on a pain scale which remained constant. She had some mild nausea. Denied any shortness of breath, dyspnea, dizziness, diaphoresis. Because of her history of coronary artery disease and stenting she decided to come to the hospital for evaluation. On her way to the hospital she did drink a Mountain Dew. Upon entering the room she started to cry because of the pain that she is experiencing, it was difficult to obtain from the patient at the pain was from her arm or her chest. She states that she was given Dilaudid for pain in the emergency department with only minimal relief of her arm pain but no relief of her chest pain. Patient states that she just had cardiac stenting done by Dr. Pardo about a year ago. Records indicate that she just had cardiac workup with stress test done June 2017. The stress test did indicate intermediate risk with fixed perfusion defect involving the anterior septal wall. Patient states that she has not had any cardiology follow-up since her stenting because of her insurance. It was recommended by ER physician that the patient be observed in the chest pain center for further evaluation and management. Review of Systems Cardiovascular: COMPLAINS OF: Chest pain Musculoskeletal: COMPLAINS OF: Joint pain Except as stated in HPI: all other systems reviewed are Neg Past Family Social History Past Medical History Hypertension Hyperlipidemia Diabetes Diabetic neuropathy Coronary artery disease status post stenting Past Surgical History Cardiac catheterization with stenting Hysterectomy Right great toe amputation Cholecystectomy Right ankle surgery Reported Medications Current Medications Ondansetron HCl (Zofran Inj) 4 mg ONCE ONCE IV PUSH Last administered on at 10:55; Start 12/06/17 at 10:45; Stop 12/06/17 at 10:47; Status DC Hydromorphone HCl (Dilaudid Pf Inj) 1 mg ONCE ONCE IV PUSH Last administered on 12/06/17at 10:54; Start 12/06/17 at 10:45; Stop 12/06/17 at 10:47; Status DC Potassium Chloride (KCl) 20 meq ONCE ONCE PO Last administered on 12/06/17at 11 :50; Start 12/06/17 at 11:45; Stop 12/06/17 at 11:46; Status DC Sodium Chloride (NS Flush) 2 ml UNSCH PRN IV FLUSH FLUSH AFTER USING IV ACCESS ; Start 12/06/17 at 12:15 Sodium Chloride (NS Flush) 2 ml BID IV FLUSH ; Start 12/06/17 at 21:00 Acetaminophen (Tylenol) 500 mg Q4H PRN PO HEADACHE; Start 12/06/17 at 12:15 Acetaminophen/ Hydrocodone Bitart ([place] 7.5-325 Mg) 1 tab Q4H PRN PO PAIN SCALE 1 TO 10; Start 12/06/17 at 12:15; Stop 12/06/17 at 13:33; Status DC Ondansetron HCl (Zofran Inj) 4 mg Q6H PRN IV PUSH NAUSEA; Start 12/06/17 at 12: 15 Nitroglycerin (Nitrostat Sl) 0.4 mg Q5M PRN SL CHEST PAIN; Start 12/06/17 at 12 :15 Aspirin (Aspirin) 325 mg DAILY PO ; Start 12/07/17 at 09:00 Dextrose (D50w (Vial) Inj) 50 ml UNSCH PRN IV PUSH HYPOGLYCEMIA-SEE COMMENTS; Start 12/06/17 at 12:15 Glucagon (Glucagon Inj) 1 mg UNSCH PRN OTHER HYPOGLYCEMIA-SEE COMMENTS; Start 12/06/17 at 12:15 Insulin Aspart (NovoLOG SUPPLEMENTAL SCALE) 1 ACHS SLIDING SCALE SQ ; Start at 17:00 Duloxetine HCl (Cymbalta Dr) 40 mg HS PO ; Start 12/06/17 at 21:00 Hydroxyzine HCl (Atarax) 25 mg HS PO ; Start 12/06/17 at 21:00 Pantoprazole Sodium (Protonix) 40 mg DAILY PO ; Start 12/07/17 at 09:00 Trazodone HCl (Desyrel) 100 mg HS PO ; Start 12/06/17 at 21:00 Acetaminophen (Tylenol) 1,000 mg ONCE ONCE PO Last administered on 12/06/17at 12:25; Start 12/06/17 at 12:15; Stop 12/06/17 at 12:16; Status DC Acetaminophen/ Hydrocodone Bitart ([place] 5-325 Mg) 1 tab Q6H PRN PO PAIN SCALE 1 TO 5; Start 12/06/17 at 13:30 Acetaminophen/ Hydrocodone Bitart ([place] 7.5-325 Mg) 1 tab Q6H PRN PO PAIN SCALE 6 TO 10; Start 12/06/17 at 13:30 Allergies: Coded Allergies: ketorolac (Verified Allergy, Intermediate, HEADACHE, 12/06/17) amoxicillin (Verified Adverse Reaction, Intermediate, VOMITING, 12/06/17) clavulanic acid (Verified Adverse Reaction, Intermediate, VOMITING, ) Family History Reviewed and significant for father with cancer and myocardial infarction, mother with bladder cancer Social History Patient continues to smoke, she is down to 5 cigarettes a day from 1 pack a day since she was 12 years old. He denies any alcohol. She states that she does smoke marijuana occasionally Physical Exam Vital Signs Vital Signs Date Time Temp Pulse Resp B/P (MAP) Pulse Ox O2 Delivery O2 Flow Rate FiO2 12/06/17 13:23 12/06/17 12:45 91 18 158/98 (118) 95 Room Air 12/06/17 10:49 101 140/101 (114) 12/06/17 10:41 105 20 99 Room Air 12/06/17 10:39 99.4 105 20 171/105 (127) 99 Physical Exam GENERAL: Well-developed, well-nourished, in no acute distress. alert and orientated HEENT: Head is normocephalic without any lesions or masses noted. Facial features are symmetric. Eyes: Pupils equal round reactive to light. Extraocular muscles are intact. Conjunctivae were clear. Oropharyngeal: Pharynx without any erythema edema. Tongue is midline without deviation. Buccal mucosa is moist without any masses or lesions NECK: Supple without any masses. Trachea midline no deviation. No JVD, no bruits are appreciated CARDIAC: Regular rhythm, regular rate. S1/S2 are heard. No murmurs gallops or rubs. LUNGS: Clear to auscultation bilaterally. No wheeze, rhonchi or rales. No use of accessory muscles on inspiration or expiration. ABDOMEN: Soft, nontender. Nondistended. Bowel sounds heard in all 4 quadrants. No organomegaly or masses. Negative rebound, negative guarding EXTREMITIES: No edema, pulses are equal bilaterally. No cyanosis or clubbing. Right arm in splint NEUROLOGY: Mood and affect appear appropriate. Cranial nerves II through XII grossly intact. Muscle strength 5/5 in upper and lower extremities bilaterally. Deep tendon reflexes are 2+ in upper and lower extremities bilaterally. Laboratory Laboratory Tests Test 12/06/17 10:35 White Blood Count 9.4 Red Blood Count 4.66 Hemoglobin 14.0 Hematocrit 41.3 Mean Corpuscular Volume 88.8 Mean Corpuscular Hemoglobin 30.0 Mean Corpuscular Hemoglobin Concent 33.8 Red Cell Distribution Width 12.7 Platelet Count 388 Mean Platelet Volume 7.0 Neutrophils (%) (Auto) 73.5 Lymphocytes (%) (Auto) 22.0 Monocytes (%) (Auto) 3.0 Eosinophils (%) (Auto) 1.1 Basophils (%) (Auto) 0.4 Neutrophils # (Auto) 6.9 Lymphocytes # (Auto) 2.1 Monocytes # (Auto) 0.3 Eosinophils # (Auto) 0.1 Basophils # (Auto) 0.0 CBC Comment DIFF FINAL Differential Comment Prothrombin Time 9.6 Prothromb Time International Ratio 0.9 Activated Partial Thromboplast Time 24.3 Blood Urea Nitrogen 17 Creatinine 0.74 Random Glucose 302 Total Protein 7.0 Albumin 2.9 Calcium Level 8.8 Alkaline Phosphatase 81 Aspartate Amino Transf (AST/SGOT) 9 Alanine Aminotransferase (ALT/SGPT) 14 Total Bilirubin 0.2 Sodium Level 138 Potassium Level 3.4 Chloride Level 105 Carbon Dioxide Level 25.0 Anion Gap 8 Estimat Glomerular Filtration Rate 81 Troponin I 0.02 Result Diagram: 12/06/17 1035 12/06/17 1035 Imaging Last Impressions Chest X-Ray 12/06/17 1044 Signed Impressions: Service Date/Time: Wednesday, December 06, 2017 10:47 - CONCLUSION: Minimal bilateral lower lung zone atelectasis. No other acute cardiopulmonary disease identified. Kendall Humphreys MD Caprini VTE Risk Assessment Caprini VTE Risk Assessment: Mod/High Risk (score >= 2) Caprini Risk Assessment Model Point Value = 1 Point Value = 2 Point Value = 3 Point Value = 5 Age 41-60 Minor surgery BMI > 25 kg/m2 Swollen legs Varicose veins or History of unexplained or recurrent spontaneous Oral contraceptives or hormone replacement Sepsis (< 1 month) Serious lung disease, including pneumonia (< 1 month) Abnormal pulmonary function Acute myocardial infarction Congestive heart failure (< 1 month) History of inflammatory bowel disease Medical patient at bed rest Age 61-74 Arthroscopic surgery Major open surgery (> 45 min) Laparoscopic surgery (> 45 min) Malignancy Confined to bed (> 72 hours) Immobilizing plaster cast Central venous access Age >= 75 History of VTE Family history of VTE Factor V Leiden Prothrombin 11351C Lupus anticoagulant Anticardiolipin antibodies Elevated serum homocysteine Heparin-induced thrombocytopenia Other congenital or acquired thrombophilia Stroke (< 1 month) Elective arthroplasty Hip, pelvis, or leg fracture Acute spinal cord injury (< 1 month) Prophylaxis Regimen Total Risk Factor Score Risk Level Prophylaxis Regimen 0-1 Low Early ambulation 2 Moderate Order ONE of the following: *Sequential Compression Device (SCD) *Heparin 5000 units SQ BID 3-4 Higher Order ONE of the following medications: *Heparin 5000 units SQ TID *Enoxaparin/Lovenox 40 mg SQ daily (WT < 150 kg, CrCl > 30 mL/min) *Enoxaparin/Lovenox 30 mg SQ daily (WT < 150 kg, CrCl > 10-29 mL/min) *Enoxaparin/Lovenox 30 mg SQ BID (WT < 150 kg, CrCl > 30 mL/min) AND/OR *Sequential Compression Device (SCD) 5 or more Highest Order ONE of the following medications: *Heparin 5000 units SQ TID (Preferred with Epidurals) *Enoxaparin/Lovenox 40 mg SQ daily (WT < 150 kg, CrCl > 30 mL/min) *Enoxaparin/Lovenox 30 mg SQ daily (WT < 150 kg, CrCl > 10-29 mL/min) *Enoxaparin/Lovenox 30 mg SQ BID (WT < 150 kg, CrCl > 30 mL/min) AND *Sequential Compression Device (SCD) Assessment and Plan Assessment and Plan Chest pain, atypical Patient does have increased risk factors to include hypertension, hyperlipidemia, coronary disease, diabetes, tobacco use, family history of heart disease, age, body habitus Will rule patient out for acute coronary event with serial cardiac enzymes which are negative thus far EKG was reviewed and shows sinus rhythm without any changes from previous EKG A patient ruled out for acute coronary event will pursue myocardial perfusion study to rule out any underlying ischemia, since patient noncompliant with following up with founder and president Continue aspirin, start Nitropaste Right arm pain secondary to fracture Continue pain control Maintain elevation Hypertension Start Lopressor 12.5 mg twice daily Hyperlipidemia Obtain lipid panel Diabetes Accu-Cheks with sliding scale insulin Obtain hemoglobin A1c DVT prevention Sequential compression devices Jake Pierre Dec 06, 2017 13:49
[2017-12-06] MEDS ORDERED: PILL SPLITTER OTHER PRN (14:15)
[2017-12-06 14:29] LABS: TROPONIN I 0.03 NG/ML (0.02-0.05)
[2017-12-06] MEDS: ACETAMINOPHEN/HYDROcodone 325 MG/7.5 MG TAB PO PRN ×2 (14:44→20:51)
[2017-12-06] MEDS: METOPROLOL TARTRATE 25 MG TAB PO SCH ×2 (15:09→21:06)
[2017-12-06] MEDS: NITROGLYCERIN 2% OINT 1 GM PACKET TOPICAL SCH ×2 (15:10→19:02)
[2017-12-06] MEDS: INSULIN ASPART SUPPLEMENTAL SCALE SQ SCH ×2 (17:00→21:00)
[2017-12-06 17:18] LABS: TROPONIN I 0.03 NG/ML (0.02-0.05)
--- NOTE | 2017-12-06 18:42 | EKG ---
Date Performed: 12/06/2017 Time Performed: 14:01:43 PTAGE: 57 years EKG: Sinus rhythm NORMAL ECG Since PREVIOUS TRACING , no significant change noted PREVIOUS TRACIN12/06/2017 10.29 DOCTOR: Jennifer Baldwin Interpretating Date/Time 12/06/2017 18:40:59
--- NOTE | 2017-12-06 18:43 | EKG ---
Date Performed: 12/06/2017 Time Performed: 10:29:50 PTAGE: 57 years EKG: SINUS TACHYCARDIA ABNORMAL RHYTHM ECG Since PREVIOUS TRACING , no significant change noted PREVIOUS TRACIN11/07/2017 12.26 DOCTOR: Jennifer Baldwin Interpretating Date/Time 12/06/2017 18:42:12
--- NOTE | 2017-12-06 18:57 | RADRPT ---
EXAM DATE/TIME: 12/06/2017 18:17 [facility] COMPARISON: No previous studies available for comparison. INDICATIONS : Right forearm pain and fracture. MEDICAL HISTORY : None. SURGICAL HISTORY : None. ENCOUNTER: Initial ACUITY: 4 - 6 days PAIN SCORE: 10/10 LOCATION: Right forearm. FINDINGS: There is a comminuted intra-articular fracture of the distal right radius with mild dorsal angulation deformity. No significant step-off/incongruity demonstrated of the articular surface. Splint is pres ent which obscures fine bony detail. There is a minimally displaced ulnar styloid fracture. CONCLUSION: Comminuted intra-articular fracture of the distal radius as above and a minimally displaced ulnar sty loid fracture. Sachin Watson MD on December 06, 2017 at 18:53 Board Certified Radiologist. This report was verified electronically.
[2017-12-06] MEDS: MORPHINE SULFATE 2 MG/ML SYRINGE IV PUSH PRN (19:05)
[2017-12-06] MEDS: hydrOXYzine HCL 25 MG TAB PO SCH (21:05)
[2017-12-06] MEDS: DULoxetine HCl DR 20 MG CAP PO SCH (21:06)
[2017-12-06] MEDS: SODIUM CHLORIDE 0.9% FLUSH 10 ML FLUSH IV FLUSH SCH (21:06)
[2017-12-06] MEDS: traZODone HCL 100 MG TAB PO SCH (21:06)
[2017-12-07] VITALS (9 sets, daily range): BP systolic 136–161; BP diastolic 64–83; PULSE 79–91; RESP 18–22; TEMP 96.9–99.1; O2SAT 93–96
[2017-12-07] MEDS: NITROGLYCERIN 2% OINT 1 GM PACKET TOPICAL SCH ×4 (00:10→17:53)
[2017-12-07] MEDS: MORPHINE SULFATE 2 MG/ML SYRINGE IV PUSH PRN ×5 (00:12→22:19)
[2017-12-07] MEDS: ACETAMINOPHEN/HYDROcodone 325 MG/7.5 MG TAB PO PRN ×5 (02:41→20:58)
[2017-12-07] MEDS: INSULIN ASPART SUPPLEMENTAL SCALE SQ SCH ×4 (08:00→22:20)
[2017-12-07] MEDS: METOPROLOL TARTRATE 25 MG TAB PO SCH ×2 (08:11→20:41)
[2017-12-07] MEDS: PANTOPRAZOLE SOD 40 MG DELAYED RELEASE TAB PO SCH (08:11)
[2017-12-07] MEDS: ASPIRIN 325 MG TAB PO SCH (08:12)
[2017-12-07] MEDS: SODIUM CHLORIDE 0.9% FLUSH 10 ML FLUSH IV FLUSH SCH ×2 (08:12→20:41)
--- NOTE | 2017-12-07 08:21 | HHI.PR ---
Subjective Remarks Patient seen and examined today for chest pain and right arm fracture. Nursing staff indicates that the patient would wake up all night long indicating that she needs increased pain medication. I went in to evaluate the patient multiple times a day and she was sleeping quite comfortably, however whenever she wakes up then she will start becoming tearful and states that she needs something stronger for pain. She denies any chest pain throughout the night. Patient indicating that she cannot undergo a stress test because of her arm pain. I discussed with her the need to have a stress test done and that it will not require any use of her arm, presently she is agreeable to have a testing performed. Objective Vitals Vital Signs Date Time Temp Pulse Resp B/P (MAP) Pulse Ox O2 Delivery O2 Flow Rate FiO2 12/07/17 04:15 96.9 80 18 142/78 (99) 95 12/06/17 22:50 98.7 90 20 112/93 (99) 96 12/06/17 22:19 99.0 90 20 112/72 (85) 94 12/06/17 20:07 95 21 12/06/17 20:00 98.7 90 20 112/93 (99) 96 12/06/17 15:47 97.3 93 20 178/99 (125) 98 12/06/17 14:40 95 21 12/06/17 14:00 90 12/06/17 13:23 12/06/17 12:45 91 18 158/98 (118) 95 Room Air 12/06/17 10:49 101 140/101 (114) 12/06/17 10:41 105 20 99 Room Air 12/06/17 10:39 99.4 105 20 171/105 (127) 99 Result Diagram: 12/06/17 1035 12/06/17 1035 Imaging Last Impressions Chest X-Ray 12/06/17 1044 Signed Impressions: Service Date/Time: Wednesday, December 06, 2017 10:47 - CONCLUSION: Minimal bilateral lower lung zone atelectasis. No other acute cardiopulmonary disease identified. Kendall Humphreys MD Radius/Ulna X-Ray 12/06/17 0000 Signed Impressions: Service Date/Time: Wednesday, December 06, 2017 18:17 - CONCLUSION: Comminuted intra-articular fracture of the distal radius as above and a minimally displaced ulnar styloid fracture. Sachin Watson MD Objective Remarks GENERAL: Well-developed, well-nourished, in no acute distress. alert and orientated HEENT: Head is normocephalic without any lesions or masses noted. Facial features are symmetric. Eyes: Extraocular muscles are intact. Conjunctivae were clear. NECK: Supple without any masses. Trachea midline no deviation. No JVD, CARDIAC: Regular rhythm, regular rate. S1/S2 are heard. No murmurs gallops or rubs. LUNGS: Clear to auscultation bilaterally. No wheeze, rhonchi or rales. No use of accessory muscles on inspiration or expiration. ABDOMEN: Soft, nontender. Nondistended. Bowel sounds heard in all 4 quadrants. No organomegaly or masses. Negative rebound, negative guarding EXTREMITIES: No edema, pulses are equal bilaterally. No cyanosis or clubbing. Right arm in splint NEUROLOGY: Mood and affect appear appropriate. Cranial nerves II through XII grossly intact. Moving all extremities, speech is clear Urinary Catheter: No Vascular Central Line Catheter: No A/P Assessment and Plan Chest pain, atypical Patient does have increased risk factors to include hypertension, hyperlipidemia, coronary disease, diabetes, tobacco use, family history of heart disease, age, body habitus Patient has been ruled out for acute coronary event with serial cardiac enzymes that have remained negative Serial EKGs were reviewed and indicated sinus rhythm without any changes Myocardial perfusion study was performed and did not indicate any ischemia, However, High risk with EF 33% Echocardiogram indicated ejection fraction 35% Continue aspirin, Nitropaste, Lopressor Consult cardiology for further recommendations secondary to worsening ejection fraction since June 2017, may need intervention Right arm pain secondary to fracture X-ray indicates comminuted intra-articular fracture of the radius and ulnar styloid fracture Continue pain control Maintain elevation Consulted orthopedist for further recommendations Hypertension Continue Lopressor 12.5 mg twice daily Hyperlipidemia Lipid panel performed and unable to calculate LDL Start Lipitor 40 mg Q HS Diabetes Accu-Cheks with sliding scale insulin Awaiting hemoglobin A1c DVT prevention Sequential compression devices Jake Pierre Dec 07, 2017 08:21
--- NOTE | 2017-12-07 09:14 | EKG ---
Date Performed: 12/06/2017 Time Performed: 16:26:05 PTAGE: 57 years EKG: Sinus rhythm NONSPECIFIC T-WAVE ABNORMALITY BORDERLINE ECG PREVIOUS TRACING : 12/06/2017 14.01 DOCTOR: Corbin Wiley Interpretating Date/Time 12/07/2017 09:13:55
[2017-12-07] MEDS ORDERED: REGADENOSON INJ 0.4 MG/5 ML SYR IV ONE (09:52)
[2017-12-07 10:34] LABS: CHOLESTEROL/ HDL RATIO 7.19 RATIO; HDL CHOLESTEROL 30.3 MG/DL (40.0-60.0)
--- NOTE | 2017-12-07 10:42 | RADRPT ---
EXAM DATE/TIME: 12/07/2017 09:05 [facility] COMPARISON: MYOCARDIAL PERF PHARM SPECT, GATED W/EF, June 30, 2017, 14:24. INDICATIONS : Chest pain. Angina. Coronary artery disease. DOSE: 35 mCi Tc99m Myoview at stress. 11 mCi Tc99m Myoview at rest. 0.4 mg Lexiscan STRESS SYMPTOMS: None. EJECTION FRACTION: 33% MEDICAL HISTORY : Diabetes mellitus type 2. Hypertension. SURGICAL HISTORY : Hysterectomy. Coronary artery stent. Cholecystectomy. ENCOUNTER: Initial ACUITY: 1 day PAIN SCALE: 3/10 LOCATION: Bilateral chest TECHNIQUE: The patient underwent pharmacologic stress with infusion of prescribed dose. Continuous ECG tracing was monitored during stress. Gated SPECT imaging was performed after stress and conventional SPECT i maging was performed at rest. The examination was performed on a SPECT/CT scanner, both attenuation and non-corrected datasets were reviewed. FINDINGS: DISTRIBUTION: The maximum perfused segment at stress is in the mid anteroseptal wall. PERFUSION STUDY: The pattern of perfusion at stress is within normal limits. GATED STUDY: There is poor wall motion with global hypokinesis. CONCLUSION: Ejection fraction markedly decreased only 33%. No areas of obvious infarct or ischemia are noted. RISK CATEGORY: High (>3% Annual Mortality Rate) Corbin Zee MD on December 07, 2017 at 10:38 Board Certified Radiologist. This report was verified electronically.
--- NOTE | 2017-12-07 11:51 | TR ---
Date Performed: 12/07/2017 Time Performed: 09:42:25 DOCTOR: Teodoro Garcia DRUG LIST: CLINICAL HISTORY: REASON FOR TEST: REASON FOR ENDING: OBSERVATION: CONCLUSION: Lexiscan stress test was performed under standard four minute protocol. Radionucl[place] e was injected one minute prior to ending the test. No electrocardiographic abormalities were present to suggest ischemia. Nuclear imaging and interpretation are pending. COMMENTS:
--- NOTE | 2017-12-07 16:14 | ECHRPT ---
Indication: CHEST PAIN CONCLUSIONS Mildly dilated left ventricle. Wall thickness is normal. The left ventricular systolic function is severely reduced with an estimated ejection fraction in th e range of 35%. Mitral annular calcification is present. There is trace tricuspid valve regurgitation. The estimated pulmonary arterial pressure is 11 mmHg. aortic valve sclerosis BP: / HR: Rhythm: MEASUREMENTS (Male / Female) Normal Values Technical Quality: 2D ECHO LV Diastolic Diameter PLAX 5.1 cm 4.2 - 5.9 / 3.9 - 5.3 cm LV Systolic Diameter PLAX 4.4 cm IVS Diastolic Thickness 1.1 cm 0.6 - 1.0 / 0.6 - 0.9 cm LVPW Diastolic Thickness 0.8 cm 0.6 - 1.0 / 0.6 - 0.9 cm LV Relative Wall Thickness 0.4 RV Internal Dim ED PLAX 1.9 cm M-MODE Aortic Root Diameter MM 3.8 cm AV Cusp Separation MM 2.2 cm DOPPLER Mitral E Point Velocity 57.8 cm/s Mitral A Point Velocity 94.3 cm/s Mitral E to A Ratio 0.6 TR Peak Velocity 126.0 cm/s TR Peak Gradient 6.4 mmHg FINDINGS LEFT VENTRICLE Mildly dilated left ventricle. Wall thickness is normal. The left ventricular systolic function is severely reduced with an estimated ejection fraction in th e range of 35%. RIGHT VENTRICLE Normal right ventricular size and systolic function. LEFT ATRIUM The left atrial size is normal. RIGHT ATRIUM The right atrial size is normal. ATRIAL SEPTUM Normal atrial septal thickness without atrial level shunting by limited color doppler interrogation. AORTA The aortic root and proximal ascending aorta are normal in size on limited imaging. MITRAL VALVE Mitral annular calcification is present. AORTIC VALVE Trileaflet aortic valve. No aortic valve stenosis or regurgitation. TRICUSPID VALVE There is trace tricuspid valve regurgitation. The estimated pulmonary arterial pressure is 11 mmHg. PULMONARY VALVE The pulmonary valve is not well visualized. VESSELS The inferior vena cava is normal in size. PERICARDIUM No pericardial effusion. Parminder Denis MD, FACC, [facility] (Electronically Signed) Final Date:07 December 2017 16:14
[2017-12-07 16:39] LABS: HEMOGLOBIN A1C 9.1 % (4.3-6.0)
[2017-12-07] MEDS: hydrOXYzine HCL 25 MG TAB PO SCH (20:41)
[2017-12-07] MEDS: traZODone HCL 100 MG TAB PO SCH (20:41)
[2017-12-07] MEDS: ATORVASTATIN 40 MG TAB PO SCH (20:41)
[2017-12-07] MEDS: DULoxetine HCl DR 20 MG CAP PO SCH (20:41)
[2017-12-08] VITALS (15 sets, daily range): BP systolic 109–158; BP diastolic 60–93; PULSE 72–96; RESP 18–22; TEMP 97–98.6; O2SAT 95–96
[2017-12-08] MEDS: NITROGLYCERIN 2% OINT 1 GM PACKET TOPICAL SCH ×4 (02:23→17:45)
[2017-12-08] MEDS: ACETAMINOPHEN/HYDROcodone 325 MG/7.5 MG TAB PO PRN ×4 (02:23→20:44)
[2017-12-08] MEDS: MORPHINE SULFATE 2 MG/ML SYRINGE IV PUSH PRN ×5 (03:14→19:48)
[2017-12-08] MEDS ORDERED: INSULIN ASPART 1,000 UNITS/10 ML VIAL SQ ONE (08:00)
[2017-12-08] MEDS: INSULIN ASPART SUPPLEMENTAL SCALE SQ SCH ×4 (08:00→20:43)
--- NOTE | 2017-12-08 08:08 | MB ---
cc: Azael Riggins MD DATE: 12/07/2017 CHIEF COMPLAINT: Right wrist pain. HISTORY OF PRESENT ILLNESS: The patient is a 57-year-old white female who presented to [facility] on 12/06/2017, for chest pain and shortness of breath. Upon arrival, she reported that she had had a fall approximately 2 days prior and had been seen and diagnosed with a right wrist fracture and since placed in a splint. She was admitted to the hospital for chest pain and shortness of breath. Today in the room, the patient is resting comfortably and states that she has right wrist pain. She states that overall, she seems to be doing well with her chest pain and shortness of breath. She denies any dizziness. She states that the pain in her right wrist is throbbing. She reports that the splint is loose and falling off her arm. She states that is allowing her wrist to move, which is causing her significant pain. She denies any pain in her elbow or shoulder. Denies any pain in the remainder of her joints. She denies any numbness or tingling in her hand or fingers and states that the pain is localized in her wrist. REVIEW OF SYSTEMS: CARDIOVASCULAR: Positive for chest pain and the rest of it is negative except for what is in the HPI. PAST MEDICAL HISTORY: Positive for hypertension, hyperlipidemia, diabetes, diabetic neuropathy, coronary artery disease with stenting. PAST SURGICAL HISTORY: Positive for cardiac catheterization with stenting, hysterectomy, right great toe amputation, cholecystectomy and a right ankle surgery. MEDICATIONS: For a complete list of medications, please see the patient's MAR. ALLERGIES: POSITIVE FOR KETOROLAC, AMOXICILLIN AND CLAVULANIC ACID. FAMILY HISTORY: Significant for father with cancer and from a heart attack. Mother with bladder cancer. SOCIAL HISTORY: The patient is an active smoker, states she smokes 5 cigarettes a day, but has smoked a pack a day since she was 12. Denies any excessive use of alcohol. States she smokes marijuana occasionally. PHYSICAL EXAMINATION: VITAL SIGNS: Temperature 99, pulse 91, respiratory rate 20, blood pressure 151/83, O2 saturation 93. GENERAL: Well-developed, well-nourished, 57-year-old, white female resting comfortably, reporting pain. The patient does have a malodor consistent with cigarette smoke. HEAD: Normocephalic, atraumatic. EARS: Hearing intact bilaterally. EYES: Extraocular motions intact. Pupils are equal, round and reactive to light. NEUROLOGIC: Cranial nerves 2-12 are grossly intact. NECK: Supple. No evidence of lymphadenopathy. LUNGS: No use of accessory muscles while breathing. No auditory wheezes at bedside. HEART: No grade IV murmur present. ABDOMEN: Soft, nontender. MUSCULOSKELETAL: Right arm: Patient has a sugar-tong splint present on the right arm that is loose and seems to be falling off. She is able to extend her elbow with no difficulty. Her wrist is loose in the splint. She is able to move her fingers freely and has full sensation in median and ulnar nerve distribution. She has full passive and active motion of the shoulder. Left upper extremity: Full motion of the shoulder, elbow, wrist, and fingers and no pain with full sensation distally. X-RAY EXAMINATION: Two views of the forearm were reviewed from [facility], which show a slightly comminuted and well-aligned distal radius fracture that is maintaining position. LABORATORY DATA: White blood cell count 9.4, red blood cell count 4.6, hemoglobin 14, hematocrit 41, platelets 388. INR 0.9, aPTT 24.3. ASSESSMENT: Right intraarticular distal radius fracture. PLAN: Overall, the patient's fracture is well aligned and should do well with conservative measures. I informed the patient that she needs to maintain her splint at all times. She needs to remain nonweightbearing. As long as she is careful and protects her wrist, and it maintains its position, this will do well with conservative treatment. However, if it does shift, it could necessitate surgical intervention. Overall, her splint is way too loose at this time. I will order the ortho assistant to replace it with a short arm splint. She will followup with Dr. Riggins in the office in approximately a week for evaluation and recheck of her right distal radius fracture. From an orthopedic standpoint, she is cleared for discharge and will follow up in a week on an outpatient basis. The above patient was reviewed and discussed with Dr. Riggins and he agrees with the above dictation. Dictated by MICHAELA Harrison Azael Riggins MD I reviewed history, past medical history, social history, review of systems, physical exam, radiographs, assessment, and plan of care. Plan on nonoperative treatment. A mid-level provider in my office (nurse practitioner or physician operations administrative assistant) may see this patient on follow-up visits and continue to implement the objectives of this plan including: Starting or adjusting medications, injections, cast application, orthotics, brace application, physical therapy, radiological studies (including x-ray, MRI, CT, ultrasound, bone scan), vascular studies, neurologic studies, specialist consultation, and proceeding with surgical management, as appropriate. LISA/MAYELA , 05:13 PM , 05:40 PM ZEENAT
--- NOTE | 2017-12-08 08:16 | HHI.PR ---
Subjective Remarks Patient seen and examined today for follow-up on chest pain. Patient is doing well at this time. I did discuss with the patient extensively her results from the stress test, echocardiogram, conversation with cardiology. Notified her that she will require cardiac catheterization because of the significant reduction in her ejection fraction. Patient did acknowledge understanding and is in agreement with pursuing cardiac catheterization at this time. Objective Vitals Vital Signs Date Time Temp Pulse Resp B/P (MAP) Pulse Ox O2 Delivery O2 Flow Rate FiO2 12/08/17 05:22 97.2 77 20 128/84 (99) 96 12/08/17 05:21 18 12/08/17 00:00 97.4 82 22 157/93 (114) 95 12/07/17 20:55 94 21 12/07/17 20:30 83 12/07/17 20:00 99.1 88 22 147/82 (103) 96 12/07/17 15:50 99.0 91 20 151/83 (105) 93 12/07/17 11:50 97.2 84 20 136/64 (88) 95 12/07/17 08:48 79 12/07/17 08:26 94 21 I/O 12/07/17 12/07/17 12/07/17 12/08/17 12/08/17 12/08/17 07:00 15:00 23:00 07:00 15:00 23:00 Intake Total 60 ml 240 ml Balance 60 ml 240 ml Intake Oral 60 ml 240 ml # Voids 2 2 # Bowel Movements 0 Result Diagram: 12/06/17 1035 12/06/17 1035 Objective Remarks GENERAL: Well-developed, well-nourished, in no acute distress. alert and orientated HEENT: Head is normocephalic without any lesions or masses noted. Facial features are symmetric. Eyes: Extraocular muscles are intact. Conjunctivae were clear. NECK: Supple without any masses. Trachea midline no deviation. No JVD, CARDIAC: Regular rhythm, regular rate. S1/S2 are heard. No murmurs gallops or rubs. LUNGS: Clear to auscultation bilaterally. No wheeze, rhonchi or rales. No use of accessory muscles on inspiration or expiration. ABDOMEN: Soft, nontender. Nondistended. Bowel sounds heard in all 4 quadrants. No organomegaly or masses. Negative rebound, negative guarding EXTREMITIES: No edema, pulses are equal bilaterally. No cyanosis or clubbing. Right arm in splint NEUROLOGY: Mood and affect appear appropriate. Cranial nerves II through XII grossly intact. Moving all extremities, speech is clear Urinary Catheter: No Vascular Central Line Catheter: No A/P Assessment and Plan Chest pain, atypical Patient does have increased risk factors to include hypertension, hyperlipidemia, coronary disease, diabetes, tobacco use, family history of heart disease, age, body habitus Patient has been ruled out for acute coronary event with serial cardiac enzymes that have remained negative Serial EKGs were reviewed and indicated sinus rhythm without any changes Myocardial perfusion study was performed and did not indicate any ischemia, However, High risk with EF 33% Echocardiogram indicated ejection fraction 35% Continue aspirin, Nitropaste, Lopressor Consult cardiology for further recommendations secondary to worsening ejection fraction since June 2017 Discussed with cardiology patient will have cardiac catheterization done today once patient is transferred to [facility] Discussed with patient extensively her history of coronary disease, significant reduction in ejection fraction, her need to undergo cardiac catheterization. She does understand and agrees with plan Right arm pain secondary to fracture X-ray indicates comminuted intra-articular fracture of the radius and ulnar styloid fracture Continue pain control Maintain elevation Consulted orthopedist for further recommendations Hypertension Continue Lopressor 12.5 mg twice daily Add lisinopril 5 mg daily Hyperlipidemia Lipid panel performed and unable to calculate LDL Lipitor 40 mg Q HS Diabetes Accu-Cheks with sliding scale insulin Awaiting hemoglobin A1c DVT prevention Sequential compression devices Jake Pierre Dec 08, 2017 08:16
[2017-12-08] MEDS: LISINOPRIL 5 MG TAB PO SCH (08:39)
[2017-12-08] MEDS: PANTOPRAZOLE SOD 40 MG DELAYED RELEASE TAB PO SCH (08:39)
[2017-12-08] MEDS: METOPROLOL TARTRATE 25 MG TAB PO SCH ×2 (08:41→19:48)
[2017-12-08] MEDS: ASPIRIN 325 MG TAB PO SCH (08:42)
[2017-12-08] MEDS: SODIUM CHLORIDE 0.9% FLUSH 10 ML FLUSH IV FLUSH SCH ×3 (08:47→19:51)
[2017-12-08] MEDS: HEPARIN-NS/PF FLUSH BAG 2,000 ML IV FLUSH ONE ×2 (12:53→14:27)
[2017-12-08] MEDS: HEPARIN SODIUM - IV 10,000 UNITS/10 ML VIAL ONE ×2 (12:54→14:27)
[2017-12-08] MEDS: NITROGLYCERIN INJ 0 ML ONE ×2 (12:54→14:27)
[2017-12-08] MEDS: MIDAZOLAM HCL 2 MG/2 ML VIAL ONE ×4 (13:13→14:28)
[2017-12-08] MEDS ORDERED: MIDAZOLAM HCL 2 MG/2 ML VIAL IV ONE ×2 (13:19→13:25)
[2017-12-08] MEDS ORDERED: SODIUM CHLOR 0.9% 1000 ML INJ 1,000 ML IV ONE (13:28)
--- NOTE | 2017-12-08 13:39 | MB ---
cc: Parminder Denis MD DATE: 12/08/2017 HISTORY OF PRESENT ILLNESS: Odilia is a very pleasant 57-year-old lady with a history of PCI x 2 in the past, who presents with chest pain similar to the pain prior to her previous PCI and dyspnea. She also says she had a recent fracture of the right upper extremity. She is very anxious. Otherwise, denies any fevers, chills, cough, GI or bleeding, PND, orthopnea, syncope or dizziness. PAST MEDICAL HISTORY: Per history of present illness. She presented on 12/06/2017 to the emergency room in [place] complaining of chest pain. She has a history COPD, hyperlipidemia, coronary artery disease, gastritis, hypertension, kidney stones, right upper extremity fracture, ulcer, cholecystectomy, pins in the right ankle, hysterectomy, right great toe amputation. SOCIAL HISTORY: She smokes a pack of cigarettes a day. Denies alcohol use. She smokes marijuana as well. ALLERGIES: KETOROLAC, AMOXICILLIN, CLAVULANIC ACID. MEDICATIONS PRIOR TO ADMISSION: 1. Lantus. 2. Hydroxyzine. 3. NovoLog. 4. Aspirin. 5. Januvia. 6. Duloxetine 7. Trazodone. MEDICATIONS IN THE HOSPITAL: 1. Lisinopril 5 mg daily. 2. Atorvastatin 40 mg at bedtime. 3. Aspirin 325 daily. 4. Pantoprazole 40 mg daily. 5. Cymbalta 40 mg at bedtime. 6. Atarax 25 mg at bedtime. 7. Metoprolol 12.5 q. 12. 8. Half inch nitro paste q. 6 hours. PHYSICAL EXAMINATION: VITAL SIGNS: Blood pressure 158/84, pulse 85, respiration rate 19, temperature 97.0. GENERAL: She is alert and oriented x 3 in no acute distress. NECK: Supple. No JVD or bruits. CARDIOVASCULAR: S1, S2. No murmurs, rubs, or gallops. LUNGS: Clear to auscultation bilaterally. ABDOMEN: Soft, nontender, nondistended with positive bowel sounds. EXTREMITIES: No lower extremity edema. LABORATORY DATA: White count 9.4, hemoglobin 14.0, hematocrit 41.3, platelet count 388. Sodium 138, potassium 3.4, chloride 105, bicarbonate 25.0, BUN 17, creatinine 0.74, glucose 302. Hemoglobin A1c 9.1. Troponin 0.02 0.03, 0.03. Albumin 2.9. LDL was indeterminate. Triglycerides 711. INR is 0.9. She had a myocardial perfusion scan done 12/07/2017 which shows a markedly decreased ejection fraction of 33%. No areas of obvious infarct or ischemia. Risk category was rated to be high. Chest x-ray, minimal bilateral lower lung zone atelectasis. Radius ulna x-ray, comminuted intra-articular fracture of the distal radius as above and minimally displaced ulnar styloid fracture. EKG sinus tachycardia at 103 beats per minute. Nonspecific ST-T wave changes and she had an echocardiogram 12/07/2017, EF 35%, PA pressure 11 mmHg. SHE HAS THE FOLLOWING DIAGNOSES: 1. Cardiomyopathy. 2. Unstable angina. 3. Right ulnar, radial fracture. 4. Unstable angina. 5. [place] [employer] class IV angina. 6. Diabetes. 7. Coronary artery disease. 8. Tobacco use. 9. Marijuana abuse. 10. Hypokalemia. 11. Dyslipidemia. DISCUSSION: At this point in time, the patient has a significant drop in her ejection fraction from previous echo to this echo from 45% to 35%. Gated SPECT ejection fraction of 35%, cardiomyopathy, high risk nuclear stress test, unstable angina, [place] [employer] class IV angina. Therefore, right and left heart catheterization is medically necessary. The patient consents to the procedure. Further recommendations will be based on the details of her coronary anatomy and right heart catheterization pressure determinations. MD LEEANN Garcia/NIGEL , 01:16 PM , 01:38 PM
--- NOTE | 2017-12-08 13:57 | CATHPROC ---
[employer] HIS Report Study Information Study Number Admission Scheduled Start Study Start [id number] Dec 07 2017 5:07PM 12/08/2017 Dec 08 2017 12:41PM [place] Service Cardiac Catheterization Admit Source Facility Department Other [facility] - Medical Manager Physician and Clinical Staff Initial Parminder Leigh Interactive Art Director Sonali Gasca,MICHAEL Other cathlab, cathlab Recorder Xu Hodges RCIS(BS) Recorder Chen Warren BSN Scrub Hali Aguila RT(R) (BS) Procedures Performed Procedure Location (Site) Vessel Name Coronary Angiograms LCA Left Coronary Coronary Angiograms RCA Right Coronary LV Gram-hand inj. LV LV Ventricle Equipment Time Obstetrician And Gynaecologist Description Size Mfg Part Number Used/Scraped CATHETER, FR5 SWAN TYESHA 13:14 onkea JAFFE FR 5 [id number] *[id number] Used MONITOR TRANSDUCER, TRUWAVE [id number] 12:51 [employer]kea JAFFE * Used W/STOCKCOCK *[id number] [id number] *[id number] [id number] *[id number] 12:51 [employer] PACK, CCL CUSTOM * Used *[id number] 12:51 [employer] PACER PEN, SKIN DUAL W/ RULER * Used *[id number] 13:14 [employer] SHEATH, FR5.5 PRELUDE 11CM FR 5 [id number] Used [id number] 12:51 [employer] WIRE, 3MMJ .035 180CM 180CM Used *[id number] 12:51 NAMIC MANIFOLD, 4 PORT * Used *[id number] 12:51 [employer] OMNIPAQUE, 350 MG, 150ML 150ML [id number] Used [id number] 12:51 C[employer] MEDICAL BLANKET,WARM AIR CCL * Used *[id number] 12:51 [employer] MEDICAL SHEATH, FR4 TERUMO (10CM) FR 4 Used *[id number] History: Current Medications Medication Dosage/Unit Route Frequency Last Date/Time Taken NTG Patch ASA History: Allergies Allergy Reaction *MDRO Multi-Drug Resistant Organism clavulanic acid VOMITING amoxicillin VOMITING ketorolac HEADACHE History: Risk Factors Family History of Hypertension Dyslipidemia Previous OH Previous Heart Failure Premature CAD Yes Yes Yes No No Prior Valve Prior PCI Prior CABG Surgery No No No Cerebrovascular Peripheral Artery Chronic Lung On Dialysis Diabetes Diabetes Therapy Disease Disease Disease No No Yes Yes Yes Oral History: Symptoms/Diagnosis Selection Items Chest pain History: Stress Tests Stress or Imaging Studies Performed Yes Standard Exercise Stress Test No Stress Echo No Stress Test SPECT Stress Test SPECT Result Stress Test SPECT Ischemia Risk/Extent Yes Positive Unavailable Stress Test CMR No Cardiac CTA Coronary Calcium Score No No History: Other Disease Selection Items HTN History: Other Current Smoker Packs a Day Years Used Pack Years Yes 1 45 45 Labs Hgb (g/dl) Hct (%) WBC (l/cumm) Platelets (thousands) 11.60-17.00 35.00-51.00 4.00-11.00 150.00-450.00 14.0 41.3 9.4 388 Glucose (mg/dl) BUN (mg/dl) Creatinine (mg/dl) BUN:Creatinine (1:x) 74.00-106.00 7.00-18.00 0.50-1.30 10.00-20.00 302 17 0.7 24.3 Na (meq/l) K (meq/l) 136.00-145.00 3.50-5.10 138 3.4 INR (PTT:PT) 0.90-1.10 0.9 CPK-MB (ng/ML) 0.50-3.60 Not Drawn Medication Medication Total Dose (Bolus/Oral) Medication Total Dosage/Unit 1% XYLOCAINE 20 mL FENTANYL 50 mcg VERSED 3 mg Medications (Bolus/Oral) Medication Time Given Dosage/Unit Administered By Reason VERSED 12/08/2017 1:13:13 PM 1 mg Sonali Gasca 1 mg VERSED given in lab by Sonali Gasca RN in Left Forearm via Peripheral IV. Ordered by Parminder Yates. FENTANYL 12/08/2017 1:14:21 PM 25 mcg Parminder Denis 25 mcg FENTANYL given in lab by Parminder Denis in Left Forearm via Peripheral IV. VERSED 12/08/2017 1:19:49 PM 1 mg Sonali Gasca 1 mg VERSED given in lab by Sonali Gasca, MICHAEL in Left Forearm via Peripheral IV. Ordered by Parminder Yates. 1% XYLOCAINE 12/08/2017 1:21:02 PM 20 mL Parminder Denis 20 mL 1% XYLOCAINE given in lab by Parminder Denis in Right Groin via Subcutaneous. VERSED 12/08/2017 1:25:20 PM 1 mg Sonali Gasca 1 mg VERSED given in lab by Sonali Gasca, RN in Left Forearm via Peripheral IV. Ordered by Parminder Yates. FENTANYL 12/08/2017 1:27:18 PM 25 mcg Parminder Denis 25 mcg FENTANYL given in lab by Parminder Denis in Left Forearm via Peripheral IV. Medication (Drip) Medication Time Given Dosage/Unit Concentration/Unit Diluent (ml) Solution IV Solutions 12/08/2017 12:42:36 PM 0 mL (IV) 500 NaCl .9 Patient arrived on IV Solutions given by nishant dillard in Left Forearm via Peripheral IV. Pump/Dri p Flow = 20 ml/hr using NaCl .9. Initial Case Assessment Cardiovascular HR Rhythm NIBP Chest Pain 72 nsr 137/82 0 Edema Present Skin color Skin None Normal Warm Dry Circulatory - Right Pulses Dorsalis Pedis Femoral 2 2 Scale (0,1,2,3,4,d) Circulatory - Left Pulses Dorsalis Pedis Femoral 2 2 Scale (0,1,2,3,4,d) Neurological State Oriented to time-place- Alert Moves all extremities person Respiration - General Respiration Rate SpO2 (%) (B/min) 15 95 Final Case Assessment Cardiovascular HR Rhythm NIBP Chest Pain 88 nsr 102/68 0 Edema Present Skin color Skin None Normal Warm Dry Circulatory - Right Pulses Dorsalis Pedis Femoral 2 2 Scale (0,1,2,3,4,d) Circulatory - Left Pulses Dorsalis Pedis Femoral 2 2 Scale (0,1,2,3,4,d) Neurological State Oriented to time-place- Alert Moves all extremities person Respiration - General Respiration Rate SpO2 (%) (B/min) 15 90 Chronological Log Time Study Chronological Log 12:42:26 Patient arrived via Bed. 12:42:27 Patient Name, D.O.B, / Armband Verified By R.N. 12:42:29 Consent signed by the physician and the patient and verified by the Medical Manager staff. 12:42:29 Pre-op and post- op instructions given; patient acknowledges understanding of instructions. 12:42:30 Verbal Stimulation=2 Physical Stimulation=2 Airway=2 Respiration=2 TOTAL=8. (0=absent, 1=li mited, 2=present) 12:42:30 Presedation assessment performed by Medical Manager RN. 12:42:31 Immediate Presedation assesment performed by physician. 12:42:32 Patient has been NPO for More than 6Hrs. 12:42:32 Skin Breakdown- none per patient. Soft cast right arm 12:42:33 Patient Warmer Placed on the Table. 12:42:34 [place] Protected 12:42:35 A # 20 IV was noted in the Forearm (left). Grade = 0 Patient arrived on IV Solutions given by cathlab, cathlab in Left Forearm via Peripheral IV. Pu mp/Drip Flow = 20 ml/hr 12:42:36 using NaCl .9. 12:42:36 History and physical on the chart or being dictated. Vitals capture started with the following parameters, Patient=Adult, Interval=5 min, Initial Pr mgeyns=533 mmHg, 12:57:21 Deflation Rate=5 mmHg, Cuff placed on Left Arm 12:57:50 Bilateral groins prepped with 2% chlorhexidine, and draped after a 3 minute waiting time. 12:57:58 HR=80 bpm, YPMJ=513/82 mmhg, SpO2=93.0 %, Resp=15 B/min, Pain=0, Rachael=10, Prieto=2 Assessment: Initial Case, HR=72 BPM, Rhythm=nsr, HSKK=891/82 mmhg, Chest Pain=0, Edema=None, Co hever=Normal, Skin = Warm, Dry Right Pulses: Og Ped=2, Femoral=2 12:58:31 Left Pulses: Og Ped=2, Femoral=2 Neurological: State=Alert, Ox3, VASQUEZ Respiration: Resp=15 B/min, SpO2=95 % 12:58:32 Reference ECG taken 12:59:03 paged 13:00:33 MD responded 13:01:29 Pressure channel 1 zeroed. 13:02:57 HR=74 bpm, YRRB=988/74 mmhg, TxN7=688.0 %, Resp=15 B/min, Pain=0, Rachael=10, Prieto=2 13:07:54 HR=86 bpm, VTIX=803/84 mmhg, SpO2=93.0 %, Resp=12 B/min, Pain=0, Rachael=10, Prieto=2 13:08:33 MD arrived. 13:08:37 Contrast Scanned 13:08:37 Immediate Presedation assesment performed by physician. 13:12:51 KX=844 bpm, ADAR=147/86 mmhg, SpO2=94.0 %, Resp=15 B/min, Pain=0, Rachael=10, Prieto=2 13:13:13 1 mg VERSED given in lab by Sonali Gasca, RN in Left Forearm via Peripheral IV. Ordered by Parminder Denis. 13:14:21 25 mcg FENTANYL given in lab by Parminder Denis in Left Forearm via Peripheral IV. 13:17:58 HR=84 bpm, DROE=821/75 mmhg, SpO2=92.0 %, Resp=10 B/min, Pain=0, Rachael=10, Prieto=2 13:19:49 1 mg VERSED given in lab by Sonali Gasca, RN in Left Forearm via Peripheral IV. Ordered by Parminder Denis. Time Out. Correct patient, correct procedure, correct physician, power injector not loaded with contrast with surgical 13:20:16 team present. Time Out Concurred by MD and individual staff in procedure. 13:20:24 Case Start 13:20:24 Verbal Stimulation=2 Physical Stimulation=2 Airway=2 Respiration=2 TOTAL=8. (0=absent, 1=li mited, 2=present) 13:21:02 20 mL 1% XYLOCAINE given in lab by Parminder Denis in Right Groin via Subcutaneous. 13:21:44 Access site was Right Femoral Artery. 13:21:49 A SHEATH, FR4 TERUMO (10CM) FR 4 was advanced into the Fem Art (right) using the Percutaneo us technique. 13:22:15 Saturation: Site=Ao (Aorta) , O2=94.1 %, Hgb=14 gm/dl, Condition=Condition 1. [facility]. 13:22:53 HR=89 bpm, EVZY=756/64 mmhg, SpO2=89.0 %, Resp=12 B/min 13:23:36 Access site was Right Femoral Vein. 13:23:39 A SHEATH, FR5.5 PRELUDE 11CM FR 5 was advanced into the Fem Vein (right) using the Percutan eous technique. 13:23:44 A CATHETER, FR5 SWAN TYESHA MONITOR FR 5 was inserted via Fem Vein (right) 13:25:20 1 mg VERSED given in lab by Sonali Gasca, MICHAEL in Left Forearm via Peripheral IV. Ordered by Parminder Denis. Recorded Pressure: PCW, HR=83, Condition=Condition 1 13:25:32 (Pulmonary Capillary Wedge) PCW 07/25/10 Recorded Pressure: MPA, HR=85, Condition=Condition 1 13:25:49 (Main Pulmonary Artery) MPA 07/06/16 13:25:59 Saturation: Site=PA (Pulmonary Artery) , O2=72.9 %, Hgb=14 gm/dl, Condition=Condition 1. Us ed in calculation. Recorded Pressure: RV, HR=88, Condition=Condition 1 13:26:53 (Right Ventricle) RV 29/2/4 Recorded Pressure: RA, HR=86, Condition=Condition 1 13:27:10 (Right Atrium) RA 2/0/0 13:27:18 25 mcg FENTANYL given in lab by Parminder Denis in Left Forearm via Peripheral IV. 13:27:31 [place] Tyesha Catheter Removed 13:27:52 HR=87 bpm, WGCN=570/68 mmhg, SpO2=90.0 %, Resp=18 B/min A JR 4.0 INFINITI CATHETER FR 4 was advanced over a wire. OMNIPAQUE, 350 MG, 150ML 150ML was u sed for 13:28:30 injections. Recorded Pressure: LV, HR=82, Condition=Condition 1 13:28:36 (Left Ventricle) LV 56/13/18 13:28:38 The LV was manually injected with 10 cc's and visualized. OMNIPAQUE, 350 MG, 150ML 150ML u sed. Recorded Pressure: LV, Ao, HR=83, Condition=Condition 1 13:28:49 (Left Ventricle) LV 96/2/5, (Aorta) Ao 90/57/72 13:29:14 The RCA was injected and visualized at various angles. OMNIPAQUE, 350 MG, 150ML 150ML use d. Recorded Pressure: Ao, HR=85, Condition=Condition 1 13:29:22 (Aorta) Ao 90/62/75 13:29:46 Catheter was removed A JL 4.0 INFINITI CATHETER FR 4 was advanced over a wire. OMNIPAQUE, 350 MG, 150ML 150ML was u sed for 13:29:48 injections. 13:30:39 The LCA was injected and visualized at various angles. OMNIPAQUE, 350 MG, 150ML 150ML use d. 13:31:43 Catheter was removed 13:31:52 Case End Assessment: Final Case, HR=88 BPM, Rhythm=nsr, ZARA=293/68 mmhg, Chest Pain=0, Edema=None, Col or=Normal, Skin = Warm, Dry Right Pulses: Og Ped=2, Femoral=2 13:32:01 Left Pulses: Og Ped=2, Femoral=2 Neurological: State=Alert, Ox3, VASQUEZ Respiration: Resp=15 B/min, SpO2=90 % 13:32:23 Catheter(s) removed without difficulty 13:32:25 No case complications noted. 13:32:25 Cine recording checked. 13:32:27 Bedside Report will be given. 13:32:29 Verbal Stimulation=2 Physical Stimulation=2 Airway=2 Respiration=2 TOTAL=8. (0=absent, 1=l imited, 2=present) 13:32:41 A Left and Right Heart Cath was performed. 13:32:51 HR=89 bpm, FPIF=040/79 mmhg, SpO2=90.0 %, Resp=18 B/min, Pain=0, Rachael=10, Prieto=2 13:35:30 Sheath(s) left in place, will be removed on the floor 13:38:39 MZSM=213/76 mmhg End Study - Contrast Media Used In Study Contrast Total Opened (mL) Total Used (mL) Total Wasted (mL) Omnipaque 20 20 0 End Study - Maximum Contrast Load Max Contrast Load (mL) 724.4 End Study - Radiation Exposure Fluoro Time (minutes) 1.4 End Study - Patient Disposition Complications Transferred To Interventional Outcome No Telemetry Bed No attempt made
[2017-12-08] MEDS ORDERED: BACITRACIN OINT 0.9 GM PKT TOP ONE (14:00)
[2017-12-08] MEDS ORDERED: MISC INFORMATION XX ONE (14:00)
[2017-12-08] MEDS ORDERED: SODIUM CHLORIDE 0.9% FLUSH 10 ML FLUSH IV FLUSH PRN (14:00)
[2017-12-08] MEDS: IOHEXOL 350 MG/ML 50 ML BTL (for Cath Lab) OTHER ONE ×2 (14:13→14:28)
--- NOTE | 2017-12-08 14:21 | MA ---
cc: Parminder Denis MD DATE: 12/08/2017 PROCEDURE PERFORMED: Right heart catheterization, left heart catheterization, left ventriculography, coronary angiography. INDICATION FOR PROCEDURE: High risk nuclear stress test, gated SPECT, ejection fraction 33%, coronary artery disease, status post PCI x 2, unstable angina, [place] Cardiovascular Society class IV angina, decompensated congestive heart failure, [place] Heart Association class IV congestive heart failure, tobacco use, diabetes mellitus. DESCRIPTION OF PROCEDURE: The patient was brought to the cardiac catheterization laboratory, prepped and draped in the usual sterile fashion and 10 mL of 1% lidocaine was used to local anesthetize the right common femoral artery and right common femoral vein area. A 4-Ugandan sheath placed in the right common femoral artery, 5.5-Ugandan sheath placed in the right common femoral vein. Right heart catheterization was performed first with the following findings: Pulmonary capillary wedge pressure 12/11-10, PA pressure 24/10-16, RV pressure 29/2-4, RA pressure 2/0-0. Left heart catheterization was then performed with a 4-Ugandan JR4, JL4 catheter with the following findings: LV pressure is 96/2-5, EF 35%, global hypokinesis. The right coronary artery is dominant. The mid right has a 20-30% stenosis. The right PDA has an ostial 40-50 percent stenosis. The left main coronary artery is long and has a distal tapering to about 20-30% angiographically. The LAD is transapical. There is approximately 80-100 mm of stent in the proximal segment, which is widely patent. The first diagonal artery is a 1.5 mm vessel, which is jailed by the stents, but there is LILY 3 flow. There is 70% disease in the proximal segment. The reference vessel diameter is 0.5 mm in diameter. The second diagonal artery is also jailed and has an ostial proximal 50% stenosis. Reference vessel diameter 2-5 mm in diameter. After the second diagonal artery, there is a 20% in-stent stenosis. The remainder of the LAD has no significant disease angiographically. The ramus intermedius vessel was a small vessel, 1-1.5 mm reference vessel diameter. No significant disease angiographically. Left circumflex vessel is a large vessel, which is very tortuous in the proximal segment. Off the left main, there is a 130 degree bend, followed by a secondary 70% bend. At that bend, there is 50% stenosis, reference vessel diameter of 4 mm in diameter. After this bend, there is a large obtuse marginal vessel with a proximal 20% stenosis. There is a bifurcation in the proximal mid segment. The more medial branch is a small vessel, reference vessel diameter of 1 mm, ostial 50 percent stenosis. The more lateral branch is a large reference vessel, diameter 4 mm with an ostial proximal 30% stenosis. The remainder of the AV groove left circumflex vessel has no significant disease angiographically. CONCLUSION: 1. Severe ostial proximal disease in the first diagonal artery, which is a 0.5 mm vessel. Otherwise, mild to moderate 3-vessel coronary artery disease in a right dominant system. 2. Widely patent stents in the proximal mid left anterior descending as detailed above. 3. Severe left ventricular systolic dysfunction of 35%. 4. Normal right heart catheterization pressures as detailed above with actually slightly diminished pressures. 5. By Joanne, the cardiac output is 6.4 liters per minute, cardiac index is 3.1 liters/m2 per minute, SVR 936.0 dynes. On room air, the FA sat is 94.1%, PA sat 72.9%. RECOMMENDATIONS: 1. Medical management of coronary artery disease, cardiac risk factor modification. Also, will need to be on optimal medical therapy for nonischemic cardiomyopathy. We will also treat lipids to NCEP guidelines provided there are no clinical contraindications. 2. Strongly recommend smoking cessation. MD LEEANN Garcia/JONATHAN , 01:50 PM , 02:20 PM
[2017-12-08] MEDS ORDERED: oxyCODONE/ACETAMINOPHEN 5 MG/325 MG TAB PO ONE (18:45)
[2017-12-08] MEDS: ATORVASTATIN 40 MG TAB PO SCH (19:47)
[2017-12-08] MEDS: traZODone HCL 100 MG TAB PO SCH (19:47)
[2017-12-08] MEDS: hydrOXYzine HCL 25 MG TAB PO SCH (20:02)
[2017-12-08] MEDS: DULoxetine HCl DR 20 MG CAP PO SCH (20:02)
[2017-12-09] VITALS (13 sets, daily range): BP systolic 117–126; BP diastolic 66–80; PULSE 70–85; RESP 19–20; TEMP 98–98.2; O2SAT 95
[2017-12-09] MEDS: NITROGLYCERIN 2% OINT 1 GM PACKET TOPICAL SCH ×2 (00:57→06:23)
[2017-12-09] MEDS: MORPHINE SULFATE 2 MG/ML SYRINGE IV PUSH PRN ×2 (00:59→06:23)
[2017-12-09] MEDS: ACETAMINOPHEN/HYDROcodone 325 MG/7.5 MG TAB PO PRN (03:40)
[2017-12-09] MEDS: METOPROLOL TARTRATE 25 MG TAB PO SCH (08:34)
[2017-12-09] MEDS: LISINOPRIL 5 MG TAB PO SCH (08:34)
[2017-12-09] MEDS: ASPIRIN 325 MG TAB PO SCH (08:34)
[2017-12-09] MEDS: PANTOPRAZOLE SOD 40 MG DELAYED RELEASE TAB PO SCH (08:34)
[2017-12-09] MEDS: SODIUM CHLORIDE 0.9% FLUSH 10 ML FLUSH IV FLUSH SCH ×2 (08:35→10:18)
[2017-12-09] MEDS: INSULIN ASPART SUPPLEMENTAL SCALE SQ SCH (08:36)
--- NOTE | 2017-12-09 09:31 | HHI.PR ---
Subjective Remarks Patient currently denies any chest pains however she states earlier this morning she had some. Denies any shortness of breath. Denies any nausea or vomiting. Complains of pain in her arm and would like increasing her pain medication. Objective Vitals Vital Signs Date Time Temp Pulse Resp B/P (MAP) Pulse Ox O2 Delivery O2 Flow Rate FiO2 12/09/17 08:05 98.2 75 19 126/80 (95) 95 12/09/17 06:35 19 12/09/17 06:30 81 12/09/17 05:09 73 12/09/17 04:46 19 12/09/17 04:00 72 12/09/17 03:36 98.0 85 20 117/66 (83) 95 12/09/17 03:00 77 12/09/17 02:00 70 12/09/17 01:00 82 12/09/17 00:33 77 12/08/17 23:24 98.6 82 21 122/60 (80) 96 12/08/17 23:00 72 12/08/17 22:00 82 12/08/17 21:00 88 12/08/17 20:00 86 12/08/17 20:00 19 12/08/17 19:55 98.4 84 19 118/84 (95) 95 12/08/17 19:00 91 12/08/17 18:05 96 12/08/17 17:08 91 12/08/17 16:23 82 12/08/17 15:20 87 12/08/17 15:20 98.2 81 18 109/70 (83) 96 12/08/17 14:08 79 I/O 12/08/17 12/08/17 12/08/17 12/09/17 12/09/17 12/09/17 07:00 15:00 23:00 07:00 15:00 23:00 Intake Total 240 ml 0 ml 240 ml 240 ml Output Total 400 ml Balance 240 ml 0 ml 240 ml -160 ml Intake Oral 240 ml 0 ml 240 ml 240 ml Output Urine Total 400 ml # Voids 2 1 # Bowel Movements 1 Result Diagram: 12/06/17 1035 12/06/17 1035 Imaging Last Impressions Myocardial Perfusion Scan Nuc Med 12/07/17 0600 Signed Impressions: Service Date/Time: Thursday, December 07, 2017 09:05 - CONCLUSION: Ejection fraction markedly decreased only 33%%. No areas of obvious infarct or ischemia are noted. RISK CATEGORY: High (>3%% Annual Mortality Rate) Corbin Zee MD Chest X-Ray 12/06/17 1044 Signed Impressions: Service Date/Time: Wednesday, December 06, 2017 10:47 - CONCLUSION: Minimal bilateral lower lung zone atelectasis. No other acute cardiopulmonary disease identified. Kendall Humphreys MD Radius/Ulna X-Ray 12/06/17 0000 Signed Impressions: Service Date/Time: Wednesday, December 06, 2017 18:17 - CONCLUSION: Comminuted intra-articular fracture of the distal radius as above and a minimally displaced ulnar styloid fracture. Sachin Watson MD Objective Remarks GENERAL: Sitting up in bed CARDIAC: Regular rhythm, regular rate. No murmur LUNGS: Clear to auscultation bilaterally. No wheezes ABDOMEN: Soft, nontender. Nondistended. Bowel sounds heard in all 4 quadrants. EXTREMITIES: No edema. Right arm in splint NEUROLOGY: Moving all extremities, speech is clear A/P Problem List: (1) Chest pain ICD Code: R07.9 - Chest pain, unspecified Status: Acute Assessment and Plan Chest pain, atypical Patient does have increased risk factors to include hypertension, hyperlipidemia, coronary disease, diabetes, tobacco use, family history of heart disease, age, body habitus serial cardiac enzymes that have remained negative Myocardial perfusion study was performed and did not indicate any ischemia, However, High risk with EF 33% Echocardiogram indicated ejection fraction 35% Continue aspirin, Nitropaste, Lopressor Status post cardiac cath showing mild to moderate three-vessel coronary artery disease with right dominant. EF of 35%. Cardiology following. Appreciate input. Right arm pain secondary to fracture X-ray indicates comminuted intra-articular fracture of the radius and ulnar styloid fracture I will adjust pain medication the patient currently has pain. Maintain elevation Orthopedic surgery has been consulted. Appreciate recommendations Hypertension Continue Lopressor 12.5 mg twice daily lisinopril 5 mg daily Hyperlipidemia Lipid panel performed and unable to calculate LDL Lipitor 40 mg Q HS, low-fat diet recommended Diabetes Accu-Cheks with sliding scale insulin hemoglobin A1c 9.1 Patient states that at home she takes Humalog 70/30 40 units in the morning and 20 units at bedtime and Lantus 20 units at bedtime. Resume Lantus at bedtime for now. Await further recommendations from orthopedic surgery. Continue to cover with low-dose sliding scale. DVT prevention Sequential compression devices Discharge Planning awaiting final recs from ritu and Sue Kaiser MD Dec 09, 2017 09:31
[2017-12-09] MEDS ORDERED: ACETAMINOPHEN/HYDROcodone 325 MG/7.5 MG TAB PO PRN (09:45)
[2017-12-09] MEDS ORDERED: LISI-519 PO (10:15)
[2017-12-09] MEDS ORDERED: ASA325 PO (10:15)
[2017-12-09] MEDS ORDERED: HYDR-3580 PO (10:15)
[2017-12-09] MEDS ORDERED: ATOR40TA16 PO (10:15)
[2017-12-09] MEDS ORDERED: METO25TA3 PO (10:15)
--- NOTE | 2017-12-09 10:18 | HHI.DS ---
Discharge Summary Admission Date Dec 07, 2017 at 17:07 Discharge Date: Dec 09, 2017 Admitting Diagnosis CHEST PAIN (1) Chest pain ICD Code: R07.9 - Chest pain, unspecified Diagnosis: Principal Status: Acute Procedures Cardiac cath Brief History - From Admission 57-year-old female with known history of hypertension, hyper lipidemia , coronary disease, diabetes who was noted to the hospital because of chest discomfort. Patient states that she did fall 2 days ago and injured her right upper extremity with fracture. She is wearing a splint at this time. She was told to follow-up with orthopedist which is not for another 2 weeks. She was doing well until this morning approximately 6 AM when she developed pain in the center part of her chest that radiated into her neck which she described as a 8/ 10 on a pain scale which remained constant. She had some mild nausea. Denied any shortness of breath, dyspnea, dizziness, diaphoresis. Because of her history of coronary artery disease and stenting she decided to come to the hospital for evaluation. On her way to the hospital she did drink a Mountain Dew. Upon entering the room she started to cry because of the pain that she is experiencing, it was difficult to obtain from the patient at the pain was from her arm or her chest. She states that she was given Dilaudid for pain in the emergency department with only minimal relief of her arm pain but no relief of her chest pain. Patient states that she just had cardiac stenting done by Dr. Pardo about a year ago. Records indicate that she just had cardiac workup with stress test done June 2017. The stress test did indicate intermediate risk with fixed perfusion defect involving the anterior septal wall. Patient states that she has not had any cardiology follow-up since her stenting because of her insurance. It was recommended by ER physician that the patient be observed in the chest pain center for further evaluation and management. CBC/BMP: 12/06/17 1035 12/06/17 1035 Significant Findings Laboratory Tests Test 12/06/17 10:35 12/06/17 13:50 12/06/17 16:40 12/07/17 05:27 Neutrophils (%) (Auto) 73.5 % (16.0-70.0) Prothrombin Time 9.6 SEC (9.8-11.6) Random Glucose 302 MG/DL (74-106) Albumin 2.9 GM/DL (3.4-5.0) Aspartate Amino Transf (AST/SGOT) 9 U/L (15-37) Potassium Level 3.4 MEQ/L (3.5-5.1) Estimat Glomerular Filtration Rate 81 ML/MIN (>89) Hemoglobin A1c 9.1 % (4.3-6.0) Triglycerides Level 711 MG/DL (42-150) Cholesterol Level 218 MG/DL (120-200) HDL Cholesterol 30.3 MG/DL (40.0-60.0) Imaging Last Impressions Myocardial Perfusion Scan Nuc Med 12/07/17 0600 Signed Impressions: Service Date/Time: Thursday, December 07, 2017 09:05 - CONCLUSION: Ejection fraction markedly decreased only 33%%. No areas of obvious infarct or ischemia are noted. RISK CATEGORY: High (>3%% Annual Mortality Rate) Corbin Zee MD Chest X-Ray 12/06/17 1044 Signed Impressions: Service Date/Time: Wednesday, December 06, 2017 10:47 - CONCLUSION: Minimal bilateral lower lung zone atelectasis. No other acute cardiopulmonary disease identified. Kendall Humphreys MD Radius/Ulna X-Ray 12/06/17 0000 Signed Impressions: Service Date/Time: Wednesday, December 06, 2017 18:17 - CONCLUSION: Comminuted intra-articular fracture of the distal radius as above and a minimally displaced ulnar styloid fracture. Sachin Watson MD PE at Discharge GENERAL: Sitting up in bed CARDIAC: Regular rhythm, regular rate. No murmur LUNGS: Clear to auscultation bilaterally. No wheezes ABDOMEN: Soft, nontender. Nondistended. Bowel sounds heard in all 4 quadrants. EXTREMITIES: No edema. Right arm in splint NEUROLOGY: Moving all extremities, speech is clear Hospital Course Patient was admitted for chest pain, atypical Patient does have increased risk factors to include hypertension, hyperlipidemia, coronary disease, diabetes, tobacco use, family history of heart disease, age, body habitus serial cardiac enzymes that have remained negative Myocardial perfusion study was performed and did not indicate any ischemia, However, High risk with EF 33% Echocardiogram indicated ejection fraction 35% Continue Lopressor, lisinopril, aspirin, Lipitor. Prescriptions in chart Status post cardiac cath showing mild to moderate three-vessel coronary artery disease with right dominant. EF of 35%. Cardiology following. Discussed with Dr. Denis and he has cleared patient for discharge. Right arm pain secondary to fracture X-ray indicates comminuted intra-articular fracture of the radius and ulnar styloid fracture I will adjust pain medication the patient currently has pain. Maintain elevation Orthopedic surgery did evaluate the patient recommend nonoperative management at this time. Recommend keeping arm in the splint at all times and nonweightbearing Pt Condition on Discharge: Stable Discharge Disposition: Discharge Home Discharge Time: > 30 minutes Discharge Instructions DIET: Follow Instructions for: Heart Healthy Diet, Diabetic Diet, Low Fat Diet Activities you can perform: See Additionl Instruction Other Activity Instructions: wear splint at all times and non weight bearing Follow up Referrals: Cardiology - 1 Week Orthopedics - 1 Week @ [facility] with Azael Riggins MD PCP Follow-up - 1 Week New Medications: Aspirin (Px Aspirin) 325 Mg Tab 325 MG PO DAILY, #30 TAB Atorvastatin (Atorvastatin) 40 Mg Tab 40 MG PO HS, #30 TAB Hydrocodone/Acetaminophen (Hydrocodone-Acetamin 7.5-325) 7.5 Mg-325 Mg Tablet 1 TAB PO Q4-6H PRN for PAIN SCALE 6 TO 10, #30 Lisinopril (Lisinopril) 5 Mg Tab 5 MG PO DAILY, #30 TAB Metoprolol Tartrate (Metoprolol Tartrate) 25 Mg Tab 12.5 MG PO Q12HR, #30 TAB Continued Medications: Duloxetine DR (Duloxetine DR) 40 Mg Capdr 40 MG PO HS, #30 CAP 0 Refills Hydroxyzine HCl (Hydroxyzine HCl) 25 Mg Tab 25 MG PO HS, TAB 0 Refills Insulin Aspart Protam-Asp 70-30 Inj (Novolog Mix 70-30 FlexPen Inj) 300 Unit/3 Ml Pen 40 UNITS SQ DAILY for Blood Sugar Management, #1 PEN 0 Refills Insulin Aspart Protam-Asp 70-30 Inj (Novolog Mix 70-30 FlexPen Inj) 300 Unit/3 Ml Pen 20 UNITS SQ HS for Blood Sugar Management, #1 PEN 0 Refills Insulin Glargine Inj (Lantus Inj) 1,000 Unit/10 Ml Vial 20 UNITS SQ HS for Blood Sugar Management, VIAL 0 Refills Omeprazole (Omeprazole) 40 Mg Cap 40 MG PO DAILY, #14 CAP 0 Refills Sitagliptin (Januvia) 100 Mg Tab 100 MG PO HS for Blood Sugar Management, #30 TAB 0 Refills Trazodone (Trazodone) 100 Mg Tablet 100 MG PO HS for Control Depression, #30 TAB 0 Refills Discontinued Medications: Aspirin (Aspirin) 81 Mg Chew 81 MG PO DAILY, TAB 0 Refills Sue Ponce MD Dec 09, 2017 10:18
--- NOTE | 2017-12-09 10:38 | PD.CARD.PN ---
Subjective Subjective Remarks feels better, in nad Objective Medications Current Medications Medications (Trade) Dose Ordered Sig/Sierra Route Start Time Stop Time Status Last Admin (Tylenol) 500 mg Q4H PRN PO 12/06/17 12:15 12/07/17 18:48 (Zofran Inj) 4 mg Q6H PRN IV PUSH 12/06/17 12:15 (Nitrostat Sl) 0.4 mg Q5M PRN SL 12/06/17 12:15 (Aspirin) 325 mg DAILY PO 12/07/17 09:00 12/09/17 08:34 (D50w (Vial) Inj) 50 ml UNSCH PRN IV PUSH 12/06/17 12:15 (Glucagon Inj) 1 mg UNSCH PRN OTHER 12/06/17 12:15 (NovoLOG SUPPLEMENTAL SCALE) 1 ACHS SLIDING SCALE SQ 12/06/17 17:00 12/09/17 08:36 (Cymbalta Dr) 40 mg HS PO 12/06/17 21:00 12/08/17 20:02 (Atarax) 25 mg HS PO 12/06/17 21:00 12/08/17 20:02 (Protonix) 40 mg DAILY PO 12/07/17 09:00 12/09/17 08:34 (Desyrel) 100 mg HS PO 12/06/17 21:00 12/08/17 19:47 ([place] 5-325 Mg) 1 tab Q6H PRN PO 12/06/17 13:30 (Nitroglycerin 2% Oint) 0.5 inch Q6HR TOPICAL 12/06/17 13:45 12/09/17 06:23 (Lopressor) 12.5 mg Q12HR PO 12/06/17 14:00 12/09/17 08:34 (Pill Splitter) 1 ea UNSCH PRN OTHER 12/06/17 14:15 (Morphine Inj) 2 mg Q4H PRN IV PUSH 12/06/17 18:15 12/09/17 06:23 (Lipitor) 40 mg HS PO 12/07/17 21:00 12/08/17 19:47 (Prinivil) 5 mg DAILY PO 12/08/17 09:00 12/09/17 08:34 (NS Flush) 2 ml BID IV FLUSH 4/26/18 21:00 12/09/17 10:18 (NS Flush) 2 ml UNSCH PRN IV FLUSH 12/08/17 14:00 (Levemir Inj) 20 units HS SQ 12/09/17 21:00 ([place] 7.5-325 Mg) 1 tab Q4H PRN PO 12/09/17 09:45 12/09/17 10:16 Vital Signs / I&O Vital Signs Date Time Temp Pulse Resp B/P (MAP) Pulse Ox O2 Delivery O2 Flow Rate FiO2 12/09/17 08:05 98.2 75 19 126/80 (95) 95 12/09/17 06:35 19 12/09/17 06:30 81 12/09/17 05:09 73 12/09/17 04:46 19 12/09/17 04:00 72 12/09/17 03:36 98.0 85 20 117/66 (83) 95 12/09/17 03:00 77 12/09/17 02:00 70 12/09/17 01:00 82 12/09/17 00:33 77 12/08/17 23:24 98.6 82 21 122/60 (80) 96 12/08/17 23:00 72 12/08/17 22:00 82 12/08/17 21:00 88 12/08/17 20:00 86 12/08/17 20:00 19 12/08/17 19:55 98.4 84 19 118/84 (95) 95 12/08/17 19:00 91 12/08/17 18:05 96 12/08/17 17:08 91 12/08/17 16:23 82 12/08/17 15:20 87 12/08/17 15:20 98.2 81 18 109/70 (83) 96 12/08/17 14:08 79 I/O 12/08/17 12/08/17 12/08/17 12/09/17 12/09/17 12/09/17 07:00 15:00 23:00 07:00 15:00 23:00 Intake Total 240 ml 0 ml 240 ml 240 ml Output Total 400 ml Balance 240 ml 0 ml 240 ml -160 ml Intake Oral 240 ml 0 ml 240 ml 240 ml Output Urine Total 400 ml # Voids 2 1 # Bowel Movements 1 Physical Exam GENERAL: SKIN: Warm and dry. HEAD: Normocephalic. EYES: No scleral icterus. No injection or drainage. NECK: Supple, trachea midline. No JVD or lymphadenopathy. CARDIOVASCULAR: Regular rate and rhythm without murmurs, gallops, or rubs. RESPIRATORY: Breath sounds equal bilaterally. No accessory muscle use. GASTROINTESTINAL: Abdomen soft, non-tender, nondistended. MUSCULOSKELETAL: No cyanosis, or edema. BACK: Nontender without obvious deformity. No CVA tenderness. Assessment and Plan Problem List: (1) Cardiomyopathy ICD Codes: I42.9 - Cardiomyopathy, unspecified (2) Chest pain ICD Codes: R07.9 - Chest pain, unspecified Status: Acute (3) Anxiety ICD Codes: F41.9 - Anxiety Status: Chronic (4) Diabetes mellitus ICD Codes: E11.9 - Diabetes mellitus Status: Chronic (5) CAD (coronary artery disease) ICD Codes: I25.10 - Atherosclerotic heart disease of [place] coronary artery without angina pectoris (6) Tobacco abuse ICD Codes: Z72.0 - Tobacco abuse Status: Chronic (7) H/O heart artery stent ICD Codes: Z95.5 - Presence of coronary angioplasty implant and graft Assessment and Plan 1.) Cardiomyopathy - continue lisinopril, lopressor 2.) CAD - patent stents in lad, continue aspirin, lipitor, dc tobacco Parminder Denis MD Dec 09, 2017 10:38
[2017-12-09] MEDS ORDERED: INSULIN DETEMIR 100 UNITS/ML VIAL SQ SCH (21:00)
== END 2017-12-09 12:03 | disposition home or self-care (01) | DRG 287 ==
LOC: PHED 10:22 → PHEDA 11:49 → PH3B 13:22 → OBSVTOIN 12-07 17:07 → HDIC 12-08 10:15 → HCIS 12-08 13:49
PROVIDERS: ADMIT Hospitalist; ATTEND Hospitalist
PROC: B2151ZZ Fluoroscopy of Left Heart using Low Osmolar Contrast (ICD-10-PCS; 2017-12-08)
PROC: B2111ZZ Fluoroscopy of Multiple Coronary Arteries using Low Osmolar Contrast (ICD-10-PCS; 2017-12-08)
PROC: 4A023N8 Measurement of Cardiac Sampling and Pressure, Bilateral, Percutaneous Approach (ICD-10-PCS; principal; 2017-12-08 13:00)
DX: I25.110 Atherosclerotic heart disease of native coronary artery with unstable angina pectoris (principal); I42.9 Cardiomyopathy, unspecified; J98.11 Atelectasis; I10 Essential (primary) hypertension; E78.5 Hyperlipidemia, unspecified; E11.9 Type 2 diabetes mellitus without complications; F17.210 Nicotine dependence, cigarettes, uncomplicated; F41.9 Anxiety disorder, unspecified; F12.90 Cannabis use, unspecified, uncomplicated; E87.6 Hypokalemia; S52.501D Unspecified fracture of the lower end of right radius, subsequent encounter for closed fracture with routine healing; S52.251D Displaced comminuted fracture of shaft of ulna, right arm, subsequent encounter for closed fracture with routine healing; Z88.1 Allergy status to other antibiotic agents; Z88.8 Allergy status to other drugs, medicaments and biological substances; Z79.82 Long term (current) use of aspirin; Z79.4 Long term (current) use of insulin; Z79.891 Long term (current) use of opiate analgesic; Z79.899 Other long term (current) drug therapy; Z89.411 Acquired absence of right great toe; Z95.5 Presence of coronary angioplasty implant and graft
CPT/HCPCS: 71045; 73090; 76937; 78452; 80053; 80061; 82550; 82552; 82810; 82948; 83036; 84484; 85025; 85610; 85730; 93005; 93017; 93306; 93452; 93460; 99152; A9502; C1769; C1893; J1170; J1644; J1815; J2250; J2270; J2405; J2785; J3010; Q9967

== ENCOUNTER 2017-12-17 10:37 | Emergency (ER) | payer OTHER ==
[~2017-12-17] VITALS: Ht 165.1 cm; Wt 99.0 kg
[~2017-12-17 10:37] MED LIST changes: +ASA325 PO; -ASPI-516 PO; -BACT800T5 PO; -CARA1SUS3 PO; +HYDR-3580 PO; -IBUP-232 PO; +LANTUS2P SQ; -LISI-515 PO; +LISI-519 PO; +METO25TA3 PO; -PANT40TA3 PO; -PERC10TA27 PO; -PROM2SUP RECTAL; -ZOFR4TAB3 SL
[2017-12-17] MEDS ORDERED: IOHEXOL 350 MG/ML 10 ML VIAL (for RAD DIAG) IVCONTRAST ONE (10:38)
[2017-12-17 10:44] VITALS: BP 129/77; PULSE 104; RESP 16; TEMP 98.7; O2SAT 96
[2017-12-17 11:00] VITALS: RESP 16; O2SAT 97
[2017-12-17] MEDS ORDERED: ACETAMINOPHEN/HYDROcodone 325 MG/5 MG TAB PO ONE (11:00)
[2017-12-17] MEDS ORDERED: SODIUM CHLORIDE 0.9% FLUSH 10 ML FLUSH IVF PRN (11:00)
--- NOTE | 2017-12-17 11:16 | PD ---
HPI Chief Complaint: Cardiac Complaint Time Seen by Provider: 10:59 Travel History International Travel<30 days: No Contact w/Intl Traveler<30days: No Traveled to known affect area: No History of Present Illness HPI 57-year-old female presents with right-sided sharp chest pain that she feels is related to her arm and she is out of her pain medication. She confirms she is recently here in the hospital with extensive workup and her heart was okay other than it pumped a little bit slow. She states that the number was 33%. She states the pain has been ongoing. Quality is sharp. Severity is moderate. Pain is worse with movement. She denies other modifying factors. She denies any other concurrent complaints. She states she is having a hard time getting in with an orthopedic and cardiology physician as an outpatient. PFSH Past Medical History Arthritis: No Asthma: No Anxiety: Yes Depression: Yes Heart Rhythm Problems: No Cancer: No Cardiac Catheterization: Yes Cardiovascular Problems: Yes High Cholesterol: Yes (quit medications) Chemotherapy: No Chest Pain: No Congestive Heart Failure: No COPD: Yes Cerebrovascular Accident: No Coronary Artery Disease: Yes Diabetes: Yes Patient Takes Glucophage: No Diminished Hearing: No Endocrine: Yes Gastrointestinal Disorders: Yes (Gastritis) GERD: Yes Genitourinary: No Hiatal Hernia: No Hypertension: Yes Implanted Vascular Access Dvce: Yes Kidney Stones: Yes Neurologic: Yes (peripheral neuropathy) Psychiatric: Yes Reproductive: No Respiratory: Yes Immunizations Current: Yes Migraines: No Radiation Therapy: No Renal Failure: No Seizures: No Sleep Apnea: No Thyroid Disease: No Ulcer: Yes Tetanus Vaccination: > 5 Years Menopausal: Yes Past Surgical History Abdominal Surgery: Yes (cholecystectomy) Body Medical Devices: pins in rt ankle Cardiac Surgery: Yes (stents) Cholecystectomy: Yes Coronary Artery Bypass Graft: No Coronary Stent: Yes (X2) Ear Surgery: No Endocrine Surgery: No Eye Surgery: Yes Genitourinary Surgery: Yes Gynecologic Surgery: Yes (HYSTERECTOMY ) Hysterectomy: Yes Oral Surgery: No Thoracic Surgery: No Other Surgery: Yes (RIGHT GREAT TOE AMPUTATION) Family History Family Myocardial Infarction: Yes (FATHER) Social History Alcohol Use: No Tobacco Use: Yes (1 PPD) Substance Use: Yes (MARIJUANA 2x week for sleep aid) Allergies-Medications (Allergen,Severity, Reaction): Coded Allergies: ketorolac (Verified Allergy, Intermediate, HEADACHE, 12/17/17) amoxicillin (Verified Adverse Reaction, Intermediate, VOMITING, 12/17/17) clavulanic acid (Verified Adverse Reaction, Intermediate, VOMITING, 12/17/17 ) Reported Meds & Prescriptions Reported Meds & Active Scripts Active [place] (Hydrocodone-Acetaminophen) 5 Mg-325 Mg Tab 1 Tab PO Q8HR PRN Px Aspirin (Aspirin) 325 Mg Tab 325 Mg PO DAILY Lisinopril 5 Mg Tab 5 Mg PO DAILY Metoprolol Tartrate 25 Mg Tab 12.5 Mg PO Q12HR Atorvastatin (Atorvastatin Calcium) 40 Mg Tab 40 Mg PO HS Reported Lantus Inj (Insulin Glargine) 1,000 Unit/10 Ml Vial 20 Units SQ HS Hydroxyzine HCl 25 Mg Tab 25 Mg PO HS Novolog Mix 70-30 FlexPen Inj (Insulin Aspart Protam-Asp 70-30 Inj) 300 Unit/3 Ml Pen 20 Units SQ HS Novolog Mix 70-30 FlexPen Inj (Insulin Aspart Protam-Asp 70-30 Inj) 300 Unit/3 Ml Pen 40 Units SQ DAILY Duloxetine DR (Duloxetine HCl) 40 Mg Capdr 40 Mg PO HS Trazodone (Trazodone HCl) 100 Mg Tablet 100 Mg PO HS Review of Systems Except as stated in HPI: all other systems reviewed are Neg Physical Exam Narrative GENERAL: 57-year-old female in no apparent distress SKIN: Focused skin assessment warm/dry. HEAD: Atraumatic. Normocephalic. EYES: Pupils equal and round. No scleral icterus. No injection or drainage. ENT: No nasal bleeding or discharge. Mucous membranes pink and moist. NECK: Trachea midline. CARDIOVASCULAR: Regular rate and rhythm. RESPIRATORY: No accessory muscle use. Clear to auscultation. Breath sounds equal bilaterally. GASTROINTESTINAL: Abdomen soft, non-tender, nondistended. MUSCULOSKELETAL: splint noted to right arm. No clubbing. No cyanosis. Neurovascularly intact NEUROLOGICAL: Awake and alert. No obvious cranial nerve deficits. Motor grossly within normal limits. Normal speech. PSYCHIATRIC: Appropriate mood and affect; insight and judgment normal. Data Data Last Documented VS Vital Signs Date Time Temp Pulse Resp B/P (MAP) Pulse Ox O2 Delivery O2 Flow Rate FiO2 12/17/17 11:00 16 97 Room Air 12/17/17 10:44 98.7 104 129/77 (94) Orders Orders Electrocardiogram (12/17/17 11:00) Basic Metabolic Panel (Bmp) (12/17/17 11:00) Ckmb (Isoenzyme) Profile (12/17/17 11:00) Complete Blood Count With Diff (12/17/17 11:00) D-Dimer (12/17/17 11:00) Magnesium (Mg) (12/17/17 11:00) Prothrombin Time / Inr (Pt) (12/17/17 11:00) Act Partial Throm Time (Ptt) (12/17/17 11:00) Troponin I (12/17/17 11:00) Chest, Single Ap (12/17/17 11:00) Ecg Monitoring (12/17/17 11:00) Iv Access Insert/Monitor (12/17/17 11:00) Oximetry (12/17/17 11:00) Sodium Chloride 0.9% Flush (Ns Flush) (12/17/17 11:00) Acetamin-Hydrocod 325-5 Mg ([place] 5-325 (12/17/17 11:00) Ct Pulmonary Angiogram (12/17/17 ) Iohexol 350 Inj (Omnipaque 350 Inj) (12/17/17 10:38) Ed Discharge Order (12/17/17 13:03) Splint Or Brace Apply/Monitor (12/17/17 13:13) Labs Laboratory Tests Test 12/17/17 10:50 White Blood Count 11.1 TH/MM3 Red Blood Count 4.52 MIL/MM3 Hemoglobin 13.7 GM/DL Hematocrit 40.3 % Mean Corpuscular Volume 89.2 FL Mean Corpuscular Hemoglobin 30.4 PG Mean Corpuscular Hemoglobin Concent 34.0 % Red Cell Distribution Width 13.1 % Platelet Count 364 TH/MM3 Mean Platelet Volume 7.2 FL Neutrophils (%) (Auto) 77.8 % Lymphocytes (%) (Auto) 16.7 % Monocytes (%) (Auto) 3.7 % Eosinophils (%) (Auto) 1.2 % Basophils (%) (Auto) 0.6 % Neutrophils # (Auto) 8.6 TH/MM3 Lymphocytes # (Auto) 1.9 TH/MM3 Monocytes # (Auto) 0.4 TH/MM3 Eosinophils # (Auto) 0.1 TH/MM3 Basophils # (Auto) 0.1 TH/MM3 CBC Comment DIFF FINAL Differential Comment Prothrombin Time 9.4 SEC Prothromb Time International Ratio 0.9 RATIO Activated Partial Thromboplast Time 21.9 SEC D-Dimer Quantitative (PE/DVT) 0.81 MG/L FEU Blood Urea Nitrogen 16 MG/DL Creatinine 0.73 MG/DL Random Glucose 182 MG/DL Calcium Level 8.5 MG/DL Magnesium Level 1.8 MG/DL Sodium Level 140 MEQ/L Potassium Level 3.8 MEQ/L Chloride Level 106 MEQ/L Carbon Dioxide Level 26.3 MEQ/L Anion Gap 8 MEQ/L Estimat Glomerular Filtration Rate 82 ML/MIN Total Creatine Kinase 46 U/L Troponin I 0.02 NG/ML MDM Medical Decision Making Medical Screen Exam Complete: Yes Emergency Medical Condition: Yes Medical Record Reviewed: Yes (Patient here at end of November with cardiac cath. No significant disease, EF 33% on cath) Interpretation(s) CBC & BMP Diagram 12/17/17 10:50 Calcium Level 8.5, Magnesium Level 1.8 Last 24 hours Impressions Chest X-Ray 12/17/17 1100 Signed Impressions: Service Date/Time: Sunday, December 17, 2017 11:18 - CONCLUSION: No acute cardiopulmonary abnormality is identified. Sachin Diaz MD CT Angiography 12/17/17 0000 Signed Impressions: Service Date/Time: Sunday, December 17, 2017 12:26 - CONCLUSION: 1. No PE is identified in additionally no acute finding is seen within the chest. 2. There is a 3 mm noncalcified right middle lobe pulmonary nodule. 3. Nonacute findings include coronary artery calcification and 8mm right thyroid nodule. Sachin Diaz MD Differential Diagnosis Musculoskeletal, PE, anxiety Narrative Course Will check blood work, chest x-ray and monitor. Patient agrees very unlikely cardiac given recent normal cardiac catheterization and current symptoms. She agrees if initial testing is okay to go home D-dimer is elevated. Will order CT CT no acute. Patient requesting further pain medication at home for her wrist so will provide with limited prescription. She is also requesting splint to be adjusted which I will have [employer] adjust with. Patient denies any new complaints, all questions answered. Patient knows that follow up is incumbent on them and to return to the emergency room immediately if new or worsening symptoms develop. Patient given strict return precautions, vitals reviewed and are normal, agrees to further workup as an outpatient. Diagnosis Primary Impression: Right-sided chest pain Additional Impression: Right wrist fracture Qualified Codes: S62.101A - Fracture of unspecified carpal bone, right wrist, initial encounter for closed fracture Patient Instructions: General Instructions Additional Instructions: return as needed, norco as needed for severe pain, follow with a primary care physician and orthopedic surgeon next week Med/Other Pt SpecificInfo: Prescription(s) given Scripts Hydrocodone-Acetaminophen ([place]) 5 Mg-325 Mg Tab 1 TAB PO Q8HR Y for PAIN, #5 TAB 0 Refills Prov: Sharlene Heredia MD 12/17/17 Disposition: 01 DISCHARGE HOME Condition: Stable Sharlene Heredia MD December 17, 2017 11:15
[2017-12-17 11:34] LABS: AUTOMATED NEUTROPHIL # 8.6 TH/MM3 (1.8-7.7); BASOPHIL # 0.1 TH/MM3 (0-0.2); BASOPHIL % 0.6 % (0.0-2.0); EOSINOPHIL # 0.1 TH/MM3 (0-0.4); EOSINOPHIL % 1.2 % (0.0-4.0); HEMATOCRIT 40.3 % (35.0-46.0); HEMOGLOBIN 13.7 GM/DL (11.6-15.3); LYMPH % 16.7 % (9.0-44.0); LYMPHOCYTE # 1.9 TH/MM3 (1.0-4.8); MEAN CELL VOLUME 89.2 FL (80.0-100.0); MEAN CORPUSCULAR HEMOGLOBIN 30.4 PG (27.0-34.0); MEAN PLATELET VOLUME 7.2 FL (7.0-11.0); MONO % 3.7 % (0.0-8.0); MONOCYTE # 0.4 TH/MM3 (0-0.9); NEUT % 77.8 % (16.0-70.0); PLATELET COUNT 364 TH/MM3 (150-450); RED BLOOD COUNT 4.52 MIL/MM3 (4.00-5.30); RED CELL DISTRIBUTION WIDTH 13.1 % (11.6-17.2); WHITE BLOOD COUNT 11.1 TH/MM3 (4.0-11.0)
[2017-12-17 11:45] LABS: D-DIMER 0.81 MG/L FEU (0.00-0.50); INTERNATIONAL NORMALIZED RATIO 0.9 RATIO; PROTHROMBIN TIME - PATIENT 9.4 SEC (9.8-11.6)
--- NOTE | 2017-12-17 11:49 | RADRPT ---
EXAM DATE/TIME: 12/17/2017 11:18 [facility] COMPARISON: CHEST SINGLE AP, December 06, 2017, 10:47. INDICATIONS : Patient complains right sided chest pain. MEDICAL HISTORY : Hypercholesterolemia. Renal calculi. Peripheral neuropathy. Coronary artery disease. HTN. COPD. Ulcer . GERD. Gastritis. Chronic low back pain. Diabetes. Depression. Anxiety. Tobacco use. MRSA. SURGICAL HISTORY : 2 cardiac stents. Hysterectomy. Cholecystectomy. ENCOUNTER: Initial ACUITY: 1 day PAIN SCORE: 8/10 LOCATION: chest FINDINGS: Portable AP view of the chest demonstrates a normal-sized cardiac silhouette. No effusion, consolidat ion, or pneumothorax is identified. Bones and soft tissues demonstrate no acute abnormality. CONCLUSION: No acute cardiopulmonary abnormality is identified. Sachin Diaz MD on December 17, 2017 at 11:47 Board Certified Radiologist. This report was verified electronically.
[2017-12-17 11:51] LABS: BICARBONATE 26.3 MEQ/L (21.0-32.0); CALCIUM 8.5 MG/DL (8.5-10.1); CREATININE 0.73 MG/DL (0.50-1.00); MAGNESIUM 1.8 MG/DL (1.5-2.5)
[2017-12-17 11:55] LABS: TROPONIN I 0.02 NG/ML (0.02-0.05)
--- NOTE | 2017-12-17 12:54 | RADRPT ---
EXAM DATE/TIME: 12/17/2017 12:26 [facility] COMPARISON: No previous studies available for comparison. INDICATIONS : Right sided chest pain. IV CONTRAST: 73 cc Omnipaque 350 (iohexol) IV RADIATION DOSE: 10.75 CTDIvol (mGy) MEDICAL HISTORY : Cardiovascular disease. Hypertension. Chronic obstructive pulmonary disease.Diabetes. SURGICAL HISTORY : Coronary artery stent. Cholecystectomy.Hysterectomy. ENCOUNTER: Initial ACUITY: 1 day PAIN SCALE: 4/10 LOCATION: Right chest TECHNIQUE: Volumetric scanning of the chest was performed using a pulmonary embolism protocol MIP images were re constructed. Using automated exposure control and adjustment of the mA and/or kV according to patien t size, radiation dose was kept as low as reasonably achievable to obtain optimal diagnostic quality images. DICOM format image data is available electronically for review and comparison. Follow-up recommendations for detected pulmonary nodules are based at a minimum on nodule size and pa tient risk factors according to Fleischner Society Guidelines. FINDINGS: PULMONARY ARTERIES: No filling defects are seen in the pulmonary arteries through the segmental level. LUNGS: There is no consolidation or pneumothorax . There is a 3 mm nodule in the right middle lobe. PLEURAE: There is no pleural thickening or pleural effusion. MEDIASTINUM: Heart and great vessels demonstrate no acute finding. There is severe coronary artery calcification. Contrast refluxes into the hepatic veins. No lymphadenopathy is visualized. MUSCULOSKELETAL: No acute abnormality is visualized. There are degenerative changes of the thoracic spine. MISCELLANEOUS: The visualized upper abdominal organs demonstrate no acute abnormality. There is an 8mm hypodense rig ht thyroid nodule. CONCLUSION: 1. No PE is identified in additionally no acute finding is seen within the chest. 2. There is a 3 mm noncalcified right middle lobe pulmonary nodule. 3. Nonacute findings include coronary artery calcification and 8mm right thyroid nodule. Sachin Diaz MD on December 17, 2017 at 12:48 Board Certified Radiologist. This report was verified electronically.
[2017-12-17 13:00] VITALS: BP_SYST 149; BP_DIAS 38; BP_DIAS 68; PULSE 84; RESP 16; O2SAT 98
[2017-12-17] MEDS ORDERED: NORC5TAB PO (13:06)
--- NOTE | 2017-12-18 12:27 | EKG ---
Date Performed: 12/17/2017 Time Performed: 10:50:55 PTAGE: 57 years EKG: Sinus rhythm NONSPECIFIC T-WAVE ABNORMALITY BORDERLINE ECG INTERPRETATION BASED ON A DEFAULT AGE OF 40 YEARS PREVIOUS TRACING : 12/06/2017 16.26 Since the previous tracing, no significant change not ed DOCTOR: Yohannes Galeana Interpretating Date/Time 12/18/2017 12:27:25
== END 2017-12-17 14:24 | disposition home or self-care (01) ==
LOC: NEPE 10:37
DX: R07.9 Chest pain, unspecified (principal); S62.101A Fracture of unspecified carpal bone, right wrist, initial encounter for closed fracture; R91.1 Solitary pulmonary nodule; E04.1 Nontoxic single thyroid nodule; R94.31 Abnormal electrocardiogram [ECG] [EKG]; J44.9 Chronic obstructive pulmonary disease, unspecified; E11.9 Type 2 diabetes mellitus without complications; I10 Essential (primary) hypertension; X58.XXXA Exposure to other specified factors, initial encounter
CPT/HCPCS: 29125; 71045; 71275; 80048; 82550; 83735; 84484; 85025; 85379; 85610; 85730; 93005; 99285; Q9967

== ENCOUNTER 2018-01-01 08:59 | Emergency (ER) | payer OTHER ==
[~2018-01-01] VITALS: Ht 165.1 cm; Wt 92.0 kg
[~2018-01-01 08:59] MED LIST changes: -HYDR-3580 PO; +NORC5TAB PO; -OMEP40CA2 PO; -SITA1TAB2 PO
[2018-01-01 09:04] VITALS: BP 173/103; PULSE 123; RESP 16; TEMP 98.4; O2SAT 96
--- NOTE | 2018-01-01 09:58 | PD ---
HPI Chief Complaint: Pain: Acute or Chronic Time Seen by Provider: 09:31 Travel History International Travel<30 days: No Contact w/Intl Traveler<30days: No Traveled to known affect area: No History of Present Illness HPI This is a 57-year-old female with a known right wrist fracture here complaining of wrist pain and out of her Lortabs. While using her hand today to open a doorknob she felt a crack in the wrist. She was evaluated at [facility] approximately 2 weeks ago after she sustained a fracture of the wrist from a fall onto an outstretched hand. She reports she has an orthopedic appointment for February 08. She has a short volar splint that was provided by the previous hospital. She denies altered sensation or weakness of the wrist, hand or fingers. Symptom severity is moderate. Aggravated by movement. No alleviating factors. She is requesting pain medication at this time. PFSH Past Medical History Arthritis: No Asthma: No Anxiety: Yes Depression: Yes Heart Rhythm Problems: No Cancer: No Cardiac Catheterization: Yes Cardiovascular Problems: Yes High Cholesterol: Yes (quit medications) Chemotherapy: No Chest Pain: No Congestive Heart Failure: No COPD: Yes Cerebrovascular Accident: No Coronary Artery Disease: Yes Diabetes: Yes Patient Takes Glucophage: No Diminished Hearing: No Endocrine: Yes Gastrointestinal Disorders: Yes (Gastritis) GERD: Yes Genitourinary: No Hiatal Hernia: No Hypertension: Yes Implanted Vascular Access Dvce: Yes Kidney Stones: Yes Neurologic: Yes (peripheral neuropathy) Psychiatric: Yes Reproductive: No Respiratory: Yes Immunizations Current: Yes Migraines: No Radiation Therapy: No Renal Failure: No Seizures: No Sleep Apnea: No Thyroid Disease: No Ulcer: Yes Influenza Vaccination: No Menopausal: Yes Past Surgical History Abdominal Surgery: Yes (cholecystectomy) Body Medical Devices: pins in rt ankle Cardiac Surgery: Yes (stents) Cholecystectomy: Yes Coronary Artery Bypass Graft: No Coronary Stent: Yes (X2) Ear Surgery: No Endocrine Surgery: No Eye Surgery: Yes Genitourinary Surgery: Yes Gynecologic Surgery: Yes (HYSTERECTOMY ) Hysterectomy: Yes Neurologic Surgery: No Oral Surgery: No Thoracic Surgery: No Other Surgery: Yes (RIGHT GREAT TOE AMPUTATION) Family History Family Myocardial Infarction: Yes (FATHER) Social History Alcohol Use: No Tobacco Use: Yes (1 PPD) Substance Use: Yes (MARIJUANA 2x week for sleep aid) Allergies-Medications (Allergen,Severity, Reaction): Coded Allergies: ketorolac (Verified Allergy, Intermediate, HEADACHE, 01/01/18) amoxicillin (Verified Adverse Reaction, Intermediate, VOMITING, 01/01/18) clavulanic acid (Verified Adverse Reaction, Intermediate, VOMITING, ) Reported Meds & Prescriptions Reported Meds & Active Scripts Active Eden (Hydrocodone-Acetaminophen) 5 Mg-325 Mg Tab 1 Tab PO Q8HR PRN Px Aspirin (Aspirin) 325 Mg Tab 325 Mg PO DAILY Lisinopril 5 Mg Tab 5 Mg PO DAILY Metoprolol Tartrate 25 Mg Tab 12.5 Mg PO Q12HR Atorvastatin (Atorvastatin Calcium) 40 Mg Tab 40 Mg PO HS Reported Lantus Inj (Insulin Glargine) 1,000 Unit/10 Ml Vial 20 Units SQ HS Hydroxyzine HCl 25 Mg Tab 25 Mg PO HS Novolog Mix 70-30 FlexPen Inj (Insulin Aspart Protam-Asp 70-30 Inj) 300 Unit/3 Ml Pen 20 Units SQ HS Novolog Mix 70-30 FlexPen Inj (Insulin Aspart Protam-Asp 70-30 Inj) 300 Unit/3 Ml Pen 40 Units SQ DAILY Duloxetine DR (Duloxetine HCl) 40 Mg Capdr 40 Mg PO HS Trazodone (Trazodone HCl) 100 Mg Tablet 100 Mg PO HS Review of Systems Except as stated in HPI: all other systems reviewed are Neg Physical Exam Narrative GENERAL: Alert and anxious appearing 57-year-old female SKIN: Warm and dry. HEAD: Normocephalic. Atraumatic EYES: No injection or drainage. NECK: Supple GASTROINTESTINAL: Obese abdomen MUSCULOSKELETAL: No cyanosis. RUE: + Tenderness, swelling, mild deformity noted to the distal radius and ulna. Compartments are soft. She can freely wiggle the fingers. Normal sensation distally. Palpable radial pulse. Brisk cap refill. Data Data Last Documented VS Vital Signs Date Time Temp Pulse Resp B/P (MAP) Pulse Ox O2 Delivery O2 Flow Rate FiO2 01/01/18 10:26 90 18 165/95 (118) 95 Room Air 01/01/18 09:04 98.4 Orders Orders Wrist, Complete ([id number]) (01/01/18 ) Ondansetron Odt (Zofran Odt) (01/01/18 10:00) Acetaminophen (Tylenol) (01/01/18 10:00) Splint Or Brace Apply/Monitor (01/01/18 10:51) MDM Medical Decision Making Medical Screen Exam Complete: Yes Emergency Medical Condition: Yes Differential Diagnosis Wrist fracture, pain from fracture, med seeking Narrative Course 57-year-old female here requesting pain medication for wrist pain. He was currently wearing a short volar wrist splint only when she arrived to the ED. She reported removing the splint herself so I suspect noncompliance with immobilization. X-ray of the wrist show slight Colles' fracture with slight worsening of angulation. The extremity is neurovascularly intact. Patient was placed in a sugar tong splint. She is referred to on-call orthopedist for follow-up this week. Diagnosis Primary Impression: Colles' fracture Qualified Codes: S52.531A - Colles' fracture of right radius, initial encounter for closed fracture Referrals: Coy Tolentino MD Orthopedist Additional Instructions: Medication as directed Splint must stay in place until follow-up with Ortho Evra Call to schedule follow-up appointment with orthopedist Scripts Hydrocodone-Acetaminophen (Eden) 5 Mg-325 Mg Tab 1 TAB PO Q6H Y for PAIN, #4 TAB 0 Refills Prov: Christen Francis 01/01/18 Disposition: 01 DISCHARGE HOME Condition: Stable Christen Francis January 01, 2018 09:57
[2018-01-01] MEDS ORDERED: ACETAMINOPHEN 325 MG TAB PO ONE (10:00)
[2018-01-01] MEDS ORDERED: ONDANSETRON ODT 4 MG TAB PO ONE (10:00)
[2018-01-01 10:26] VITALS: BP 165/95; PULSE 90; RESP 18; O2SAT 95
--- NOTE | 2018-01-01 11:00 | RADRPT ---
EXAM DATE/TIME: 01/01/2018 10:18 [place] COMPARISON: FOREARM RIGHT (2VWS), December 06, 2017, 18:17. INDICATIONS : States she fell and fractured right wrist 2 weeks ago, states she hurt it yesterday grabbing somethin g, has increasing pain MEDICAL HISTORY : None. SURGICAL HISTORY : None. ENCOUNTER: Initial ACUITY: 2 weeks PAIN SCORE: 9/10 LOCATION: Right wrist FINDINGS: Prior examination 12/06/17 had demonstrated Colles' fracture. There is some sclerosis about the radia l fracture line. The ulnar styloid fragment is unfused and no bridging seen. There is dorsal angula tion of the distal radial fragment which appears slightly greater than on prior exam. The carpus is in normal alignment. CONCLUSION: Increase in the degree of dorsal angulation of the radial component of the Colles' fracture when comp ared to 12/06/17. A displaced ulnar styloid fragment is similar to prior. Neri Doss MD on January 01, 2018 at 10:56 Board Certified Radiologist. This report was verified electronically.
[2018-01-01] MEDS ORDERED: NORC5TAB PO (11:34)
== END 2018-01-01 12:07 | disposition home or self-care (01) ==
LOC: PHED 08:59
DX: S52.531A Colles' fracture of right radius, initial encounter for closed fracture (principal); E78.00 Pure hypercholesterolemia, unspecified; J44.9 Chronic obstructive pulmonary disease, unspecified; E11.9 Type 2 diabetes mellitus without complications; Z79.84 Long term (current) use of oral hypoglycemic drugs; K21.9 Gastro-esophageal reflux disease without esophagitis; I10 Essential (primary) hypertension; F17.200 Nicotine dependence, unspecified, uncomplicated; F12.90 Cannabis use, unspecified, uncomplicated
CPT/HCPCS: 29125; 73110

== ENCOUNTER 2018-05-20 12:04 | Observation (INO) ==
[2018-05-20] MEDS ORDERED: Sod Chloride 0.9% Inj 1,000 ML IV.SIG ONE (12:31)
[2018-05-20 12:43] LABS: Baso # (Auto) 0.1 th/mm3 (0.0-0.2); Baso % (Auto) 0.5 % (0.0-2.0); Eos # (Auto) 0.1 th/mm3 (0.0-0.4); Eos % (Auto) 0.5 % (0.0-4.0); Hematocrit 41.3 % (35.0-46.0); Hemoglobin 14.1 gm/dL (11.6-15.3); Lymph # (Auto) 1.4 th/mm3 (1.0-4.8); Lymph % (Auto) 12.2 % (9.0-44.0); Mean Corpuscular HGB Conc 34.1 % (32.0-36.0); Mean Corpuscular Hemoglobin 30.9 pg (27.0-34.0); Mean Corpuscular Volume 90.7 fL (80.0-100.0); Mean Platelet Volume 7.3 fL (7.0-11.0); Mono # (Auto) 0.4 th/mm3 (0.0-0.9); Mono % (Auto) 3.7 % (0.0-8.0); Neut # (Auto) 9.1 th/mm3 (1.8-7.7); Neut % (Auto) 83.1 % (16.0-70.0); Platelet Count 376 th/mm3 (150-450); Red Blood Count 4.56 mil/mm3 (4.00-5.30); Red Cell Distribution Width 12.9 % (11.6-17.2); White Blood Count 11.1 th/mm3 (4.0-11.0)
[2018-05-20 12:51] LABS: Chloride 102 meq/L (98-107); Potassium 3.9 meq/L (3.5-5.1); Sodium 136 meq/L (136-145)
[2018-05-20 12:54] LABS: Calcium 8.3 mg/dL (8.5-10.1)
[2018-05-20 12:55] LABS: Anion Gap 10 meq/L (5-15); Blood Urea Nitrogen 13 mg/dL (7-18); Carbon Dioxide 24.1 meq/L (21.0-32.0); Glucose,Random 302 mg/dL (74-106); INR 0.9 Ratio; Lipase 83 U/L (73-393); Prothrombin Time 9.5 sec (9.8-11.6)
[2018-05-20 12:57] LABS: Alanine Aminotransferase 16 U/L (10-53)
[2018-05-20 12:58] LABS: Aspartate Aminotransferase 8 U/L (15-37); Glomerular Filtration Rate Greater Than 89 mL/min (>89)
[2018-05-20 12:59] LABS: Total Protein 6.8 g/dL (6.4-8.2)
[2018-05-20 13:00] LABS: Alkaline Phosphatase 89 U/L (45-117)
--- NOTE | 2018-05-20 13:17 | XR ---
EXAM DATE: 05/20/2018 12:31 PM EDT AGE/SEX: 57 years / Female INDICATIONS: Chest pain CLINICAL DATA: This is the patient's initial encounter. Patient reports that signs and symptoms have been present for 1 day and indicates a pain score of 8/10. MEDICAL/SURGICAL HISTORY: . Cardiovascular disease. Hypertension. Chronic obstructive pulmonary disease.Ulcer,renal stones, Diabetes None. [place] [facility] [place]. . FINDINGS: A single AP view of the chest demonstrates the lungs to be symmetrically aerated without evidence of mass, infiltrate or effusion. The cardiomediastinal contours are unremarkable and stable. Osseous s tructures are intact and stable. CONCLUSION: No acute intrathoracic disease. Stable examination. Electronically signed by: Obey York MD 05/20/2018 1:16 PM EDT
[2018-05-20 13:55] LABS: Creatine Kinase 46 U/L (26-192)
[2018-05-20 15:11] LABS: Bilirubin,Urine Negative (Negative); Clarity,Urine Clear (Clear); Color,Urine Yellow (Yellw/Straw); Leukocyte Esterase,Urine Negative (Negative); Nitrite,Urine Negative (Negative); PH,Urine 6.5 (5.0-8.5); Specific Gravity,Urine 1.025 (1.002-1.035); Urobilinogen,Urine 0.2 mg/dL (Less than 2)
[2018-05-20 15:15] LABS: RBC,Urine 0-3 /hpf (0-3)
[2018-05-20 15:16] LABS: Squamous Epithelial Cell,Urine 0-5 /hpf (0-5)
--- NOTE | 2018-05-20 16:18 | ED ---
HPI General Chief complaint: Nausea/Vomiting/Diarrhea Stated complaint: Evac/chest pain Time Seen by Provider: 05/20/18 12:15 Source: patient Mode of arrival: ambulatory Limitations: no limitations History of Present Illness HPI narrative: Patient is a 57 year old female who comes in complaining of chest pain, abdominal pain, nausea and vomiting. She says it started last night. She says she went to an OSH and was given something for nausea and was sent home. She says the pain is in the left side of her chest and all over her abdomen. She denies fever or chills. Patient provides very little other information. Related Data Home Medications Medication Instructions Recorded Confirmed Unable to Obtain Home Meds 05/20/18 05/20/18 Allergies Allergy/AdvReac Type Severity Reaction Status Date / Time ketorolac Allergy Intermediate HEADACHE Verified 05/20/18 12:11 amoxicillin AdvReac Intermediate VOMITING Verified 05/20/18 12:11 clavulanic acid AdvReac Intermediate VOMITING Verified 05/20/18 12:11 Review of Systems ROS Unobtainable ROS Unobtainable: other (ROS limited due to lack of cooperation) Constitutional Denies chills and Denies fever(s) ENT Denies dizziness Gastrointestinal Reports abdominal pain, Reports nausea and Reports vomiting [facility] Medical History Medical History Diabetes (Acute) Social History Social History Second Hand Smoke Exposure: No Smoking Status: Current every day smoker Tobacco Type: Cigarettes How Often Do You Have a Drink Containing Alcohol: Unable to Obtain Recent Travel in [facility] within the Last 8 Weeks: No Recent Out of Country Travel within the Last 8 Weeks: No Immunization History Tetanus Immunization: Unsure Exam Narrative Exam Narrative: GENERAL: Awake and alert, appears uncomfortable. SKIN: Focused skin assessment warm/dry. No wounds or signs of infection. HEAD: Atraumatic. Normocephalic. EYES: Pupils equal and round. No scleral icterus. EOMI. ENT: Mucous membranes pink and moist. NECK: Trachea midline. No JVD. CARDIOVASCULAR: Regular rate and rhythm. No murmur appreciated. RESPIRATORY: No accessory muscle use. Clear to auscultation. Breath sounds equal bilaterally. GASTROINTESTINAL: Abdomen soft, nondistended. Mild diffuse tenderness, no rebound or guarding. MUSCULOSKELETAL: No obvious deformities. No clubbing. No cyanosis. No edema. NEUROLOGICAL: Awake and alert. No obvious cranial nerve deficits. Motor grossly within normal limits. Normal speech. PSYCHIATRIC: Appropriate mood and affect; insight and judgment normal. Course Initial Documented Vital Signs Temperature 98.6 F 05/20/18 12:11 Pulse Rate 83 05/20/18 12:11 Respiratory Rate 16 05/20/18 12:11 Blood Pressure 103/95 H 05/20/18 12:11 Pulse Oximetry 99 05/20/18 12:11 Last Documented Vital Signs Temperature 99.4 F 05/20/18 15:30 Pulse Rate 70 05/20/18 15:30 Respiratory Rate 16 05/20/18 15:30 Blood Pressure 162/86 H 05/20/18 15:30 Pulse Oximetry 100 05/20/18 15:30 Medical Decision Making MDM Narrative Medical decision making narrative: Patient is a 57-year-old female who comes in complaining of chest pain, abdominal pain, nausea and vomiting. Patient is somewhat uncooperative with physical exam as well as history taking. IV established, labs sent. Patient connected to the prime broker. Labs show no acute abnormalities. Patient given Compazine on arrival. Given 10 mg hydrocodone for pain. Given IV fluids. Patient continued to complain of nausea and vomiting. Given Reglan, Benadryl, Phenergan. Patient initially refusing ECG, however this was obtained and showed no acute abnormalities. CT of the abdomen and pelvis was ordered, but patient is refusing to go saying she does not feel well. I explained to her that we need the imaging done to know what is going on with her. She understands this, but still refuses to have the CAT scan done. Patient will be admitted for chest pain and intractable vomiting. Medical Screen Exam Complete: Yes Emergency Medical Condition: Yes Differential Diagnosis Differential Diagnosis: Small bowel obstruction versus gastroparesis versus opiate withdrawal versus ACS versus NSTEMI Medical Records Medical records reviewed: Yes I reviewed the patient's medical records. Lab Data Lab results reviewed: Yes I reviewed the patient's lab results. Result diagrams: 05/20/18 12:30 05/20/18 12:30 Lab Results 05/20/18 05/20/18 05/20/18 Range/Units 12:30 12:30 12:30 CBC w Diff Auto diff final WBC 11.1 H (4.0-11.0) th/mm3 RBC 4.56 (4.00-5.30) mil/mm3 Hgb 14.1 (11.6-15.3) gm/dL Hct 41.3 (35.0-46.0) % MCV 90.7 (80.0-100.0) fL MCH 30.9 (27.0-34.0) pg MCHC 34.1 (32.0-36.0) % RDW 12.9 (11.6-17.2) % Plt Count 376 (150-450) th/mm3 MPV 7.3 (7.0-11.0) fL Neut % (Auto) 83.1 H (16.0-70.0) % Lymph % (Auto) 12.2 (9.0-44.0) % Kendall % (Auto) 3.7 (0.0-8.0) % Eos % (Auto) 0.5 (0.0-4.0) % Baso % (Auto) 0.5 (0.0-2.0) % Neut # (Auto) 9.1 H (1.8-7.7) th/mm3 Lymph # (Auto) 1.4 (1.0-4.8) th/mm3 Kendall # (Auto) 0.4 (0.0-0.9) th/mm3 Eos # (Auto) 0.1 (0.0-0.4) th/mm3 Baso # (Auto) 0.1 (0.0-0.2) th/mm3 WBC Differential . Differential Comment . PT 9.5 L (9.8-11.6) sec INR 0.9 Ratio APTT 25.0 (24.3-30.1) sec Sodium 136 (136-145) meq/L Potassium 3.9 (3.5-5.1) meq/L Chloride 102 (98-107) meq/L Carbon Dioxide 24.1 (21.0-32.0) meq/L Anion Gap 10 (5-15) meq/L BUN 13 (7-18) mg/dL Creatinine 0.60 (0.50-1.00) mg/dL Estimated GFR Greater than 89 (>89) mL/min Random Glucose 302 H (74-106) mg/dL Calcium 8.3 L (8.5-10.1) mg/dL Total Bilirubin 0.3 (0.2-1.0) mg/dL AST 8 L (15-37) U/L ALT 16 (10-53) U/L Alkaline Phosphatase 89 (45-117) U/L Total Creatine Kinase 46 (26-192) U/L Troponin I Less than 0.02 L (0.02-0.05) ng/mL Total Protein 6.8 (6.4-8.2) g/dL Albumin 3.0 L (3.4-5.0) g/dL Lipase 83 (73-393) U/L Urine Color (Yellw/Straw) Urine Clarity (Clear) Urine pH (5.0-8.5) Ur Specific [place] (1.002-1.035) Urine Protein (Neg-Trace) mg/dL Urine Glucose (UA) (Negative) mg/dL Urine Ketones (Negative) mg/dL Urine Occult Blood (Negative) Urine Nitrate (Negative) Urine Bilirubin (Negative) Urine Urobilinogen (Less than 2) mg/dL Ur Leukocyte Esterase (Negative) Urine RBC (0-3) /hpf Ur Squamous Epith Cells (0-5) /hpf Micro UA Comment Ur Microscopic Review Urine Culture Comments 05/20/18 Range/Units 14:58 CBC w Diff WBC (4.0-11.0) th/mm3 RBC (4.00-5.30) mil/mm3 Hgb (11.6-15.3) gm/dL Hct (35.0-46.0) % MCV (80.0-100.0) fL MCH (27.0-34.0) pg MCHC (32.0-36.0) % RDW (11.6-17.2) % Plt Count (150-450) th/mm3 MPV (7.0-11.0) fL Neut % (Auto) (16.0-70.0) % Lymph % (Auto) (9.0-44.0) % Kendall % (Auto) (0.0-8.0) % Eos % (Auto) (0.0-4.0) % Baso % (Auto) (0.0-2.0) % Neut # (Auto) (1.8-7.7) th/mm3 Lymph # (Auto) (1.0-4.8) th/mm3 Kendall # (Auto) (0.0-0.9) th/mm3 Eos # (Auto) (0.0-0.4) th/mm3 Baso # (Auto) (0.0-0.2) th/mm3 WBC Differential Differential Comment PT (9.8-11.6) sec INR Ratio APTT (24.3-30.1) sec Sodium (136-145) meq/L Potassium (3.5-5.1) meq/L Chloride (98-107) meq/L Carbon Dioxide (21.0-32.0) meq/L Anion Gap (5-15) meq/L BUN (7-18) mg/dL Creatinine (0.50-1.00) mg/dL Estimated GFR (>89) mL/min Random Glucose (74-106) mg/dL Calcium (8.5-10.1) mg/dL Total Bilirubin (0.2-1.0) mg/dL AST (15-37) U/L ALT (10-53) U/L Alkaline Phosphatase (45-117) U/L Total Creatine Kinase (26-192) U/L Troponin I (0.02-0.05) ng/mL Total Protein (6.4-8.2) g/dL Albumin (3.4-5.0) g/dL Lipase (73-393) U/L Urine Color Yellow (Yellw/Straw) Urine Clarity Clear (Clear) Urine pH 6.5 (5.0-8.5) Ur Specific [place] 1.025 (1.002-1.035) Urine Protein 300 or greater H (Neg-Trace) mg/dL Urine Glucose (UA) 1000 or greater H (Negative) mg/dL Urine Ketones 15 H (Negative) mg/dL Urine Occult Blood Small H (Negative) Urine Nitrate Negative (Negative) Urine Bilirubin Negative (Negative) Urine Urobilinogen 0.2 (Less than 2) mg/dL Ur Leukocyte Esterase Negative (Negative) Urine RBC 0-3 (0-3) /hpf Ur Squamous Epith Cells 0-5 (0-5) /hpf Micro UA Comment Culture not ind Ur Microscopic Review Microscopic reviewed Urine Culture Comments Culture not ind Imaging Data Radiologist's impression: Chest X-Ray 05/20/18 12:31 CONCLUSION: No acute intrathoracic disease. Stable examination. ECG Data EKG Prior to Arrival: No Attestation: I personally reviewed and interpreted this ECG as follows: Interpretation: ECG shows normal sinus rhythm at a rate of 81, no ST elevation or depression, normal intervals Discharge Plan Discharge Disposition Patient Disposition: 30 Still Patient Discharge Condition Condition: Stable Discharge Details Diagnosis: Intractable vomiting, Chest pain Physicians Team ED Provider: Sol Taylor Primary Care Provider: Primary Care Kimberley Poole Attending Provider: Tee Wang Discharge Interventions Interventions: Vital Signs Last Done: 05/20/18 15:30 Status ED Status: Admitted Patient
[2018-05-20] MEDS ORDERED: Dextrose 50% in Water 50 ML Vial IV.PUSH PRN (16:55)
[2018-05-20] MEDS ORDERED: Acetaminophen 325 MG Tablet PO PRN (16:56)
[2018-05-20] MEDS ORDERED: Bisacodyl 10 MG Supp RECTAL PRN (16:56)
[2018-05-20] MEDS ORDERED: Prochlorperazine 25 MG Supp RECTAL PRN (16:56)
[2018-05-20] MEDS: Insulin NovoLOG Aspart Correctional Sugar Inj SQ SCH ×2 (17:37→22:16)
[2018-05-20 17:43] LABS: Troponin I 0.03 ng/mL (0.02-0.05)
--- NOTE | 2018-05-20 17:47 | P.HP ---
History of Present Illness Primary Care Physician: No Primary Care Physician Chief Complaint: Nausea and vomiting History of Present Illness: This is a 57-year-old female with a history of coronary artery disease status post stent 2017, cardiomyopathy EF of 33%, diabetes mellitus, gastritis and duodenal inflammation status post EGD in 2017. She also had colonoscopy with ascending colon polypectomy. Patient presents with nausea vomiting and chest/ epigastric pain. States she woke up last night with persistent nausea, vomiting associated with constant sharp lower chest and epigastric pain, cold sensation and diaphoresis. Denies shortness of breath, palpitations, dizziness , fever, chills, UTI symptoms, constipation and diarrhea. Despite multiple medications (Benadryl, Reglan, Compazine and Phenergan) in the emergency department, she continues to have nausea and retching. She refused to have abdominal CT because of her symptoms. Denies headache numbness and focal weakness. Of note she had similar symptoms a year ago underwent full workup as previously mentioned. She also has uncontrolled diabetes previous gastric emptying study negative for gastroparesis. Also underwent Lexiscan with no ischemia earlier this year. She does not follow a particular supervisor carbon electrodes. Chest x-ray interpreted by me with no acute cardiopulmonary disease. EKG tracing interpreted by me with sinus rhythm no ST-T changes per all other systems reviewed negative. Review of Systems All other systems reviewed negative except as stated in HPI PMFSH - History History Provided By: Patient - Medical History Medical History: Medical History (Last Reviewed 05/20/18 @ 17:39 by Tee Wang MD) Diabetes H/O: hysterectomy - Surgical History Surgical History: Surgical History (Last Updated 05/20/18 @ 17:40 by Tee Wang MD) History of cholecystectomy - Family History Family History: Family History (Last Updated 05/20/18 @ 17:40 by Tee Wang MD) Other Family history of cancer - Tobacco History Second Hand Smoke Exposure: No Tobacco Use In Past 30 Days: Yes Smoking Status: Former smoker Tobacco Type: Cigarettes - Alcohol History How Often Do You Have a Drink Containing Alcohol: Never - Substance Use History Substance History: No History of Abuse - Travel History Recent Travel in the [place] Within the Last 8 Weeks: No Recent Travel Out of the Country Within the Last 8 Weeks: No - Immunization History Tetanus Immunization: Unsure Medications and Allergies Active Medications: Active Medications Acetaminophen (Tylenol) 650 mg PO Q4H PRN PRN Reason: Temp > 100.4 Al Hydroxide/Mg Hydroxide (Milk Of Magnesia Liq) 30 ml PO Q12H PRN PRN Reason: Mild Constipation Bisacodyl (Dulcolax Supp) 10 mg RECTAL DAILY PRN PRN Reason: SEVERE CONSITIPATION Dextrose (D50w Vial) 50 ml IV.PUSH UNSCH PRN PRN Reason: PER HYPOGLYCEMIA PROTOCOL Glucagon (Glucagon Inj) 1 mg OTHER PRN PRN PRN Reason: for Hypoglycemia Protocol Potassium Chloride/Sodium Chloride (Ns + Kcl 20 Meq Inj) 500 mls @ 40 mls/hr IV.CONT .[id number] MORENITA Insulin Aspart (Novolog Insulin Correctional Sugar Inj) 0 unit SQ ACHS MORENITA; Protocol Lactulose (Lactulose Liq) 30 ml PO DAILY PRN PRN Reason: SEVERE CONSITIPATION Metoclopramide HCl (Reglan Inj) 5 mg IV.PUSH Q6HR PRN; Protocol PRN Reason: NAUSEA OR VOMITING Ondansetron HCl (Zofran Inj) 4 mg IV.PUSH Q6H PRN PRN Reason: NAUSEA OR VOMITING Prochlorperazine (Compazine Supp) 25 mg RECTAL Q12HR PRN PRN Reason: NAUSEA OR VOMITING Senna/Docusate Sodium (Yudelka-Colace) 1 tab PO BID MORENITA Sennosides (Senokot) 17.2 mg PO Q12H PRN PRN Reason: Moderate Constipation Sodium Chloride (Ns Flush) 2 ml IV.FLUSH PRN PRN PRN Reason: FLUSH AFTER USING IV ACCESS Allergies Allergy/AdvReac Type Severity Reaction Status Date / Time ketorolac Allergy Intermediate HEADACHE Verified 05/20/18 12:11 amoxicillin AdvReac Intermediate VOMITING Verified 05/20/18 12:11 clavulanic acid AdvReac Intermediate VOMITING Verified 05/20/18 12:11 Home Medications Medication Instructions Recorded Confirmed Type Unable to Obtain Home Meds 05/20/18 05/20/18 History Exam Vital signs: Vital Signs 05/20/18 12:11 05/20/18 12:14 05/20/18 13:49 Temperature 98.6 F 98.6 F Pulse Rate 83 83 80 Respiratory Rate 16 18 16 Blood Pressure 103/95 H 103/95 H 166/95 H Pulse Oximetry 99 99 95 05/20/18 15:30 05/20/18 16:56 Temperature 99.4 F Pulse Rate 70 72 Respiratory Rate 16 18 Blood Pressure 162/86 H Pulse Oximetry 100 100 Intake & Output 05/19/18 05/20/18 05/20/18 18:59 06:59 18:59 Intake Total 1000 / 1000 Balance 1000 / 1000 Weight 99.79 kg Intake: IV 1000 / 1000 NS Inj 1,000 ML @ Wide Open IV. 1000 / 1000 SIG BOLUS ONE Rx#:[id number] Narrative: GENERAL: Well-developed, well-nourished patient in distress secondary to nausea SKIN: Warm and dry. HEAD: Atraumatic. Normocephalic. EYES: Pupils equal and round. No scleral icterus. No injection or drainage. ENT: No nasal bleeding or discharge. Mucous membranes pink and moist. NECK: Trachea midline. No JVD. CARDIOVASCULAR: Regular rate and rhythm. RESPIRATORY: No accessory muscle use. Clear to auscultation. Breath sounds equal bilaterally. GASTROINTESTINAL: Abdomen soft, slightly tender epigastric and left upper quadrants, nondistended. MUSCULOSKELETAL: Extremities without clubbing, cyanosis, or edema. No obvious deformities. NEUROLOGICAL: Awake and alert. No obvious cranial nerve deficits. Motor grossly within normal limits. Five out of 5 muscle strength in the arms and legs. Normal speech. PSYCHIATRIC: Appropriate mood and affect; insight and judgment normal. Results - Labs CBC & Chem 7: 05/20/18 12:30 05/20/18 12:30 Labs: Laboratory Results - last 24 hr 05/20/18 05/20/18 05/20/18 12:30 12:30 12:30 CBC w Diff Auto diff final WBC 11.1 H RBC 4.56 Hgb 14.1 Hct 41.3 MCV 90.7 MCH 30.9 MCHC 34.1 RDW 12.9 Plt Count 376 MPV 7.3 Neut % (Auto) 83.1 H Lymph % (Auto) 12.2 Irion % (Auto) 3.7 Eos % (Auto) 0.5 Baso % (Auto) 0.5 Neut # (Auto) 9.1 H Lymph # (Auto) 1.4 Irion # (Auto) 0.4 Eos # (Auto) 0.1 Baso # (Auto) 0.1 WBC Differential . Differential Comment . PT 9.5 L INR 0.9 APTT 25.0 Sodium 136 Potassium 3.9 Chloride 102 Carbon Dioxide 24.1 Anion Gap 10 BUN 13 Creatinine 0.60 Estimated GFR Greater than 89 POC Glucose Random Glucose 302 H Calcium 8.3 L Total Bilirubin 0.3 AST 8 L ALT 16 Alkaline Phosphatase 89 Total Creatine Kinase 46 Troponin I Less than 0.02 L Total Protein 6.8 Albumin 3.0 L Lipase 83 Urine Color Urine Clarity Urine pH Ur Specific Gaffney Urine Protein Urine Glucose (UA) Urine Ketones Urine Occult Blood Urine Nitrate Urine Bilirubin Urine Urobilinogen Ur Leukocyte Esterase Urine RBC Ur Squamous Epith Cells Micro UA Comment Ur Microscopic Review Urine Culture Comments 05/20/18 05/20/18 14:58 17:12 CBC w Diff WBC RBC Hgb Hct MCV MCH MCHC RDW Plt Count MPV Neut % (Auto) Lymph % (Auto) Irion % (Auto) Eos % (Auto) Baso % (Auto) Neut # (Auto) Lymph # (Auto) Irion # (Auto) Eos # (Auto) Baso # (Auto) WBC Differential Differential Comment PT INR APTT Sodium Potassium Chloride Carbon Dioxide Anion Gap BUN Creatinine Estimated GFR POC Glucose 309 H Random Glucose Calcium Total Bilirubin AST ALT Alkaline Phosphatase Total Creatine Kinase Troponin I Total Protein Albumin Lipase Urine Color Yellow Urine Clarity Clear Urine pH 6.5 Ur Specific Gaffney 1.025 Urine Protein 300 or greater H Urine Glucose (UA) 1000 or greater H Urine Ketones 15 H Urine Occult Blood Small H Urine Nitrate Negative Urine Bilirubin Negative Urine Urobilinogen 0.2 Ur Leukocyte Esterase Negative Urine RBC 0-3 Ur Squamous Epith Cells 0-5 Micro UA Comment Culture not ind Ur Microscopic Review Microscopic reviewed Urine Culture Comments Culture not ind - Imaging Impressions Chest X-Ray 05/20/18 12:31 CONCLUSION: No acute intrathoracic disease. Stable examination. Caprini VTE Risk Assessment Caprini VTE Risk Assessment: Moderate/High Risk (score >= 2) Caprini Risk Assessment Model: Point Value = 1 Point Value = 2 Point Value = 3 Point Value = 5 Age 41-60 Minor surgery BMI > 25 kg/m2 Swollen legs Varicose veins or History of unexplained or recurrent spontaneous Oral contraceptives or hormone replacement Sepsis (< 1 month) Serious lung disease, including pneumonia (< 1 month) Abnormal pulmonary function Acute myocardial infarction Congestive heart failure (< 1 month) History of inflammatory bowel disease Medical patient at bed rest Age 61-74 Arthroscopic surgery Major open surgery (> 45 min) Laparoscopic surgery (> 45 min) Malignancy Confined to bed (> 72 hours) Immobilizing plaster cast Central venous access Age >= 75 History of VTE Family history of VTE Factor V Leiden Prothrombin [id number] Lupus anticoagulant Anticardiolipin antibodies Elevated serum homocysteine Heparin-induced thrombocytopenia Other congenital or acquired thrombophilia Stroke (< 1 month) Elective arthroplasty Hip, pelvis, or leg fracture Acute spinal cord injury (< 1 month) Prophylaxis Regimen: Total Risk Factor Score Risk Level Prophylaxis Regimen 0-1 Low Early ambulation 2 Moderate Order ONE of the following: *Sequential Compression Device (SCD) *Heparin 5000 units SQ BID 3-4 Higher Order ONE of the following medications: *Heparin 5000 units SQ TID *Enoxaparin/Lovenox 40 mg SQ daily (WT < 150 kg, CrCl > 30 mL/min) *Enoxaparin/Lovenox 30 mg SQ daily (WT < 150 kg, CrCl > 10-29 mL/min) *Enoxaparin/Lovenox 30 mg SQ BID (WT < 150 kg, CrCl > 30 mL/min) AND/OR *Sequential Compression Device (SCD) 5 or more Highest Order ONE of the following medications: *Heparin 5000 units SQ TID (Preferred with Epidurals) *Enoxaparin/Lovenox 40 mg SQ daily (WT < 150 kg, CrCl > 30 mL/min) *Enoxaparin/Lovenox 30 mg SQ daily (WT < 150 kg, CrCl > 10-29 mL/min) *Enoxaparin/Lovenox 30 mg SQ BID (WT < 150 kg, CrCl > 30 mL/min) AND *Sequential Compression Device (SCD) Assessment and Plan - Plan This is a 57-year-old female with a history of coronary artery disease status post stent 2017, cardiomyopathy EF of 33%, diabetes mellitus, gastritis and duodenal inflammation status post EGD in 2017. She also had colonoscopy with ascending colon polypectomy. Patient presents with nausea vomiting and chest/ epigastric pain. Despite multiple medications (Benadryl, Reglan, Compazine and Phenergan) in the emergency department, she continues to have nausea and retching. She refused to have abdominal CT Persistent nausea, vomiting, chest and abdominal pain. Lipase within normal limits. Urinalysis negative. Patient states she had similar symptoms when she required stent in the past. History of gastritis and duodenal inflammation status post EGD in 2017. She needs abdominal CT hopefully will be done sometime today. Consider GI consult. If negative will obtain gastric emptying study and head CT. Start Protonix IV and antiemetics. Scheduled Reglan. Gentle IV hydration with a history of cardiomyopathy. We will also trend cardiac enzymes of note Lexiscan this year negative for ischemia. History of coronary artery disease status post stent in 2017. Aspirin if tolerated Uncontrolled diabetes. Normal anion gap. Likely contributing to her symptoms. Continue IV hydration and monitor fingersticks with sliding scale coverage. Mild leukocytosis with no evidence of infection at this time. Noncompliance. Counseled DVT prophylaxis with SCD and early ambulation. Discharge Planning: C vs rehab
[2018-05-20] MEDS ORDERED: Pantoprazole Inj 40 MG Vial IV.PUSH SCH (18:00)
[2018-05-20] MEDS: Metoclopramide Inj 10 MG in Sodium Chlor 0.9% Inj 50 ML IV.SIG SCH (18:09)
[2018-05-20] MEDS ORDERED: Naloxone Inj 0.4 MG/ML Vial IV.PUSH PRN (18:27)
[2018-05-20] MEDS ORDERED: Morphine Sulfate Inj 2 MG/ML Vial IV.PUSH PRN (20:00)
[2018-05-20] MEDS: Senna/Docusate Sodium 8.6/50 MG Tablet PO SCH (21:10)
[2018-05-20 23:46] LABS: Troponin I 0.04 ng/mL (0.02-0.05)
[2018-05-20 23:57] LABS: CKMB Percent 0.9 % (0.0-4.0); Creatine Kinase MB 1.9 ng/mL (0.5-3.6)
--- NOTE | 2018-05-20 23:57 | CT ---
EXAM DATE: 05/20/2018 1:02 PM EDT AGE/SEX: 57 years / Female INDICATIONS: Abdomen pain, nausea, vomiting. CLINICAL DATA: This is the patient's initial encounter. Patient reports that signs and symptoms have been present for 1 day and indicates a pain score of 10/10. MEDICAL/SURGICAL HISTORY: Diabetes. None. ORAL CONTRAST: No oral contrast ingested. RADIATION DOSE: 21.13 CTDI (mGy) COMPARISON: [facility] [place]ELVIS [place]AST, 11/09/2017. . TECHNIQUE: Multiple contiguous axial images were obtained through the abdomen and pelvis following b olus infusion of 100 ml Omnipaque 350 (iohexol) nonionic water-soluble contrast as a single exam do se. No oral contrast ingested. Using automated exposure control and adjustment of the mA and/or kV a ccording to patient size, radiation dose was kept as low as reasonably achievable to obtain optimal d iagnostic quality images. DICOM format image data is available electronically for review and compari son. FINDINGS: Lower Lungs: The visualized lower lungs are clear. Liver: The liver has a homogeneous density without space-occupying lesion. There is no dilation of th e biliary tree. Gallbladder surgically absent. Spleen: Homogeneous density without enlargement. Pancreas: Unremarkable without mass or calcification. Kidneys: Normal in size and shape. No evidence of mass or hydronephrosis. Adrenal Glands: Mild diffuse nodular enlargement of the left adrenal gland which is unchanged. Aorta: The aorta and proximal iliac vessels are grossly unremarkable without aneurysmal dilation. Bowel/Mesentery: The bowel loops are grossly unremarkable. The cecum and sigmoid colon have a normal configuration. Appendix is seen and appears normal. Abdominal Wall: Intact. Retroperitoneum: No evidence of adenopathy in the retrocrural, para-aortic, or deep pelvic regions. Bladder: Contours are smooth. Reproductive Organs: Uterus surgically absent. No evidence of pelvic mass or free fluid. Inguinal: The inguinal region is unremarkable without evidence of adenopathy. Bony Structures: Unremarkable. CONCLUSION: No acute CT findings in the abdomen or pelvis. Electronically signed by: Sachin Chauhan MD 05/20/2018 11:55 PM EDT
[2018-05-21] MEDS: Metoclopramide Inj 10 MG in Sodium Chlor 0.9% Inj 50 ML IV.SIG SCH ×3 (00:01→13:06)
[2018-05-21] MEDS ORDERED: Prochlorperazine 25 MG Supp RECTAL PRN (05:42)
[2018-05-21 05:50] VITALS: TEMP 98.2
[2018-05-21] MEDS: Senna/Docusate Sodium 8.6/50 MG Tablet PO SCH (08:14)
[2018-05-21] MEDS: Insulin NovoLOG Aspart Correctional Sugar Inj SQ SCH ×2 (08:15→11:52)
[2018-05-21 08:47] LABS: Baso # (Auto) 0.2 th/mm3 (0.0-0.2); Baso % (Auto) 1.7 % (0.0-2.0); Eos % (Auto) 0.4 % (0.0-4.0); Hematocrit 38.1 % (35.0-46.0); Hemoglobin 12.9 gm/dL (11.6-15.3); Lymph # (Auto) 1.6 th/mm3 (1.0-4.8); Lymph % (Auto) 15.9 % (9.0-44.0); Mean Corpuscular Hemoglobin 30.7 pg (27.0-34.0); Mean Corpuscular Volume 90.6 fL (80.0-100.0); Mean Platelet Volume 7.1 fL (7.0-11.0); Mono # (Auto) 0.6 th/mm3 (0.0-0.9); Mono % (Auto) 5.6 % (0.0-8.0); Neut # (Auto) 7.7 th/mm3 (1.8-7.7); Neut % (Auto) 76.4 % (16.0-70.0); Platelet Count 365 th/mm3 (150-450); Red Blood Count 4.21 mil/mm3 (4.00-5.30); Red Cell Distribution Width 13.2 % (11.6-17.2); White Blood Count 10.1 th/mm3 (4.0-11.0)
[2018-05-21 08:56] LABS: Potassium 3.8 meq/L (3.5-5.1)
[2018-05-21 08:59] LABS: Calcium 8.3 mg/dL (8.5-10.1)
[2018-05-21 09:00] LABS: Magnesium 1.8 mg/dL (1.5-2.5)
[2018-05-21 09:04] VITALS: BP 138/78; O2SAT 96
[2018-05-21 09:14] VITALS: RESP 18
--- NOTE | 2018-05-21 09:54 | ECG ---
Date Performed: 05/20/2018 Time Performed: 22:19:07 PTAGE: 57 years EKG: Sinus rhythm NORMAL ECG PREVIOUS TRACING : 05/20/2018 16.44 DOCTOR: Garry Webb Interpretating Date/Time 05/21/2018 09:53:02
--- NOTE | 2018-05-21 09:56 | P.PN ---
Subjective Interval history: Follow-up nausea and vomiting. Patient feels much better resolved nausea and vomiting she wants to go home and have outpatient follow-up with GI for gastric emptying study and endoscopy. Agrees to be restarted on MAO inhibitor and beta- sejal for cardiomyopathy. States she is on daily aspirin 162 mg Physical Exam Vital signs: Vital Signs 05/20/18 12:11 05/20/18 12:14 05/20/18 13:49 Temperature 98.6 F 98.6 F Pulse Rate 83 83 80 Respiratory Rate 16 18 16 Blood Pressure 103/95 H 103/95 H 166/95 H Pulse Oximetry 99 99 95 05/20/18 15:30 05/20/18 16:56 05/20/18 18:36 Temperature 99.4 F Pulse Rate 70 72 74 Respiratory Rate 16 18 Blood Pressure 162/86 H Pulse Oximetry 100 100 05/20/18 19:50 05/20/18 20:00 05/21/18 00:00 Temperature 99.4 F 99.5 F Pulse Rate 92 H 84 Respiratory Rate 18 18 Blood Pressure 158/86 H 190/91 H Pulse Oximetry 96 93 L 95 05/21/18 04:00 05/21/18 08:00 05/21/18 09:13 Temperature 98.2 F 98.2 F Pulse Rate 66 82 Respiratory Rate 18 16 18 Blood Pressure 148/70 H 138/78 Pulse Oximetry 95 96 Intake & Output 05/20/18 05/21/18 05/21/18 18:59 06:59 18:59 Intake Total 1292 / 1292 724 / 724 Balance 1292 / 1292 724 / 724 Weight 99.79 kg 99.5 kg Intake: IV 1052 / 1052 604 / 604 NS + KCl 20 mEq Inj 500 ML @ 40 500 / 500 mls/hr IV.CONT .[id number] MORENITA Rx #:[id number] Reglan Inj 10 MG In NS Inj 50 52 / 52 104 / 104 ML @ 104 mls/hr IV.SIG Q6H MORENITA Rx#:[id number] NS Inj 1,000 ML @ Wide Open IV. 1000 / 1000 SIG BOLUS ONE Rx#:[id number] Oral 240 / 240 120 / 120 Other: # Voids 1 4 # Bowel Movements 0 Narrative: GENERAL: Well-developed, well-nourished patient in no distress. She is smiling. SKIN: Warm and dry. CARDIOVASCULAR: Regular rate and rhythm. RESPIRATORY: No accessory muscle use. Clear to auscultation. Breath sounds equal bilaterally. GASTROINTESTINAL: Abdomen soft, slightly tender epigastric and left upper quadrants, nondistended. MUSCULOSKELETAL: Extremities without clubbing, cyanosis, or edema. No obvious deformities. NEUROLOGICAL: Awake and alert. No obvious cranial nerve deficits. Motor grossly within normal limits. Five out of 5 muscle strength in the arms and legs. Normal speech. PSYCHIATRIC: Appropriate mood and affect; insight and judgment normal. Results - Labs CBC & Chem 7: 05/21/18 08:38 05/21/18 08:38 Laboratory Results - last 24 hr 05/20/18 05/20/18 05/20/18 12:30 12:30 12:30 CBC w Diff Auto diff final WBC 11.1 H RBC 4.56 Hgb 14.1 Hct 41.3 MCV 90.7 MCH 30.9 MCHC 34.1 RDW 12.9 Plt Count 376 MPV 7.3 Neut % (Auto) 83.1 H Lymph % (Auto) 12.2 Irion % (Auto) 3.7 Eos % (Auto) 0.5 Baso % (Auto) 0.5 Neut # (Auto) 9.1 H Lymph # (Auto) 1.4 Irion # (Auto) 0.4 Eos # (Auto) 0.1 Baso # (Auto) 0.1 WBC Differential . Differential Comment . PT 9.5 L INR 0.9 APTT 25.0 Sodium 136 Potassium 3.9 Chloride 102 Carbon Dioxide 24.1 Anion Gap 10 BUN 13 Creatinine 0.60 Estimated GFR Greater than 89 POC Glucose Random Glucose 302 H Calcium 8.3 L Magnesium Total Bilirubin 0.3 AST 8 L ALT 16 Alkaline Phosphatase 89 Total Creatine Kinase 46 CK-MB (CK-2) CK-MB (CK-2) % Troponin I Less than 0.02 L Total Protein 6.8 Albumin 3.0 L Lipase 83 Urine Color Urine Clarity Urine pH Ur Specific War Urine Protein Urine Glucose (UA) Urine Ketones Urine Occult Blood Urine Nitrate Urine Bilirubin Urine Urobilinogen Ur Leukocyte Esterase Urine RBC Ur Squamous Epith Cells Micro UA Comment Ur Microscopic Review Urine Culture Comments 05/20/18 05/20/18 05/20/18 14:58 17:12 17:15 CBC w Diff WBC RBC Hgb Hct MCV MCH MCHC RDW Plt Count MPV Neut % (Auto) Lymph % (Auto) Irion % (Auto) Eos % (Auto) Baso % (Auto) Neut # (Auto) Lymph # (Auto) Irion # (Auto) Eos # (Auto) Baso # (Auto) WBC Differential Differential Comment PT INR APTT Sodium Potassium Chloride Carbon Dioxide Anion Gap BUN Creatinine Estimated GFR POC Glucose 309 H Random Glucose Calcium Magnesium Total Bilirubin AST ALT Alkaline Phosphatase Total Creatine Kinase 172 CK-MB (CK-2) CK-MB (CK-2) % Troponin I 0.03 Total Protein Albumin Lipase Urine Color Yellow Urine Clarity Clear Urine pH 6.5 Ur Specific War 1.025 Urine Protein 300 or greater H Urine Glucose (UA) 1000 or greater H Urine Ketones 15 H Urine Occult Blood Small H Urine Nitrate Negative Urine Bilirubin Negative Urine Urobilinogen 0.2 Ur Leukocyte Esterase Negative Urine RBC 0-3 Ur Squamous Epith Cells 0-5 Micro UA Comment Culture not ind Ur Microscopic Review Microscopic reviewed Urine Culture Comments Culture not ind 05/20/18 05/20/18 05/21/18 21:06 23:00 07:26 CBC w Diff WBC RBC Hgb Hct MCV MCH MCHC RDW Plt Count MPV Neut % (Auto) Lymph % (Auto) Irion % (Auto) Eos % (Auto) Baso % (Auto) Neut # (Auto) Lymph # (Auto) Irion # (Auto) Eos # (Auto) Baso # (Auto) WBC Differential Differential Comment PT INR APTT Sodium Potassium Chloride Carbon Dioxide Anion Gap BUN Creatinine Estimated GFR POC Glucose 314 H 255 H Random Glucose Calcium Magnesium Total Bilirubin AST ALT Alkaline Phosphatase Total Creatine Kinase 209 H CK-MB (CK-2) 1.9 CK-MB (CK-2) % 0.9 Troponin I 0.04 Total Protein Albumin Lipase Urine Color Urine Clarity Urine pH Ur Specific War Urine Protein Urine Glucose (UA) Urine Ketones Urine Occult Blood Urine Nitrate Urine Bilirubin Urine Urobilinogen Ur Leukocyte Esterase Urine RBC Ur Squamous Epith Cells Micro UA Comment Ur Microscopic Review Urine Culture Comments 05/21/18 05/21/18 08:38 08:38 CBC w Diff Auto diff final WBC 10.1 RBC 4.21 Hgb 12.9 Hct 38.1 MCV 90.6 MCH 30.7 MCHC 34.0 RDW 13.2 Plt Count 365 MPV 7.1 Neut % (Auto) 76.4 H Lymph % (Auto) 15.9 Irion % (Auto) 5.6 Eos % (Auto) 0.4 Baso % (Auto) 1.7 Neut # (Auto) 7.7 Lymph # (Auto) 1.6 Irion # (Auto) 0.6 Eos # (Auto) 0.0 Baso # (Auto) 0.2 WBC Differential . Differential Comment . PT INR APTT Sodium 137 Potassium 3.8 Chloride 102 Carbon Dioxide 24.0 Anion Gap 11 BUN 14 Creatinine 0.95 Estimated GFR 61 L POC Glucose Random Glucose 338 H Calcium 8.3 L Magnesium 1.8 Total Bilirubin AST ALT Alkaline Phosphatase Total Creatine Kinase CK-MB (CK-2) CK-MB (CK-2) % Troponin I Total Protein Albumin Lipase Urine Color Urine Clarity Urine pH Ur Specific War Urine Protein Urine Glucose (UA) Urine Ketones Urine Occult Blood Urine Nitrate Urine Bilirubin Urine Urobilinogen Ur Leukocyte Esterase Urine RBC Ur Squamous Epith Cells Micro UA Comment Ur Microscopic Review Urine Culture Comments - Imaging Impressions Abdomen/Pelvis CT 05/20/18 12:31 CONCLUSION: No acute CT findings in the abdomen or pelvis. Chest X-Ray 05/20/18 12:31 CONCLUSION: No acute intrathoracic disease. Stable examination. - Procedures none Assessment and Plan - Plan This is a 57-year-old female with a history of coronary artery disease status post stent 2017, cardiomyopathy EF of 33%, diabetes mellitus, gastritis and duodenal inflammation status post EGD in 2017. She also had colonoscopy with ascending colon polypectomy. Patient presents with nausea vomiting and chest/ epigastric pain. Despite multiple medications (Benadryl, Reglan, Compazine and Phenergan) in the emergency department, she continues to have nausea and retching. She refused to have abdominal CT Persistent nausea, vomiting, chest and abdominal pain. Lipase within normal limits. Urinalysis negative. Patient states she had similar symptoms when she required stent in the past. History of coronary artery disease status post stent in 2017. She ruled out for HI. Negative Lexiscan this year. I do not think this is cardiac. Likely GI. History of gastritis and duodenal inflammation status post EGD in 2017. Abdominal CT negative. She is clinically improved tolerated breakfast. Will discontinue IV fluids and switch Protonix and Reglan to p.o. She will be on Reglan [id number] for the next 2 days then as needed. She will need outpatient follow-up with GI and gastric emptying study. She will also be on PPI and may need repeat EGD. Uncontrolled diabetes. Normal anion gap. Likely contributing to her symptoms. This is improving but expected to be out of control as she refuses insulin because of poor oral intake. Will restart home medications and monitor fingersticks with sliding scale coverage. Mild leukocytosis with no evidence of infection at this time. Resolved Noncompliance. Counseled Cardiomyopathy EF 33%. Restart Coreg and MAO inhibitor. If no improvement in 3 months she will need AICD. Needs outpatient follow-up with cardiology DVT prophylaxis with SCD and early ambulation. Discharge Planning: Discharge patient to home Condition on discharge: Improved Regular Diet as tolerated Ad Bhakti activity Rx written: Protonix, Reglan, lisinopril and Coreg Follow-up with primary care physician, gastroenterology and cardiology. Op GES
[2018-05-21] MEDS ORDERED: Lisinopril 5 MG Tablet PO SCH (10:00)
--- NOTE | 2018-05-21 10:00 | ECG ---
Date Performed: 05/20/2018 Time Performed: 16:44:17 PTAGE: 57 years EKG: Sinus rhythm NORMAL ECG PREVIOUS TRACING : 12/17/2017 10.50 DOCTOR: Garry Webb Interpretating Date/Time 05/21/2018 09:59:40
[2018-05-21 10:18] VITALS: PULSE 78
[2018-05-21] MEDS ORDERED: Metoclopramide 10 MG Tablet PO SCH (12:00)
[2018-05-21] MEDS ORDERED: traZODone 100 MG Tablet PO SCH (21:00)
[2018-05-21] MEDS ORDERED: Insulin Glargine Inj 1,000 UNITS/10 ML Vial SQ SCH (21:00)
== END 2018-05-21 13:40 | disposition home or self-care (01) ==
LOC: PHED 12:04 → PHEDA 16:41 → INTOOBSV 16:41 → PH3 17:22
PROVIDERS: ADMIT Internal Medicine; ATTEND Internal Medicine